=== PATIENT | female | born 1955 | race Caucasian/White ===

== ENCOUNTER → 2017-04-07 | Outpatient (CLI) | payer OTHER, MEDICARE ==
[~2017-04-07] MED LIST: ASPIRIN CHEW81 MG PO; DOXEPIN HCL100 MG PO; ESTRADIOL TD; FENTANYL1 EAC1 TOP; KEFLEX500 MG PO; LEXAPRO10 MG PO; LIPITOR20 MG PO; NAPROSYN500 MG PO; NAPROXEN250 MG PO; NORCO 10-325 T1 EACH PO; PROPRANOLOL HCL80 MG PO; SYNTHROID112 MCG PO
== END ==
LOC: WCC 15:13
PROVIDERS: ATTEND Family Medicine
DX: T86.821 Skin graft (allograft) (autograft) failure (principal); T81.89XA Other complications of procedures, not elsewhere classified, initial encounter; Y83.8 Other surgical procedures as the cause of abnormal reaction of the patient, or of later complication, without mention of misadventure at the time of the procedure; L03.115 Cellulitis of right lower limb; B96.89 Other specified bacterial agents as the cause of diseases classified elsewhere; L95.0 Livedoid vasculitis; B95.2 Enterococcus as the cause of diseases classified elsewhere; B96.5 Pseudomonas (aeruginosa) (mallei) (pseudomallei) as the cause of diseases classified elsewhere; E03.8 Other specified hypothyroidism; G89.18 Other acute postprocedural pain; G90.09 Other idiopathic peripheral autonomic neuropathy; I10 Essential (primary) hypertension; I70.213 Atherosclerosis of native arteries of extremities with intermittent claudication, bilateral legs; I73.9 Peripheral vascular disease, unspecified; I87.2 Venous insufficiency (chronic) (peripheral); I87.331 Chronic venous hypertension (idiopathic) with ulcer and inflammation of right lower extremity; L97.411 Non-pressure chronic ulcer of right heel and midfoot limited to breakdown of skin; L97.412 Non-pressure chronic ulcer of right heel and midfoot with fat layer exposed; I87.332 Chronic venous hypertension (idiopathic) with ulcer and inflammation of left lower extremity; L97.421 Non-pressure chronic ulcer of left heel and midfoot limited to breakdown of skin; L03.116 Cellulitis of left lower limb; L89.620 Pressure ulcer of left heel, unstageable; L89.890 Pressure ulcer of other site, unstageable; L90.5 Scar conditions and fibrosis of skin; L90.6 Striae atrophicae; L95.8 Other vasculitis limited to the skin; M79.604 Pain in right leg; R60.0 Localized edema; S91.309A Unspecified open wound, unspecified foot, initial encounter; W20.8XXA Other cause of strike by thrown, projected or falling object, initial encounter; Z01.810 Encounter for preprocedural cardiovascular examination; Z01.811 Encounter for preprocedural respiratory examination; Z74.01 Bed confinement status

== ENCOUNTER → 2017-04-08 | Outpatient (CLI) | payer OTHER, MEDICARE ==
[~2017-04-08] MED LIST changes: +MINERAL OIL/PETROLAT/GLYCERI 6OZ BTL ONE
== END ==
LOC: WCC 08:09
PROVIDERS: ATTEND Family Medicine
DX: T86.821 Skin graft (allograft) (autograft) failure (principal); T81.89XA Other complications of procedures, not elsewhere classified, initial encounter; Y83.8 Other surgical procedures as the cause of abnormal reaction of the patient, or of later complication, without mention of misadventure at the time of the procedure; L95.0 Livedoid vasculitis; B95.2 Enterococcus as the cause of diseases classified elsewhere; B96.5 Pseudomonas (aeruginosa) (mallei) (pseudomallei) as the cause of diseases classified elsewhere; E03.8 Other specified hypothyroidism; G89.18 Other acute postprocedural pain; G90.09 Other idiopathic peripheral autonomic neuropathy; I10 Essential (primary) hypertension; I70.213 Atherosclerosis of native arteries of extremities with intermittent claudication, bilateral legs; I73.9 Peripheral vascular disease, unspecified; I87.2 Venous insufficiency (chronic) (peripheral); I87.331 Chronic venous hypertension (idiopathic) with ulcer and inflammation of right lower extremity; L97.411 Non-pressure chronic ulcer of right heel and midfoot limited to breakdown of skin; L97.412 Non-pressure chronic ulcer of right heel and midfoot with fat layer exposed; I87.332 Chronic venous hypertension (idiopathic) with ulcer and inflammation of left lower extremity; L97.421 Non-pressure chronic ulcer of left heel and midfoot limited to breakdown of skin; L03.115 Cellulitis of right lower limb; B96.89 Other specified bacterial agents as the cause of diseases classified elsewhere; L03.116 Cellulitis of left lower limb; L89.620 Pressure ulcer of left heel, unstageable; L89.890 Pressure ulcer of other site, unstageable; L90.5 Scar conditions and fibrosis of skin; L90.6 Striae atrophicae; L95.8 Other vasculitis limited to the skin; M79.604 Pain in right leg; R60.0 Localized edema; S91.309A Unspecified open wound, unspecified foot, initial encounter; W20.8XXA Other cause of strike by thrown, projected or falling object, initial encounter; Z01.810 Encounter for preprocedural cardiovascular examination; Z01.811 Encounter for preprocedural respiratory examination; Z74.01 Bed confinement status

== ENCOUNTER → 2017-05-12 | Outpatient (CLI) | payer OTHER, MEDICARE ==
[~2017-05-12] MED LIST changes: -MINERAL OIL/PETROLAT/GLYCERI 6OZ BTL ONE
== END ==
LOC: WCC 14:13
PROVIDERS: ATTEND Family Medicine
DX: T86.821 Skin graft (allograft) (autograft) failure (principal); T81.89XA Other complications of procedures, not elsewhere classified, initial encounter; Y83.8 Other surgical procedures as the cause of abnormal reaction of the patient, or of later complication, without mention of misadventure at the time of the procedure; L03.032 Cellulitis of left toe; B96.89 Other specified bacterial agents as the cause of diseases classified elsewhere; L95.0 Livedoid vasculitis; B95.2 Enterococcus as the cause of diseases classified elsewhere; B96.5 Pseudomonas (aeruginosa) (mallei) (pseudomallei) as the cause of diseases classified elsewhere; E03.8 Other specified hypothyroidism; G89.18 Other acute postprocedural pain; G90.09 Other idiopathic peripheral autonomic neuropathy; I10 Essential (primary) hypertension; I70.213 Atherosclerosis of native arteries of extremities with intermittent claudication, bilateral legs; I73.9 Peripheral vascular disease, unspecified; I87.2 Venous insufficiency (chronic) (peripheral); I87.331 Chronic venous hypertension (idiopathic) with ulcer and inflammation of right lower extremity; L97.411 Non-pressure chronic ulcer of right heel and midfoot limited to breakdown of skin; L97.412 Non-pressure chronic ulcer of right heel and midfoot with fat layer exposed; I87.332 Chronic venous hypertension (idiopathic) with ulcer and inflammation of left lower extremity; L97.421 Non-pressure chronic ulcer of left heel and midfoot limited to breakdown of skin; L03.115 Cellulitis of right lower limb; L03.116 Cellulitis of left lower limb; L89.620 Pressure ulcer of left heel, unstageable; L89.890 Pressure ulcer of other site, unstageable; L90.5 Scar conditions and fibrosis of skin; L90.6 Striae atrophicae; L95.8 Other vasculitis limited to the skin; M79.604 Pain in right leg; R60.0 Localized edema; S91.309A Unspecified open wound, unspecified foot, initial encounter; W20.8XXA Other cause of strike by thrown, projected or falling object, initial encounter; Z01.810 Encounter for preprocedural cardiovascular examination; Z01.811 Encounter for preprocedural respiratory examination; Z74.01 Bed confinement status

== ENCOUNTER → 2017-05-13 | Outpatient (CLI) | payer OTHER, MEDICARE ==
[~2017-05-13] MED LIST changes: +LIDOCAINE VISC 2% SOLN 15 ML UDC ONE
== END ==
LOC: WCC 09:59
PROVIDERS: ATTEND Family Medicine
DX: T86.821 Skin graft (allograft) (autograft) failure (principal); T81.89XA Other complications of procedures, not elsewhere classified, initial encounter; Y83.8 Other surgical procedures as the cause of abnormal reaction of the patient, or of later complication, without mention of misadventure at the time of the procedure; L03.032 Cellulitis of left toe; B96.89 Other specified bacterial agents as the cause of diseases classified elsewhere; L95.0 Livedoid vasculitis; B95.2 Enterococcus as the cause of diseases classified elsewhere; B96.5 Pseudomonas (aeruginosa) (mallei) (pseudomallei) as the cause of diseases classified elsewhere; E03.8 Other specified hypothyroidism; G89.18 Other acute postprocedural pain; G90.09 Other idiopathic peripheral autonomic neuropathy; I10 Essential (primary) hypertension; I70.213 Atherosclerosis of native arteries of extremities with intermittent claudication, bilateral legs; I73.9 Peripheral vascular disease, unspecified; I87.2 Venous insufficiency (chronic) (peripheral); I87.331 Chronic venous hypertension (idiopathic) with ulcer and inflammation of right lower extremity; L97.411 Non-pressure chronic ulcer of right heel and midfoot limited to breakdown of skin; L97.412 Non-pressure chronic ulcer of right heel and midfoot with fat layer exposed; I87.332 Chronic venous hypertension (idiopathic) with ulcer and inflammation of left lower extremity; L97.421 Non-pressure chronic ulcer of left heel and midfoot limited to breakdown of skin; L03.115 Cellulitis of right lower limb; L03.116 Cellulitis of left lower limb; L89.620 Pressure ulcer of left heel, unstageable; L89.890 Pressure ulcer of other site, unstageable; L90.0 Lichen sclerosus et atrophicus; L95.8 Other vasculitis limited to the skin; M79.604 Pain in right leg; R60.0 Localized edema; S91.309A Unspecified open wound, unspecified foot, initial encounter; W20.8XXA Other cause of strike by thrown, projected or falling object, initial encounter; Z01.810 Encounter for preprocedural cardiovascular examination; Z01.811 Encounter for preprocedural respiratory examination; Z74.01 Bed confinement status

== ENCOUNTER → 2017-05-26 | Outpatient (CLI) | payer OTHER, MEDICARE ==
[~2017-05-26] MED LIST changes: -LIDOCAINE VISC 2% SOLN 15 ML UDC ONE
== END ==
LOC: WCC 12:25
PROVIDERS: ATTEND Family Medicine
DX: T86.821 Skin graft (allograft) (autograft) failure (principal); T81.89XA Other complications of procedures, not elsewhere classified, initial encounter; Y83.8 Other surgical procedures as the cause of abnormal reaction of the patient, or of later complication, without mention of misadventure at the time of the procedure; G89.18 Other acute postprocedural pain; L89.620 Pressure ulcer of left heel, unstageable; L89.890 Pressure ulcer of other site, unstageable; I87.332 Chronic venous hypertension (idiopathic) with ulcer and inflammation of left lower extremity; I87.331 Chronic venous hypertension (idiopathic) with ulcer and inflammation of right lower extremity; L97.421 Non-pressure chronic ulcer of left heel and midfoot limited to breakdown of skin; L97.412 Non-pressure chronic ulcer of right heel and midfoot with fat layer exposed; L97.411 Non-pressure chronic ulcer of right heel and midfoot limited to breakdown of skin; L03.116 Cellulitis of left lower limb; L03.032 Cellulitis of left toe; L03.115 Cellulitis of right lower limb; R60.0 Localized edema; M79.604 Pain in right leg; S91.309A Unspecified open wound, unspecified foot, initial encounter; B96.89 Other specified bacterial agents as the cause of diseases classified elsewhere; L95.0 Livedoid vasculitis; M79.81 Nontraumatic hematoma of soft tissue; B95.2 Enterococcus as the cause of diseases classified elsewhere; B96.5 Pseudomonas (aeruginosa) (mallei) (pseudomallei) as the cause of diseases classified elsewhere; E03.8 Other specified hypothyroidism; G90.09 Other idiopathic peripheral autonomic neuropathy; I10 Essential (primary) hypertension; I70.213 Atherosclerosis of native arteries of extremities with intermittent claudication, bilateral legs; I73.9 Peripheral vascular disease, unspecified; I87.2 Venous insufficiency (chronic) (peripheral); L90.5 Scar conditions and fibrosis of skin; L90.6 Striae atrophicae; L95.8 Other vasculitis limited to the skin; W20.8XXA Other cause of strike by thrown, projected or falling object, initial encounter; Z01.810 Encounter for preprocedural cardiovascular examination; Z01.811 Encounter for preprocedural respiratory examination

== ENCOUNTER → 2017-05-27 | Outpatient (CLI) | payer OTHER, MEDICARE ==
[~2017-05-27] MED LIST changes: +LIDOCAINE VISC 2% SOLN 15 ML UDC ONE
== END ==
LOC: WCC 09:12
PROVIDERS: ATTEND Family Medicine
DX: T86.821 Skin graft (allograft) (autograft) failure (principal); T81.89XA Other complications of procedures, not elsewhere classified, initial encounter; Y83.8 Other surgical procedures as the cause of abnormal reaction of the patient, or of later complication, without mention of misadventure at the time of the procedure; G89.18 Other acute postprocedural pain; I87.332 Chronic venous hypertension (idiopathic) with ulcer and inflammation of left lower extremity; I87.331 Chronic venous hypertension (idiopathic) with ulcer and inflammation of right lower extremity; L89.620 Pressure ulcer of left heel, unstageable; L89.890 Pressure ulcer of other site, unstageable; L97.421 Non-pressure chronic ulcer of left heel and midfoot limited to breakdown of skin; L97.412 Non-pressure chronic ulcer of right heel and midfoot with fat layer exposed; L97.411 Non-pressure chronic ulcer of right heel and midfoot limited to breakdown of skin; L03.116 Cellulitis of left lower limb; L03.032 Cellulitis of left toe; L03.115 Cellulitis of right lower limb; S91.309A Unspecified open wound, unspecified foot, initial encounter; R60.0 Localized edema; M79.604 Pain in right leg; B96.89 Other specified bacterial agents as the cause of diseases classified elsewhere; L90.6 Striae atrophicae; L95.0 Livedoid vasculitis; L90.5 Scar conditions and fibrosis of skin; L95.8 Other vasculitis limited to the skin; M79.81 Nontraumatic hematoma of soft tissue; B95.2 Enterococcus as the cause of diseases classified elsewhere; B96.5 Pseudomonas (aeruginosa) (mallei) (pseudomallei) as the cause of diseases classified elsewhere; E03.8 Other specified hypothyroidism; G90.09 Other idiopathic peripheral autonomic neuropathy; I10 Essential (primary) hypertension; I70.213 Atherosclerosis of native arteries of extremities with intermittent claudication, bilateral legs; I73.9 Peripheral vascular disease, unspecified; I87.2 Venous insufficiency (chronic) (peripheral); W20.8XXA Other cause of strike by thrown, projected or falling object, initial encounter; Z01.810 Encounter for preprocedural cardiovascular examination; Z01.811 Encounter for preprocedural respiratory examination
CPT/HCPCS: 11042; G0277

== ENCOUNTER → 2017-05-28 | Outpatient (CLI) | payer OTHER, MEDICARE ==
[~2017-05-28] MED LIST changes: -LIDOCAINE VISC 2% SOLN 15 ML UDC ONE
== END ==
LOC: WCC 10:24
PROVIDERS: ATTEND Family Medicine
DX: T86.821 Skin graft (allograft) (autograft) failure (principal); T81.89XA Other complications of procedures, not elsewhere classified, initial encounter; L03.032 Cellulitis of left toe; B96.89 Other specified bacterial agents as the cause of diseases classified elsewhere; L95.0 Livedoid vasculitis; M79.81 Nontraumatic hematoma of soft tissue; B95.2 Enterococcus as the cause of diseases classified elsewhere; B96.5 Pseudomonas (aeruginosa) (mallei) (pseudomallei) as the cause of diseases classified elsewhere; E03.8 Other specified hypothyroidism; G89.18 Other acute postprocedural pain; G90.09 Other idiopathic peripheral autonomic neuropathy; I10 Essential (primary) hypertension; I70.213 Atherosclerosis of native arteries of extremities with intermittent claudication, bilateral legs; I73.9 Peripheral vascular disease, unspecified; I87.2 Venous insufficiency (chronic) (peripheral); I87.331 Chronic venous hypertension (idiopathic) with ulcer and inflammation of right lower extremity; L97.411 Non-pressure chronic ulcer of right heel and midfoot limited to breakdown of skin; L97.412 Non-pressure chronic ulcer of right heel and midfoot with fat layer exposed; I87.332 Chronic venous hypertension (idiopathic) with ulcer and inflammation of left lower extremity; L97.421 Non-pressure chronic ulcer of left heel and midfoot limited to breakdown of skin; L03.115 Cellulitis of right lower limb; L03.116 Cellulitis of left lower limb; L89.620 Pressure ulcer of left heel, unstageable; L89.890 Pressure ulcer of other site, unstageable; L90.5 Scar conditions and fibrosis of skin; L90.6 Striae atrophicae; L95.8 Other vasculitis limited to the skin; M79.604 Pain in right leg; R60.0 Localized edema; S91.309A Unspecified open wound, unspecified foot, initial encounter; W20.8XXA Other cause of strike by thrown, projected or falling object, initial encounter; Z01.810 Encounter for preprocedural cardiovascular examination; Z01.811 Encounter for preprocedural respiratory examination

== ENCOUNTER → 2017-06-02 | Outpatient (CLI) | payer OTHER, MEDICARE | LOC: WCC 11:22 | PROVIDERS: ATTEND Family Medicine | DX: T86.821 Skin graft (allograft) (autograft) failure (principal); Y83.8 Other surgical procedures as the cause of abnormal reaction of the patient, or of later complication, without mention of misadventure at the time of the procedure; I87.331 Chronic venous hypertension (idiopathic) with ulcer and inflammation of right lower extremity; L97.511 Non-pressure chronic ulcer of other part of right foot limited to breakdown of skin; M79.81 Nontraumatic hematoma of soft tissue; L03.032 Cellulitis of left toe; M79.604 Pain in right leg; B96.89 Other specified bacterial agents as the cause of diseases classified elsewhere; W20.8XXA Other cause of strike by thrown, projected or falling object, initial encounter; L95.0 Livedoid vasculitis; L90.6 Striae atrophicae; L90.5 Scar conditions and fibrosis of skin; G90.09 Other idiopathic peripheral autonomic neuropathy; I10 Essential (primary) hypertension; I70.213 Atherosclerosis of native arteries of extremities with intermittent claudication, bilateral legs; I73.9 Peripheral vascular disease, unspecified; I87.2 Venous insufficiency (chronic) (peripheral); E03.8 Other specified hypothyroidism; Z01.810 Encounter for preprocedural cardiovascular examination; Z01.811 Encounter for preprocedural respiratory examination; Z74.01 Bed confinement status ==

== ENCOUNTER → 2017-06-03 | Outpatient (CLI) | payer OTHER, MEDICARE | LOC: WCC 08:05 | PROVIDERS: ATTEND Family Medicine | DX: T86.821 Skin graft (allograft) (autograft) failure (principal); I87.331 Chronic venous hypertension (idiopathic) with ulcer and inflammation of right lower extremity; L97.911 Non-pressure chronic ulcer of unspecified part of right lower leg limited to breakdown of skin; M79.81 Nontraumatic hematoma of soft tissue; L03.032 Cellulitis of left toe; B96.89 Other specified bacterial agents as the cause of diseases classified elsewhere; Y83.8 Other surgical procedures as the cause of abnormal reaction of the patient, or of later complication, without mention of misadventure at the time of the procedure; W20.8XXA Other cause of strike by thrown, projected or falling object, initial encounter; L95.0 Livedoid vasculitis; Z01.810 Encounter for preprocedural cardiovascular examination; G90.09 Other idiopathic peripheral autonomic neuropathy; I10 Essential (primary) hypertension; I70.213 Atherosclerosis of native arteries of extremities with intermittent claudication, bilateral legs; I73.9 Peripheral vascular disease, unspecified; I87.2 Venous insufficiency (chronic) (peripheral); L90.6 Striae atrophicae; L90.5 Scar conditions and fibrosis of skin ==

== ENCOUNTER → 2017-06-04 | Outpatient (CLI) | payer OTHER, MEDICARE | LOC: WCC 10:02 | PROVIDERS: ATTEND Family Medicine | DX: T86.821 Skin graft (allograft) (autograft) failure (principal); Y83.8 Other surgical procedures as the cause of abnormal reaction of the patient, or of later complication, without mention of misadventure at the time of the procedure; L97.511 Non-pressure chronic ulcer of other part of right foot limited to breakdown of skin; L03.032 Cellulitis of left toe; I87.331 Chronic venous hypertension (idiopathic) with ulcer and inflammation of right lower extremity; M79.81 Nontraumatic hematoma of soft tissue; I70.213 Atherosclerosis of native arteries of extremities with intermittent claudication, bilateral legs; I73.9 Peripheral vascular disease, unspecified; I87.2 Venous insufficiency (chronic) (peripheral); B96.89 Other specified bacterial agents as the cause of diseases classified elsewhere; G90.09 Other idiopathic peripheral autonomic neuropathy; I10 Essential (primary) hypertension; L90.6 Striae atrophicae; L95.0 Livedoid vasculitis; L90.5 Scar conditions and fibrosis of skin; W20.8XXA Other cause of strike by thrown, projected or falling object, initial encounter; Z01.810 Encounter for preprocedural cardiovascular examination ==

== ENCOUNTER → 2017-06-05 | Outpatient (CLI) | payer OTHER, MEDICARE | LOC: WCC 09:30 | PROVIDERS: ATTEND Family Medicine | DX: T86.821 Skin graft (allograft) (autograft) failure (principal); T81.89XA Other complications of procedures, not elsewhere classified, initial encounter; Y83.8 Other surgical procedures as the cause of abnormal reaction of the patient, or of later complication, without mention of misadventure at the time of the procedure; G89.18 Other acute postprocedural pain; L89.620 Pressure ulcer of left heel, unstageable; L89.890 Pressure ulcer of other site, unstageable; I87.332 Chronic venous hypertension (idiopathic) with ulcer and inflammation of left lower extremity; I87.331 Chronic venous hypertension (idiopathic) with ulcer and inflammation of right lower extremity; L97.421 Non-pressure chronic ulcer of left heel and midfoot limited to breakdown of skin; L97.511 Non-pressure chronic ulcer of other part of right foot limited to breakdown of skin; L97.412 Non-pressure chronic ulcer of right heel and midfoot with fat layer exposed; L97.411 Non-pressure chronic ulcer of right heel and midfoot limited to breakdown of skin; L03.116 Cellulitis of left lower limb; L03.032 Cellulitis of left toe; L03.115 Cellulitis of right lower limb; S91.309A Unspecified open wound, unspecified foot, initial encounter; M79.604 Pain in right leg; R60.0 Localized edema; B96.89 Other specified bacterial agents as the cause of diseases classified elsewhere; L95.0 Livedoid vasculitis; M79.81 Nontraumatic hematoma of soft tissue; B95.2 Enterococcus as the cause of diseases classified elsewhere; B96.5 Pseudomonas (aeruginosa) (mallei) (pseudomallei) as the cause of diseases classified elsewhere; E03.8 Other specified hypothyroidism; G90.09 Other idiopathic peripheral autonomic neuropathy; I10 Essential (primary) hypertension; I70.213 Atherosclerosis of native arteries of extremities with intermittent claudication, bilateral legs; I73.9 Peripheral vascular disease, unspecified; I87.2 Venous insufficiency (chronic) (peripheral); L90.5 Scar conditions and fibrosis of skin; L90.6 Striae atrophicae; L95.8 Other vasculitis limited to the skin; W20.8XXA Other cause of strike by thrown, projected or falling object, initial encounter; Z01.810 Encounter for preprocedural cardiovascular examination; Z01.811 Encounter for preprocedural respiratory examination; Z74.01 Bed confinement status ==

== ENCOUNTER → 2017-06-10 | Outpatient (CLI) | payer OTHER, MEDICARE ==
[~2017-06-10] MED LIST changes: +LIDOCAINE/PRILOCAINE 2.5-2.5% KIT ONE
== END ==
LOC: WCC 08:32
PROVIDERS: ATTEND Family Medicine
DX: T86.821 Skin graft (allograft) (autograft) failure (principal); T81.89XA Other complications of procedures, not elsewhere classified, initial encounter; Y83.8 Other surgical procedures as the cause of abnormal reaction of the patient, or of later complication, without mention of misadventure at the time of the procedure; G89.18 Other acute postprocedural pain; I87.332 Chronic venous hypertension (idiopathic) with ulcer and inflammation of left lower extremity; I87.331 Chronic venous hypertension (idiopathic) with ulcer and inflammation of right lower extremity; L89.620 Pressure ulcer of left heel, unstageable; L89.890 Pressure ulcer of other site, unstageable; L97.421 Non-pressure chronic ulcer of left heel and midfoot limited to breakdown of skin; L97.412 Non-pressure chronic ulcer of right heel and midfoot with fat layer exposed; L97.411 Non-pressure chronic ulcer of right heel and midfoot limited to breakdown of skin; L97.511 Non-pressure chronic ulcer of other part of right foot limited to breakdown of skin; L03.116 Cellulitis of left lower limb; L03.032 Cellulitis of left toe; L03.115 Cellulitis of right lower limb; S91.309A Unspecified open wound, unspecified foot, initial encounter; M79.604 Pain in right leg; R60.0 Localized edema; I87.2 Venous insufficiency (chronic) (peripheral); I73.9 Peripheral vascular disease, unspecified; B96.89 Other specified bacterial agents as the cause of diseases classified elsewhere; L95.0 Livedoid vasculitis; M79.81 Nontraumatic hematoma of soft tissue; B95.2 Enterococcus as the cause of diseases classified elsewhere; B96.5 Pseudomonas (aeruginosa) (mallei) (pseudomallei) as the cause of diseases classified elsewhere; I10 Essential (primary) hypertension; E03.8 Other specified hypothyroidism; G90.09 Other idiopathic peripheral autonomic neuropathy; I70.213 Atherosclerosis of native arteries of extremities with intermittent claudication, bilateral legs; L90.5 Scar conditions and fibrosis of skin; L90.6 Striae atrophicae; L95.8 Other vasculitis limited to the skin; W20.8XXA Other cause of strike by thrown, projected or falling object, initial encounter; Z01.810 Encounter for preprocedural cardiovascular examination; Z01.811 Encounter for preprocedural respiratory examination; Z74.01 Bed confinement status
CPT/HCPCS: 29581; 97597; G0277

== ENCOUNTER → 2017-06-12 | Outpatient (CLI) | payer OTHER, MEDICARE ==
[~2017-06-12] MED LIST changes: -LIDOCAINE/PRILOCAINE 2.5-2.5% KIT ONE
== END ==
LOC: WCC 09:44
PROVIDERS: ATTEND Family Medicine
DX: T86.821 Skin graft (allograft) (autograft) failure (principal); T81.89XA Other complications of procedures, not elsewhere classified, initial encounter; Y83.8 Other surgical procedures as the cause of abnormal reaction of the patient, or of later complication, without mention of misadventure at the time of the procedure; G89.18 Other acute postprocedural pain; I87.332 Chronic venous hypertension (idiopathic) with ulcer and inflammation of left lower extremity; I87.331 Chronic venous hypertension (idiopathic) with ulcer and inflammation of right lower extremity; L89.620 Pressure ulcer of left heel, unstageable; L97.421 Non-pressure chronic ulcer of left heel and midfoot limited to breakdown of skin; L97.412 Non-pressure chronic ulcer of right heel and midfoot with fat layer exposed; L97.511 Non-pressure chronic ulcer of other part of right foot limited to breakdown of skin; L97.411 Non-pressure chronic ulcer of right heel and midfoot limited to breakdown of skin; S91.309A Unspecified open wound, unspecified foot, initial encounter; L03.116 Cellulitis of left lower limb; L03.032 Cellulitis of left toe; L03.115 Cellulitis of right lower limb; L03.818 Cellulitis of other sites; R60.0 Localized edema; M79.604 Pain in right leg; I73.9 Peripheral vascular disease, unspecified; I87.2 Venous insufficiency (chronic) (peripheral); B96.89 Other specified bacterial agents as the cause of diseases classified elsewhere; B95.2 Enterococcus as the cause of diseases classified elsewhere; B96.5 Pseudomonas (aeruginosa) (mallei) (pseudomallei) as the cause of diseases classified elsewhere; I70.213 Atherosclerosis of native arteries of extremities with intermittent claudication, bilateral legs; L90.5 Scar conditions and fibrosis of skin; E03.8 Other specified hypothyroidism; M79.81 Nontraumatic hematoma of soft tissue; L90.6 Striae atrophicae; G90.09 Other idiopathic peripheral autonomic neuropathy; L95.0 Livedoid vasculitis; L95.8 Other vasculitis limited to the skin; W20.8XXA Other cause of strike by thrown, projected or falling object, initial encounter; I10 Essential (primary) hypertension; Z01.810 Encounter for preprocedural cardiovascular examination; Z01.811 Encounter for preprocedural respiratory examination; Z74.01 Bed confinement status

== ENCOUNTER → 2017-06-17 | Outpatient (CLI) | payer OTHER, MEDICARE ==
[~2017-06-17] MED LIST changes: +LIDOCAINE/PRILOCAINE 2.5-2.5% KIT ONE; +MUPIROCIN 2% OINT 22 GM TUBE ONE
== END ==
LOC: WCC 08:46
PROVIDERS: ATTEND Family Medicine
DX: T86.821 Skin graft (allograft) (autograft) failure (principal); T81.89XA Other complications of procedures, not elsewhere classified, initial encounter; Y83.8 Other surgical procedures as the cause of abnormal reaction of the patient, or of later complication, without mention of misadventure at the time of the procedure; G89.18 Other acute postprocedural pain; I87.332 Chronic venous hypertension (idiopathic) with ulcer and inflammation of left lower extremity; I87.331 Chronic venous hypertension (idiopathic) with ulcer and inflammation of right lower extremity; L97.421 Non-pressure chronic ulcer of left heel and midfoot limited to breakdown of skin; L97.511 Non-pressure chronic ulcer of other part of right foot limited to breakdown of skin; L97.412 Non-pressure chronic ulcer of right heel and midfoot with fat layer exposed; L97.411 Non-pressure chronic ulcer of right heel and midfoot limited to breakdown of skin; L03.116 Cellulitis of left lower limb; L03.032 Cellulitis of left toe; L03.115 Cellulitis of right lower limb; L03.818 Cellulitis of other sites; L89.620 Pressure ulcer of left heel, unstageable; L89.890 Pressure ulcer of other site, unstageable; S91.309A Unspecified open wound, unspecified foot, initial encounter; M79.604 Pain in right leg; R60.0 Localized edema; I87.2 Venous insufficiency (chronic) (peripheral); I73.9 Peripheral vascular disease, unspecified; B96.89 Other specified bacterial agents as the cause of diseases classified elsewhere; L95.0 Livedoid vasculitis; M79.81 Nontraumatic hematoma of soft tissue; B95.2 Enterococcus as the cause of diseases classified elsewhere; B96.5 Pseudomonas (aeruginosa) (mallei) (pseudomallei) as the cause of diseases classified elsewhere; I10 Essential (primary) hypertension; E03.8 Other specified hypothyroidism; G90.09 Other idiopathic peripheral autonomic neuropathy; I70.213 Atherosclerosis of native arteries of extremities with intermittent claudication, bilateral legs; L90.5 Scar conditions and fibrosis of skin; L90.6 Striae atrophicae; L95.8 Other vasculitis limited to the skin; W20.8XXA Other cause of strike by thrown, projected or falling object, initial encounter; Z01.810 Encounter for preprocedural cardiovascular examination; Z01.811 Encounter for preprocedural respiratory examination; Z74.01 Bed confinement status

== ENCOUNTER → 2017-06-18 | Outpatient (CLI) | payer OTHER, MEDICARE ==
[~2017-06-18] MED LIST changes: -LIDOCAINE/PRILOCAINE 2.5-2.5% KIT ONE; -MUPIROCIN 2% OINT 22 GM TUBE ONE
== END ==
LOC: WCC 10:37
PROVIDERS: ATTEND Family Medicine
DX: T86.821 Skin graft (allograft) (autograft) failure (principal); T81.89XA Other complications of procedures, not elsewhere classified, initial encounter; Y83.8 Other surgical procedures as the cause of abnormal reaction of the patient, or of later complication, without mention of misadventure at the time of the procedure; G89.18 Other acute postprocedural pain; L89.620 Pressure ulcer of left heel, unstageable; L89.890 Pressure ulcer of other site, unstageable; L97.421 Non-pressure chronic ulcer of left heel and midfoot limited to breakdown of skin; L97.511 Non-pressure chronic ulcer of other part of right foot limited to breakdown of skin; L97.411 Non-pressure chronic ulcer of right heel and midfoot limited to breakdown of skin; L97.412 Non-pressure chronic ulcer of right heel and midfoot with fat layer exposed; I87.331 Chronic venous hypertension (idiopathic) with ulcer and inflammation of right lower extremity; L03.116 Cellulitis of left lower limb; L03.032 Cellulitis of left toe; L03.115 Cellulitis of right lower limb; L03.818 Cellulitis of other sites; S91.309A Unspecified open wound, unspecified foot, initial encounter; M79.604 Pain in right leg; R60.0 Localized edema; I73.9 Peripheral vascular disease, unspecified; I87.2 Venous insufficiency (chronic) (peripheral); B96.89 Other specified bacterial agents as the cause of diseases classified elsewhere; M79.81 Nontraumatic hematoma of soft tissue; B95.2 Enterococcus as the cause of diseases classified elsewhere; B96.5 Pseudomonas (aeruginosa) (mallei) (pseudomallei) as the cause of diseases classified elsewhere; E03.8 Other specified hypothyroidism; I10 Essential (primary) hypertension; G90.09 Other idiopathic peripheral autonomic neuropathy; I70.213 Atherosclerosis of native arteries of extremities with intermittent claudication, bilateral legs; L90.5 Scar conditions and fibrosis of skin; L90.6 Striae atrophicae; L95.0 Livedoid vasculitis; L95.8 Other vasculitis limited to the skin; W20.8XXA Other cause of strike by thrown, projected or falling object, initial encounter; Z01.810 Encounter for preprocedural cardiovascular examination; Z01.811 Encounter for preprocedural respiratory examination; Z74.01 Bed confinement status
CPT/HCPCS: 11042; G0277

== ENCOUNTER → 2017-06-19 | Outpatient (CLI) | payer OTHER, MEDICARE ==
[~2017-06-19] MED LIST changes: +IOPAMIDOL 370 MG/ML 200 ML INFUS..BTL INJ ONE; +SODIUM CHLORIDE 0.9% INJ 500 ML BAG ONE
[2017-06-19 15:13] LABS: CREATININE, SERUM 0.95 mg/dL (0.57-1.11)
--- NOTE | 2017-06-20 01:47 | Diagnostic Imaging Report ---
History: Enlarged thyroid, tightness in throat Comparison studies: None Technique: Axial, coronal and sagittal images from the skull base to the thoracic inlet. Coronal and sagittal images reconstructed from the axial data. Intravenous contrast: 100 cc of Omnipaque 300. Findings: Evaluation of the oral cavity and left oropharynx are somewhat limited by artifacts related to dental amalgam. Soft tissues: No abnormalities. Masses: None. Thyroid gland: Homogeneous and not enlarged. No nodular mass. Lymph nodes: No radiographically significant adenopathy. Vessels: Carotid arteries and internal jugular veins are patent. Anatomical variant retropulsion course of the internal carotid arteries. Nonstenotic calcified plaque at the left cervical bulb. Calcified and soft plaque at the right cervical bulb results in approximately 30-40% stenosis. Glands (parotid and submandibular): Normal in size and symmetric. No masses. Orbits: No abnormalities. Paranasal sinuses: Clear. Temporal bones: Nonspecific partial left mastoid opacification. Skull base and facial bones: Intact. Cervical spine: Mild cervical kyphosis centered at C5-C6. Severely degenerated C5-C6 disc. Minimal retrolisthesis of C5 on C6 with associated disc osteophyte complex result in moderate canal stenosis. Multilevel moderate to severe facet arthrosis. Multilevel uncovertebral and facet arthrosis result in multilevel foraminal stenosis (mild left at C2-C3 moderate left at C3-C4 moderate right at C4-C5 moderate right at C5-C6). IMPRESSION: 1. No thyroid gland enlargement or thyroid nodule. 2. Atherosclerosis with mild stenosis in the right cervical carotid bulb. 3. Multilevel degenerative changes in the cervical spine as described. Signed by: Dr. Bello Richardson M.D. on 06/20/2017 1:43 AM
== END ==
LOC: CT 14:19
PROVIDERS: ATTEND Internal Medicine Infectious Disease
DX: T86.821 Skin graft (allograft) (autograft) failure (principal); T81.89XA Other complications of procedures, not elsewhere classified, initial encounter; Y83.8 Other surgical procedures as the cause of abnormal reaction of the patient, or of later complication, without mention of misadventure at the time of the procedure; G89.18 Other acute postprocedural pain; I87.332 Chronic venous hypertension (idiopathic) with ulcer and inflammation of left lower extremity; I87.331 Chronic venous hypertension (idiopathic) with ulcer and inflammation of right lower extremity; L89.620 Pressure ulcer of left heel, unstageable; L89.890 Pressure ulcer of other site, unstageable; L97.421 Non-pressure chronic ulcer of left heel and midfoot limited to breakdown of skin; L97.412 Non-pressure chronic ulcer of right heel and midfoot with fat layer exposed; L97.411 Non-pressure chronic ulcer of right heel and midfoot limited to breakdown of skin; L97.511 Non-pressure chronic ulcer of other part of right foot limited to breakdown of skin; L03.116 Cellulitis of left lower limb; L03.032 Cellulitis of left toe; L03.115 Cellulitis of right lower limb; L03.818 Cellulitis of other sites; S91.309A Unspecified open wound, unspecified foot, initial encounter; M79.604 Pain in right leg; R60.0 Localized edema; M79.81 Nontraumatic hematoma of soft tissue; I70.213 Atherosclerosis of native arteries of extremities with intermittent claudication, bilateral legs; I73.9 Peripheral vascular disease, unspecified; I87.2 Venous insufficiency (chronic) (peripheral); B96.89 Other specified bacterial agents as the cause of diseases classified elsewhere; L95.0 Livedoid vasculitis; B95.2 Enterococcus as the cause of diseases classified elsewhere; B96.5 Pseudomonas (aeruginosa) (mallei) (pseudomallei) as the cause of diseases classified elsewhere; I10 Essential (primary) hypertension; E03.8 Other specified hypothyroidism; G90.09 Other idiopathic peripheral autonomic neuropathy; L90.5 Scar conditions and fibrosis of skin; L90.6 Striae atrophicae; L95.8 Other vasculitis limited to the skin; W20.8XXA Other cause of strike by thrown, projected or falling object, initial encounter; Z01.810 Encounter for preprocedural cardiovascular examination; Z01.811 Encounter for preprocedural respiratory examination; Z74.01 Bed confinement status
CPT/HCPCS: 36415; 70491; 82565; 84520

== ENCOUNTER → 2017-07-01 | Outpatient (CLI) | payer OTHER, MEDICARE ==
[~2017-07-01] MED LIST changes: -IOPAMIDOL 370 MG/ML 200 ML INFUS..BTL INJ ONE; +LIDOCAINE/PRILOCAINE 2.5-2.5% KIT ONE; +SODIUM CHLORIDE 0.9% INJ 250 ML BAG ONE; -SODIUM CHLORIDE 0.9% INJ 500 ML BAG ONE
== END ==
LOC: WCC 10:49
PROVIDERS: ATTEND Family Medicine
DX: T86.821 Skin graft (allograft) (autograft) failure (principal); T81.89XA Other complications of procedures, not elsewhere classified, initial encounter; Y83.8 Other surgical procedures as the cause of abnormal reaction of the patient, or of later complication, without mention of misadventure at the time of the procedure; G89.18 Other acute postprocedural pain; L89.620 Pressure ulcer of left heel, unstageable; L89.890 Pressure ulcer of other site, unstageable; L97.421 Non-pressure chronic ulcer of left heel and midfoot limited to breakdown of skin; L97.412 Non-pressure chronic ulcer of right heel and midfoot with fat layer exposed; L97.511 Non-pressure chronic ulcer of other part of right foot limited to breakdown of skin; L97.411 Non-pressure chronic ulcer of right heel and midfoot limited to breakdown of skin; I87.332 Chronic venous hypertension (idiopathic) with ulcer and inflammation of left lower extremity; I87.331 Chronic venous hypertension (idiopathic) with ulcer and inflammation of right lower extremity; L03.116 Cellulitis of left lower limb; L03.032 Cellulitis of left toe; L03.115 Cellulitis of right lower limb; S91.309A Unspecified open wound, unspecified foot, initial encounter; M79.604 Pain in right leg; R60.0 Localized edema; I73.9 Peripheral vascular disease, unspecified; I70.213 Atherosclerosis of native arteries of extremities with intermittent claudication, bilateral legs; I87.2 Venous insufficiency (chronic) (peripheral); B96.89 Other specified bacterial agents as the cause of diseases classified elsewhere; L95.0 Livedoid vasculitis; M79.81 Nontraumatic hematoma of soft tissue; B95.2 Enterococcus as the cause of diseases classified elsewhere; B96.5 Pseudomonas (aeruginosa) (mallei) (pseudomallei) as the cause of diseases classified elsewhere; E03.8 Other specified hypothyroidism; G90.09 Other idiopathic peripheral autonomic neuropathy; I10 Essential (primary) hypertension; L90.5 Scar conditions and fibrosis of skin; L90.6 Striae atrophicae; L95.8 Other vasculitis limited to the skin; W20.8XXA Other cause of strike by thrown, projected or falling object, initial encounter; Z01.810 Encounter for preprocedural cardiovascular examination; Z01.811 Encounter for preprocedural respiratory examination; Z74.01 Bed confinement status
CPT/HCPCS: 99213; J7050

== ENCOUNTER → 2017-07-08 | Outpatient (CLI) | payer OTHER, MEDICARE ==
[~2017-07-08] MED LIST changes: -LIDOCAINE/PRILOCAINE 2.5-2.5% KIT ONE; -SODIUM CHLORIDE 0.9% INJ 250 ML BAG ONE
== END ==
LOC: WCC 10:36
PROVIDERS: ATTEND Family Medicine
DX: T86.821 Skin graft (allograft) (autograft) failure (principal); T81.89XA Other complications of procedures, not elsewhere classified, initial encounter; Y83.8 Other surgical procedures as the cause of abnormal reaction of the patient, or of later complication, without mention of misadventure at the time of the procedure; G89.18 Other acute postprocedural pain; L89.620 Pressure ulcer of left heel, unstageable; L89.890 Pressure ulcer of other site, unstageable; L97.421 Non-pressure chronic ulcer of left heel and midfoot limited to breakdown of skin; L97.412 Non-pressure chronic ulcer of right heel and midfoot with fat layer exposed; L97.411 Non-pressure chronic ulcer of right heel and midfoot limited to breakdown of skin; L97.511 Non-pressure chronic ulcer of other part of right foot limited to breakdown of skin; I87.332 Chronic venous hypertension (idiopathic) with ulcer and inflammation of left lower extremity; I87.331 Chronic venous hypertension (idiopathic) with ulcer and inflammation of right lower extremity; L03.116 Cellulitis of left lower limb; L03.032 Cellulitis of left toe; L03.115 Cellulitis of right lower limb; S91.309A Unspecified open wound, unspecified foot, initial encounter; M79.81 Nontraumatic hematoma of soft tissue; R60.0 Localized edema; M79.604 Pain in right leg; B96.89 Other specified bacterial agents as the cause of diseases classified elsewhere; I87.2 Venous insufficiency (chronic) (peripheral); I73.9 Peripheral vascular disease, unspecified; L95.0 Livedoid vasculitis; L90.6 Striae atrophicae; L90.5 Scar conditions and fibrosis of skin; L95.8 Other vasculitis limited to the skin; B95.2 Enterococcus as the cause of diseases classified elsewhere; B96.5 Pseudomonas (aeruginosa) (mallei) (pseudomallei) as the cause of diseases classified elsewhere; E03.8 Other specified hypothyroidism; G90.09 Other idiopathic peripheral autonomic neuropathy; I10 Essential (primary) hypertension; I70.213 Atherosclerosis of native arteries of extremities with intermittent claudication, bilateral legs; W20.8XXA Other cause of strike by thrown, projected or falling object, initial encounter; Z01.810 Encounter for preprocedural cardiovascular examination; Z01.811 Encounter for preprocedural respiratory examination; Z74.01 Bed confinement status

== ENCOUNTER → 2017-07-15 | Outpatient (CLI) | payer OTHER, MEDICARE ==
[~2017-07-15] MED LIST changes: +LIDOCAINE VISC 2% SOLN 15 ML UDC ONE
== END ==
LOC: WCC 10:26
PROVIDERS: ATTEND Family Medicine
DX: T86.821 Skin graft (allograft) (autograft) failure (principal); T81.89XA Other complications of procedures, not elsewhere classified, initial encounter; Y83.8 Other surgical procedures as the cause of abnormal reaction of the patient, or of later complication, without mention of misadventure at the time of the procedure; L03.032 Cellulitis of left toe; B96.89 Other specified bacterial agents as the cause of diseases classified elsewhere; L95.0 Livedoid vasculitis; S81.802A Unspecified open wound, left lower leg, initial encounter; B95.2 Enterococcus as the cause of diseases classified elsewhere; B96.5 Pseudomonas (aeruginosa) (mallei) (pseudomallei) as the cause of diseases classified elsewhere; E03.8 Other specified hypothyroidism; G89.18 Other acute postprocedural pain; G90.09 Other idiopathic peripheral autonomic neuropathy; I10 Essential (primary) hypertension; I70.213 Atherosclerosis of native arteries of extremities with intermittent claudication, bilateral legs; I73.9 Peripheral vascular disease, unspecified; I87.2 Venous insufficiency (chronic) (peripheral); I87.331 Chronic venous hypertension (idiopathic) with ulcer and inflammation of right lower extremity; L97.411 Non-pressure chronic ulcer of right heel and midfoot limited to breakdown of skin; I87.332 Chronic venous hypertension (idiopathic) with ulcer and inflammation of left lower extremity; L97.421 Non-pressure chronic ulcer of left heel and midfoot limited to breakdown of skin; L03.115 Cellulitis of right lower limb; L03.116 Cellulitis of left lower limb; L89.620 Pressure ulcer of left heel, unstageable; L89.890 Pressure ulcer of other site, unstageable; L90.5 Scar conditions and fibrosis of skin; L90.6 Striae atrophicae; L95.8 Other vasculitis limited to the skin; M79.604 Pain in right leg; R60.0 Localized edema; S91.309A Unspecified open wound, unspecified foot, initial encounter; W20.8XXA Other cause of strike by thrown, projected or falling object, initial encounter; Z01.810 Encounter for preprocedural cardiovascular examination; Z01.811 Encounter for preprocedural respiratory examination; Z74.01 Bed confinement status

== ENCOUNTER → 2017-07-16 | Outpatient (CLI) | payer OTHER, MEDICARE ==
[~2017-07-16] MED LIST changes: -LIDOCAINE VISC 2% SOLN 15 ML UDC ONE
== END ==
LOC: WCC 11:52
PROVIDERS: ATTEND Family Medicine
DX: T86.821 Skin graft (allograft) (autograft) failure (principal); T81.89XA Other complications of procedures, not elsewhere classified, initial encounter; Y83.8 Other surgical procedures as the cause of abnormal reaction of the patient, or of later complication, without mention of misadventure at the time of the procedure; L03.032 Cellulitis of left toe; B96.89 Other specified bacterial agents as the cause of diseases classified elsewhere; L95.0 Livedoid vasculitis; S81.802A Unspecified open wound, left lower leg, initial encounter; B95.2 Enterococcus as the cause of diseases classified elsewhere; B90 Sequelae of tuberculosis; E03.8 Other specified hypothyroidism; G89.18 Other acute postprocedural pain; G90.09 Other idiopathic peripheral autonomic neuropathy; I10 Essential (primary) hypertension; I70.213 Atherosclerosis of native arteries of extremities with intermittent claudication, bilateral legs; I73.9 Peripheral vascular disease, unspecified; I87.2 Venous insufficiency (chronic) (peripheral); I87.331 Chronic venous hypertension (idiopathic) with ulcer and inflammation of right lower extremity; L97.411 Non-pressure chronic ulcer of right heel and midfoot limited to breakdown of skin; I87.332 Chronic venous hypertension (idiopathic) with ulcer and inflammation of left lower extremity; L97.421 Non-pressure chronic ulcer of left heel and midfoot limited to breakdown of skin; L03.115 Cellulitis of right lower limb; L03.116 Cellulitis of left lower limb; L89.620 Pressure ulcer of left heel, unstageable; L89.890 Pressure ulcer of other site, unstageable; L90.5 Scar conditions and fibrosis of skin; L90.6 Striae atrophicae; L95.8 Other vasculitis limited to the skin; M79.604 Pain in right leg; R60.0 Localized edema; S91.309A Unspecified open wound, unspecified foot, initial encounter; W20.8XXA Other cause of strike by thrown, projected or falling object, initial encounter; Z01.810 Encounter for preprocedural cardiovascular examination; Z01.811 Encounter for preprocedural respiratory examination; Z74.01 Bed confinement status
CPT/HCPCS: 36415; 82948

== ENCOUNTER → 2017-07-17 | Outpatient (CLI) | payer OTHER, MEDICARE | LOC: WCC 11:08 | PROVIDERS: ATTEND Family Medicine | DX: T86.821 Skin graft (allograft) (autograft) failure (principal); T81.89XA Other complications of procedures, not elsewhere classified, initial encounter; Y83.8 Other surgical procedures as the cause of abnormal reaction of the patient, or of later complication, without mention of misadventure at the time of the procedure; G89.18 Other acute postprocedural pain; L89.620 Pressure ulcer of left heel, unstageable; L89.890 Pressure ulcer of other site, unstageable; L97.421 Non-pressure chronic ulcer of left heel and midfoot limited to breakdown of skin; L97.411 Non-pressure chronic ulcer of right heel and midfoot limited to breakdown of skin; I87.332 Chronic venous hypertension (idiopathic) with ulcer and inflammation of left lower extremity; I87.331 Chronic venous hypertension (idiopathic) with ulcer and inflammation of right lower extremity; L03.116 Cellulitis of left lower limb; L03.032 Cellulitis of left toe; L03.115 Cellulitis of right lower limb; S81.802A Unspecified open wound, left lower leg, initial encounter; S91.309A Unspecified open wound, unspecified foot, initial encounter; M79.604 Pain in right leg; R60.0 Localized edema; I73.9 Peripheral vascular disease, unspecified; I87.2 Venous insufficiency (chronic) (peripheral); B96.89 Other specified bacterial agents as the cause of diseases classified elsewhere; L95.0 Livedoid vasculitis; L90.6 Striae atrophicae; L95.8 Other vasculitis limited to the skin; L90.5 Scar conditions and fibrosis of skin; B95.2 Enterococcus as the cause of diseases classified elsewhere; B96.5 Pseudomonas (aeruginosa) (mallei) (pseudomallei) as the cause of diseases classified elsewhere; E03.8 Other specified hypothyroidism; G90.09 Other idiopathic peripheral autonomic neuropathy; I10 Essential (primary) hypertension; I70.213 Atherosclerosis of native arteries of extremities with intermittent claudication, bilateral legs; W20.8XXA Other cause of strike by thrown, projected or falling object, initial encounter; Z01.810 Encounter for preprocedural cardiovascular examination; Z01.811 Encounter for preprocedural respiratory examination; Z74.01 Bed confinement status ==

== ENCOUNTER → 2017-07-21 | Outpatient (CLI) | payer OTHER, MEDICARE | LOC: WCC 10:04 | PROVIDERS: ATTEND Family Medicine | DX: T86.821 Skin graft (allograft) (autograft) failure (principal); T81.89XA Other complications of procedures, not elsewhere classified, initial encounter; Y83.8 Other surgical procedures as the cause of abnormal reaction of the patient, or of later complication, without mention of misadventure at the time of the procedure; G89.18 Other acute postprocedural pain; I87.332 Chronic venous hypertension (idiopathic) with ulcer and inflammation of left lower extremity; I87.331 Chronic venous hypertension (idiopathic) with ulcer and inflammation of right lower extremity; L89.620 Pressure ulcer of left heel, unstageable; L89.890 Pressure ulcer of other site, unstageable; L97.411 Non-pressure chronic ulcer of right heel and midfoot limited to breakdown of skin; L97.511 Non-pressure chronic ulcer of other part of right foot limited to breakdown of skin; L97.421 Non-pressure chronic ulcer of left heel and midfoot limited to breakdown of skin; L03.032 Cellulitis of left toe; L03.116 Cellulitis of left lower limb; L03.115 Cellulitis of right lower limb; S81.802A Unspecified open wound, left lower leg, initial encounter; S91.309A Unspecified open wound, unspecified foot, initial encounter; M79.604 Pain in right leg; R60.0 Localized edema; I70.213 Atherosclerosis of native arteries of extremities with intermittent claudication, bilateral legs; I73.9 Peripheral vascular disease, unspecified; I87.2 Venous insufficiency (chronic) (peripheral); I10 Essential (primary) hypertension; B96.89 Other specified bacterial agents as the cause of diseases classified elsewhere; L95.0 Livedoid vasculitis; B95.2 Enterococcus as the cause of diseases classified elsewhere; B96.5 Pseudomonas (aeruginosa) (mallei) (pseudomallei) as the cause of diseases classified elsewhere; E03.8 Other specified hypothyroidism; G90.09 Other idiopathic peripheral autonomic neuropathy; L90.5 Scar conditions and fibrosis of skin; L90.6 Striae atrophicae; L95.8 Other vasculitis limited to the skin; W20.8XXA Other cause of strike by thrown, projected or falling object, initial encounter; Z01.810 Encounter for preprocedural cardiovascular examination; Z01.811 Encounter for preprocedural respiratory examination; Z74.01 Bed confinement status ==

== ENCOUNTER 2017-07-22 09:09 | Outpatient (RCR) | payer OTHER, MEDICARE ==
[2017-07-22] MEDS ORDERED: LIDOCAINE VISC 2% SOLN 15 ML UDC ONE (14:28)
== END 2017-08-05 ==
LOC: WCC 09:09
PROVIDERS: ATTEND Family Medicine
DX: T86.821 Skin graft (allograft) (autograft) failure (principal); T81.89XA Other complications of procedures, not elsewhere classified, initial encounter; Y83.8 Other surgical procedures as the cause of abnormal reaction of the patient, or of later complication, without mention of misadventure at the time of the procedure; G89.18 Other acute postprocedural pain; I87.332 Chronic venous hypertension (idiopathic) with ulcer and inflammation of left lower extremity; I87.331 Chronic venous hypertension (idiopathic) with ulcer and inflammation of right lower extremity; L89.620 Pressure ulcer of left heel, unstageable; L89.890 Pressure ulcer of other site, unstageable; L97.411 Non-pressure chronic ulcer of right heel and midfoot limited to breakdown of skin; L97.511 Non-pressure chronic ulcer of other part of right foot limited to breakdown of skin; L97.421 Non-pressure chronic ulcer of left heel and midfoot limited to breakdown of skin; L03.116 Cellulitis of left lower limb; L03.032 Cellulitis of left toe; L03.115 Cellulitis of right lower limb; S81.802A Unspecified open wound, left lower leg, initial encounter; S91.309A Unspecified open wound, unspecified foot, initial encounter; M79.604 Pain in right leg; R60.0 Localized edema; I87.2 Venous insufficiency (chronic) (peripheral); I73.9 Peripheral vascular disease, unspecified; I70.213 Atherosclerosis of native arteries of extremities with intermittent claudication, bilateral legs; I10 Essential (primary) hypertension; B96.89 Other specified bacterial agents as the cause of diseases classified elsewhere; B95.2 Enterococcus as the cause of diseases classified elsewhere; B96.5 Pseudomonas (aeruginosa) (mallei) (pseudomallei) as the cause of diseases classified elsewhere; L90.5 Scar conditions and fibrosis of skin; L90.6 Striae atrophicae; L95.0 Livedoid vasculitis; L95.8 Other vasculitis limited to the skin; G90.09 Other idiopathic peripheral autonomic neuropathy; E03.8 Other specified hypothyroidism; W20.8XXA Other cause of strike by thrown, projected or falling object, initial encounter; Z01.810 Encounter for preprocedural cardiovascular examination; Z01.811 Encounter for preprocedural respiratory examination
CPT/HCPCS: 97597; G0277

== ENCOUNTER → 2017-07-24 | Outpatient (CLI) | payer OTHER, MEDICARE | LOC: WCC 08:57 | PROVIDERS: ATTEND Family Medicine | DX: T86.821 Skin graft (allograft) (autograft) failure (principal); T81.89XA Other complications of procedures, not elsewhere classified, initial encounter; Y83.8 Other surgical procedures as the cause of abnormal reaction of the patient, or of later complication, without mention of misadventure at the time of the procedure; G89.18 Other acute postprocedural pain; L03.032 Cellulitis of left toe; S81.802A Unspecified open wound, left lower leg, initial encounter; I87.332 Chronic venous hypertension (idiopathic) with ulcer and inflammation of left lower extremity; I87.331 Chronic venous hypertension (idiopathic) with ulcer and inflammation of right lower extremity; L89.620 Pressure ulcer of left heel, unstageable; L89.890 Pressure ulcer of other site, unstageable; L97.421 Non-pressure chronic ulcer of left heel and midfoot limited to breakdown of skin; L97.511 Non-pressure chronic ulcer of other part of right foot limited to breakdown of skin; L97.411 Non-pressure chronic ulcer of right heel and midfoot limited to breakdown of skin; L03.116 Cellulitis of left lower limb; L03.115 Cellulitis of right lower limb; S91.309A Unspecified open wound, unspecified foot, initial encounter; I73.9 Peripheral vascular disease, unspecified; M79.604 Pain in right leg; R60.0 Localized edema; I87.2 Venous insufficiency (chronic) (peripheral); B96.89 Other specified bacterial agents as the cause of diseases classified elsewhere; I70.213 Atherosclerosis of native arteries of extremities with intermittent claudication, bilateral legs; I10 Essential (primary) hypertension; L95.0 Livedoid vasculitis; B95.2 Enterococcus as the cause of diseases classified elsewhere; B96.5 Pseudomonas (aeruginosa) (mallei) (pseudomallei) as the cause of diseases classified elsewhere; E03.8 Other specified hypothyroidism; G90.09 Other idiopathic peripheral autonomic neuropathy; L90.5 Scar conditions and fibrosis of skin; L90.6 Striae atrophicae; L95.8 Other vasculitis limited to the skin; W20.8XXA Other cause of strike by thrown, projected or falling object, initial encounter; Z01.810 Encounter for preprocedural cardiovascular examination; Z01.811 Encounter for preprocedural respiratory examination; Z74.01 Bed confinement status ==

== ENCOUNTER → 2017-07-29 | Outpatient (CLI) | payer OTHER, MEDICARE ==
[~2017-07-29] MED LIST changes: +LIDOCAINE/PRILOCAINE 2.5-2.5% KIT ONE
== END ==
LOC: WCC 09:11
PROVIDERS: ATTEND Family Medicine
DX: T86.821 Skin graft (allograft) (autograft) failure (principal); T81.89XA Other complications of procedures, not elsewhere classified, initial encounter; Y83.8 Other surgical procedures as the cause of abnormal reaction of the patient, or of later complication, without mention of misadventure at the time of the procedure; G89.18 Other acute postprocedural pain; L03.032 Cellulitis of left toe; L03.116 Cellulitis of left lower limb; L03.115 Cellulitis of right lower limb; L89.620 Pressure ulcer of left heel, unstageable; L89.890 Pressure ulcer of other site, unstageable; I87.332 Chronic venous hypertension (idiopathic) with ulcer and inflammation of left lower extremity; I87.331 Chronic venous hypertension (idiopathic) with ulcer and inflammation of right lower extremity; L97.421 Non-pressure chronic ulcer of left heel and midfoot limited to breakdown of skin; L97.411 Non-pressure chronic ulcer of right heel and midfoot limited to breakdown of skin; S81.802A Unspecified open wound, left lower leg, initial encounter; M79.604 Pain in right leg; R60.0 Localized edema; I73.9 Peripheral vascular disease, unspecified; I87.2 Venous insufficiency (chronic) (peripheral); I70.213 Atherosclerosis of native arteries of extremities with intermittent claudication, bilateral legs; S91.309A Unspecified open wound, unspecified foot, initial encounter; B96.89 Other specified bacterial agents as the cause of diseases classified elsewhere; L90.0 Lichen sclerosus et atrophicus; B95.2 Enterococcus as the cause of diseases classified elsewhere; B96.5 Pseudomonas (aeruginosa) (mallei) (pseudomallei) as the cause of diseases classified elsewhere; E03.8 Other specified hypothyroidism; G90.09 Other idiopathic peripheral autonomic neuropathy; I10 Essential (primary) hypertension; L90.5 Scar conditions and fibrosis of skin; L90.6 Striae atrophicae; L95.0 Livedoid vasculitis; L95.8 Other vasculitis limited to the skin; W20.8XXA Other cause of strike by thrown, projected or falling object, initial encounter; Z01.810 Encounter for preprocedural cardiovascular examination; Z01.811 Encounter for preprocedural respiratory examination; Z74.01 Bed confinement status
CPT/HCPCS: 11042; G0277

== ENCOUNTER → 2017-07-31 | Outpatient (CLI) | payer OTHER, MEDICARE ==
[~2017-07-31] MED LIST changes: +FOLIC ACID1 MG PO; +FUROSEMIDE40 MG PO; -LIDOCAINE/PRILOCAINE 2.5-2.5% KIT ONE; +POTASSIUM CHLO10 ME1 PO; +PREDNISONE5 MG PO; +RASUVO PO
== END ==
LOC: WCC 09:30
PROVIDERS: ATTEND Family Medicine
DX: T86.821 Skin graft (allograft) (autograft) failure (principal); T81.89XA Other complications of procedures, not elsewhere classified, initial encounter; Y83.8 Other surgical procedures as the cause of abnormal reaction of the patient, or of later complication, without mention of misadventure at the time of the procedure; G89.18 Other acute postprocedural pain; I87.332 Chronic venous hypertension (idiopathic) with ulcer and inflammation of left lower extremity; I87.331 Chronic venous hypertension (idiopathic) with ulcer and inflammation of right lower extremity; L89.620 Pressure ulcer of left heel, unstageable; L89.890 Pressure ulcer of other site, unstageable; L97.421 Non-pressure chronic ulcer of left heel and midfoot limited to breakdown of skin; L97.411 Non-pressure chronic ulcer of right heel and midfoot limited to breakdown of skin; L03.116 Cellulitis of left lower limb; L03.032 Cellulitis of left toe; L03.115 Cellulitis of right lower limb; S81.802A Unspecified open wound, left lower leg, initial encounter; S91.309A Unspecified open wound, unspecified foot, initial encounter; R60.0 Localized edema; M79.604 Pain in right leg; I73.9 Peripheral vascular disease, unspecified; I87.2 Venous insufficiency (chronic) (peripheral); B96.89 Other specified bacterial agents as the cause of diseases classified elsewhere; L95.0 Livedoid vasculitis; B95.2 Enterococcus as the cause of diseases classified elsewhere; B96.5 Pseudomonas (aeruginosa) (mallei) (pseudomallei) as the cause of diseases classified elsewhere; E03.8 Other specified hypothyroidism; G90.09 Other idiopathic peripheral autonomic neuropathy; I10 Essential (primary) hypertension; I70.213 Atherosclerosis of native arteries of extremities with intermittent claudication, bilateral legs; L90.5 Scar conditions and fibrosis of skin; L90.6 Striae atrophicae; L95.8 Other vasculitis limited to the skin; W20.8XXA Other cause of strike by thrown, projected or falling object, initial encounter; Z01.810 Encounter for preprocedural cardiovascular examination; Z01.811 Encounter for preprocedural respiratory examination; Z74.01 Bed confinement status

== ENCOUNTER → 2017-08-04 | Outpatient (CLI) | payer OTHER, MEDICARE | LOC: WCC 09:41 | PROVIDERS: ATTEND Family Medicine | DX: T86.821 Skin graft (allograft) (autograft) failure (principal); T81.89XA Other complications of procedures, not elsewhere classified, initial encounter; Y83.8 Other surgical procedures as the cause of abnormal reaction of the patient, or of later complication, without mention of misadventure at the time of the procedure; G89.18 Other acute postprocedural pain; I87.332 Chronic venous hypertension (idiopathic) with ulcer and inflammation of left lower extremity; I87.331 Chronic venous hypertension (idiopathic) with ulcer and inflammation of right lower extremity; L89.620 Pressure ulcer of left heel, unstageable; L89.890 Pressure ulcer of other site, unstageable; L97.411 Non-pressure chronic ulcer of right heel and midfoot limited to breakdown of skin; L97.421 Non-pressure chronic ulcer of left heel and midfoot limited to breakdown of skin; L03.116 Cellulitis of left lower limb; L03.032 Cellulitis of left toe; L03.115 Cellulitis of right lower limb; S81.802A Unspecified open wound, left lower leg, initial encounter; S91.309A Unspecified open wound, unspecified foot, initial encounter; R60.0 Localized edema; M79.604 Pain in right leg; I73.9 Peripheral vascular disease, unspecified; I87.2 Venous insufficiency (chronic) (peripheral); B96.89 Other specified bacterial agents as the cause of diseases classified elsewhere; L95.0 Livedoid vasculitis; B95.2 Enterococcus as the cause of diseases classified elsewhere; B96.5 Pseudomonas (aeruginosa) (mallei) (pseudomallei) as the cause of diseases classified elsewhere; E03.8 Other specified hypothyroidism; G90.09 Other idiopathic peripheral autonomic neuropathy; I10 Essential (primary) hypertension; I70.213 Atherosclerosis of native arteries of extremities with intermittent claudication, bilateral legs; L90.5 Scar conditions and fibrosis of skin; L90.6 Striae atrophicae; W20.8XXA Other cause of strike by thrown, projected or falling object, initial encounter; Z01.810 Encounter for preprocedural cardiovascular examination; Z01.811 Encounter for preprocedural respiratory examination; Z74.01 Bed confinement status ==

== ENCOUNTER → 2017-08-05 | Outpatient (CLI) | payer OTHER, MEDICARE ==
[~2017-08-05] MED LIST changes: -FOLIC ACID1 MG PO; -FUROSEMIDE40 MG PO; +LIDOCAINE/PRILOCAINE 2.5-2.5% KIT ONE; -POTASSIUM CHLO10 ME1 PO; -PREDNISONE5 MG PO; -RASUVO PO
== END ==
LOC: WCC 08:56
PROVIDERS: ATTEND Family Medicine
DX: T86.821 Skin graft (allograft) (autograft) failure (principal); T81.89XA Other complications of procedures, not elsewhere classified, initial encounter; Y83.8 Other surgical procedures as the cause of abnormal reaction of the patient, or of later complication, without mention of misadventure at the time of the procedure; G89.18 Other acute postprocedural pain; L89.620 Pressure ulcer of left heel, unstageable; L89.890 Pressure ulcer of other site, unstageable; L97.421 Non-pressure chronic ulcer of left heel and midfoot limited to breakdown of skin; I87.331 Chronic venous hypertension (idiopathic) with ulcer and inflammation of right lower extremity; M79.604 Pain in right leg; L03.032 Cellulitis of left toe; L03.116 Cellulitis of left lower limb; L03.115 Cellulitis of right lower limb; S81.802A Unspecified open wound, left lower leg, initial encounter; S91.309A Unspecified open wound, unspecified foot, initial encounter; R60.0 Localized edema; B96.89 Other specified bacterial agents as the cause of diseases classified elsewhere; L95.0 Livedoid vasculitis; B95.2 Enterococcus as the cause of diseases classified elsewhere; B96.5 Pseudomonas (aeruginosa) (mallei) (pseudomallei) as the cause of diseases classified elsewhere; E03.8 Other specified hypothyroidism; G90.09 Other idiopathic peripheral autonomic neuropathy; I87.2 Venous insufficiency (chronic) (peripheral); I10 Essential (primary) hypertension; I70.213 Atherosclerosis of native arteries of extremities with intermittent claudication, bilateral legs; I73.9 Peripheral vascular disease, unspecified; I87.332 Chronic venous hypertension (idiopathic) with ulcer and inflammation of left lower extremity; L90.5 Scar conditions and fibrosis of skin; L90.6 Striae atrophicae; L95.8 Other vasculitis limited to the skin; W20.8XXA Other cause of strike by thrown, projected or falling object, initial encounter
CPT/HCPCS: 29581; G0277

== ENCOUNTER → 2017-08-07 | Outpatient (CLI) | payer OTHER, MEDICARE ==
[~2017-08-07] MED LIST changes: -LIDOCAINE/PRILOCAINE 2.5-2.5% KIT ONE
== END ==
LOC: WCC 09:40
PROVIDERS: ATTEND Family Medicine
DX: T86.821 Skin graft (allograft) (autograft) failure (principal); T81.89XA Other complications of procedures, not elsewhere classified, initial encounter; Y83.8 Other surgical procedures as the cause of abnormal reaction of the patient, or of later complication, without mention of misadventure at the time of the procedure; G89.18 Other acute postprocedural pain; L89.620 Pressure ulcer of left heel, unstageable; L89.890 Pressure ulcer of other site, unstageable; L97.421 Non-pressure chronic ulcer of left heel and midfoot limited to breakdown of skin; L97.411 Non-pressure chronic ulcer of right heel and midfoot limited to breakdown of skin; L03.032 Cellulitis of left toe; S81.802A Unspecified open wound, left lower leg, initial encounter; I87.332 Chronic venous hypertension (idiopathic) with ulcer and inflammation of left lower extremity; I87.331 Chronic venous hypertension (idiopathic) with ulcer and inflammation of right lower extremity; L03.116 Cellulitis of left lower limb; L03.115 Cellulitis of right lower limb; S91.309A Unspecified open wound, unspecified foot, initial encounter; M79.604 Pain in right leg; R60.0 Localized edema; I87.2 Venous insufficiency (chronic) (peripheral); I73.9 Peripheral vascular disease, unspecified; B96.89 Other specified bacterial agents as the cause of diseases classified elsewhere; L95.0 Livedoid vasculitis; B95.2 Enterococcus as the cause of diseases classified elsewhere; B96.5 Pseudomonas (aeruginosa) (mallei) (pseudomallei) as the cause of diseases classified elsewhere; E03.8 Other specified hypothyroidism; G90.09 Other idiopathic peripheral autonomic neuropathy; I10 Essential (primary) hypertension; I70.213 Atherosclerosis of native arteries of extremities with intermittent claudication, bilateral legs; L90.5 Scar conditions and fibrosis of skin; L90.6 Striae atrophicae; L95.8 Other vasculitis limited to the skin; W20.8XXA Other cause of strike by thrown, projected or falling object, initial encounter; Z01.810 Encounter for preprocedural cardiovascular examination; Z01.811 Encounter for preprocedural respiratory examination; Z74.01 Bed confinement status

== ENCOUNTER → 2017-08-19 | Outpatient (CLI) | payer OTHER, MEDICARE ==
[~2017-08-19] MED LIST changes: +LIDOCAINE/PRILOCAINE 2.5-2.5% KIT ONE
== END ==
LOC: WCC 10:38
PROVIDERS: ATTEND Family Medicine
DX: T86.821 Skin graft (allograft) (autograft) failure (principal); Y83.8 Other surgical procedures as the cause of abnormal reaction of the patient, or of later complication, without mention of misadventure at the time of the procedure; L03.032 Cellulitis of left toe; S81.802A Unspecified open wound, left lower leg, initial encounter; M79.604 Pain in right leg; I87.2 Venous insufficiency (chronic) (peripheral); B96.89 Other specified bacterial agents as the cause of diseases classified elsewhere; L95.0 Livedoid vasculitis; E03.8 Other specified hypothyroidism; G90.09 Other idiopathic peripheral autonomic neuropathy; I10 Essential (primary) hypertension; I70.213 Atherosclerosis of native arteries of extremities with intermittent claudication, bilateral legs; I73.9 Peripheral vascular disease, unspecified; L90.5 Scar conditions and fibrosis of skin; L90.6 Striae atrophicae; W20.8XXA Other cause of strike by thrown, projected or falling object, initial encounter; Z01.810 Encounter for preprocedural cardiovascular examination; Z01.811 Encounter for preprocedural respiratory examination; Z74.01 Bed confinement status

== ENCOUNTER → 2017-09-03 | Outpatient (CLI) | payer OTHER, MEDICARE | LOC: WCC 10:39 | PROVIDERS: ATTEND Family Medicine | DX: T86.821 Skin graft (allograft) (autograft) failure (principal); Y83.8 Other surgical procedures as the cause of abnormal reaction of the patient, or of later complication, without mention of misadventure at the time of the procedure; L03.032 Cellulitis of left toe; S81.802A Unspecified open wound, left lower leg, initial encounter; M79.604 Pain in right leg; I73.9 Peripheral vascular disease, unspecified; I70.213 Atherosclerosis of native arteries of extremities with intermittent claudication, bilateral legs; I87.2 Venous insufficiency (chronic) (peripheral); B96.89 Other specified bacterial agents as the cause of diseases classified elsewhere; L90.5 Scar conditions and fibrosis of skin; L90.6 Striae atrophicae; L95.0 Livedoid vasculitis; I10 Essential (primary) hypertension; E03.8 Other specified hypothyroidism; G90.09 Other idiopathic peripheral autonomic neuropathy; W20.8XXA Other cause of strike by thrown, projected or falling object, initial encounter; Z01.810 Encounter for preprocedural cardiovascular examination; Z01.811 Encounter for preprocedural respiratory examination; Z74.01 Bed confinement status ==

== ENCOUNTER → 2017-09-23 | Outpatient (CLI) | payer OTHER, MEDICARE ==
[~2017-09-23] MED LIST changes: -LIDOCAINE/PRILOCAINE 2.5-2.5% KIT ONE; +MINERAL OIL/PETROLAT/GLYCERI 6OZ BTL ONE
== END ==
LOC: WCC 10:41
PROVIDERS: ATTEND Family Medicine
DX: T86.821 Skin graft (allograft) (autograft) failure (principal); Y83.8 Other surgical procedures as the cause of abnormal reaction of the patient, or of later complication, without mention of misadventure at the time of the procedure; L76.32 Postprocedural hematoma of skin and subcutaneous tissue following other procedure; L03.032 Cellulitis of left toe; S81.802A Unspecified open wound, left lower leg, initial encounter; M79.604 Pain in right leg; I73.9 Peripheral vascular disease, unspecified; I70.213 Atherosclerosis of native arteries of extremities with intermittent claudication, bilateral legs; I87.2 Venous insufficiency (chronic) (peripheral); L95.0 Livedoid vasculitis; L90.6 Striae atrophicae; L90.5 Scar conditions and fibrosis of skin; B96.89 Other specified bacterial agents as the cause of diseases classified elsewhere; E03.8 Other specified hypothyroidism; G90.09 Other idiopathic peripheral autonomic neuropathy; I10 Essential (primary) hypertension; W20.8XXA Other cause of strike by thrown, projected or falling object, initial encounter; Z01.810 Encounter for preprocedural cardiovascular examination; Z01.811 Encounter for preprocedural respiratory examination; Z74.01 Bed confinement status

== ENCOUNTER → 2017-10-07 | Outpatient (CLI) | payer OTHER, MEDICARE ==
[~2017-10-07] MED LIST changes: +LIDOCAINE/PRILOCAINE 2.5-2.5% KIT ONE; +MUPIROCIN 2% OINT 22 GM TUBE ONE
== END ==
LOC: WCC 10:27
PROVIDERS: ATTEND Family Medicine
DX: T86.821 Skin graft (allograft) (autograft) failure (principal); Y83.8 Other surgical procedures as the cause of abnormal reaction of the patient, or of later complication, without mention of misadventure at the time of the procedure; L76.32 Postprocedural hematoma of skin and subcutaneous tissue following other procedure; L03.032 Cellulitis of left toe; S81.802A Unspecified open wound, left lower leg, initial encounter; I73.9 Peripheral vascular disease, unspecified; I87.2 Venous insufficiency (chronic) (peripheral); M79.604 Pain in right leg; L90.5 Scar conditions and fibrosis of skin; L95.0 Livedoid vasculitis; L90.6 Striae atrophicae; B96.89 Other specified bacterial agents as the cause of diseases classified elsewhere; E03.8 Other specified hypothyroidism; G90.09 Other idiopathic peripheral autonomic neuropathy; I10 Essential (primary) hypertension; I70.213 Atherosclerosis of native arteries of extremities with intermittent claudication, bilateral legs; W20.8XXA Other cause of strike by thrown, projected or falling object, initial encounter; Z01.810 Encounter for preprocedural cardiovascular examination; Z01.811 Encounter for preprocedural respiratory examination; Z74.01 Bed confinement status

== ENCOUNTER → 2017-10-14 | Outpatient (CLI) | payer OTHER, MEDICARE ==
[~2017-10-14] MED LIST changes: -LIDOCAINE/PRILOCAINE 2.5-2.5% KIT ONE; -MINERAL OIL/PETROLAT/GLYCERI 6OZ BTL ONE; -MUPIROCIN 2% OINT 22 GM TUBE ONE
== END ==
LOC: WCC 11:08
PROVIDERS: ATTEND Family Medicine
DX: T86.821 Skin graft (allograft) (autograft) failure (principal); Y83.8 Other surgical procedures as the cause of abnormal reaction of the patient, or of later complication, without mention of misadventure at the time of the procedure; L03.032 Cellulitis of left toe; B96.89 Other specified bacterial agents as the cause of diseases classified elsewhere; L76.32 Postprocedural hematoma of skin and subcutaneous tissue following other procedure; L95.0 Livedoid vasculitis; R60.0 Localized edema; S81.802A Unspecified open wound, left lower leg, initial encounter; E03.8 Other specified hypothyroidism; G90.09 Other idiopathic peripheral autonomic neuropathy; I10 Essential (primary) hypertension; I70.213 Atherosclerosis of native arteries of extremities with intermittent claudication, bilateral legs; I73.9 Peripheral vascular disease, unspecified; I87.2 Venous insufficiency (chronic) (peripheral); L90.5 Scar conditions and fibrosis of skin; L90.6 Striae atrophicae; M79.604 Pain in right leg; W20.8XXA Other cause of strike by thrown, projected or falling object, initial encounter; Z01.810 Encounter for preprocedural cardiovascular examination; Z01.811 Encounter for preprocedural respiratory examination; Z74.01 Bed confinement status

== ENCOUNTER → 2017-10-21 | Outpatient (CLI) | payer OTHER, MEDICARE | LOC: WCC 10:44 | PROVIDERS: ATTEND Family Medicine | DX: T86.821 Skin graft (allograft) (autograft) failure (principal); Y83.8 Other surgical procedures as the cause of abnormal reaction of the patient, or of later complication, without mention of misadventure at the time of the procedure; L76.32 Postprocedural hematoma of skin and subcutaneous tissue following other procedure; L03.032 Cellulitis of left toe; S81.802A Unspecified open wound, left lower leg, initial encounter; M79.604 Pain in right leg; R60.0 Localized edema; L95.0 Livedoid vasculitis; L90.6 Striae atrophicae; I87.2 Venous insufficiency (chronic) (peripheral); I73.9 Peripheral vascular disease, unspecified; L90.5 Scar conditions and fibrosis of skin; I10 Essential (primary) hypertension; B96.89 Other specified bacterial agents as the cause of diseases classified elsewhere; E03.8 Other specified hypothyroidism; G90.09 Other idiopathic peripheral autonomic neuropathy; I70.213 Atherosclerosis of native arteries of extremities with intermittent claudication, bilateral legs; W20.8XXA Other cause of strike by thrown, projected or falling object, initial encounter; Z01.810 Encounter for preprocedural cardiovascular examination; Z01.811 Encounter for preprocedural respiratory examination; Z74.01 Bed confinement status ==

== ENCOUNTER → 2017-10-27 | Outpatient (CLI) | payer OTHER, MEDICARE | LOC: WCC 13:27 | PROVIDERS: ATTEND Family Medicine ==

== ENCOUNTER → 2017-10-28 | Outpatient (CLI) | payer OTHER, MEDICARE ==
[~2017-10-28] MED LIST changes: +LIDOCAINE 2% /EPINEPHRINE 20 ML SDV INJ ONE
== END ==
LOC: WCC 10:20
PROVIDERS: ATTEND Family Medicine
DX: T86.821 Skin graft (allograft) (autograft) failure (principal); Y83.8 Other surgical procedures as the cause of abnormal reaction of the patient, or of later complication, without mention of misadventure at the time of the procedure; L76.32 Postprocedural hematoma of skin and subcutaneous tissue following other procedure; L95.0 Livedoid vasculitis; R60.0 Localized edema; S81.802A Unspecified open wound, left lower leg, initial encounter; E03.8 Other specified hypothyroidism; G90.09 Other idiopathic peripheral autonomic neuropathy; I10 Essential (primary) hypertension; I70.213 Atherosclerosis of native arteries of extremities with intermittent claudication, bilateral legs; I73.9 Peripheral vascular disease, unspecified; I87.2 Venous insufficiency (chronic) (peripheral); L03.032 Cellulitis of left toe; B96.89 Other specified bacterial agents as the cause of diseases classified elsewhere; L90.5 Scar conditions and fibrosis of skin; L90.6 Striae atrophicae; M79.604 Pain in right leg; W20.8XXA Other cause of strike by thrown, projected or falling object, initial encounter; Z01.810 Encounter for preprocedural cardiovascular examination; Z01.811 Encounter for preprocedural respiratory examination; Z74.01 Bed confinement status
CPT/HCPCS: J2001

== ENCOUNTER → 2017-11-04 | Outpatient (CLI) | payer OTHER, MEDICARE ==
[~2017-11-04] MED LIST changes: -LIDOCAINE 2% /EPINEPHRINE 20 ML SDV INJ ONE; +LIDOCAINE/PRILOCAINE 2.5-2.5% KIT ONE; +MINERAL OIL/PETROLAT/GLYCERI 6OZ BTL ONE
== END ==
LOC: WCC 11:46
PROVIDERS: ATTEND Family Medicine
DX: T86.821 Skin graft (allograft) (autograft) failure (principal); Y83.8 Other surgical procedures as the cause of abnormal reaction of the patient, or of later complication, without mention of misadventure at the time of the procedure; L76.32 Postprocedural hematoma of skin and subcutaneous tissue following other procedure; M79.604 Pain in right leg; S81.802A Unspecified open wound, left lower leg, initial encounter; I73.9 Peripheral vascular disease, unspecified; I87.2 Venous insufficiency (chronic) (peripheral); R60.0 Localized edema; L95.0 Livedoid vasculitis; L90.5 Scar conditions and fibrosis of skin; L90.6 Striae atrophicae; I10 Essential (primary) hypertension; E03.8 Other specified hypothyroidism; G90.09 Other idiopathic peripheral autonomic neuropathy; I70.213 Atherosclerosis of native arteries of extremities with intermittent claudication, bilateral legs; W20.8XXA Other cause of strike by thrown, projected or falling object, initial encounter; Z01.810 Encounter for preprocedural cardiovascular examination; Z01.811 Encounter for preprocedural respiratory examination; Z74.01 Bed confinement status

== ENCOUNTER → 2017-11-04 | Outpatient (CLI) | payer OTHER, MEDICARE ==
[~2017-11-04] MED LIST changes: -LIDOCAINE/PRILOCAINE 2.5-2.5% KIT ONE; -MINERAL OIL/PETROLAT/GLYCERI 6OZ BTL ONE
--- NOTE | 2017-11-04 17:02 | Diagnostic Imaging Report ---
PROCEDURE:X-RAY LEFT LOWER LEG COMPARISON:None. INDICATIONS:OPEN WOUND INFECTION FINDINGS: There are no fractures, dislocations, lytic or blastic lesions. No bony erosions. Degenerative changes of the tibiotalar and tarsal joints. There is small soft tissue defect in the mid rod with associated linear hyperdensity which may be related to packing or less likely foreign body. Tiny metallic densities projected on the posterior calcaneus. CONCLUSION: No acute osseous abnormality. Robert Prince M.D. Dictated by: Robert Prince M.D. on 11/04/2017 at 17:04 Electronically approved by: Robert Prince M.D. on 11/04/2017 at 17:04
== END ==
LOC: RAD 15:26
PROVIDERS: ATTEND Family Medicine
DX: S81.802A Unspecified open wound, left lower leg, initial encounter (principal)

== ENCOUNTER → 2017-11-11 | Outpatient (CLI) | payer OTHER, MEDICARE ==
[~2017-11-11] MED LIST changes: +LIDOCAINE/PRILOCAINE 2.5-2.5% KIT ONE; +MINERAL OIL/PETROLAT/GLYCERI 6OZ BTL ONE
== END ==
LOC: WCC 10:38
PROVIDERS: ATTEND Family Medicine
DX: T86.821 Skin graft (allograft) (autograft) failure (principal); Y83.8 Other surgical procedures as the cause of abnormal reaction of the patient, or of later complication, without mention of misadventure at the time of the procedure; S81.802A Unspecified open wound, left lower leg, initial encounter; M79.604 Pain in right leg; R60.0 Localized edema; I73.9 Peripheral vascular disease, unspecified; I87.2 Venous insufficiency (chronic) (peripheral); L90.6 Striae atrophicae; L95.0 Livedoid vasculitis; L90.5 Scar conditions and fibrosis of skin; E03.8 Other specified hypothyroidism; G90.09 Other idiopathic peripheral autonomic neuropathy; I10 Essential (primary) hypertension; I70.213 Atherosclerosis of native arteries of extremities with intermittent claudication, bilateral legs; W20.8XXA Other cause of strike by thrown, projected or falling object, initial encounter; Z01.810 Encounter for preprocedural cardiovascular examination; Z01.811 Encounter for preprocedural respiratory examination; Z74.01 Bed confinement status

== ENCOUNTER → 2017-11-18 | Outpatient (CLI) | payer OTHER, MEDICARE ==
[~2017-11-18] MED LIST changes: -LIDOCAINE/PRILOCAINE 2.5-2.5% KIT ONE; -MINERAL OIL/PETROLAT/GLYCERI 6OZ BTL ONE
== END ==
LOC: WCC 10:39
PROVIDERS: ATTEND Family Medicine
DX: T86.821 Skin graft (allograft) (autograft) failure (principal); Y83.8 Other surgical procedures as the cause of abnormal reaction of the patient, or of later complication, without mention of misadventure at the time of the procedure; I87.312 Chronic venous hypertension (idiopathic) with ulcer of left lower extremity; L97.429 Non-pressure chronic ulcer of left heel and midfoot with unspecified severity; S81.802A Unspecified open wound, left lower leg, initial encounter; L95.0 Livedoid vasculitis; R60.0 Localized edema; E03.8 Other specified hypothyroidism; G90.09 Other idiopathic peripheral autonomic neuropathy; I10 Essential (primary) hypertension; I70.213 Atherosclerosis of native arteries of extremities with intermittent claudication, bilateral legs; I73.9 Peripheral vascular disease, unspecified; I87.2 Venous insufficiency (chronic) (peripheral); L90.5 Scar conditions and fibrosis of skin; L90.6 Striae atrophicae; M79.604 Pain in right leg; W20.8XXA Other cause of strike by thrown, projected or falling object, initial encounter; Z01.810 Encounter for preprocedural cardiovascular examination; Z01.811 Encounter for preprocedural respiratory examination; Z74.01 Bed confinement status

== ENCOUNTER → 2017-11-25 | Outpatient (CLI) | payer OTHER, MEDICARE | LOC: WCC 10:46 | PROVIDERS: ATTEND Family Medicine | DX: T86.821 Skin graft (allograft) (autograft) failure (principal); Y83.8 Other surgical procedures as the cause of abnormal reaction of the patient, or of later complication, without mention of misadventure at the time of the procedure; L97.429 Non-pressure chronic ulcer of left heel and midfoot with unspecified severity; I87.312 Chronic venous hypertension (idiopathic) with ulcer of left lower extremity; S81.802A Unspecified open wound, left lower leg, initial encounter; M79.604 Pain in right leg; I87.2 Venous insufficiency (chronic) (peripheral); I73.9 Peripheral vascular disease, unspecified; L95.0 Livedoid vasculitis; R60.0 Localized edema; L90.5 Scar conditions and fibrosis of skin; L90.6 Striae atrophicae; E03.8 Other specified hypothyroidism; G90.09 Other idiopathic peripheral autonomic neuropathy; I10 Essential (primary) hypertension; I70.213 Atherosclerosis of native arteries of extremities with intermittent claudication, bilateral legs; W20.8XXA Other cause of strike by thrown, projected or falling object, initial encounter; Z01.810 Encounter for preprocedural cardiovascular examination; Z01.811 Encounter for preprocedural respiratory examination; Z74.01 Bed confinement status ==

== ENCOUNTER → 2017-11-30 | Outpatient (CLI) | payer OTHER, MEDICARE ==
--- NOTE | 2017-11-30 12:27 | Diagnostic Imaging Report ---
PROCEDURE:ABDOMINAL ULTRASOUND COMPARISON:Patients [facility], CT, CTA ABD/PEL/RUN OFF, 01/08/2017, 12:28. INDICATIONS:Abdominal Distention FINDINGS: Liver: 14.5 cm in length. Normal hepatic parenchymal echogenicity. No focal mass. Visualized hepatic veins are patent. Main portal vein: 0.8 cm. Hepatopetal flow. Gallbladder: Present. No evidence of gallstone, gallbladder wall thickening, or pericholecystic fluid. Common Bile Duct: 0.7 cm. No intraluminal filling defect. Sonographic Durham's sign: None Right kidney: 9.4 cm in length. The cortex is thin and lobulated. No solid or cystic mass, echogenic calculi, or hydronephrosis. Normal parenchymal echogenicity. Left kidney: 9.8 cm in length. The cortex is thinned. No solid or cystic mass, echogenic calculi, or hydronephrosis. Normal parenchymal echogenicity. Spleen: 11.3 cm. No mass. Pancreas: Not visualized due to bowel gas.. Inferior vena cava: Normal. Aorta: Visualized portions are normal in diameter. Ascites: None. CONCLUSION: 1. No evidence of thrombus in the hepatic or portal veins. Visualized portion of the IVC is unremarkable. 2. Nonvisualization of the pancreas due to bowel gas. Dictated by: Hubert Burns M.D. on 11/30/2017 at 12:30 Electronically approved by: Hubert Burns M.D. on 11/30/2017 at 12:30
== END ==
LOC: US 10:23
PROVIDERS: ATTEND Internal Medicine
DX: R14.0 Abdominal distension (gaseous) (principal)
CPT/HCPCS: 76700

== ENCOUNTER → 2017-12-02 | Outpatient (CLI) | payer OTHER, MEDICARE | LOC: WCC 13:52 | PROVIDERS: ATTEND Family Medicine | DX: T86.821 Skin graft (allograft) (autograft) failure (principal); I87.312 Chronic venous hypertension (idiopathic) with ulcer of left lower extremity; L97.429 Non-pressure chronic ulcer of left heel and midfoot with unspecified severity; S81.802A Unspecified open wound, left lower leg, initial encounter; M79.604 Pain in right leg; I73.9 Peripheral vascular disease, unspecified; I87.2 Venous insufficiency (chronic) (peripheral); R60.0 Localized edema; L95.0 Livedoid vasculitis; L90.5 Scar conditions and fibrosis of skin; L90.6 Striae atrophicae; E03.8 Other specified hypothyroidism; G90.09 Other idiopathic peripheral autonomic neuropathy; I10 Essential (primary) hypertension; I70.213 Atherosclerosis of native arteries of extremities with intermittent claudication, bilateral legs; R10.10 Upper abdominal pain, unspecified; W20.8XXA Other cause of strike by thrown, projected or falling object, initial encounter; Y83.8 Other surgical procedures as the cause of abnormal reaction of the patient, or of later complication, without mention of misadventure at the time of the procedure; Z01.810 Encounter for preprocedural cardiovascular examination; Z01.811 Encounter for preprocedural respiratory examination; Z74.01 Bed confinement status ==

== ENCOUNTER → 2017-12-16 | Outpatient (CLI) | payer OTHER, MEDICARE ==
[~2017-12-16] MED LIST changes: +FOLIC ACID1 MG PO; +LIDOCAINE VISC 2% SOLN 15 ML UDC ONE; +PREDNISONE5 MG PO; +RASUVO PO
== END ==
LOC: WCC 12:29
PROVIDERS: ATTEND Family Medicine
DX: T86.821 Skin graft (allograft) (autograft) failure (principal); I87.312 Chronic venous hypertension (idiopathic) with ulcer of left lower extremity; L97.429 Non-pressure chronic ulcer of left heel and midfoot with unspecified severity; S81.802A Unspecified open wound, left lower leg, initial encounter; M79.604 Pain in right leg; I73.9 Peripheral vascular disease, unspecified; G90.09 Other idiopathic peripheral autonomic neuropathy; R60.0 Localized edema; I87.2 Venous insufficiency (chronic) (peripheral); L95.0 Livedoid vasculitis; L90.5 Scar conditions and fibrosis of skin; L90.6 Striae atrophicae; I10 Essential (primary) hypertension; E03.8 Other specified hypothyroidism; I70.213 Atherosclerosis of native arteries of extremities with intermittent claudication, bilateral legs; R10.10 Upper abdominal pain, unspecified; W20.8XXA Other cause of strike by thrown, projected or falling object, initial encounter; Y83.8 Other surgical procedures as the cause of abnormal reaction of the patient, or of later complication, without mention of misadventure at the time of the procedure; Z01.810 Encounter for preprocedural cardiovascular examination; Z01.811 Encounter for preprocedural respiratory examination; Z74.01 Bed confinement status

== ENCOUNTER 2017-12-22 07:13 | Inpatient (IN) | payer OTHER, MEDICARE ==
[2017-12-22] VITALS (40 sets, daily range): BP systolic 83–130; BP diastolic 48–79
[~2017-12-22] VITALS: Ht 152.4 cm; Wt 97.5 kg
[~2017-12-22 07:13] MED LIST changes: -FOLIC ACID1 MG PO; -LIDOCAINE VISC 2% SOLN 15 ML UDC ONE; -PREDNISONE5 MG PO; -RASUVO PO
[2017-12-22] MEDS ORDERED: SODIUM CHLORIDE 0.9% 500ML 500 ML IV STA (07:21)
[2017-12-22] MEDS ORDERED: ACETAMINOPHEN 325 MG TAB PO STA (07:21)
[2017-12-22] MEDS ORDERED: MEROPENEM 1GM 100 ML IV STA (07:21)
[2017-12-22] MEDS ORDERED: IPRATROPIUM BROMIDE 0.02% 2.5 ML NEB NEB STA (07:21)
[2017-12-22] MEDS ORDERED: ALBUTEROL/IPRATROPIUM 3 ML NEB NEB ONE (07:30)
[2017-12-22] MEDS ORDERED: VANCOMYCIN 1GM/NS 250 ML 250 ML IV ONE (07:30)
[2017-12-22] MEDS ORDERED: SODIUM CHLORIDE FLUSH 10 ML SYR INJ PRN (07:30)
[2017-12-22 07:40] LABS: BASOPHILS # (AUTO) 0.1 (0.0-0.1); BASOPHILS % 0.5 % (0.0-1.0); EOSINOPHILS % 0.2 % (0.0-6.0); HEMATOCRIT 40.4 % (34.2-44.1); HEMOGLOBIN 12.9 g/dL (12.0-16.0); LYMPHOCYTES # (AUTO) 0.7 (1.0-3.2); LYMPHOCYTES % 4.4 % (18.0-39.1); MEAN CORPUSCULAR HEMOGLOBIN 31.4 pg (28-32); MEAN CORPUSCULAR HGB CONC 31.9 g/dL (31-35); MEAN CORPUSCULAR VOLUME 98.3 fL (81-99); MONOCYTES # (AUTO) 0.8 (0.2-0.8); MONOCYTES % 4.9 % (4.4-11.3); NEUTROPHILS # (AUTO) 14.8 (2.1-6.9); NEUTROPHILS % 89.3 % (38.7-80.0); PLATELET COUNT 180 x10e3/uL (140-360); RED BLOOD COUNT 4.11 x10e6/uL (3.6-5.1)
[2017-12-22 07:51] LABS: ABG PH 7.47 (7.31-7.41)
[2017-12-22 07:52] LABS: ABG HCO3 31 mmol/L (23-28); ABG PCO2 43 mmHg (41-51); ABG PO2 61 mmHg (80-105)
[2017-12-22 07:59] LABS: ALANINE AMINOTRANSFERASE 10 IU/L (0-55); ALBUMIN 3.3 g/dL (3.5-5.0); ALKALINE PHOSPHATASE 121 IU/L (40-150); ANION GAP 14.1 mmol/L (8-16); BLOOD UREA NITROGEN 9 mg/dL (7-26); BUN/CREATININE RATIO 11 (6-25); CALCIUM 9.7 mg/dL (8.4-10.2); CARBON DIOXIDE 31 mmol/L (22-29); CHLORIDE 98 mmol/L (98-107); CREATINE KINASE 57 IU/L (29-168); CREATININE, SERUM 0.82 mg/dL (0.57-1.11); EST GLOMERULAR FILTRATION RATE > 60 ML/MIN (60-); GLUCOSE 163 mg/dL (74-118); MAGNESIUM 1.4 MG/DL (1.3-2.1); POTASSIUM 4.1 mmol/L (3.5-5.1); SODIUM 139 mmol/L (136-145)
[2017-12-22 08:59] LABS: INR 1.19; PROTHROMBIN TIME 14.2 seconds (11.9-14.5)
[2017-12-22 09:00] LABS: PARTIAL THROMBOPLASTIN TIME 38.2 seconds (23.8-35.5)
[2017-12-22] MEDS ORDERED: NITROGLYCERIN 2% OINT 1 GM PKT TOP ONE (09:00)
[2017-12-22] MEDS ORDERED: FUROSEMIDE INJ 10 MG/ML 4 ML VIAL IV ONE (09:00)
[2017-12-22 09:11] LABS: CLARITY,URINE SL CLOUDY (CLEAR); COLOR,URINE YELLOW (YELLOW)
[2017-12-22 09:12] LABS: BILIRUBIN,URINE NEGATIVE (NEGATIVE); KETONES,URINE NEGATIVE (NEGATIVE); LEUKOCYTE ESTERASE ,URINE NEGATIVE (NEGATIVE); NITRITE,URINE NEGATIVE (NEGATIVE); PROTEIN,URINE DIPSTICK TRACE (NEGATIVE); URINE UROBILINOGEN 1 mg/dL (0.2 - 1)
[2017-12-22 09:38] LABS: AMORPHOUS SEDIMENT,URINE RARE (FEW); EPITHELIAL CELLS,URINE MODERATE /LPF
--- NOTE | 2017-12-22 10:16 | Diagnostic Imaging Report ---
PROCEDURE: A single AP view of the chest. COMPARISON: Chest radiograph 03/04/17. INDICATIONS: SHORTNESS OF BREATH FINDINGS: Lines/tubes: None. Lungs: Low lung volumes. Mild patchy bibasilar opacity. Mild perihilar opacity. Pleura: There is no pleural effusion or pneumothorax. Heart and mediastinum: The heart and the mediastinum are unremarkable. Bones: No acute bony abnormality. Degenerative changes of the thoracic spine. IMPRESSION: Low lung volumes, cannot exclude mild pulmonary interstitial edema. Mild patchy opacities at the lung bases, more likely atelectasis than pneumonia. Dictated by: VICKI MARIANO M.D. on 12/22/2017 at 8:29 Electronically approved by: VICKI MARIANO M.D. on 12/22/2017 at 8:29
[2017-12-22] MEDS ORDERED: FOLIC ACID1 MG PO (10:19)
[2017-12-22] MEDS ORDERED: PREDNISONE5 MG PO (10:19)
[2017-12-22] MEDS ORDERED: DIPHENHYDRAMINE HCL INJ 50 MG/ML VIAL IV PRN (10:30)
[2017-12-22] MEDS ORDERED: ONDANSETRON HCL INJ 2 MG/ML VIAL IV PRN (10:30)
[2017-12-22] MEDS ORDERED: PROMETHAZINE 12.5MG/ NACL 0.9% 12.5 MG/50 ML BAG IV PRN (10:30)
[2017-12-22] MEDS ORDERED: ACETAMINOPHEN 650 MG SUPP PR PRN (10:30)
[2017-12-22] MEDS ORDERED: SODIUM CHLORIDE 0.9% 1000ML 1,000 ML IV ONE (11:00)
[2017-12-22] MEDS: ALBUTEROL SULF 0.083% NEB SOLN 3 ML NEB NEB SCH ×4 (11:00→23:00)
[2017-12-22] MEDS: IBUPROFEN 200 MG TAB PO PRN (11:07)
[2017-12-22] MEDS ORDERED: RASUVO PO (11:53)
[2017-12-22] MEDS: ACETAMINOPHEN 1000 MG/100 ML IV SCH ×3 (12:00→23:54)
[2017-12-22] MEDS: IPRATROPIUM BROMIDE 0.02% 2.5 ML NEB NEB SCH ×2 (12:15→19:40)
--- NOTE | 2017-12-22 14:54 | Diagnostic Imaging Report ---
PROCEDURE: A single AP view of the chest. COMPARISON: None. INDICATIONS: PICC LINE PLACEMENT FINDINGS: See impression. IMPRESSION: 1. interval placement of right-sided PICC line which has its distal tip projecting in the mid SVC. 2. Hypoinflated lungs with central pulmonary venous congestion. Mild left basal atelectatic changes.. Fady Lance M.D. Dictated by: Fady Lance M.D. on 12/22/2017 at 14:14 Electronically approved by: Fady Lance M.D. on 12/22/2017 at 14:14
--- NOTE | 2017-12-22 16:21 | Consultation ---
DATE OF CONSULTATION: December 22, 2017 PULMONARY CONSULTATION REASON FOR CONSULTATION: ICU management. HPI: Ms. Gould is a 62-year-old female. She was presented to the emergency room with shortness of breath and leg swelling. Patient has chronic leg wound and she is bedbound because of congenital hip dysplasia. She follows up with wound care doctor, Dr. Green and also follows up with plastic surgeon, Dr. Cruz. She is now arousable, but sleepy. Her body habitus is suggestive of sleep apnea as well. She is a smoker for 40 years. She is denying any complaints of chest pain. Her shortness of breath is better. She is saturating 98% on 3 liters nasal cannula. REVIEW OF SYSTEMS GENERAL: The patient had a fever at home and fever here. HEENT: Head: Denies any head trauma or head injury. ENT: Denies any earache. CVS: Denies any chest pain. RESPIRATORY: Shortness of breath. GI: Denies any nausea or vomiting. The rest of the review systems are negative except as in HPI. PAST MEDICAL HISTORY 1. Psoriatic arthritis. Patient is on IV methotrexate. 2. Congenital hip dysplasia causing her to be bedbound. 3. Peripheral arterial disease. 4. Questionable history of vasculitis as well. FAMILY AND SOCIAL HISTORY: She lives with her . She is bedbound for 20+ years because of congenital hip dysplasia. She has a spacer. She has been a smoker for 40 years a pack a day. PHYSICAL EXAMINATION VITAL SIGNS: Temperature 101.8, pulse of 102, blood pressure 97/49, blood pressure is 100/48, respiratory rate is 18, O2 sat 98% on 2 liters. HEENT: Head is atraumatic, normocephalic. NECK: Supple. CHEST: Clear to auscultation bilaterally, reduced air entry. HEART: S1, S2 audible. No murmurs, gallops, or rub. ABDOMEN: Abdominal wall edema. EXTREMITIES: Bilateral leg edema. Lower legs are wrapped in Braulio wrap because of wounds. NEUROLOGICAL: She is arousable, but sleepy. Following command, oriented x3. No focal neurologic deficit. Weakness in the legs and footdrop. LABORATORY DATA: Sodium 139, potassium 4.1, chloride 98, BUN 9, creatinine 0.8. White count of 16,000, hemoglobin 12.9, platelets 180. Anita Gould is a 62-year-old female. She presented to the emergency room with shortness of breath. Chest x-ray showing evidence of fluid overload. She looks volume overloaded with bilateral pedal edema and abdominal wall edema. Her body habitus is suggestive of obstructive sleep apnea, possibly can have COPD as she is a [id number] smoker. However, her ABG is not showing any evidence of hypercapnia. Her BMP showing evidence of chronic hypercapnia and bicarb is 31. BNP in the emergency room was 441. Lactate was 18.3, which is normal. IMPRESSION 1. Fever, likely due to the wound infection. Chest x-ray is not highly suggestive of pneumonia. Infectious disease has been consulted. Patient received a dose of meropenem and vancomycin in emergency room. IV antibiotics will be continued per ID recommendations. 2. Volume overload. We will order an echocardiogram at this point. I am unable to give Lasix because patient's blood pressure is marginal. 3. History of psoriatic arthritis. Patient has been on methotrexate IV, not on any biologic agents, but due to using methotrexate, she will be considered immunocompromise and broad spectrum antibiotic as needed for wound infection. 4. Bedbound status due to congenital hip dislocation and has pacer devices. 5. Encephalopathy which appears resolving. Patient is arousable, oriented to time, place and person, sleepy, not hypercapnic, likely due to severe sepsis. Patient also received Benadryl in the emergency room, can be the reason for somnolence. 6. High likelihood of obstructive sleep apnea. Body habitus is suggestive. Family is giving the history of snoring and daytime sleepiness. I will continue using CPAP during hours of sleep. 7. Lovenox 40 mg subcutaneous for deep venous thrombosis prophylaxis. 8. Patient has [id number] smoking history, high likelihood of chronic obstructive pulmonary disease. Continue the patient on nebulizer treatment, not wheezing currently. Does not need to be on IV steroids at this point. Discussed with patient's daughter and at bedside in detail. Critical care time spent 50 minutes. Thank you for this consult. Job#: [id number] YULIYA
[2017-12-22] MEDS: FAMOTIDINE 20 MG/2 ML VIAL IV SCH (17:15)
[2017-12-22] MEDS: MEROPENEM 1 GM VIAL IV SCH ×2 (17:15→23:54)
--- NOTE | 2017-12-22 19:49 | Consultation ---
DATE OF CONSULTATION: December 22, 2017 NEUROLOGY CONSULTATION HISTORY OF PRESENT ILLNESS: Ms. Gould is a 62-year-old, [id number] woman with past medical history significant for hypertension, psoriatic arthritis on methotrexate, and chronic wounds over the feet and forelegs who presented to the emergency center at [facility] on December 22, 2017, with multiple symptoms. Ms. Gould was at home on the morning of admission when she began to feel confused and disoriented. When asked to describe this further, the patient endorses difficulty in concentration. Ms. Gould endorses anxiety, dizziness which is further described as lightheadedness, tremulousness, and frequent dropping of items as well. Ms. Gould reports feeling like she was "going in and out." Therefore, the patient was brought to the emergency center at [facility] for further evaluation of her symptoms. Upon arrival in the emergency center, the patient was febrile with a temperature of 103.2. Her blood pressure was 139/77 mmHg with a pulse of 122 beats per minute. Her pulse oximetry was 90%. Ms. Gould's neurological evaluation is documented as being nonfocal. Upon admission to the emergency center, the patient fulfilled the criteria for sepsis. Therefore, she was transferred to the intensive care unit for further evaluation and treatment of her symptoms. Ms. Gould does not endorse headaches, significantly worsening neck stiffness, or photophobia. The patient does endorse a cough productive of clear sputum. She reports shortness of breath. She endorses occasional abdominal pain with swelling. She does not report nausea, vomiting, diarrhea, or constipation. Ms. Gould does report a foul odor and darker color to her urine, but not urinary frequency or urgency. As stated above, the patient does report chronic wounds over her feet and legs with superimposed infection at present. Lastly, Ms. Gould endorses lower extremity edema. REVIEW OF SYSTEMS: As per history of present illness. Otherwise, the 12-point review of systems is negative. 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 PAST SURGICAL HISTORY: Forty-plus hip replacements, section, exploratory endoscopic procedure of the abdomen. PAST HOSPITALIZATIONS: Surgeries/procedures as listed, cellulitis, postoperative infections times 2. FAMILY MEDICAL HISTORY: The patient's paternal grandparents are . Their medical histories are unknown. The patient's maternal grandparents are . Her maternal grandfather's medical history is unknown. Her maternal grandmother had arthritis. The patient's father is alive and has diabetes mellitus, type 2, and prostate cancer. Ms. Gould's mother is alive and has psoriatic arthritis. Patient has 2 brothers and 2 sisters, all of whom are alive. All of her siblings, with the exception of one sister, have various rheumatological disorders. One brother has diabetes mellitus. The patient has 1 daughter who is alive. She has symptoms of underlying rheumatological disorder, but has not been formally diagnosed. SOCIAL HISTORY: Patient is . She has an associates degree. She is on disability. The patient endorses current tobacco use. She has smoked approximately one pack of cigarettes per day for 30 years. The patient does report drinking an occasional glass of wine. She does not report current or prior recreational drug use. HOME MEDICATIONS 1. Atorvastatin 20 mg by mouth daily. 2. Doxepin 100 mg by mouth daily. 3. Lexapro 40 mg by mouth daily. 4. Fentanyl 100 mcg topically daily. 5. Folic acid 1 mg by mouth daily. 6. Hydrocodone/acetaminophen 10 per 325 mg 1 tablet by mouth every 6 hours as needed for pain. 7. Levothyroxine 112 mcg by mouth in the mornings daily. 8. Prednisone 5 mg by mouth daily. 9. Estradiol 0.5 mg by mouth 2 times per week. 10. Rasuvo 12.5 mg by mouth weekly. ALLERGIES: CODEINE, MORPHINE. BLUE CHEESE. NO KNOWN ALLERGIES TO LATEX. NO KNOWN ALLERGIES TO IODINE OR OTHER CONTRAST MATERIAL. PHYSICAL EXAMINATION VITAL SIGNS: Height 60 inches weight, 182 pounds. BMI 35.6 kg per meter squared. Blood pressure 112/72 mmHg. Pulse 86 beats per minute. Respiratory rate 18 breaths per minute. Oxygen saturation 99% on 2 liters by nasal cannula. GENERAL: Patient is awake and alert, does not appear distressed. Obese. HEENT: Normocephalic, atraumatic. Pupils are equal, round and reactive to light. Moist mucous membranes. NECK: Supple. No appreciable thyromegaly. No appreciable carotid bruits. CARDIOVASCULAR: S1 and S2, regular rate and rhythm. No murmurs, rubs, or gallops. RESPIRATORY: Clear to auscultation bilaterally. No wheezes, rhonchi or rales. EXTREMITIES: The skin is warm and dry. No clubbing, cyanosis, or edema. The posterior tibial and dorsalis pedis pulses are approximately 1+ and symmetric. SKIN: Cellulitis over the bilateral feet and lower extremities. The feet and forelegs are wrapped. NEUROLOGIC EXAMINATION MEMORY/ATTENTION: The patient is awake and alert, oriented to person, place, time (not month), and situation. CRANIAL NERVES: Cranial nerve I: Not tested. Cranial nerves II, III, IV, and : Pupils are equal and round, react briskly to light (from 4 mm to 2 mm). Extraocular movements intact. No nystagmus. Cranial nerve V: Sensation to light touch and pinprick is diminished in a patchy, nonanatomical distribution. Strength of the temporalis and masseter muscles is within normal limits. Cranial nerve VII: The face is symmetric as are all facial movements. Strength is within normal limits. Cranial nerve VIII: Hearing is intact to finger rub bilaterally. Cranial nerves IX and X: The soft palate elevates equally and symmetrically. Cranial nerve XI: Normal strength of the bilateral sternocleidomastoid and trapezius muscles. Cranial nerve XII: The tongue protrudes midline and moves symmetrically from side to side. STRENGTH: Bulk is diminished in the legs. Strength is 5/5 in the bilateral deltoids, biceps, triceps, wrist flexors and extensors, finger flexors and extensors, intrinsic hand muscles. Strength is 1/5 to 2/5 in the bilateral hip flexors, knee flexors and extensors, ankle dorsiflexion and plantar flexion, and intrinsic foot muscles. Tone is decreased in the legs. DEEP TENDON REFLEXES: Deep tendon reflexes are 1+ and symmetric at the triceps, biceps and brachioradialis. Deep tendon reflexes are absent and symmetric at the patellas and Achilles. Plantar responses are mute bilaterally. SENSATION: Sensation to light touch and pinprick is diminished in a patchy, nonanatomic distribution in both arms and both legs. CEREBELLAR: Ygglgz-gzzn-vtfmcv movements are intact without dysmetria or other impairment. Heel-rod movements cannot be performed secondary to lower extremity paresis. GAIT: Deferred. SPEECH: Spontaneous speech is normal without appreciable dysarthria or aphasia. Repetition is intact. INVOLUNTARY MOVEMENTS: None. PRONATOR DRIFT: None. LABORATORY DATA: Sodium 139, potassium 4.1, chloride 98, carbon dioxide 31, anion gap 14.1, BUN 9, creatinine 0.82, estimated GFR greater than 60. PKB-ry-mqdqkgmkth ratio 11. Glucose 163, calcium 9.7, magnesium 1.4, total bilirubin 1.4, AST 17, ALT 10, alkaline phosphatase 121. Total protein 6.7, albumin 3.3, globulin 3.4, etkmmow-iy-kwxmzafu ratio 1.0, lactic acid 18.3, creatine kinase 57, CK-MB 1.50, troponin I 0.242. B-natriuretic peptide 441.4. CBC with differential and platelets reveals a white blood cell count of 16.61 with 89.3% neutrophils, 4.4% lymphocytes, 4.9% monocytes, 0.2% eosinophils and 0.5% basophils. PT 14.2, INR 1.19 and PTT 38.2. Arterial blood gas reveals a pH of 7.47, pCO2 of 43, pO2 of 61, bicarbonate of 31, oxygen saturation 92.0, base excess 8.0, FiO2 of 36. Urinalysis is significant for trace protein. Blood and urine cultures are pending. DIAGNOSTIC STUDIES 1. EKG, 12/22/2017: Sinus tachycardia at 116 beats per minute. 2. Chest x-ray, 12/22/2017: Low lung volumes, cannot exclude mild pulmonary interstitial edema. Mild patchy opacities of the lung bases, more likely atelectasis than pneumonia. 3. Catheter placement x-ray, 12/22/2017: 1) Interval placement of right-sided PICC line which has its distal tip projecting in the mid SVC. 2) Hypoinflated lungs with central pulmonary venous congestion. Mild left basal atelectatic changes. ASSESSMENT AND PLAN: Ms. Gould is a 62-year-old, [id number] woman with past medical history as detailed, admitted with multiple symptoms, chief amongst these being fever and confusion. At present, the patient is lucid. Her neurological examination is significant for bilateral lower extremity weakness with decreased tone and absent deep tendon reflexes. These findings are chronic and related to the patient's known history of bilateral congenital hip dysplasia. Patient's laboratory data and other diagnostic studies have been reviewed and are documented above. In the setting of fever and confusion in an immunocompromised patient, there was some concern for meningitis or encephalitis. However, as stated above, the patient is lucid at present. There are no signs of meningismus on general physical and neurological examinations. Therefore, a lumbar puncture is not necessary at this time. However, the patient will continue to be monitored clinically for decline in mental status. RECOMMENDATIONS 1. Routine laboratory data will be ordered to evaluate for underlying metabolic disorders contributing to confusion. 2. Limit the use of sedative/hypnotic and pain medications as these medications will alter the patient's sensorium. 3. Utilize environmental cues to limit the occurrence of delirium. 4. Defer treatment of the remaining medical comorbidities to the primary and other services following the patient. Thank you for this consultation. I will continue to follow the patient while she remains in the hospital. Time spent: 70 minutes. Job#: [id number] NUVIA MCKEON
[2017-12-22] MEDS ORDERED: MEROPENEM 1 GM VIAL IV SCH (20:00)
[2017-12-22] MEDS: VANCOMYCIN 1GM/NS 250 ML 250 ML IV SCH (20:22)
--- NOTE | 2017-12-22 21:46 | Diagnostic Imaging Report ---
EXAM: CT Abdomen and Pelvis WITH contrast INDICATION: Abdominal pain COMPARISON: CTA abdomen and pelvis runoff on 01/08/2017 TECHNIQUE: Abdomen and pelvis were scanned utilizing a multidetector helical scanner from the lung base to the pubic symphysis after administration of IV contrast. Coronal and sagittal reformations were obtained. Routine protocol was performed. Scan was performed when during portal venous phase. IV CONTRAST: 100 mL of Isovue-370 ORAL CONTRAST: None RADIATION DOSE: Total DLP: 739.77 mGy*cm Estimated effective dose: (DLP x 0.015 x size factor) mSv COMPLICATIONS: None FINDINGS: LINES and TUBES: None. LOWER THORAX: Unremarkable HEPATOBILIARY: The liver is diffuse hypodense compared to the spleen, consistent with diffuse hepatic diffuse hepatic steatosis. No focal hepatic lesions. No biliary ductal dilation. GALLBLADDER: No radio-opaque stones or sludge. No wall thickening. SPLEEN: No splenomegaly. PANCREAS: No focal masses or ductal dilatation. ADRENALS: No adrenal nodules KIDNEYS/URETERS: Kidneys enhance symmetrically. No hydronephrosis. No cystic or solid mass lesions. No stones. GI TRACT: No abnormal distention, wall thickening, or evidence of bowel obstruction. Appendix is normal. PELVIC ORGANS/BLADDER: Abdullahi catheter decompresses the urinary bladder. Nondependent air in the bladder is most likely from instrumentation with Abdullahi. LYMPH NODES: No lymphadenopathy. VESSELS: Unremarkable. PERITONEUM / RETROPERITONEUM: No free air or fluid. BONES: Again, complete fragmentation and osteolysis of the left femoral head and neck and complete erosion of the left iliac wing involving the acetabulum. There is severe synovitis at the expected location of the femoral acetabular joint. Patient is status post subtotal right hip arthroplasty with chronic loosening and fragmentation of the proximal right femur and right acetabulum. SOFT TISSUES: There is severe diffuse anarsarca. IMPRESSION: 1. No evidence of acute intra-abdominal or pelvic abnormality. 2. Diffuse hepatic steatosis. 3. Diffuse soft tissue anasarca. 4. 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 Lorne Garcia M.D. on 12/22/2017 9:43 PM
[2017-12-22] MEDS ORDERED: MEROPENEM 1GM 100 ML IV SCH (22:00)
[2017-12-22] MEDS ORDERED: SODIUM CHLORIDE 0.9% 50ML 50 ML ONE (22:35)
[2017-12-22] MEDS ORDERED: IOPAMIDOL 370 MG/ML 200 ML INFUS..BTL INJ ONE (22:35)
--- NOTE | 2017-12-22 23:36 | History and Physical ---
PRIMARY CARE PHYSICIAN: None. INFECTIOUS DISEASE: Dr. Prince. CHIEF COMPLAINT: Chills and shortness of breath. HISTORY OF PRESENT ILLNESS: This is a 62-year-old woman with a history of infected hip and prosthetic devices which were subsequently removed many years ago, now patient developing chills at home with shortness of breath. Therefore, brought her to the hospital. He admits that she has been having some swelling in her legs and abdomen. He also admits to some signs of sleep apnea with apneic episodes observed. Patient needed BiPAP in the emergency room. Now, she is transferred to the ICU on nasal cannula. PAST MEDICAL HISTORY: Cellulitis, with an infected hip prosthesis bilaterally, status post removal many years ago. Peripheral edema, thyroid disease, cigarette abuse. PAST SURGICAL HISTORY: Hip replacement multiple times status post removal of prosthetic material. . ALLERGIES: PER ELECTRONIC MEDICAL RECORD. FAMILY HISTORY/SOCIAL HISTORY: Patient is . She has 1 child. One pack per day of cigarettes. Occasional alcohol. No illicits. MEDICATIONS: Per electronic medical record. REVIEW OF SYSTEMS: Denies any dizziness, chest pain, headache, or vision changes. Limited review of systems due to patient's mental status at this time. PHYSICAL EXAMINATION VITAL SIGNS: T-max is 103.2, blood pressure as low as 94/79, heart rate as high as 101. GENERAL: A tired-appearing man, resting in bed. HEENT: Anicteric. CARDIOVASCULAR: Normal S1 and S2. LUNGS: Coarse breath sounds somewhat reduced at the base. ABDOMEN: Slightly indurated and signs of edema . EXTREMITIES: She has 1 to 2+ leg edema bilaterally. SKIN: Dry. PSYCHIATRIC: Flat affect. NEUROLOGICAL: Awake but somnolent. LABS: Reviewed. MEDICATIONS: Reviewed. ASSESSMENT AND PLAN: This is a 62-year-old woman 1. Sepsis. 2. Congestive heart failure with beta-natriuretic peptide of 441. 3. Obesity. 4. Respiratory distress. 5. Anasarca. 6. Bilateral femoral and acetabular osteolysis, signs of chronic synovitis. 7. Pulmonary edema. 8. Cigarette abuse. PLAN 1. Continue IV vancomycin and IV meropenem infectious disease. 2. Obtain 2D echocardiogram. 3. Use nicotine patch. 4. Continue oxygen support and nebs as needed. 5. Continue Lovenox 40 daily. 6. No diuresis at this time due to fluid overload, but she will need diuresis at some point. 7. Follow up 2D echocardiogram. 8. Monitor closely from the ICU tonight. If she remains stable, can be transitioned to the floor tomorrow. 9. Critical care time: More than 35 minutes. Job#: [id number] CF
[2017-12-23] VITALS (19 sets, daily range): BP systolic 94–129; BP diastolic 54–81
--- NOTE | 2017-12-23 00:44 | Consultation ---
DATE OF CONSULTATION: December 22, 2017 REASON FOR CONSULTATION: Fever. HISTORY OF PRESENT ILLNESS: This patient is well known to me. She is a 62-year-old white female with history of obesity, history of psoriasis. The patient has been having chronic ulcers in her feet. She has been followed by the wound care and I have been seeing her as an outpatient. The patient, according to her daughter, she started to have generalized edema, generalized erythema. She started a new medication for her psoriasis about a couple of weeks ago and the symptoms started about a week ago. The patient has an underlying history of obesity, arthritis with psoriasis, congenital hip dysplasia, bed bound, and peripheral vascular disease. The patient apparently, she was just having generalized edema and erythema, but today she was not feeling well with fever and chills. So, she came to the emergency room where she was evaluated as an outpatient. The patient was admitted. When I saw the patient, she was quite lethargic and confused and I could not wake her up and the daughter said that this is new to her. However, when I was examining her and evaluating her, eventually she did wake up and she was alert and oriented and she has no complaints. The patient comes into the hospital with a feeling of fever and chills for 1 day, but the evaluation shows generalized edema for a week. The patient as was evaluated in the emergency room. Her white count was 16.0, hemoglobin 12.9, and glucose 163 with a creatinine 0.82. The patient was admitted. I did discuss the case with the ER physician, recommended to do blood cultures, urine cultures, chest x-ray, and start patient on meropenem and vancomycin. When I saw the patient in the admission block, she was lethargic, but she did wake up towards the end of my evaluation. I did discuss the case with the neurologist, Dr. Blevins, who was at the bedside. She is going to see the patient fully as a consult tomorrow, but right now, the patient is alert, oriented, and has no complaints. PAST MEDICAL HISTORY: Psoriasis, arthritis, congenital hip dysplasia, peripheral vascular disease, and chronic ulcer in the feet. ALLERGIES: NKA. SOCIAL HISTORY: There is no smoking, drug abuse, or alcohol abuse. Wheelchair bound. REVIEW OF SYSTEMS: At the present time, she denies any HEENT: Negative. PULMONARY: Negative. CARDIAC: Negative. GI: Negative. PAST MEDICAL HISTORY: As mentioned above. PAST SURGICAL HISTORY: Above. She has hip replacement, . At the present time, as I mentioned above, she was drowsy, but she is currently alert and oriented LABORATORY DATA: White count 16.6, hemoglobin 12.9, and hematocrit 40. Her sodium 139, potassium 4.1, and glucose 163. When she first came, it was 318. AST 17. C-reactive protein 138 and BNP was 441. PHYSICAL EXAMINATION GENERAL: She is currently alert, oriented, does not seem to be in acute distress. VITALS: Stable. Currently afebrile. HEENT: She does not appear icteric. NECK: Supple. CHEST: Clear. HEART: S1 and S2. No murmur. ABDOMEN: Soft. Bowel sounds are present. No tenderness. EXTREMITIES: No edema. IMPRESSION: Altered mental status and fever. I am concerned about sepsis. The source is unclear to me. I recommended to do a CT scan of the abdomen and pelvis. I did review her chart again later tonight and the CAT scan did not show any acute intra-abdominal or pelvic abnormality, but she does have diffuse liver disease and anasarca. She also had a chest x-ray which shows low lung volumes and atelectasis, maybe pneumonia. IMPRESSIONS 1. Fever. 2. Altered mental status, concern about sepsis, source is unclear. Blood cultures ordered. Urine cultures ordered. Continue vancomycin. Continue cefepime. Altered mental status on and off, we will discuss with neurologist . 3. Diffuse skin rash, diffuse edema. I think it could be due to her medication. Discussed with the family. 4. Psoriasis and arthritis. I will recommend to hold off any immunosuppressive treatment for the time being. Continue supportive care. We will follow with you. 5. Generalized edema. diuresis with Lasix. We will follow. Job#: [id number]
--- NOTE | 2017-12-23 01:08 | Consultation ---
DATE OF CONSULTATION: December 22, 2017 CARDIOLOGY CONSULT NOTE REASON FOR CONSULTATION: Diffuse peripheral edema, shortness of breath, and altered mental status. CHIEF COMPLAINT: Chief complaint could not be elicited as patient is altered and sleeping and not easily arousable. HPI: History obtained from the as well as chart review. Patient is a 62-year-old woman with past medical history of hypertension; psoriatic arthritis, on methotrexate and chronic steroids, requiring hip replacement in the past; has had chronic edema in bilateral lower extremities and chronic wounds over both her feet and forelegs who presented to the emergency room with multiple symptoms. According to the , this morning patient was feeling very confused and disoriented, acting like she was short of breath and could not catch her breath. Eventually she started having according to the what appeared to be convulsions and jerky motions of all of her muscles, and upon arrival to the ER patient was febrile to temperature of 103.2. Patient is being admitted to the ICU and being treated for presumed sepsis. We are consulted for cardiovascular evaluation given that she has anasarca with significant edema in bilateral lower extremities as well as lower extremity wounds. REVIEW OF SYSTEMS: Could not be obtained as patient is sleeping and not easily arousable. PAST MEDICAL HISTORY: Hypertension, thyroid disease, psoriatic arthritis, migraines, chronic wounds over feet and forelegs, obstructive sleep apnea, and congenital hip dysplasia. PAST SURGICAL HISTORY: She has had 40+ hip replacements, , and ex lap for her abdomen in the past. FAMILY HISTORY: Diabetes and prostate cancer in dad, psoriatic arthritis in mom. SOCIAL HISTORY: Patient is a current smoker. She has a [id number] smoking history. Denies any significant alcohol use or recreational drug use. CARDIOVASCULAR MEDICATIONS: Atorvastatin 20 mg at bedtime. PHYSICAL EXAMINATION: VITAL SIGNS: Height 60 inches, weight 182 pounds, BMI 35.6 kg/sq m. Blood pressure 112/72, pulse 86 beats per minute, respiratory rate 18, oxygen saturation 99% on 2 liters nasal cannula, temperature 98.2. HEENT: Eyes: Conjunctivae clear. Ears, nose, mouth, and throat: Normal mucosa. No pallor or bleeding. NECK: She has a very thick cushingoid neck with goiter. Could not assess for jugular venous distention due to the girth of the neck. MUSCULOSKELETAL: She has normal muscle tone and strength. No atrophy or abnormal movements noted. EXTREMITIES: There are significant varicosities noted, but no clubbing or cyanosis. SKIN: There are venostasis changes as well as ulcers in bilateral lower extremities. GENERAL: Obese white female, snoring very loudly, hard to arouse. CARDIOVASCULAR: PMI could not be palpated due to body habitus. Regular. S1 and S2. No murmur, rubs or gallops. Normal carotid pulses. Femoral pulses or pedal pulses could not be palpated due to edema. Patient has 3+ anasarca in all of her extremities as well as abdomen. There are significant varicosities noted throughout her body. RESPIRATORY: Patient is in no respiratory distress. Lungs are clear to auscultation bilaterally. ABDOMEN: With significant abdominal wall edema, could not assess for masses or hepatosplenomegaly. NEURO AND PSYCH: Patient is snoring loudly and in very deep sleep. She is very difficult to arouse, but arousable to significant tactile and verbal stimuli. LABORATORY DATA: Reviewed. Significant for white blood cell count of 16.6. Lactic acid of 18.3 and TSH of 1.2. Her BNP was noted to be 441. MEDICATIONS: Patient is currently not on any cardiovascular medications. IMAGING: Reviewed. Chest x-ray shows bibasilar atelectasis, no significant findings consistent with pneumonia or pulmonary edema. TELEMETRY: Reviewed, normal sinus rhythm. No significant arrhythmia. ECG reviewed, no significant ST-T changes. No other cardiac studies available for review. ASSESSMENT: 1. Anasarca. 2. Lower extremity ulcerations. 3. Borderline hypotension. PLAN: Patient initial cardiac enzymes are negative. EKG is unremarkable. Unlikely to be myocardial infarction. Although her BNP is 440 and she has significant anasarca by chest x-ray, there are no obvious signs of acute decompensated heart failure. Will obtain an echocardiogram to evaluate her ejection fraction and valvular abnormalities further. Currently given that her blood pressure is low and she is being treated for sepsis, will not initiate any diuretics unless absolutely necessary. Will follow her closely. Thank you for this consult. Job#: [id number]
[2017-12-23] MEDS: IPRATROPIUM BROMIDE 0.02% 2.5 ML NEB NEB SCH ×4 (02:40→19:18)
[2017-12-23] MEDS: ALBUTEROL SULF 0.083% NEB SOLN 3 ML NEB NEB SCH ×6 (02:40→23:15)
[2017-12-23 04:35] LABS: BASOPHILS % 0.3 % (0.0-1.0); EOSINOPHILS # (AUTO) 0.1 (0.0-0.4); EOSINOPHILS % 0.7 % (0.0-6.0); HEMATOCRIT 36.3 % (34.2-44.1); HEMOGLOBIN 11.5 g/dL (12.0-16.0); LYMPHOCYTES # (AUTO) 0.6 (1.0-3.2); LYMPHOCYTES % 4.4 % (18.0-39.1); MEAN CORPUSCULAR HEMOGLOBIN 31.4 pg (28-32); MEAN CORPUSCULAR HGB CONC 31.7 g/dL (31-35); MEAN CORPUSCULAR VOLUME 99.2 fL (81-99); MONOCYTES # (AUTO) 0.7 (0.2-0.8); NEUTROPHILS # (AUTO) 12.2 (2.1-6.9); NEUTROPHILS % 88.9 % (38.7-80.0); PLATELET COUNT 146 x10e3/uL (140-360); RED BLOOD COUNT 3.66 x10e6/uL (3.6-5.1)
[2017-12-23 04:56] LABS: ANION GAP 14.3 mmol/L (8-16); BLOOD UREA NITROGEN 10 mg/dL (7-26); BUN/CREATININE RATIO 15 (6-25); CALCIUM 8.6 mg/dL (8.4-10.2); CARBON DIOXIDE 29 mmol/L (22-29); CHLORIDE 99 mmol/L (98-107); CREATININE, SERUM 0.68 mg/dL (0.57-1.11); EST GLOMERULAR FILTRATION RATE > 60 ML/MIN (60-); GLUCOSE 64 mg/dL (74-118); POTASSIUM 3.3 mmol/L (3.5-5.1); SODIUM 139 mmol/L (136-145)
[2017-12-23] MEDS: ACETAMINOPHEN 1000 MG/100 ML IV SCH (05:50)
[2017-12-23] MEDS ORDERED: POTASSIUM CHLORIDE 20 MEQ TAB CR PO STA (06:13)
[2017-12-23 06:34] LABS: CHOL/HDL RATIO 2.2 (3.0-3.6)
--- NOTE | 2017-12-23 07:58 | Progress Note ---
DATE: December 23, 2017 TIME: 7 a.m. OVERNIGHT: No events. REVIEW OF SYSTEMS: Denies any dizziness, chest pain, shortness of breath, headache, leg pain. PHYSICAL EXAMINATION VITAL SIGNS: Have been reviewed. GENERAL: A tired-appearing woman resting in bed. HEENT: Anicteric. Pupils respond to light. No oral lesions. CARDIOVASCULAR: Normal S1 and S2. LUNGS: Reduced breath sounds at the bases. Mildly course. ABDOMEN: Nondistended. Site of is edematous. EXTREMITIES: She has 1-2+ leg edema bilaterally. SKIN: Dry. PSYCHIATRIC: Flat affect. NEUROLOGIC: Awake and appropriate. LABS: Reviewed. MEDICATIONS: Reviewed. ASSESSMENT AND PLAN: A 62-year-old woman with: 1. Sepsis. 2. Congestive heart failure with brain natriuretic peptide of 441. 3. Obesity. 4. Respiratory distress. 5. Anasarca. 6. Bilateral femoral and acetabular osteolysis with signs of old previous disease. 7. Pulmonary edema. 8. Cigarette abuse. 9. Hypokalemia. PLAN 1. Continue broad-spectrum antibiotics. 2. Follow up cultures. 3. Follow up 2-D echocardiogram. 4. Continue oxygen support. 5. Continue diuresis. 6. Obtain hemoglobin A1c and lipid panel. 7. Replace potassium. 8. Continue Lovenox. 9. Transition to medical floor. Job#: [id number] BHAVANA
[2017-12-23] MEDS ORDERED: FENTANYL 50 MCG/HR PATCH TOP SCH (08:15)
[2017-12-23] MEDS ORDERED: FENTANYL 100 MCG/HR PATCH TOP SCH (08:15)
[2017-12-23] MEDS: MEROPENEM 1 GM VIAL IV SCH ×2 (08:24→16:27)
[2017-12-23] MEDS: LEVOTHYROXINE SODIUM 112 MCG TAB PO SCH (08:24)
[2017-12-23] MEDS: ESCITALOPRAM OXALATE 10 MG TAB PO SCH (08:25)
[2017-12-23] MEDS: VANCOMYCIN 1GM/NS 250 ML 250 ML IV SCH ×2 (08:25→20:15)
[2017-12-23] MEDS: FOLIC ACID 1 MG TAB PO SCH (08:25)
[2017-12-23] MEDS: ENOXAPARIN SOD INJ 40 MG/0.4 ML SYR SC SCH (08:25)
[2017-12-23] MEDS: NICOTINE 14 MG/EA PATCH TOP SCH ×3 (08:25→08:38)
[2017-12-23] MEDS: FAMOTIDINE 20 MG/2 ML VIAL IV SCH ×2 (08:25→17:13)
[2017-12-23] MEDS: HYDROCODONE/APAP 10MG-325MG TAB PO PRN ×3 (08:37→19:29)
[2017-12-23 09:18] LABS: % IRON SATURATION 6 % (15-50); IRON 21 ug/dL (50-170); TOTAL IRON BINDING CAPACITY 328 ug/dL (261-478); TRANSFERRIN 234 mg/dL (180-382)
[2017-12-23] MEDS: COLLAGENASE OINTMENT 30 GM TUBE TP SCH (09:50)
[2017-12-23] MEDS: HEPARIN SOD (PORCINE) 5,000 UNIT/ML VIAL SC SCH ×2 (10:19→21:00)
[2017-12-23] MEDS: ACETAMINOPHEN 325 MG TAB PO PRN (11:32)
[2017-12-23] MEDS: FENTANYL 100 MCG/HR PATCH TOP SCH (17:13)
--- NOTE | 2017-12-23 19:56 | Progress Note ---
DATE: December 23, 2017 CARDIOLOGY PROGRESS NOTE SUBJECTIVE: No major events overnight. The patient is much more awake and alert today. Denies any chest pain or shortness of breath. OBJECTIVE VITAL SIGNS: Temperature 97.7, pulse rate 86, respiratory rate 18, pulse oximetry 97% on 2 L nasal cannula. GENERAL: Obese white female. CARDIOVASCULAR: PMI could not be palpated due to body habitus. Normal S1 and S2. No murmurs, rubs or gallops. Carotid pulses are palpable. Bilateral radial pulses are palpable. Could not palpate femoral or lower extremity pulses due to significant lower extremity edema and obesity. RESPIRATORY: No respiratory distress. Lungs are clear to auscultation bilaterally. ABDOMEN: Distended. There is 3+ edema in the abdominal wall, nonpitting edema and is very firm to palpation. No rashes or lesions noted on the abdominal wall. NEURO/PSYCH: The patient is alert and oriented to person, place and time. Normal affect. LABORATORY DATA: Reviewed. White blood cell count has decreased to 13,000. LDL cholesterol is extremely low at 24. IMAGING: No new imaging to review today. Abdominal CT scan from yesterday shows diffuse soft tissue anasarca and chronic bilateral femoral and acetabular osteolysis related to chronic synovitis or osteomyelitis. Telemetry data reviewed. Normal sinus rhythm. No significant arrhythmias. Echocardiogram reviewed and essentially normal echocardiogram with normal RV and RV function. No significant valvular abnormalities noted. Systolic and diastolic function of the left ventricle intact. MEDICATIONS: The patient is currently not on any cardiovascular medications other than atorvastatin 40 mg at bedtime. ASSESSMENT AND PLAN 1. Diffuse soft tissue anasarca. 2. Sepsis. 3. Respiratory distress. 4. Psoriatic arthritis. PLAN: From a cardiovascular standpoint, the patient's echo is essentially normal. The heart is not the cause of her edema or even a contributing factor. In addition, her LDL levels are extremely low. Would recommend stopping the atorvastatin as there is no indication at this time. No additional studies or therapy is recommended from a cardiovascular standpoint at this time until infection issues resolve. Thank you for this consult. Will sign off at this time. Job#: [id number] DC
[2017-12-23] MEDS ORDERED: ATORVASTATIN 40 MG TAB PO SCH (21:00)
[2017-12-23] MEDS ORDERED: DOXEPIN HCL 100 MG PO SCH (21:00)
[2017-12-23] MEDS: DOXEPIN HCL 25 MG CAP PO SCH (21:00)
[2017-12-24] VITALS (8 sets, daily range): BP systolic 117–168; BP diastolic 59–93
[2017-12-24] MEDS ORDERED: SODIUM CHLORIDE 0.9% 1000ML 1,000 ML ONE (00:43)
[2017-12-24] MEDS: IPRATROPIUM BROMIDE 0.02% 2.5 ML NEB NEB SCH ×5 (02:40→23:45)
[2017-12-24] MEDS: ALBUTEROL SULF 0.083% NEB SOLN 3 ML NEB NEB SCH ×6 (02:40→23:45)
[2017-12-24] MEDS: LEVOTHYROXINE SODIUM 112 MCG TAB PO SCH (06:14)
[2017-12-24 08:10] LABS: BASOPHILS % 0.4 % (0.0-1.0); EOSINOPHILS # (AUTO) 0.5 (0.0-0.4); EOSINOPHILS % 5.6 % (0.0-6.0); HEMATOCRIT 37.5 % (34.2-44.1); HEMOGLOBIN 11.7 g/dL (12.0-16.0); LYMPHOCYTES # (AUTO) 0.8 (1.0-3.2); LYMPHOCYTES % 9.5 % (18.0-39.1); MEAN CORPUSCULAR HEMOGLOBIN 31.2 pg (28-32); MEAN CORPUSCULAR HGB CONC 31.2 g/dL (31-35); MONOCYTES # (AUTO) 0.9 (0.2-0.8); MONOCYTES % 10.1 % (4.4-11.3); NEUTROPHILS # (AUTO) 6.3 (2.1-6.9); NEUTROPHILS % 73.9 % (38.7-80.0); PLATELET COUNT 161 x10e3/uL (140-360); RED BLOOD COUNT 3.75 x10e6/uL (3.6-5.1); RED CELL DISTRIBUTION WIDTH 15.9 % (11.7-14.4)
[2017-12-24 08:35] LABS: ANION GAP 11.8 mmol/L (8-16); BLOOD UREA NITROGEN 10 mg/dL (7-26); BUN/CREATININE RATIO 14 (6-25); CARBON DIOXIDE 31 mmol/L (22-29); CHLORIDE 100 mmol/L (98-107); CREATININE, SERUM 0.71 mg/dL (0.57-1.11); EST GLOMERULAR FILTRATION RATE > 60 ML/MIN (60-); GLUCOSE 87 mg/dL (74-118); POTASSIUM 3.8 mmol/L (3.5-5.1); SODIUM 139 mmol/L (136-145)
[2017-12-24] MEDS: MEROPENEM 1 GM VIAL IV SCH ×3 (08:57→16:33)
[2017-12-24] MEDS: FAMOTIDINE 20 MG/2 ML VIAL IV SCH ×2 (08:58→16:33)
[2017-12-24] MEDS: ESCITALOPRAM OXALATE 10 MG TAB PO SCH (08:58)
[2017-12-24] MEDS: FOLIC ACID 1 MG TAB PO SCH (08:58)
[2017-12-24] MEDS: NICOTINE 14 MG/EA PATCH TOP SCH (08:58)
[2017-12-24] MEDS: COLLAGENASE OINTMENT 30 GM TUBE TP SCH ×2 (08:58→19:30)
[2017-12-24] MEDS: VANCOMYCIN 1GM/NS 250 ML 250 ML IV SCH ×2 (08:58→20:15)
[2017-12-24 09:08] LABS: INR 1.13; PROTHROMBIN TIME 13.6 seconds (11.9-14.5)
[2017-12-24 09:57] LABS: BAND NEUTROPHILS % (MANUAL) 2 %; EOSINOPHILS % (MANUAL) 4 % (0-7); LYMPHOCYTES % (MANUAL) 11 % (19-48); MONOCYTES % (MANUAL) 11 % (3.4-9.0); NEUTROPHILS % (MANUAL) 70 % (40-74)
[2017-12-24 09:58] LABS: ANISOCYTOSIS SLIGHT; PLATELET ESTIMATE ADEQUATE; PLATELET MORPHOLOGY COMMENT NORMAL; RBC MORPHOLOGY COMMENT NORMAL
[2017-12-24] MEDS: HEPARIN SOD (PORCINE) 5,000 UNIT/ML VIAL SC SCH ×2 (10:46→21:00)
[2017-12-24] MEDS: ENOXAPARIN SOD INJ 40 MG/0.4 ML SYR SC SCH (10:46)
[2017-12-24] MEDS ORDERED: POTASSIUM CHLORIDE 10 MEQ TABCR PO PRN (11:15)
[2017-12-24] MEDS: FUROSEMIDE 20 MG TAB PO SCH (12:02)
[2017-12-24] MEDS: HYDROCODONE/APAP 10MG-325MG TAB PO PRN ×3 (12:10→21:00)
[2017-12-24] MEDS: DOXEPIN HCL 25 MG CAP PO SCH (21:00)
[2017-12-25] VITALS (7 sets, daily range): BP systolic 131–149; BP diastolic 59–78
[2017-12-25] MEDS: ALBUTEROL SULF 0.083% NEB SOLN 3 ML NEB NEB SCH ×6 (02:55→23:45)
[2017-12-25] MEDS: LEVOTHYROXINE SODIUM 112 MCG TAB PO SCH (05:35)
[2017-12-25 05:37] LABS: BASOPHILS # (AUTO) 0.1 (0.0-0.1); BASOPHILS % 0.5 % (0.0-1.0); EOSINOPHILS # (AUTO) 0.5 (0.0-0.4); EOSINOPHILS % 5.4 % (0.0-6.0); HEMATOCRIT 38.2 % (34.2-44.1); HEMOGLOBIN 11.9 g/dL (12.0-16.0); LYMPHOCYTES % 11.2 % (18.0-39.1); MEAN CORPUSCULAR HEMOGLOBIN 31.2 pg (28-32); MEAN CORPUSCULAR HGB CONC 31.2 g/dL (31-35); MEAN CORPUSCULAR VOLUME 100.3 fL (81-99); MONOCYTES # (AUTO) 1.1 (0.2-0.8); MONOCYTES % 12.5 % (4.4-11.3); NEUTROPHILS # (AUTO) 6.3 (2.1-6.9); NEUTROPHILS % 69.7 % (38.7-80.0); PLATELET COUNT 168 x10e3/uL (140-360); RED BLOOD COUNT 3.81 x10e6/uL (3.6-5.1)
[2017-12-25] MEDS: HYDROCODONE/APAP 10MG-325MG TAB PO PRN (05:43)
[2017-12-25 06:05] LABS: ANION GAP 10.7 mmol/L (8-16); BLOOD UREA NITROGEN 11 mg/dL (7-26); BUN/CREATININE RATIO 16 (6-25); CALCIUM 9.2 mg/dL (8.4-10.2); CARBON DIOXIDE 34 mmol/L (22-29); CHLORIDE 97 mmol/L (98-107); CREATININE, SERUM 0.68 mg/dL (0.57-1.11); EST GLOMERULAR FILTRATION RATE > 60 ML/MIN (60-); GLUCOSE 70 mg/dL (74-118); POTASSIUM 3.7 mmol/L (3.5-5.1); SODIUM 138 mmol/L (136-145)
--- NOTE | 2017-12-25 07:05 | Progress Note ---
DATE: December 24, 2017 TIME: 7 a.m. OVERNIGHT: No events. REVIEW OF SYSTEMS: Denies any dizziness, chest pain, shortness of breath, fever, chills, sweats, nausea, vomiting, diarrhea, headache. PHYSICAL EXAMINATION VITAL SIGNS: Reviewed. GENERAL: A tired-appearing woman resting in bed. HEENT: Anicteric. CARDIOVASCULAR: Normal S1 and S2. LUNGS: Moderate breath sounds. ABDOMEN: Soft and nondistended. She has mild tenderness in the right upper quadrant. EXTREMITIES: One plus edema. SKIN: Dry. PSYCHIATRIC: Flat affect. NEUROLOGICAL: Alert and appropriate. LABS: Reviewed. MEDICATIONS: Reviewed. ASSESSMENT: A 62-year-old woman with: 1. Sepsis. 2. Congestive heart failure with a brain natriuretic peptide of 441. 3. Obesity. 4. Right-sided chest pain and anasarca. 5. Bilateral femoral and acetabular osteolysis. 6. Pulmonary edema. 7. Cigarette abuse. 8. Hypokalemia. PLAN 1. Continue antibiotics. 2. LFTs are improving. 3. Surgery is pending. 4. Pain is controlled. 5. Continue medication regimen. Job#: [id number] IN
[2017-12-25] MEDS: IPRATROPIUM BROMIDE 0.02% 2.5 ML NEB NEB SCH ×4 (07:08→23:45)
--- NOTE | 2017-12-25 07:11 | Progress Note ---
DATE: December 25, 2017 TIME: 6:42 a.m. OVERNIGHT: No events. REVIEW OF SYSTEMS: Denies any dizziness, chest pain, shortness of breath, fever, chills, sweats, nausea, vomiting, diarrhea, headache, blurred vision. PHYSICAL EXAMINATION VITAL SIGNS: Reviewed. GENERAL: A tired-appearing woman resting in bed. HEENT: Anicteric. CARDIOVASCULAR: Normal S1 and S2. LUNGS: Moderate breath sounds. ABDOMEN: Soft and nontender. EXTREMITIES: One plus leg edema. SKIN: Dry. PSYCHIATRIC: Normal affect. NEUROLOGIC: Alert and appropriate. LABS: Reviewed. MEDICATIONS: Reviewed. ASSESSMENT: A 62-year-old woman with: 1. Sepsis. 2. Congestive heart failure with brain natriuretic peptide of 441. 3. Obesity. 4. Respiratory distress. 5. Anasarca. 6. Pseudomonas bacteremia. 7. Bilateral femoral and acetabular osteolysis. 8. Pulmonary edema. 9. Cigarette abuse. 10. Hypokalemia. PLAN 1. Hemoglobin A1c is 5.5, LDL 24 and triglycerides 56. 2. Continue meropenem for Pseudomonas bacteremia. She will need 14 days total of antibiotics. 3. Continue other medication regimen. 4. Physical therapy. 5. Discharge planning. Awaiting infectious disease for possible setup of IV antibiotics at home. Job#: [id number] BHAVANA
[2017-12-25] MEDS: ENOXAPARIN SOD INJ 40 MG/0.4 ML SYR SC SCH (08:30)
[2017-12-25] MEDS: ESCITALOPRAM OXALATE 10 MG TAB PO SCH (08:30)
[2017-12-25] MEDS: FAMOTIDINE 20 MG/2 ML VIAL IV SCH ×2 (08:30→17:23)
[2017-12-25] MEDS: FUROSEMIDE 20 MG TAB PO SCH (08:30)
[2017-12-25] MEDS: VANCOMYCIN 1GM/NS 250 ML 250 ML IV SCH (08:30)
[2017-12-25] MEDS: FOLIC ACID 1 MG TAB PO SCH (08:30)
[2017-12-25] MEDS: HEPARIN SOD (PORCINE) 5,000 UNIT/ML VIAL SC SCH ×2 (08:30→21:56)
[2017-12-25] MEDS: POTASSIUM CHLORIDE 10 MEQ TABCR PO SCH (08:30)
[2017-12-25] MEDS: MEROPENEM 1 GM VIAL IV SCH ×3 (08:50→17:23)
[2017-12-25] MEDS: NICOTINE 14 MG/EA PATCH TOP SCH (09:00)
[2017-12-25] MEDS: DOXEPIN HCL 25 MG CAP PO SCH (21:55)
[2017-12-25] MEDS: IBUPROFEN 200 MG TAB PO PRN (21:56)
[2017-12-26] VITALS (7 sets, daily range): BP systolic 111–160; BP diastolic 60–78
[2017-12-26] MEDS: MEROPENEM 1 GM VIAL IV SCH ×4 (00:08→23:51)
[2017-12-26] MEDS: ALBUTEROL SULF 0.083% NEB SOLN 3 ML NEB NEB SCH ×6 (03:15→23:20)
[2017-12-26] MEDS: LEVOTHYROXINE SODIUM 112 MCG TAB PO SCH (06:09)
[2017-12-26] MEDS: IPRATROPIUM BROMIDE 0.02% 2.5 ML NEB NEB SCH ×4 (06:57→23:20)
[2017-12-26] MEDS: HEPARIN SOD (PORCINE) 5,000 UNIT/ML VIAL SC SCH ×2 (07:18→21:51)
[2017-12-26] MEDS: FUROSEMIDE 20 MG TAB PO SCH (08:16)
[2017-12-26] MEDS: FAMOTIDINE 20 MG/2 ML VIAL IV SCH ×2 (08:16→16:42)
[2017-12-26] MEDS: FOLIC ACID 1 MG TAB PO SCH (08:16)
[2017-12-26] MEDS: POTASSIUM CHLORIDE 10 MEQ TABCR PO SCH (08:16)
[2017-12-26] MEDS: ENOXAPARIN SOD INJ 40 MG/0.4 ML SYR SC SCH (08:18)
[2017-12-26] MEDS: NICOTINE 14 MG/EA PATCH TOP SCH (09:00)
--- NOTE | 2017-12-26 09:37 | Progress Note ---
DATE: December 26, 2017 TIME: 9 a.m. OVERNIGHT: No events. REVIEW OF SYSTEMS: Denies any dizziness or chest pain. PHYSICAL EXAMINATION VITAL SIGNS: Reviewed. GENERAL: A tired-appearing woman resting in bed. HEENT: Anicteric. CARDIOVASCULAR: Normal S1 and S2. LUNGS: Moderate breath sounds. ABDOMEN: Soft and nontender. EXTREMITIES: Edema of bilateral legs. She has an Braulio bandage on the legs. SKIN: Dry. PSYCHIATRIC: Flat affect. NEUROLOGIC: Awake, alert and appropriate. LABS: Reviewed. MEDICATIONS: Reviewed. ASSESSMENT: A 62-year-old woman. 1. Sepsis. 2. Pseudomonas bacteremia. 3. Congestive heart failure with brain natriuretic peptide of 441. 4. Obesity. 5. Respiratory distress. 6. Anasarca. 7. Bilateral femoral and acetabular osteolysis, chronic. 8. Pulmonary edema. 9. Cigarette abuse. 10. Hypokalemia. PLAN 1. Hemoglobin A1c is 5.5 and LDL 24. 2. Continue meropenem for multidrug-resistant pseudomonas bacteremia. 3. The patient remains on vancomycin and antifungal per infectious disease. 4. Continue physical therapy. 5. Leukocytosis has resolved. 6. I have discussed the case with the patient and her at bedside. Job#: [id number]
[2017-12-26] MEDS: VANCOMYCIN 1GM/NS 250 ML 250 ML IV SCH (10:05)
[2017-12-26] MEDS: COLLAGENASE OINTMENT 30 GM TUBE TP SCH (10:29)
[2017-12-26] MEDS: ESCITALOPRAM OXALATE 10 MG TAB PO SCH (10:29)
[2017-12-26] MEDS: FENTANYL 100 MCG/HR PATCH TOP SCH (17:15)
[2017-12-26] MEDS: HYDROCODONE/APAP 10MG-325MG TAB PO PRN (19:33)
[2017-12-26] MEDS: DOXEPIN HCL 25 MG CAP PO SCH (21:49)
[2017-12-27] VITALS (7 sets, daily range): BP systolic 116–176; BP diastolic 58–80
[2017-12-27] MEDS: ALBUTEROL SULF 0.083% NEB SOLN 3 ML NEB NEB SCH ×6 (03:30→23:35)
[2017-12-27] MEDS: HYDROCODONE/APAP 10MG-325MG TAB PO PRN (05:55)
[2017-12-27] MEDS: LEVOTHYROXINE SODIUM 112 MCG TAB PO SCH (05:55)
--- NOTE | 2017-12-27 06:48 | Diagnostic Imaging Report ---
EXAMINATION: CHEST SINGLE (PORTABLE) INDICATION: Congestive heart failure. COMPARISON: 12/22/2017 FINDINGS: TUBES and LINES: Right upper extremity PICC line is stable in good position with tip overlying the proximal SVC. LUNGS: Lungs are well inflated. Lungs are clear. There is mild prominence of the central pulmonary vasculature, consistent with pulmonary venous congestion. Interval resolution of previously visualized edema. PLEURA: No pleural effusion or pneumothorax. HEART AND MEDIASTINUM: Cardiac size is mildly enlarged. BONES AND SOFT TISSUES: No acute osseous lesion. Soft tissues are unremarkable. UPPER ABDOMEN: No free air under the diaphragm. IMPRESSION: No acute thoracic abnormality. Mild cardiomegaly without decompensation. Signed by: Dr. Lorne Garcia M.D. on 12/27/2017 6:45 AM
[2017-12-27] MEDS: MEROPENEM 1 GM VIAL IV SCH ×3 (08:10→23:55)
[2017-12-27] MEDS: FUROSEMIDE 20 MG TAB PO SCH (08:10)
[2017-12-27] MEDS: POTASSIUM CHLORIDE 10 MEQ TABCR PO SCH (08:10)
[2017-12-27] MEDS: FOLIC ACID 1 MG TAB PO SCH (08:10)
[2017-12-27] MEDS: ESCITALOPRAM OXALATE 10 MG TAB PO SCH (08:10)
[2017-12-27] MEDS: ENOXAPARIN SOD INJ 40 MG/0.4 ML SYR SC SCH (08:10)
[2017-12-27] MEDS: FAMOTIDINE 20 MG/2 ML VIAL IV SCH ×2 (08:12→16:59)
[2017-12-27] MEDS: NICOTINE 14 MG/EA PATCH TOP SCH (08:53)
[2017-12-27] MEDS: HEPARIN SOD (PORCINE) 5,000 UNIT/ML VIAL SC SCH (09:02)
[2017-12-27] MEDS: IPRATROPIUM BROMIDE 0.02% 2.5 ML NEB NEB SCH ×4 (09:37→23:35)
[2017-12-27] MEDS: PREDNISONE 20 MG TAB PO SCH ×2 (10:30→16:30)
[2017-12-27] MEDS ORDERED: HYDROCODONE/APAP 5MG-325MG TAB PO PRN (16:30)
[2017-12-27] MEDS: COLLAGENASE OINTMENT 30 GM TUBE TP SCH (16:59)
--- NOTE | 2017-12-27 17:10 | Progress Note ---
DATE: December 27, 2017 TIME: 4 p.m. OVERNIGHT: Sleepy. REVIEW OF SYSTEMS: Unreliable. VITAL SIGNS: Reviewed. PHYSICAL EXAMINATION GENERAL: A tired-appearing woman resting in bed. HEENT: Anicteric. CARDIOVASCULAR: Normal S1 and S2. LUNGS: Moderate breath sounds. ABDOMEN: Slightly firm, nontender. Edema is present. EXTREMITIES: There is 1+ edema of bilateral lower extremities, but legs are wrapped. SKIN: Dry. PSYCHIATRIC: Flat affect. NEUROLOGIC: She is awake and oriented times 3. She moves her arms. LABS: Reviewed. MEDICATIONS: Reviewed. ASSESSMENT: A 62-year-old woman. 1. Sepsis. 2. Pseudomonas bacteremia. 3. Congestive heart failure with brain natriuretic peptide of 441. 4. Obesity. 5. Respiratory distress. 6. Pulmonary congestion with peripheral edema. 7. Anasarca. 8. Bilateral femoral and acetabular osteolysis, which is chronic. 9. Cigarette abuse. 10. Hypokalemia. PLAN 1. Hemoglobin A1c is 5.5 and LDL 24. 2. Augment diuresis using IV Lasix. 3. Reduce Skippers to 5 per 325. 4. I have discussed with the the need to reduce Skippers. 5. Patient will need continued monitoring and diuresis as well as IV antibiotics. Will consult case management for LTAC evaluation. 6. Repeat blood cultures pending infectious disease. 7. Continue IV meropenem. 8. Continue physical therapy as able and monitor for lethargy. 9. Patient is on prednisone 20 b.i.d. Her is opposed to prednisone use at least at this dose. Will consider a quick titration down. Job#: [id number]
[2017-12-27] MEDS: BUDESONIDE/FORMOTEROL 160/4.5MCG INHALER INH SCH (20:05)
--- NOTE | 2017-12-27 20:53 | Discharge Summary ---
CHIOMA DICTATION (00:01) MONSE COLE MD Job#: [id number] CQ
[2017-12-27] MEDS: FUROSEMIDE INJ 10 MG/ML 4 ML VIAL IV SCH (21:00)
[2017-12-27] MEDS: DOXEPIN HCL 25 MG CAP PO SCH (21:00)
[2017-12-28] VITALS (9 sets, daily range): BP systolic 119–164; BP diastolic 58–82
--- NOTE | 2017-12-28 01:06 | Progress Note ---
DATE: December 28, 2017 SUBJECTIVE: Ms. Gould remains sleepy on and off, remains edematous. Discussed with the and the family. PHYSICAL EXAMINATION: GENERAL: She is on and off sleepy, lethargic. HEENT: Negative. PULMONARY: Chest clear bilaterally, coarse. HEART: No murmur. ABDOMEN: Soft, obese. EXTREMITIES: She has significant edema. IMPRESSION: 1. Lethargy. I recommended to discontinue all her pain medications, but the family especially the he was against it. Totally, I told him that I think she is lethargic because she has component of metabolic encephalopathy and I think the pain medicine is adding to it, but he refused to stop it and he wants to talk with Dr. Chang. I did call Dr. Chang and informed him of situation. 2. Generalized edema. She is not any better. I am still concerned, may want to consider a renal evaluation for aggressive diuresis. 3. Sepsis, Pseudomonas aeruginosa. 4. Congestive heart failure. 5. Obesity. Will recheck blood cultures. Her pseudomonas is only sensitive to meropenem and aminoglycoside, but I am concerned if I give her aminoglycoside, she will go in acute renal failure. Will check blood culture. Difficult situation. Will follow. Job#: [id number]
[2017-12-28] MEDS: ALBUTEROL SULF 0.083% NEB SOLN 3 ML NEB NEB SCH ×6 (03:15→23:07)
[2017-12-28 05:26] LABS: BASOPHILS # (AUTO) 0.1 (0.0-0.1); BASOPHILS % 0.5 % (0.0-1.0); EOSINOPHILS # (AUTO) 0.5 (0.0-0.4); HEMATOCRIT 38.7 % (34.2-44.1); HEMOGLOBIN 12.2 g/dL (12.0-16.0); LYMPHOCYTES # (AUTO) 1.6 (1.0-3.2); LYMPHOCYTES % 15.6 % (18.0-39.1); MEAN CORPUSCULAR HEMOGLOBIN 31.2 pg (28-32); MEAN CORPUSCULAR HGB CONC 31.5 g/dL (31-35); MONOCYTES # (AUTO) 1.2 (0.2-0.8); MONOCYTES % 11.4 % (4.4-11.3); NEUTROPHILS # (AUTO) 6.9 (2.1-6.9); NEUTROPHILS % 66.9 % (38.7-80.0); PLATELET COUNT 176 x10e3/uL (140-360); RED BLOOD COUNT 3.91 x10e6/uL (3.6-5.1); RED CELL DISTRIBUTION WIDTH 15.4 % (11.7-14.4)
[2017-12-28] MEDS: LEVOTHYROXINE SODIUM 112 MCG TAB PO SCH (05:59)
[2017-12-28 06:16] LABS: ANION GAP 13.5 mmol/L (8-16); BLOOD UREA NITROGEN 17 mg/dL (7-26); BUN/CREATININE RATIO 25 (6-25); CALCIUM 9.5 mg/dL (8.4-10.2); CHLORIDE 90 mmol/L (98-107); CREATININE, SERUM 0.67 mg/dL (0.57-1.11); EST GLOMERULAR FILTRATION RATE > 60 ML/MIN (60-); GLUCOSE 81 mg/dL (74-118); POTASSIUM 3.5 mmol/L (3.5-5.1); SODIUM 141 mmol/L (136-145)
[2017-12-28 06:19] LABS: CARBON DIOXIDE 41 mmol/L (22-29)
[2017-12-28] MEDS: ACETAMINOPHEN 325 MG TAB PO PRN ×2 (06:39→17:30)
[2017-12-28] MEDS: IPRATROPIUM BROMIDE 0.02% 2.5 ML NEB NEB SCH ×3 (07:00→19:07)
[2017-12-28] MEDS: BUDESONIDE/FORMOTEROL 160/4.5MCG INHALER INH SCH ×2 (07:16→19:00)
[2017-12-28] MEDS: ESCITALOPRAM OXALATE 10 MG TAB PO SCH (08:45)
[2017-12-28] MEDS: FOLIC ACID 1 MG TAB PO SCH (08:45)
[2017-12-28] MEDS: FUROSEMIDE INJ 10 MG/ML 4 ML VIAL IV SCH ×2 (08:45→20:41)
[2017-12-28] MEDS: ENOXAPARIN SOD INJ 40 MG/0.4 ML SYR SC SCH (08:45)
[2017-12-28] MEDS: POTASSIUM CHLORIDE 10 MEQ TABCR PO SCH (08:45)
[2017-12-28] MEDS: FAMOTIDINE 20 MG/2 ML VIAL IV SCH ×2 (08:45→17:00)
[2017-12-28] MEDS: MEROPENEM 1 GM VIAL IV SCH ×2 (08:45→17:00)
[2017-12-28] MEDS: PREDNISONE 5 MG TAB PO SCH (09:00)
[2017-12-28] MEDS: NICOTINE 14 MG/EA PATCH TOP SCH (09:00)
[2017-12-28] MEDS ORDERED: ACETAZOLAMIDE 500 MG CAP PO ONE ×2 (10:30→13:15)
[2017-12-28] MEDS ORDERED: SODIUM CHLORIDE 0.9% 500ML 500 ML IV ONE (10:30)
[2017-12-28] MEDS ORDERED: ACETAZOLAMIDE 250 MG TAB PO SCH (10:45)
[2017-12-28] MEDS: IBUPROFEN 200 MG TAB PO PRN (11:06)
[2017-12-28] MEDS: COLLAGENASE OINTMENT 30 GM TUBE TP SCH (11:09)
[2017-12-28] MEDS: ACETAZOLAMIDE 500 MG CAP PO SCH ×2 (14:00→20:38)
[2017-12-28] MEDS: DOXEPIN HCL 25 MG CAP PO SCH (20:41)
[2017-12-29] VITALS (7 sets, daily range): BP systolic 135–151; BP diastolic 60–79
[2017-12-29] MEDS: MEROPENEM 1 GM VIAL IV SCH ×2 (00:20→09:10)
[2017-12-29] MEDS: IPRATROPIUM BROMIDE 0.02% 2.5 ML NEB NEB SCH ×4 (03:07→20:00)
[2017-12-29] MEDS: ALBUTEROL SULF 0.083% NEB SOLN 3 ML NEB NEB SCH ×6 (03:10→23:25)
[2017-12-29] MEDS: LEVOTHYROXINE SODIUM 112 MCG TAB PO SCH (05:38)
[2017-12-29 05:45] LABS: BASOPHILS # (AUTO) 0.1 (0.0-0.1); BASOPHILS % 0.5 % (0.0-1.0); EOSINOPHILS # (AUTO) 0.6 (0.0-0.4); EOSINOPHILS % 6.4 % (0.0-6.0); HEMATOCRIT 40.7 % (34.2-44.1); HEMOGLOBIN 12.8 g/dL (12.0-16.0); LYMPHOCYTES # (AUTO) 1.8 (1.0-3.2); LYMPHOCYTES % 18.9 % (18.0-39.1); MEAN CORPUSCULAR HEMOGLOBIN 31.4 pg (28-32); MEAN CORPUSCULAR HGB CONC 31.4 g/dL (31-35); MONOCYTES # (AUTO) 0.9 (0.2-0.8); MONOCYTES % 9.3 % (4.4-11.3); NEUTROPHILS # (AUTO) 6.2 (2.1-6.9); NEUTROPHILS % 64.2 % (38.7-80.0); PLATELET COUNT 210 x10e3/uL (140-360); RED BLOOD COUNT 4.07 x10e6/uL (3.6-5.1); RED CELL DISTRIBUTION WIDTH 15.1 % (11.7-14.4)
[2017-12-29] MEDS: ACETAMINOPHEN 325 MG TAB PO PRN ×2 (06:00→20:36)
[2017-12-29 06:15] LABS: BLOOD UREA NITROGEN 20 mg/dL (7-26); BUN/CREATININE RATIO 28 (6-25); CALCIUM 10.1 mg/dL (8.4-10.2); CHLORIDE 91 mmol/L (98-107); CREATININE, SERUM 0.71 mg/dL (0.57-1.11); EST GLOMERULAR FILTRATION RATE > 60 ML/MIN (60-); GLUCOSE 77 mg/dL (74-118); SODIUM 141 mmol/L (136-145)
[2017-12-29 06:20] LABS: CARBON DIOXIDE 41 mmol/L (22-29)
[2017-12-29] MEDS ORDERED: POTASSIUM CHLORIDE 20 MEQ TAB CR PO NR (06:45)
[2017-12-29] MEDS: BUDESONIDE/FORMOTEROL 160/4.5MCG INHALER INH SCH ×2 (07:30→20:00)
--- NOTE | 2017-12-29 07:37 | Progress Note ---
DATE: December 28, 2017 TIME: 9:00 a.m. OVERNIGHT: No events. REVIEW OF SYSTEMS: Denies any dizziness, chest pain. PHYSICAL EXAMINATION VITAL SIGNS: Reviewed. GENERAL: A tired-appearing woman resting in bed. HEENT: Anicteric. CARDIOVASCULAR: Normal S1, S2. No murmurs. ABDOMEN: Nondistended, mildly firm, nontender. EXTREMITIES: She has an Braulio bandage in place. She has 1 to 2+ leg edema. SKIN: Dry. PSYCHIATRIC: Flat affect. LABS: Reviewed. MEDICATIONS: Reviewed. ASSESSMENT AND PLAN: A 62-year-old woman. 1. Sepsis. 2. Pseudomonas bacteremia. 3. Congestive heart failure. B-type natriuretic peptide is 441. 4. Obesity. 5. Respiratory distress. 6. Pulmonary congestion with peripheral edema. 7. Anasarca. 8. Bilateral femoral and acetabular osteolysis, which is chronic. 9. Cigarette abuse. 10. Hypokalemia. PLAN 1. Hemoglobin A1c 5.5, LDL 24. 2. Continue aggressive diuresis. 3. Continue pain control. 4. Continue physical therapy. 5. status. 6. LTAC evaluation. 7. Continue . 8. Patient is on IV meropenem. Job#: [id number] CQ
--- NOTE | 2017-12-29 07:38 | Progress Note ---
DATE: December 29, 2017 TIME: 7:13 a.m. OVERNIGHT: Feeling better. REVIEW OF SYSTEMS: Denies any dizziness, chest pain, shortness of breath, fever, chills, sweats, nausea, or vomiting. PHYSICAL EXAMINATION VITAL SIGNS: Reviewed. GENERAL: A tired-appearing woman resting in bed. HEENT: Anicteric. CARDIOVASCULAR: Normal S1 and S2. LUNGS: Moderate breath sounds. ABDOMEN: Soft and nondistended. She has a somewhat full abdomen and nontender. EXTREMITIES: She has 1-2+ leg edema with Braulio bandage in place. SKIN: Dry. PSYCHIATRIC: Flat affect. NEUROLOGICAL: Alert, awake and appropriate. She has some cognitive slowing. LABS: Reviewed. MEDICATIONS: Reviewed. ASSESSMENT: A 62-year-old woman with: 1. Sepsis. 2. Pseudomonas bacteremia. 3. Congestive heart failure: Brain natriuretic peptide 441. 4. Obesity. 5. Respiratory distress. 6. Pulmonary congestion and peripheral edema. 7. Anasarca. 8. Bilateral femoral and acetabular osteolysis, which is chronic. 9. Cigarette abuse. 10. Hypokalemia. PLAN 1. Hemoglobin A1c 5.5, LDL 24. 2. Continue diuresis. Will reduce Lasix to 20 mg IV q.12 h. 3. Continue meropenem. She needs 7 additional days. 4. Continue p.r.n. pain medications at reduced dose. 5. She is on doxepin. Some slowing this morning which is likely attributed to the doxepin. 6. Continue steroid therapy. 7. I have discussed the case with the and the patient at bedside. 8. Discharge planning. Possibly home as the patient's is not really interested in LTAC placement. Job#: [id number] BHAVANA
[2017-12-29] MEDS: NICOTINE 14 MG/EA PATCH TOP SCH ×2 (08:00→11:21)
[2017-12-29] MEDS ORDERED: ESTRADIOL 0.05 MG TD SCH ×2 (09:00)
[2017-12-29] MEDS: PREDNISONE 5 MG TAB PO SCH (09:00)
[2017-12-29] MEDS: FAMOTIDINE 20 MG/2 ML VIAL IV SCH ×2 (09:10→17:59)
[2017-12-29] MEDS: FUROSEMIDE INJ 10 MG/ML 4 ML VIAL IV SCH ×2 (09:10→20:34)
[2017-12-29] MEDS: ENOXAPARIN SOD INJ 40 MG/0.4 ML SYR SC SCH (09:10)
[2017-12-29] MEDS: ACETAZOLAMIDE 500 MG CAP PO SCH (11:00)
[2017-12-29] MEDS: ESCITALOPRAM OXALATE 10 MG TAB PO SCH (11:22)
[2017-12-29] MEDS: POTASSIUM CHLORIDE 10 MEQ TABCR PO SCH (11:22)
[2017-12-29] MEDS: FOLIC ACID 1 MG TAB PO SCH (11:22)
[2017-12-29 12:21] LABS: ABG PCO2 63 mmHg (41-51); ABG PH 7.44 (7.31-7.41); ABG PO2 41 mmHg (80-105)
[2017-12-29 12:22] LABS: ABG HCO3 43 mmol/L (23-28)
[2017-12-29] MEDS: COLLAGENASE OINTMENT 30 GM TUBE TP SCH (16:08)
[2017-12-29] MEDS: ACETAZOLAMIDE 250 MG TAB PO SCH (17:59)
[2017-12-29] MEDS: FENTANYL 100 MCG/HR PATCH TOP SCH (18:00)
[2017-12-29] MEDS: DOXEPIN HCL 25 MG CAP PO SCH (20:34)
[2017-12-29 21:08] LABS: POTASSIUM 3.4 mmol/L (3.5-5.1)
[2017-12-30] VITALS (24 sets, daily range): BP systolic 98–149; BP diastolic 50–97
[2017-12-30] MEDS: IPRATROPIUM BROMIDE 0.02% 2.5 ML NEB NEB SCH ×3 (03:20→11:09)
[2017-12-30] MEDS: ALBUTEROL SULF 0.083% NEB SOLN 3 ML NEB NEB SCH ×5 (03:20→23:10)
[2017-12-30] MEDS: LEVOTHYROXINE SODIUM 112 MCG TAB PO SCH (06:20)
[2017-12-30] MEDS: BUDESONIDE/FORMOTEROL 160/4.5MCG INHALER INH SCH (07:00)
[2017-12-30] MEDS ORDERED: FUROSEMIDE40 MG PO (07:33)
[2017-12-30] MEDS ORDERED: POTASSIUM CHLO10 ME1 PO (07:35)
[2017-12-30 08:40] LABS: ANION GAP 12.1 mmol/L (8-16); BLOOD UREA NITROGEN 26 mg/dL (7-26); BUN/CREATININE RATIO 34 (6-25); CARBON DIOXIDE 36 mmol/L (22-29); CHLORIDE 94 mmol/L (98-107); CREATININE, SERUM 0.77 mg/dL (0.57-1.11); EST GLOMERULAR FILTRATION RATE > 60 ML/MIN (60-); GLUCOSE 98 mg/dL (74-118); POTASSIUM 3.1 mmol/L (3.5-5.1); SODIUM 139 mmol/L (136-145)
[2017-12-30] MEDS: FAMOTIDINE 20 MG/2 ML VIAL IV SCH ×2 (08:53→15:30)
[2017-12-30] MEDS: ACETAZOLAMIDE 250 MG TAB PO SCH (08:53)
[2017-12-30] MEDS: FOLIC ACID 1 MG TAB PO SCH (08:53)
[2017-12-30] MEDS: POTASSIUM CHLORIDE 10 MEQ TABCR PO SCH (08:53)
[2017-12-30] MEDS: PREDNISONE 5 MG TAB PO SCH (08:53)
[2017-12-30] MEDS: FUROSEMIDE INJ 10 MG/ML 4 ML VIAL IV SCH ×4 (08:53→23:42)
[2017-12-30] MEDS: ESCITALOPRAM OXALATE 10 MG TAB PO SCH (08:53)
[2017-12-30] MEDS: ENOXAPARIN SOD INJ 40 MG/0.4 ML SYR SC SCH (08:54)
[2017-12-30] MEDS: NICOTINE 14 MG/EA PATCH TOP SCH (08:54)
[2017-12-30] MEDS ORDERED: FENTANYL 75MCG/HR PATCH TD SCH (11:00)
[2017-12-30] MEDS ORDERED: POTASSIUM CHLORIDE 20 MEQ TAB CR PO ONE (11:30)
[2017-12-30] MEDS ORDERED: MEROPENEM 500MG 500 MG in SODIUM CHLORIDE 0.9% 50ML 50 ML IV SCH (14:00)
[2017-12-30] MEDS: COLLAGENASE OINTMENT 30 GM TUBE TP SCH (15:30)
[2017-12-30] MEDS: MEROPENEM 500 MG VIAL IV SCH ×2 (15:30→21:58)
[2017-12-30 17:14] LABS: ABG HCO3 39 mmol/L (23-28); ABG PCO2 71 mmHg (41-51); ABG PH 7.35 (7.31-7.41); ABG PO2 83 mmHg (80-105)
[2017-12-30 20:44] LABS: ABG HCO3 38 mmol/L (23-28); ABG PCO2 67 mmHg (41-51); ABG PH 7.36 (7.31-7.41); ABG PO2 68 mmHg (80-105)
[2017-12-31] VITALS (37 sets, daily range): BP systolic 83–149; BP diastolic 45–108
[2017-12-31] MEDS: IPRATROPIUM BROMIDE 0.02% 2.5 ML NEB NEB SCH ×3 (02:50→11:20)
[2017-12-31] MEDS: ALBUTEROL SULF 0.083% NEB SOLN 3 ML NEB NEB SCH ×3 (02:50→11:20)
[2017-12-31] MEDS: MEROPENEM 500 MG VIAL IV SCH ×2 (05:19→14:24)
[2017-12-31] MEDS: LEVOTHYROXINE SODIUM 112 MCG TAB PO SCH (05:19)
[2017-12-31] MEDS: FUROSEMIDE INJ 10 MG/ML 4 ML VIAL IV SCH ×2 (05:19→07:28)
[2017-12-31 06:59] LABS: BASOPHILS # (AUTO) 0.1 (0.0-0.1); BASOPHILS % 0.8 % (0.0-1.0); EOSINOPHILS # (AUTO) 0.5 (0.0-0.4); EOSINOPHILS % 3.6 % (0.0-6.0); HEMATOCRIT 42.4 % (34.2-44.1); HEMOGLOBIN 13.4 g/dL (12.0-16.0); LYMPHOCYTES # (AUTO) 1.5 (1.0-3.2); MEAN CORPUSCULAR HEMOGLOBIN 31.2 pg (28-32); MEAN CORPUSCULAR HGB CONC 31.6 g/dL (31-35); MEAN CORPUSCULAR VOLUME 98.6 fL (81-99); MONOCYTES # (AUTO) 0.9 (0.2-0.8); MONOCYTES % 7.4 % (4.4-11.3); NEUTROPHILS # (AUTO) 9.6 (2.1-6.9); NEUTROPHILS % 75.7 % (38.7-80.0); PLATELET COUNT 287 x10e3/uL (140-360); RED CELL DISTRIBUTION WIDTH 15.2 % (11.7-14.4)
[2017-12-31] MEDS: BUDESONIDE/FORMOTEROL 160/4.5MCG INHALER INH SCH (07:00)
[2017-12-31 07:08] LABS: ANION GAP 14.5 mmol/L (8-16); BLOOD UREA NITROGEN 26 mg/dL (7-26); BUN/CREATININE RATIO 33 (6-25); CALCIUM 9.8 mg/dL (8.4-10.2); CARBON DIOXIDE 35 mmol/L (22-29); CHLORIDE 95 mmol/L (98-107); CREATININE, SERUM 0.79 mg/dL (0.57-1.11); EST GLOMERULAR FILTRATION RATE > 60 ML/MIN (60-); GLUCOSE 107 mg/dL (74-118); POTASSIUM 3.5 mmol/L (3.5-5.1); SODIUM 141 mmol/L (136-145)
[2017-12-31 07:20] LABS: ABG HCO3 40 mmol/L (23-28); ABG PCO2 69 mmHg (41-51); ABG PH 7.36 (7.31-7.41); ABG PO2 114 mmHg (80-105)
[2017-12-31] MEDS: FOLIC ACID 1 MG TAB PO SCH (07:56)
[2017-12-31] MEDS: ESCITALOPRAM OXALATE 10 MG TAB PO SCH (07:56)
[2017-12-31] MEDS: POTASSIUM CHLORIDE 10 MEQ TABCR PO SCH (07:56)
[2017-12-31] MEDS: FAMOTIDINE 20 MG/2 ML VIAL IV SCH (07:56)
[2017-12-31] MEDS: NICOTINE 14 MG/EA PATCH TOP SCH (07:56)
[2017-12-31] MEDS ORDERED: ACETAZOLAMIDE 250 MG TAB PO SCH (09:00)
[2017-12-31] MEDS ORDERED: PREDNISONE 5 MG TAB PO SCH (10:30)
[2017-12-31] MEDS: COLLAGENASE OINTMENT 30 GM TUBE TP SCH (13:09)
[2017-12-31] MEDS: ACETAMINOPHEN 325 MG TAB PO PRN (15:05)
--- NOTE | 2018-01-01 06:29 | Progress Note ---
DATE: December 30, 2017 TIME: 7 a.m. PRINCIPAL DIAGNOSES 1. Sepsis. 2. Pseudomonas bacteremia. 3. Congestive heart failure. 4. Obesity. 5. Respiratory distress. 6. Pulmonary congestion and peripheral edema. 7. Anasarca. 8. Bilateral femoral and acetabular osteolysis. 9. Cigarette abuse. 10. Hypokalemia. PLAN 1. Continue diuresis. 2. Continue steroids. 3. Continue antibiotics. 4. LTAC evaluation. MONSE COLE MD Job#: [id number] [place]
--- NOTE | 2018-01-01 06:32 | Progress Note ---
DATE: December 30, 2017 TIME: 7 a.m. OVERNIGHT: No events. REVIEW OF SYSTEMS: Denies any dizziness. PHYSICAL EXAMINATION VITAL SIGNS: Reviewed. GENERAL: A tired-appearing woman resting in bed. HEENT: Anicteric. CARDIOVASCULAR: Normal S1 and S2. LUNGS: Moderate breath sounds. ABDOMEN: Soft, nontender and nondistended. EXTREMITIES: She has 1+ leg edema. SKIN: Dry. PSYCHIATRIC: Flat affect. LABS: Reviewed. MEDICATIONS: Reviewed. ASSESSMENT: A 62-year-old woman with: 1. Sepsis. 2. Pseudomonas bacteremia. 3. Congestive heart failure. 4. Obesity. 5. Respiratory distress. 6. Bilateral femoral and acetabular osteolysis. 7. Cigarette abuse. 8. Hypokalemia. PLAN 1. Continue diuresis. 2. Continue antibiotics. 3. Continue BiPAP support as needed. 4. Continue bicarb. 5. Discharge planning. Job#: [id number] BHAVANA
--- NOTE | 2018-01-01 06:37 | Discharge Summary ---
PRINCIPAL DIAGNOSES 1. Sepsis. 2. Pseudomonas bacteremia. 3. Congestive heart failure acute exacerbation. Brain natriuretic peptide of 441. 4. Obesity. 5. Respiratory distress/respiratory failure. 6. Pulmonary congestion and peripheral edema. 7. Anasarca. 8. Cigarette abuse. 9. Hypokalemia. 10. Acute metabolic encephalopathy. SECONDARY DIAGNOSIS: Bilateral femoral and acetabular osteolysis, which is chronic. CHIEF COMPLAINT: Shortness of breath. HISTORY OF PRESENT ILLNESS: A 62-year-old woman with shortness of breath. Refer to the H and P for further details. HOSPITAL COURSE: Patient was found to have respiratory failure. She did require BiPAP during hospitalization. The patient also had Pseudomonas bacteremia and received IV meropenem for multidrug-resistant organism. She received aggressive diuresis in the setting of acute exacerbation of CHF. She had pulmonary edema and peripheral edema. She received Braulio bandage and wrapping of the legs. Received physical therapy. She developed acute metabolic encephalopathy. This improved after her CO2 levels were reduced by BiPAP support. The patient was subsequently transitioned to LTAC facility for continued IV antibiotics and IV diuresis. DISCHARGE MEDICATIONS: Per electronic medical record. FOLLOWUP: Medical team at LTAC facility. MONSE COLE MD Job#: [id number] [place]
--- NOTE | 2018-01-01 06:38 | Progress Note ---
DATE: December 31, 2017 ADDENDUM Critical care time more than 35 minutes. Job#: [id number] BHAVANA
== END 2017-12-31 15:30 | DRG 871 ==
LOC: ER 07:19 → ERHOLD 11:08 → ICU 12:30 → MED/SURG2 12-23 09:31 → ICU 12-30 19:17
PROVIDERS: ADMIT Internal Medicine; ATTEND Internal Medicine
PROC: 02HV33Z Insertion of Infusion Device into Superior Vena Cava, Percutaneous Approach (ICD-10-PCS; principal; 2017-12-22)
DX: A41.52 Sepsis due to Pseudomonas (principal); G93.41 Metabolic encephalopathy; I50.43 Acute on chronic combined systolic (congestive) and diastolic (congestive) heart failure; J96.01 Acute respiratory failure with hypoxia; L97.929 Non-pressure chronic ulcer of unspecified part of left lower leg with unspecified severity; L97.919 Non-pressure chronic ulcer of unspecified part of right lower leg with unspecified severity; R65.20 Severe sepsis without septic shock; R60.1 Generalized edema; F17.210 Nicotine dependence, cigarettes, uncomplicated; E87.6 Hypokalemia; L40.50 Arthropathic psoriasis, unspecified; Z79.51 Long term (current) use of inhaled steroids; F41.9 Anxiety disorder, unspecified; M89.552 Osteolysis, left thigh; M89.551 Osteolysis, right thigh; Z74.01 Bed confinement status; I73.9 Peripheral vascular disease, unspecified; Q65.89 Other specified congenital deformities of hip; Z16.24 Resistance to multiple antibiotics
CPT/HCPCS: 36415; 36569; 36600; 51700; 71045; 74177; 80048; 80053; 80061; 80202; 81001; 82140; 82550; 82553; 82607; 82746; 82805; 82948; 83036; 83090; 83540; 83605; 83735; 83880; 83921; 84132; 84443; 84466; 84484; 85025; 85610; 85730; 86592; 87040; 87070; 87071; 87086; 87186; 87205; 93005; 93306; 94640; 94660; 94667; 96361; 96367; 96372; 96375; 96376; 97139; 99284; J1644; J1650; J1940; J2185; J3370; J7030; J7040; J7512; Q9967

== ENCOUNTER → 2018-01-20 | Outpatient (CLI) | payer OTHER, MEDICARE ==
[~2018-01-20] MED LIST changes: +FOLIC ACID1 MG PO; +FUROSEMIDE40 MG PO; +POTASSIUM CHLO10 ME1 PO; +PREDNISONE5 MG PO; +RASUVO PO
== END ==
LOC: WCC 13:45
PROVIDERS: ATTEND Family Medicine
DX: T86.821 Skin graft (allograft) (autograft) failure (principal); Y83.8 Other surgical procedures as the cause of abnormal reaction of the patient, or of later complication, without mention of misadventure at the time of the procedure; I87.312 Chronic venous hypertension (idiopathic) with ulcer of left lower extremity; L97.429 Non-pressure chronic ulcer of left heel and midfoot with unspecified severity; S81.802A Unspecified open wound, left lower leg, initial encounter; M79.604 Pain in right leg; I73.9 Peripheral vascular disease, unspecified; I87.2 Venous insufficiency (chronic) (peripheral); L95.0 Livedoid vasculitis; L90.5 Scar conditions and fibrosis of skin; L90.6 Striae atrophicae; R60.0 Localized edema; I10 Essential (primary) hypertension; E03.8 Other specified hypothyroidism; G90.09 Other idiopathic peripheral autonomic neuropathy; I70.213 Atherosclerosis of native arteries of extremities with intermittent claudication, bilateral legs; R10.10 Upper abdominal pain, unspecified; W20.8XXA Other cause of strike by thrown, projected or falling object, initial encounter; Z01.810 Encounter for preprocedural cardiovascular examination; Z01.811 Encounter for preprocedural respiratory examination; Z74.01 Bed confinement status

== ENCOUNTER → 2018-01-27 | Outpatient (CLI) | payer OTHER, MEDICARE | LOC: EDBD → EDSEX → WCC 10:00 | PROVIDERS: ATTEND Family Medicine Adult Medicine | DX: T86.821 Skin graft (allograft) (autograft) failure (principal); Y83.8 Other surgical procedures as the cause of abnormal reaction of the patient, or of later complication, without mention of misadventure at the time of the procedure; S81.802A Unspecified open wound, left lower leg, initial encounter; M79.604 Pain in right leg; R60.0 Localized edema; G90.09 Other idiopathic peripheral autonomic neuropathy; I10 Essential (primary) hypertension; I70.213 Atherosclerosis of native arteries of extremities with intermittent claudication, bilateral legs; I73.9 Peripheral vascular disease, unspecified; I87.2 Venous insufficiency (chronic) (peripheral); L90.5 Scar conditions and fibrosis of skin; L90.6 Striae atrophicae; L95.0 Livedoid vasculitis; R10.10 Upper abdominal pain, unspecified; E03.8 Other specified hypothyroidism; W20.8XXA Other cause of strike by thrown, projected or falling object, initial encounter; Z01.810 Encounter for preprocedural cardiovascular examination; Z01.811 Encounter for preprocedural respiratory examination; Z74.01 Bed confinement status ==

== ENCOUNTER → 2018-02-03 | Outpatient (CLI) | payer OTHER, MEDICARE | LOC: WCC 14:45 | PROVIDERS: ATTEND Family Medicine | DX: T86.821 Skin graft (allograft) (autograft) failure (principal); Y83.8 Other surgical procedures as the cause of abnormal reaction of the patient, or of later complication, without mention of misadventure at the time of the procedure; S81.802A Unspecified open wound, left lower leg, initial encounter; I73.9 Peripheral vascular disease, unspecified; I87.2 Venous insufficiency (chronic) (peripheral); R60.0 Localized edema; M79.604 Pain in right leg; L95.0 Livedoid vasculitis; L90.5 Scar conditions and fibrosis of skin; L90.6 Striae atrophicae; I10 Essential (primary) hypertension; E03.8 Other specified hypothyroidism; G90.09 Other idiopathic peripheral autonomic neuropathy; I70.213 Atherosclerosis of native arteries of extremities with intermittent claudication, bilateral legs; R10.10 Upper abdominal pain, unspecified; W20.8XXA Other cause of strike by thrown, projected or falling object, initial encounter; Z01.810 Encounter for preprocedural cardiovascular examination; Z01.811 Encounter for preprocedural respiratory examination; Z74.01 Bed confinement status ==

== ENCOUNTER → 2018-02-10 | Outpatient (CLI) | payer OTHER, MEDICARE ==
[~2018-02-10] MED LIST changes: +LIDOCAINE/PRILOCAINE 2.5-2.5% KIT ONE
== END ==
LOC: WCC 14:03
PROVIDERS: ATTEND Family Medicine
DX: T86.821 Skin graft (allograft) (autograft) failure (principal); Y83.8 Other surgical procedures as the cause of abnormal reaction of the patient, or of later complication, without mention of misadventure at the time of the procedure; L97.419 Non-pressure chronic ulcer of right heel and midfoot with unspecified severity; I87.311 Chronic venous hypertension (idiopathic) with ulcer of right lower extremity; S81.802A Unspecified open wound, left lower leg, initial encounter; I70.213 Atherosclerosis of native arteries of extremities with intermittent claudication, bilateral legs; I87.2 Venous insufficiency (chronic) (peripheral); I73.9 Peripheral vascular disease, unspecified; R60.0 Localized edema; M79.604 Pain in right leg; L95.0 Livedoid vasculitis; L90.5 Scar conditions and fibrosis of skin; L90.6 Striae atrophicae; E03.8 Other specified hypothyroidism; G90.09 Other idiopathic peripheral autonomic neuropathy; I10 Essential (primary) hypertension; R10.10 Upper abdominal pain, unspecified; W20.8XXA Other cause of strike by thrown, projected or falling object, initial encounter; Z01.810 Encounter for preprocedural cardiovascular examination; Z01.811 Encounter for preprocedural respiratory examination; Z74.01 Bed confinement status

== ENCOUNTER → 2018-02-17 | Outpatient (CLI) | payer OTHER, MEDICARE ==
[~2018-02-17] MED LIST changes: +CIPROFLOXACIN500 M1 PO; +Collagenase TOP; +DOXYCYCLINE HY100 MG PO; +FUROSEMIDE20 MG PO; -LIDOCAINE/PRILOCAINE 2.5-2.5% KIT ONE; +MUPIROCIN22 GM TOP; +SPIRONOLACTONE25 MG PO
== END ==
LOC: EDBD → EDSEX → WCC 11:20
PROVIDERS: ATTEND Family Medicine
DX: T86.821 Skin graft (allograft) (autograft) failure (principal); Y83.8 Other surgical procedures as the cause of abnormal reaction of the patient, or of later complication, without mention of misadventure at the time of the procedure; I87.311 Chronic venous hypertension (idiopathic) with ulcer of right lower extremity; L97.419 Non-pressure chronic ulcer of right heel and midfoot with unspecified severity; R60.0 Localized edema; S81.802A Unspecified open wound, left lower leg, initial encounter; E03.8 Other specified hypothyroidism; G90.09 Other idiopathic peripheral autonomic neuropathy; I10 Essential (primary) hypertension; I70.213 Atherosclerosis of native arteries of extremities with intermittent claudication, bilateral legs; I73.9 Peripheral vascular disease, unspecified; I87.2 Venous insufficiency (chronic) (peripheral); L90.5 Scar conditions and fibrosis of skin; L90.6 Striae atrophicae; L95.0 Livedoid vasculitis; M79.604 Pain in right leg; R10.10 Upper abdominal pain, unspecified; W20.8XXA Other cause of strike by thrown, projected or falling object, initial encounter; Z01.810 Encounter for preprocedural cardiovascular examination; Z01.811 Encounter for preprocedural respiratory examination; Z74.01 Bed confinement status

== ENCOUNTER → 2018-03-03 | Outpatient (CLI) | payer OTHER, MEDICARE ==
[~2018-03-03] MED LIST changes: -CIPROFLOXACIN500 M1 PO; -Collagenase TOP; -DOXYCYCLINE HY100 MG PO; -FUROSEMIDE20 MG PO; -MUPIROCIN22 GM TOP; -SPIRONOLACTONE25 MG PO
== END ==
LOC: WCC 13:06
PROVIDERS: ATTEND Family Medicine
DX: T86.821 Skin graft (allograft) (autograft) failure (principal); Y83.8 Other surgical procedures as the cause of abnormal reaction of the patient, or of later complication, without mention of misadventure at the time of the procedure; I87.311 Chronic venous hypertension (idiopathic) with ulcer of right lower extremity; L97.419 Non-pressure chronic ulcer of right heel and midfoot with unspecified severity; S81.802A Unspecified open wound, left lower leg, initial encounter; I70.213 Atherosclerosis of native arteries of extremities with intermittent claudication, bilateral legs; R60.0 Localized edema; I73.9 Peripheral vascular disease, unspecified; I87.2 Venous insufficiency (chronic) (peripheral); G90.09 Other idiopathic peripheral autonomic neuropathy; M79.604 Pain in right leg; L90.5 Scar conditions and fibrosis of skin; L90.6 Striae atrophicae; I10 Essential (primary) hypertension; E03.8 Other specified hypothyroidism; R10.10 Upper abdominal pain, unspecified; W20.8XXA Other cause of strike by thrown, projected or falling object, initial encounter; Z01.810 Encounter for preprocedural cardiovascular examination; Z01.811 Encounter for preprocedural respiratory examination; Z74.01 Bed confinement status
CPT/HCPCS: 87071; 87075; 87205

== ENCOUNTER → 2018-03-10 | Outpatient (CLI) | payer OTHER, MEDICARE ==
[~2018-03-10] MED LIST changes: +LIDOCAINE/PRILOCAINE 2.5-2.5% KIT ONE
== END ==
LOC: WCC 13:58
PROVIDERS: ATTEND Family Medicine
DX: T86.821 Skin graft (allograft) (autograft) failure (principal); Y83.8 Other surgical procedures as the cause of abnormal reaction of the patient, or of later complication, without mention of misadventure at the time of the procedure; I87.311 Chronic venous hypertension (idiopathic) with ulcer of right lower extremity; L97.419 Non-pressure chronic ulcer of right heel and midfoot with unspecified severity; S81.802A Unspecified open wound, left lower leg, initial encounter; I87.2 Venous insufficiency (chronic) (peripheral); I73.9 Peripheral vascular disease, unspecified; I70.213 Atherosclerosis of native arteries of extremities with intermittent claudication, bilateral legs; M79.604 Pain in right leg; R60.0 Localized edema; L90.5 Scar conditions and fibrosis of skin; L90.6 Striae atrophicae; I10 Essential (primary) hypertension; E03.8 Other specified hypothyroidism; G90.09 Other idiopathic peripheral autonomic neuropathy; R10.10 Upper abdominal pain, unspecified; W20.8XXA Other cause of strike by thrown, projected or falling object, initial encounter; Z01.810 Encounter for preprocedural cardiovascular examination; Z01.811 Encounter for preprocedural respiratory examination; Z74.01 Bed confinement status

== ENCOUNTER → 2018-03-17 | Outpatient (CLI) | payer OTHER, MEDICARE ==
[~2018-03-17] MED LIST changes: -LIDOCAINE/PRILOCAINE 2.5-2.5% KIT ONE
[2018-03-17 15:30] LABS: BASOPHILS # (AUTO) 0.1 (0.0-0.1); BASOPHILS % 0.9 % (0.0-1.0); EOSINOPHILS # (AUTO) 0.2 (0.0-0.4); EOSINOPHILS % 2.8 % (0.0-6.0); HEMATOCRIT 31.8 % (34.2-44.1); HEMOGLOBIN 10.4 g/dL (12.0-16.0); LYMPHOCYTES # (AUTO) 2.3 (1.0-3.2); LYMPHOCYTES % 28.9 % (18.0-39.1); MEAN CORPUSCULAR HEMOGLOBIN 30.5 pg (28-32); MEAN CORPUSCULAR HGB CONC 32.7 g/dL (31-35); MEAN CORPUSCULAR VOLUME 93.3 fL (81-99); MONOCYTES # (AUTO) 0.7 (0.2-0.8); MONOCYTES % 8.5 % (4.4-11.3); NEUTROPHILS # (AUTO) 4.6 (2.1-6.9); NEUTROPHILS % 58.5 % (38.7-80.0); PLATELET COUNT 249 x10e3/uL (140-360); RED BLOOD COUNT 3.41 x10e6/uL (3.6-5.1); RED CELL DISTRIBUTION WIDTH 14.8 % (11.7-14.4)
[2018-03-17 16:01] LABS: ALANINE AMINOTRANSFERASE 11 IU/L (0-55); ALBUMIN 3.6 g/dL (3.5-5.0); ALKALINE PHOSPHATASE 91 IU/L (40-150); ANION GAP 14.6 mmol/L (8-16); BLOOD UREA NITROGEN 11 mg/dL (7-26); BUN/CREATININE RATIO 13 (6-25); CALCIUM 9.8 mg/dL (8.4-10.2); CARBON DIOXIDE 32 mmol/L (22-29); CHLORIDE 90 mmol/L (98-107); CREATININE, SERUM 0.82 mg/dL (0.57-1.11); EST GLOMERULAR FILTRATION RATE > 60 ML/MIN (60-); GLUCOSE 87 mg/dL (74-118); SODIUM 134 mmol/L (136-145)
[2018-03-17 16:14] LABS: POTASSIUM 2.6 mmol/L (3.5-5.1)
== END ==
LOC: EDBD → WCC 13:20
PROVIDERS: ATTEND Family Medicine
DX: T86.821 Skin graft (allograft) (autograft) failure (principal); Y83.8 Other surgical procedures as the cause of abnormal reaction of the patient, or of later complication, without mention of misadventure at the time of the procedure; L97.419 Non-pressure chronic ulcer of right heel and midfoot with unspecified severity; I87.311 Chronic venous hypertension (idiopathic) with ulcer of right lower extremity; S81.802A Unspecified open wound, left lower leg, initial encounter; M79.604 Pain in right leg; R60.0 Localized edema; I73.9 Peripheral vascular disease, unspecified; I87.2 Venous insufficiency (chronic) (peripheral); L90.6 Striae atrophicae; L90.5 Scar conditions and fibrosis of skin; I10 Essential (primary) hypertension; E03.8 Other specified hypothyroidism; G90.09 Other idiopathic peripheral autonomic neuropathy; I70.213 Atherosclerosis of native arteries of extremities with intermittent claudication, bilateral legs; R10.10 Upper abdominal pain, unspecified; W20.8XXA Other cause of strike by thrown, projected or falling object, initial encounter; Z01.810 Encounter for preprocedural cardiovascular examination; Z01.811 Encounter for preprocedural respiratory examination; Z74.01 Bed confinement status
CPT/HCPCS: 36415; 80053; 84134; 85025; 86140

== ENCOUNTER → 2018-03-17 | Outpatient (CLI) | payer OTHER, MEDICARE ==
--- NOTE | 2018-03-17 13:08 | Diagnostic Imaging Report ---
EXAM: FOOT RIGHT COMPLETE DATE: 03/17/2018 12:35 PM INDICATION: \[id number] \S\1245 \S\CHRONIC VENOUS HTN W/INFLAMMATION ULCER . Soft tissue wounds. COMPARISON: None FINDINGS: Osseous demineralization and underpenetration limit evaluation. Moderate degenerative changes at the first TMT and first MTP joints are present with scattered degenerative changes in the appendectomy joint. No distinct acute fracture identified. Soft tissue swelling is present along the dorsum of the foot on the lateral view. Minimal ulceration noted. Small plantar and posterior calcaneal enthesophytes present. IMPRESSION: Osseous demineralization limits evaluation. Chronic degenerative changes as above. If concern is present for osteomyelitis or soft tissue abscess, MRI with contrast be recommended. Signed by: Dr. Edward Reese MD on 03/17/2018 1:04 PM
== END ==
LOC: RAD 12:23
PROVIDERS: ATTEND Family Medicine
DX: I87.331 Chronic venous hypertension (idiopathic) with ulcer and inflammation of right lower extremity (principal); L97.511 Non-pressure chronic ulcer of other part of right foot limited to breakdown of skin

== ENCOUNTER 2018-03-24 11:56 | Inpatient (IN) | payer OTHER, MEDICARE ==
[~2018-03-24] VITALS: Ht 152.4 cm; Wt 62.3 kg
[~2018-03-24 11:56] MED LIST changes: -CIPROFLOXACIN500 M1 PO; -Collagenase TOP; -DOXYCYCLINE HY100 MG PO; -FUROSEMIDE20 MG PO; -MUPIROCIN22 GM TOP; -SPIRONOLACTONE25 MG PO
--- OUTSIDE RECORDS SUMMARY | 2018-03-24 11:59 | XMS REPORT | Clinical Summary ---
Author Author [facility] Address Unknown Phone Unavailable Care Team Providers Care Electric Serviceman Name Role Phone PCP Unavailable Allergies No Known Allergies Current Medications Not on file Active Problems Not on file Social History Tobacco Use Types Packs/Day Years Used Date Never Assessed Sex Assigned at Date Recorded Not on file Last Filed Vital Signs Not on file Plan of Treatment Not on file Results Not on fileafter 03/23/2017
[2018-03-24 13:48] LABS: BASOPHILS # (AUTO) 0.1 (0.0-0.1); BASOPHILS % 0.8 % (0.0-1.0); EOSINOPHILS # (AUTO) 0.3 (0.0-0.4); HEMATOCRIT 32.7 % (34.2-44.1); HEMOGLOBIN 10.7 g/dL (12.0-16.0); LYMPHOCYTES # (AUTO) 2.3 (1.0-3.2); LYMPHOCYTES % 30.4 % (18.0-39.1); MEAN CORPUSCULAR HEMOGLOBIN 30.9 pg (28-32); MEAN CORPUSCULAR HGB CONC 32.7 g/dL (31-35); MEAN CORPUSCULAR VOLUME 94.5 fL (81-99); MONOCYTES # (AUTO) 0.5 (0.2-0.8); MONOCYTES % 6.9 % (4.4-11.3); NEUTROPHILS # (AUTO) 4.3 (2.1-6.9); NEUTROPHILS % 57.6 % (38.7-80.0); PLATELET COUNT 282 x10e3/uL (140-360); RED BLOOD COUNT 3.46 x10e6/uL (3.6-5.1); RED CELL DISTRIBUTION WIDTH 15.1 % (11.7-14.4)
[2018-03-24 13:59] LABS: ALANINE AMINOTRANSFERASE 11 IU/L (0-55); ALBUMIN 3.5 g/dL (3.5-5.0); ALBUMIN/GLOBULIN RATIO 0.9 (0.8-2.0); ALKALINE PHOSPHATASE 98 IU/L (40-150); ANION GAP 16.5 mmol/L (8-16); BLOOD UREA NITROGEN 13 mg/dL (7-26); BUN/CREATININE RATIO 14 (6-25); CARBON DIOXIDE 27 mmol/L (22-29); CHLORIDE 96 mmol/L (98-107); CREATININE, SERUM 0.93 mg/dL (0.57-1.11); EST GLOMERULAR FILTRATION RATE > 60 ML/MIN (60-); GLUCOSE 89 mg/dL (74-118); POTASSIUM 3.5 mmol/L (3.5-5.1); SODIUM 136 mmol/L (136-145)
[2018-03-24] MEDS ORDERED: VANCOMYCIN 1GM/NS 250 ML 250 ML IV ONE (14:30)
[2018-03-24] MEDS ORDERED: SODIUM CHLORIDE FLUSH 10 ML SYR INJ PRN (14:30)
--- OUTSIDE RECORDS SUMMARY | 2018-03-24 14:33 | XMS REPORT | Clinical Summary ---
Author Author [facility] Address Unknown Phone Unavailable Care Team Providers Care Geotechnical Field Technician Name Role Phone PCP Unavailable Allergies No Known Allergies Current Medications Not on file Active Problems Not on file Social History Tobacco Use Types Packs/Day Years Used Date Never Assessed Sex Assigned at Date Recorded Not on file Last Filed Vital Signs Not on file Plan of Treatment Not on file Results Not on fileafter 03/23/2017
[2018-03-24 14:40] LABS: ERYTHROCYTE SEDIMENTATION RATE 64 mm/hr (0-20)
[2018-03-24] MEDS ORDERED: SODIUM CHLORIDE 0.9% 0 ML ONE (14:49)
[2018-03-24 14:51] LABS: CLARITY,URINE CLEAR (CLEAR); COLOR,URINE COLORLESS (YELLOW); LEUKOCYTE ESTERASE ,URINE NEGATIVE (NEGATIVE); NITRITE,URINE NEGATIVE (NEGATIVE); PROTEIN,URINE DIPSTICK NEGATIVE (NEGATIVE)
[2018-03-24 14:52] LABS: BILIRUBIN,URINE NEGATIVE (NEGATIVE); KETONES,URINE NEGATIVE (NEGATIVE); URINE UROBILINOGEN 0.2 mg/dL (0.2 - 1)
[2018-03-24 15:05] LABS: RBC,URINE 0-5 /HPF (0-5)
[2018-03-24] MEDS: CEFEPIME HCL 1 GM VIAL IV SCH (15:10)
[2018-03-24] MEDS ORDERED: SPIRONOLACTONE25 MG PO (15:26)
[2018-03-24] MEDS ORDERED: VANCOMYCIN 1GM/NS 250 ML 250 ML IV SCH (16:45)
--- NOTE | 2018-03-24 18:22 | Consultation ---
DATE OF CONSULTATION: March 24, 2018 INFECTIOUS DISEASE CONSULTATION REASON FOR CONSULTATION: Cellulitis of the right leg. HISTORY OF PRESENT ILLNESS: This is a patient who is well known to me from previous. She has multiple admissions. I was contacted today by the wound care doctor stating that she has been having an ulcer on her right foot which she has been taking good care of. She was on a prolonged term of antibiotic, but actually she is at this point off antibiotic, but when he assessed her this time there was redness and swelling creeping up her leg all the way to the mid thigh. He noted that she had a history of hypokalemia recently with potassium of 2.5 he is telling me. Also the patient was not doing well; so, I asked the patient to come to the emergency room. Patient was sent to the emergency room. In the emergency room I did see the patient along with her internal medicine, Dr. Chang. I have discussed the case. The patient is a 63-year-old who has history of multiple admissions including multiple infections, infected hip, a prosthetic device which was removed several years ago, multiple leg ulcers, neuropathy. She used to be a heavy smoker. She has a couple of ulcers on the lower extremity which are very hard to heal, and there was concern at one time if she had a hematological problem. She also got an infection. She was septic in the hospital recently with pseudomonas. This patient is very ill and a complicated case. Patient was seen in the emergency room when she was admitted. Infectious Disease was consulted. She is currently complaining of just not feeling well in general. PAST MEDICAL HISTORY: As detailed above. She does have history of hypertension, history of hypothyroidism, history of psoriasis, history of a chronic wound, obstructive sleep apnea, dyslipidemia. PAST SURGICAL HISTORY: Multiple debridements. She had a hip replacement, , exploratory laparotomy. ALLERGIES: NKA. SOCIAL HISTORY: There is currently no smoking, drug abuse, alcohol abuse. She is trying to quit, she said. She smoked for 30 pack years. FAMILY HISTORY: Diabetes mellitus. REVIEW OF SYSTEMS: She is just not feeling well in general. She is complaining of some tingling sensation and pain. She said the redness in her leg could be from the dressing; it is a little bit tight. No fever or chills. There is no nausea, no vomiting, no diarrhea, no cough or shortness of breath. LAB: White count 7.49. Her sed rate 64. Sodium 136, potassium 3.5, creatinine 0.93. PHYSICAL EXAMINATION GENERAL: She is currently alert, oriented, does not seem to be in acute distress. VITAL SIGNS: Stable. Currently afebrile. HEENT: She does not appear icteric. NECK: Supple. CHEST: Clear. HEART: S1 and S2. No S3 or S4, no murmur. ABDOMEN: Soft. Bowel sounds present. No tenderness. No hepatosplenomegaly. EXTREMITIES: Both legs are wrapped. IMPRESSION 1. Cellulitis of the leg. Will put her on cefepime 1 g q.12, vancomycin 1 g q.24. Will see how she is going to do tomorrow. 2. History of hypokalemia, resolved. 3. Neuropathy. Consult Neurology. 4. Continue with wound care as you are doing. I have discussed with Dr. Chang. Will follow with you. Job#: [id number] EV
[2018-03-24 20:00] VITALS: BP 135/79
[2018-03-24 20:45] VITALS: BP 135/79
[2018-03-24] MEDS: FUROSEMIDE 40 MG TAB PO SCH ×2 (21:00→22:30)
[2018-03-24] MEDS ORDERED: FENTANYL 50 MCG/HR PATCH TOP SCH (21:00)
[2018-03-24] MEDS ORDERED: FENTANYL 50 MCG/HR PATCH TOP ONE ×2 (21:15→22:57)
[2018-03-24] MEDS: ATORVASTATIN 20 MG TAB PO SCH (22:31)
[2018-03-24] MEDS ORDERED: DOXYCYCLINE HY100 MG PO (23:30)
[2018-03-24] MEDS ORDERED: CIPROFLOXACIN500 M1 PO (23:30)
[2018-03-25] VITALS (8 sets, daily range): BP systolic 106–141; BP diastolic 56–77
[2018-03-25] MEDS: HYDROCODONE/APAP 10MG-325MG TAB PO PRN ×5 (00:04→20:46)
[2018-03-25] MEDS: CEFEPIME HCL 1 GM VIAL IV SCH ×2 (03:15→16:05)
[2018-03-25] MEDS: LEVOTHYROXINE SODIUM 112 MCG TAB PO SCH (06:15)
[2018-03-25 06:42] LABS: BASOPHILS # (AUTO) 0.1 (0.0-0.1); BASOPHILS % 0.9 % (0.0-1.0); EOSINOPHILS # (AUTO) 0.3 (0.0-0.4); HEMATOCRIT 28.3 % (34.2-44.1); HEMOGLOBIN 9.1 g/dL (12.0-16.0); LYMPHOCYTES # (AUTO) 1.4 (1.0-3.2); LYMPHOCYTES % 26.4 % (18.0-39.1); MEAN CORPUSCULAR HEMOGLOBIN 30.1 pg (28-32); MEAN CORPUSCULAR HGB CONC 32.2 g/dL (31-35); MEAN CORPUSCULAR VOLUME 93.7 fL (81-99); MONOCYTES # (AUTO) 0.5 (0.2-0.8); MONOCYTES % 8.7 % (4.4-11.3); NEUTROPHILS # (AUTO) 3.1 (2.1-6.9); NEUTROPHILS % 57.8 % (38.7-80.0); PLATELET COUNT 220 x10e3/uL (140-360); RED BLOOD COUNT 3.02 x10e6/uL (3.6-5.1)
[2018-03-25 07:16] LABS: ALANINE AMINOTRANSFERASE 9 IU/L (0-55); ALBUMIN 2.9 g/dL (3.5-5.0); ALKALINE PHOSPHATASE 84 IU/L (40-150); ANION GAP 13.1 mmol/L (8-16); BLOOD UREA NITROGEN 10 mg/dL (7-26); BUN/CREATININE RATIO 14 (6-25); CALCIUM 9.3 mg/dL (8.4-10.2); CARBON DIOXIDE 29 mmol/L (22-29); CHLORIDE 97 mmol/L (98-107); CREATININE, SERUM 0.73 mg/dL (0.57-1.11); EST GLOMERULAR FILTRATION RATE > 60 ML/MIN (60-); GLUCOSE 97 mg/dL (74-118); POTASSIUM 3.1 mmol/L (3.5-5.1); SODIUM 136 mmol/L (136-145)
[2018-03-25 07:35] LABS: MAGNESIUM 1.6 MG/DL (1.3-2.1); PHOSPHORUS 4.7 MG/DL (2.3-4.7)
[2018-03-25] MEDS ORDERED: ATORVASTATIN 20 MG TAB PO SCH (09:00)
[2018-03-25] MEDS: POTASSIUM CHLORIDE 10MEQ EA PO SCH (09:13)
[2018-03-25] MEDS: FOLIC ACID 1 MG TAB PO SCH (09:13)
[2018-03-25] MEDS: SPIRONOLACTONE 25 MG TAB PO SCH (09:13)
[2018-03-25] MEDS: ESCITALOPRAM OXALATE 10 MG TAB PO SCH (09:13)
[2018-03-25] MEDS: FUROSEMIDE 40 MG TAB PO SCH ×2 (09:13→20:47)
[2018-03-25] MEDS ORDERED: SODIUM CHLORIDE 0.9% 250ML 250 ML ONE (13:17)
[2018-03-25] MEDS: VANCOMYCIN 1GM/NS 250 ML 250 ML IV SCH (13:25)
--- NOTE | 2018-03-25 13:37 | Diagnostic Imaging Report ---
MRI of the right forefoot without contrast. History: Nonhealing ulcer. Osteomyelitis. Foot pain. Technique: Multiplanar multisequence MRI of the foot without contrast Comparison: Radiographs 03/17/2018. MRI 05/28/2016 Findings: Skin thickening with ulceration at the dorsal aspect of the foot at the level of the proximal first and second metatarsals/cuboid bones. There is abnormal adjacent superficial soft tissue edema. No well-formed drainable fluid collection/abscess is seen. There is subtle cortical destruction and bone marrow edema at the dorsal aspect of the medial cuneiform bone best seen on axial image 20 and sagittal image 8. No acute fracture, dislocation or evidence of avascular necrosis. No ligamentous or tendon tear is seen. There is mild diffuse muscle atrophy. Impression: Findings consistent with cellulitis, skin ulceration and underlying early osteomyelitis as described above at the dorsal aspect of the foot. No well-formed drainable fluid collection/abscess is seen. Signed by: Dr. Kush Snow M.D. on 03/25/2018 1:34 PM
[2018-03-25] MEDS ORDERED: POTASSIUM CHLORIDE 20 MEQ TAB CR PO STA (15:53)
--- NOTE | 2018-03-25 16:34 | Progress Note ---
DATE: March 25, 2018 MEDICINE PROGRESS NOTE SUBJECTIVE: Patient is doing well today with no other complaints. Patient is being treated for underlying osteomyelitis of the right foot. OBJECTIVE VITAL SIGNS: Temperature is 96.6, pulse 81, respiratory rate is 20, blood pressure 141/65, pulse ox 100% on room air. LAB FINDINGS: Show white count 5.3, hemoglobin 9.1, hematocrit is 28, platelets of 220. Chemistry: Sodium 136, potassium 3.1, chloride is 97, bicarb 29, anion gap of 13, BUN is 10, creatinine is 0.73, glucose is 97, calcium 9.3, magnesium 1.6, phosphorus 4.7. Urinalysis negative. MICROBIOLOGY: Blood cultures are negative. IMAGING STUDIES: MRI of the foot: Findings consistent with cellulitis, skin ulceration, underlying early osteomyelitis described at the dorsal aspect of the foot. No well-formed or drainable collection seen or abscess. PHYSICAL EXAMINATION GENERAL: Not in acute distress. Alert, oriented x3, cooperative on examination. HEENT: Head: Normocephalic, atraumatic. Eyes: Pupils equally round and reactive to light bilaterally. Extraocular movements intact bilaterally. Neck was supple with good range of motion. Throat: No evidence of any erythema or exudates in the posterior pharynx. Has poor dentition. PULMONARY: Clear to auscultation bilaterally. No wheezing, no rales, no rhonchi, no crackles appreciated. CARDIOVASCULAR: Positive S1/S2. No murmurs, rubs or gallops appreciated. ABDOMEN: Soft, nondistended, nontender to palpation. Bowel sounds present. MUSCULOSKELETAL: Strength is 5/5 throughout. No evidence of any musculoskeletal deficit on examination. No weakness appreciated. NEUROLOGICAL: Cranial nerves 2-12 grossly intact. No evidence of any neurological deficit on exam. SKIN: Intact. Warm to touch. Good capillary refill. PSYCHIATRIC: Normal affect and mood. EXTREMITIES: No edema. Good range of motion throughout. IMPRESSION 1. . INCOMPLETE REPORT - CANCELLED. Job#: [id number] EV
--- NOTE | 2018-03-25 17:03 | History and Physical ---
DATE OF SERVICE: 03/25/2018 CHIEF COMPLAINT: Cellulitis of the right leg. HISTORY OF PRESENT ILLNESS: This is a 63-year-old female who is known to this hospital with multiple admissions. She has been having right foot ulcerations for a significant period of time, who comes in due to worsening right foot pain and swelling. ID was consulted for further evaluation and care. Imaging studies are consistent with osteomyelitis of the right foot. The patient denies any chest pain, palpitations, nausea or vomiting. She also denies any fever. She does have difficulty walking on the right foot. She denies any other complaints at this time. REVIEW OF SYSTEMS: Pertinent positives: Right foot swelling and pain. Pertinent negatives: Denies any chest pain, palpitations, nausea, vomiting, diarrhea, dysuria, hematuria, frequency, urgency, lightheadedness, dizziness, abdominal pain, headache, shortness of breath, cough, congestion, fever or any other complaints. The rest of the 14-point review of systems have been reviewed with the patient and are negative. ALLERGIES: THERE ARE NO KNOWN DRUG ALLERGIES. HOME MEDICATIONS 1. Doxycycline 100 mg p.o. daily. 2. Lipitor 20 mg daily. 3. Lexapro 10 mg daily. 4. Fentanyl patch 100 mcg topical q.72 h. 5. Folic acid daily. 6. Furosemide 40 mg daily. 7. [place] 10 mg 1 tab every 6 hours as needed for pain. 8. Levothyroxine 112 mcg daily. 9. Potassium replacement. 10. Spironolactone daily. PAST MEDICAL HISTORY 1. Medically debilitated. 2. Hypothyroidism. 3. Hypertension. 4. History of depression. 5. Hyperlipidemia. SURGICAL HISTORY: Reports none. FAMILY HISTORY: Hypertension, diabetes. SOCIAL HISTORY: No drugs. No alcohol. Does not smoke. Good social support. VITAL SIGNS: Temperature is 96.6, pulse 81, respiratory rate 20, blood pressure 141/65, pulse ox 100% on room air. LAB FINDINGS: White count 5.3, hemoglobin 9.1, hematocrit 28, platelets 220. Chemistry: Sodium 136, potassium 3.1, chloride 97, bicarb 29, anion gap 13, BUN 10, creatinine 0.73. Glucose 97. Calcium 9.3. LFTs are normal. Urinalysis was negative. MICROBIOLOGY: Blood cultures: No growth to date. IMAGING STUDIES: Foot MRI shows findings consistent with cellulitis, skin ulceration, underlying early osteomyelitis described at the dorsal aspect of the foot. There is no well-formed drainable fluid collection or abscess seen. PHYSICAL EXAMINATION GENERAL: In no acute distress. Alert and oriented times 3. Cooperative on examination. HEENT: Head is normocephalic and atraumatic. Eyes: Pupils are equal and reactive to light bilaterally. The extraocular movements are intact bilaterally. NECK: Supple. Good range of motion. THROAT: No evidence of any use erythema or exudates in the posterior pharynx. Has poor dentition. PULMONARY: Clear to auscultation bilaterally. No wheezing, no rales, no rhonchi, no crackles appreciated. CARDIOVASCULAR: Positive S1 and S2. No murmurs, rubs or gallops appreciated. ABDOMEN: Soft, nondistended and nontender to palpation. Bowel sounds are present. MUSCULOSKELETAL: Strength is 5/5 throughout. No evidence of musculoskeletal deficit on examination. No weakness appreciated. NEUROLOGIC: Cranial nerves II through XII are grossly intact. No neurologic deficit on exam. SKIN: Intact. Warm to touch. Good cap refill. PSYCHIATRIC: Normal affect and mood. EXTREMITIES: No edema. Good range of motion throughout. IMPRESSION 1. Right foot osteomyelitis with underlying cellulitis. 2. Depression. 3. Hypertension. 4. Medically debilitated. PLAN: At this time, we will place a PICC line. Continue with IV antibiotics as per ID. ID is following. She will likely benefit from an LTAC. Will replace a PICC line in tomorrow. Get a.m. labs. Will continue with pain control and continue the same plan of care. Job#: [id number]
[2018-03-25] MEDS: COLLAGENASE 5 GM TUBE TOP SCH (18:00)
[2018-03-25] MEDS: MUPIROCIN 2% OINT 22 GM TUBE TOP SCH (18:00)
--- NOTE | 2018-03-25 20:40 | Diagnostic Imaging Report ---
EXAMINATION: CHEST XRAY LINE PLACEMENT INDICATION: PICC line placement. ^Picc line placement ^Y COMPARISON: Chest radiograph 12/27/2016 FINDINGS: AP view TUBES and LINES: Right upper extremity PICC tip overlies the mid SVC. LUNGS: Lungs are moderately inflated. Lungs are clear. There is no evidence of pneumonia or pulmonary edema. PLEURA: No pleural effusion or pneumothorax. HEART AND MEDIASTINUM: The cardiomediastinal silhouette is unremarkable. BONES AND SOFT TISSUES: No acute osseous lesion. Soft tissues are unremarkable. UPPER ABDOMEN: No free air under the diaphragm. IMPRESSION: No acute thoracic abnormality. Right upper extremity PICC tip overlies the mid SVC. Signed by: DR. Pop Watkins MD on 03/25/2018 8:37 PM
[2018-03-25] MEDS: ATORVASTATIN 20 MG TAB PO SCH (20:46)
[2018-03-25] MEDS ORDERED: MORPHINE SULFATE 2 MG/ML SYR IV PRN (22:45)
[2018-03-26] VITALS (8 sets, daily range): BP systolic 94–140; BP diastolic 50–73
[2018-03-26] MEDS: HYDROCODONE/APAP 10MG-325MG TAB PO PRN ×4 (01:01→17:10)
[2018-03-26] MEDS: CEFEPIME HCL 1 GM VIAL IV SCH ×2 (03:29→15:00)
[2018-03-26] MEDS: LEVOTHYROXINE SODIUM 112 MCG TAB PO SCH (05:53)
[2018-03-26 05:57] LABS: ANION GAP 15.3 mmol/L (8-16); BLOOD UREA NITROGEN 10 mg/dL (7-26); BUN/CREATININE RATIO 14 (6-25); CALCIUM 9.4 mg/dL (8.4-10.2); CARBON DIOXIDE 30 mmol/L (22-29); CHLORIDE 98 mmol/L (98-107); CREATININE, SERUM 0.74 mg/dL (0.57-1.11); EST GLOMERULAR FILTRATION RATE > 60 ML/MIN (60-); GLUCOSE 97 mg/dL (74-118); MAGNESIUM 1.6 MG/DL (1.3-2.1); PHOSPHORUS 4.5 MG/DL (2.3-4.7); POTASSIUM 3.3 mmol/L (3.5-5.1); SODIUM 140 mmol/L (136-145)
[2018-03-26] MEDS: POTASSIUM CHLORIDE 10MEQ EA PO SCH (09:00)
[2018-03-26] MEDS: FUROSEMIDE 40 MG TAB PO SCH ×2 (09:00→20:33)
[2018-03-26] MEDS: FOLIC ACID 1 MG TAB PO SCH (09:00)
[2018-03-26] MEDS: SPIRONOLACTONE 25 MG TAB PO SCH (09:00)
[2018-03-26] MEDS: COLLAGENASE 5 GM TUBE TOP SCH (09:00)
[2018-03-26] MEDS: MUPIROCIN 2% OINT 22 GM TUBE TOP SCH (09:00)
[2018-03-26] MEDS: ESCITALOPRAM OXALATE 10 MG TAB PO SCH (09:00)
[2018-03-26] MEDS: VANCOMYCIN 1GM/NS 250 ML 250 ML IV SCH (13:00)
[2018-03-26] MEDS: FENTANYL 100 MCG/HR PATCH TOP SCH (14:00)
--- NOTE | 2018-03-26 15:49 | Progress Note ---
DATE: March 26, 2018 SUBJECTIVE: The patient is doing well today with no complaints. Discussed the case with ID and they want a nuclear bone scan first before they can determine the length of therapy of IV antibiotics. OBJECTIVE VITAL SIGNS: Temperature 98.5, pulse 75, respiratory rate 19, blood pressure 131/73, pulse oximetry 98% on room air. GENERAL: In no acute distress, alert and oriented x3, cooperative on examination. HEENT: Head is normocephalic, atraumatic. Eyes: Pupils equal, round and reactive to light bilaterally. Extraocular movements intact bilaterally. Throat with no evidence of erythema or exudates in the posterior pharynx. Has poor dentition. NECK: Supple with good range of motion. PULMONARY: Clear to auscultation bilaterally. No wheezing, no rales, no rhonchi or crackles appreciated. CARDIOVASCULAR: Positive S1 and S2, no murmurs, rubs or gallops appreciated. ABDOMEN: Soft, nondistended, nontender on palpation. Bowel sounds were present. MUSCULOSKELETAL: Strength 5/5 throughout, no evidence of musculoskeletal deficit on exam. No weakness appreciated. NEUROLOGIC: Cranial nerves II-XII grossly intact. No evidence of neurological deficit on examination. SKIN: Intact. Warm to touch. Good capillary refill. EXTREMITIES: No edema. Good range of motion throughout. PSYCHIATRIC: Normal affect and mood. LABORATORY DATA: White count 5.3, hemoglobin 9.1, hematocrit 28, platelets 220,000. Chemistry: Sodium 140, potassium 3.3, chloride 98, bicarb 30, anion gap 50, BUN 10, creatinine 0.74. Microbiology: Blood cultures no growth to date. MRI of the foot concerning for underlying osteomyelitis. IMPRESSION 1. Right foot osteomyelitis is of concern based on MRI with underlying cellulitis. 2. Depression. 3. Hypertension. 4. Medically debilitated in wheelchair. PLAN: At this time, I discussed the case with ID and they recommend having a bone scan which was performed on Thursday. PICC line has been placed. Depending on the bone scan that will determine the length of therapy on IV antibiotics. ID is following, proceeding with the same plan of care. Get labs in the morning. Continue with pain control for which we added a Fentanyl patch that she takes at home. [place]. Otherwise, the patient is doing well . Job#: [id number] GH
[2018-03-26] MEDS: ATORVASTATIN 20 MG TAB PO SCH (20:33)
[2018-03-26] MEDS: DOXEPIN HCL 10 MG CAP PO PRN (21:56)
[2018-03-27] VITALS: BP 116/59
[2018-03-27] MEDS: CEFEPIME HCL 1 GM VIAL IV SCH ×2 (03:20→15:00)
[2018-03-27 04:00] VITALS: BP 102/68
[2018-03-27] MEDS: LEVOTHYROXINE SODIUM 112 MCG TAB PO SCH (06:25)
[2018-03-27 08:00] VITALS: BP_SYST 102; BP_SYST 120; BP_DIAS 59; BP_DIAS 68
[2018-03-27] MEDS: HYDROCODONE/APAP 10MG-325MG TAB PO PRN ×4 (08:10→17:48)
[2018-03-27] MEDS: SPIRONOLACTONE 25 MG TAB PO SCH (08:58)
[2018-03-27] MEDS: POTASSIUM CHLORIDE 10MEQ EA PO SCH (08:58)
[2018-03-27] MEDS: FOLIC ACID 1 MG TAB PO SCH (08:58)
[2018-03-27] MEDS: FUROSEMIDE 40 MG TAB PO SCH ×2 (08:58→21:00)
[2018-03-27] MEDS: COLLAGENASE 5 GM TUBE TOP SCH (08:59)
[2018-03-27] MEDS: MUPIROCIN 2% OINT 22 GM TUBE TOP SCH (08:59)
[2018-03-27] MEDS: ESCITALOPRAM OXALATE 10 MG TAB PO SCH (08:59)
[2018-03-27 12:00] VITALS: BP 107/56
[2018-03-27] MEDS: VANCOMYCIN 1GM/NS 250 ML 250 ML IV SCH (13:00)
[2018-03-27 16:00] VITALS: BP 108/52
[2018-03-27] MEDS ORDERED: ESTRADIOL 0.05 MG TD SCH (17:30)
--- NOTE | 2018-03-27 18:48 | Progress Note ---
DATE: March 27, 2018 MEDICINE PROGRESS NOTE SUBJECTIVE: Patient is doing well with no complaints today. She is awaiting for nuclear bone scan that will occur on Thursday. OBJECTIVE VITAL SIGNS: Temperature is 96.8, pulse 84, respiratory rate of 18, blood pressure 107/56, and pulse ox 97% on room air. LAB FINDINGS: None. PHYSICAL EXAMINATION GENERAL: Not in acute distress, alert and oriented x3, cooperative on examination. HEENT: Head is normocephalic and atraumatic. Eyes: Pupils equally round and reactive to light bilaterally. Extraocular movements intact bilaterally. Throat: No evidence of any erythema or exudates in the posterior pharynx, has poor dentition. NECK: Supple with good range of motion. PULMONARY: Clear to auscultation bilaterally. No wheezing, no rales, no rhonchi, no crackles appreciated. CARDIOVASCULAR: Positive S1, S2. No murmurs, rubs or gallops appreciated. ABDOMEN: Soft, nondistended, nontender to palpation. Bowel sounds present. MUSCULOSKELETAL: Strength is 5/5 throughout. NEUROLOGICAL: Cranial nerves II through XII grossly intact. SKIN: Intact. Warm to touch. Good capillary refill. PSYCHIATRIC: Normal affect and mood. EXTREMITIES: No edema. Good range of motion throughout. IMPRESSION 1. Right foot osteomyelitis concerns based on MRI findings. 2. Depression. 3. Hypertension. 4. Medically debilitated in the wheelchair. PLAN: At this time, we will continue . Nuclear bone scan is scheduled for Thursday. ID is following. We will continue with pain control for now. Continue with same plan of care. Job#: [id number] LJ
[2018-03-27 20:08] VITALS: BP 119/58
[2018-03-27] MEDS: ATORVASTATIN 20 MG TAB PO SCH (21:28)
[2018-03-27] MEDS: DOXEPIN HCL 10 MG CAP PO PRN (22:06)
[2018-03-28] MEDS: HYDROCODONE/APAP 10MG-325MG TAB PO PRN ×6 (00:10→22:04)
[2018-03-28 00:16] VITALS: BP 123/62
[2018-03-28] MEDS: CEFEPIME HCL 1 GM VIAL IV SCH ×2 (03:17→15:00)
[2018-03-28 05:50] VITALS: BP 120/60
[2018-03-28] MEDS: LEVOTHYROXINE SODIUM 112 MCG TAB PO SCH (05:59)
[2018-03-28 07:20] VITALS: BP 120/60
[2018-03-28] MEDS: COLLAGENASE 5 GM TUBE TOP SCH (09:00)
[2018-03-28] MEDS: MUPIROCIN 2% OINT 22 GM TUBE TOP SCH (09:00)
[2018-03-28] MEDS: POTASSIUM CHLORIDE 10MEQ EA PO SCH (09:00)
[2018-03-28] MEDS: FUROSEMIDE 40 MG TAB PO SCH (09:00)
[2018-03-28] MEDS: SPIRONOLACTONE 25 MG TAB PO SCH (09:00)
[2018-03-28] MEDS: ESCITALOPRAM OXALATE 10 MG TAB PO SCH (09:00)
[2018-03-28] MEDS: FOLIC ACID 1 MG TAB PO SCH (09:00)
[2018-03-28 09:15] VITALS: BP 128/57
[2018-03-28 16:37] VITALS: BP 104/25
--- NOTE | 2018-03-28 16:39 | Progress Note ---
DATE: March 28, 2018 SUBJECTIVE: Patient is doing much better today with no complaints. She reports that the Falcon q.6 hours is not enough and she still has significant pain. In reviewing her bottle, patient takes it q.4 hours. Tomorrow, she is scheduled for nuclear scan of her right lower extremity to evaluate possible osteomyelitis. OBJECTIVE VITAL SIGNS: Temperature is 97.3, pulse 81, respiratory rate is 20, blood pressure 128/57, and pulse ox 94% on room air. LABS: None. MICROBIOLOGY: Blood culture, no growth to date. IMAGING STUDIES: None. PHYSICAL EXAMINATION GENERAL: Not in acute distress, alert and oriented x3, cooperative on examination. HEENT: Head normocephalic, atraumatic. Eyes: Pupils equal, round, and reactive to light bilaterally. Extraocular movements intact bilaterally. Throat: No evidence of any erythema or exudates in the posterior pharynx, has poor dentition. NECK: Supple with good range of motion. PULMONARY: Clear to auscultation bilaterally. No wheezing, no rales, no rhonchi, no crackles appreciated. CARDIOVASCULAR: Positive S1, S2. No murmurs, rubs or gallops appreciated. ABDOMEN: Soft, nondistended, nontender to palpation. Bowel sounds present. MUSCULOSKELETAL: Strength is 5/5 throughout. No evidence of any musculoskeletal deficit on examination. No weakness appreciated. NEUROLOGICAL: Cranial nerves II through XII grossly intact. No evidence of neurological deficit on exam. SKIN: Intact. Warm to touch. Good capillary refill. PSYCHIATRIC: Normal affect and mood. EXTREMITIES: No edema. Good range of motion throughout. IMPRESSION 1. Right foot osteomyelitis based on MRI findings, now scheduled for nuclear bone scan tomorrow. 2. Depression. 3. Hypertension. 4. Chronic pain. 5. Medically debilitated and wheelchair bedbound due multiple sclerosis. PLAN: At this time, nuclear bone scan is scheduled for tomorrow. She is on IV antibiotics. Change Falcon from q.6 hours to q.4 hours and continue with fentanyl patch. Continue with IV antibiotics and ID is following. Once the bone scan is back, we will determine the length of therapy in terms of IV antibiotics. She does have a PICC line. Continue with same plan of care. Get a.m. labs. Job#: [id number] LJ
[2018-03-28 20:00] VITALS: BP 119/56
[2018-03-28] MEDS: ATORVASTATIN 20 MG TAB PO SCH (20:11)
[2018-03-28] MEDS: DOXEPIN HCL 10 MG CAP PO PRN (22:02)
[2018-03-29] VITALS: BP 110/52
[2018-03-29] MEDS: HYDROCODONE/APAP 10MG-325MG TAB PO PRN ×6 (00:42→23:46)
[2018-03-29] MEDS: CEFEPIME HCL 1 GM VIAL IV SCH ×2 (03:59→15:00)
[2018-03-29 04:00] VITALS: BP 126/61
[2018-03-29] MEDS: LEVOTHYROXINE SODIUM 112 MCG TAB PO SCH (06:02)
[2018-03-29 06:16] LABS: BASOPHILS # (AUTO) 0.1 (0.0-0.1); BASOPHILS % 1.3 % (0.0-1.0); EOSINOPHILS # (AUTO) 0.4 (0.0-0.4); EOSINOPHILS % 6.6 % (0.0-6.0); HEMATOCRIT 25.6 % (34.2-44.1); HEMOGLOBIN 8.4 g/dL (12.0-16.0); LYMPHOCYTES # (AUTO) 1.3 (1.0-3.2); LYMPHOCYTES % 21.2 % (18.0-39.1); MEAN CORPUSCULAR HEMOGLOBIN 30.4 pg (28-32); MEAN CORPUSCULAR HGB CONC 32.8 g/dL (31-35); MEAN CORPUSCULAR VOLUME 92.8 fL (81-99); MONOCYTES # (AUTO) 0.8 (0.2-0.8); MONOCYTES % 12.5 % (4.4-11.3); NEUTROPHILS # (AUTO) 3.6 (2.1-6.9); NEUTROPHILS % 58.1 % (38.7-80.0); PLATELET COUNT 206 x10e3/uL (140-360); RED BLOOD COUNT 2.76 x10e6/uL (3.6-5.1); RED CELL DISTRIBUTION WIDTH 14.8 % (11.7-14.4)
[2018-03-29 06:32] LABS: ANION GAP 14.1 mmol/L (8-16); BLOOD UREA NITROGEN 14 mg/dL (7-26); BUN/CREATININE RATIO 18 (6-25); CALCIUM 9.6 mg/dL (8.4-10.2); CARBON DIOXIDE 28 mmol/L (22-29); CHLORIDE 98 mmol/L (98-107); CREATININE, SERUM 0.79 mg/dL (0.57-1.11); EST GLOMERULAR FILTRATION RATE > 60 ML/MIN (60-); GLUCOSE 92 mg/dL (74-118); POTASSIUM 3.1 mmol/L (3.5-5.1); SODIUM 137 mmol/L (136-145)
[2018-03-29 08:00] VITALS: BP 94/49
[2018-03-29] MEDS: SPIRONOLACTONE 25 MG TAB PO SCH (08:50)
[2018-03-29] MEDS: FOLIC ACID 1 MG TAB PO SCH (08:50)
[2018-03-29] MEDS: POTASSIUM CHLORIDE 10MEQ EA PO SCH (08:51)
[2018-03-29] MEDS: ESCITALOPRAM OXALATE 10 MG TAB PO SCH (08:51)
[2018-03-29] MEDS ORDERED: FUROSEMIDE 40 MG TAB PO SCH (09:00)
[2018-03-29] MEDS: COLLAGENASE 5 GM TUBE TOP SCH (09:00)
[2018-03-29 12:00] VITALS: BP 91/48
[2018-03-29] MEDS: FENTANYL 100 MCG/HR PATCH TOP SCH ×2 (14:00→17:01)
[2018-03-29] MEDS: MUPIROCIN 2% OINT 22 GM TUBE TOP SCH (15:11)
[2018-03-29] MEDS: VANCOMYCIN 1GM/NS 250 ML 250 ML IV SCH (15:37)
[2018-03-29 16:04] LABS: MAGNESIUM 1.7 MG/DL (1.3-2.1); POTASSIUM 3.1 mmol/L (3.5-5.1)
[2018-03-29] MEDS ORDERED: POTASSIUM CHLORIDE 20 MEQ TAB CR PO ONE (19:30)
[2018-03-29 20:00] VITALS: BP 130/74
[2018-03-29] MEDS ORDERED: ATORVASTATIN 40 MG TAB PO SCH (21:00)
--- NOTE | 2018-03-29 21:11 | Diagnostic Imaging Report ---
Labeled WBC Study Reason for exam: Small "nickel size" ulcer on dorsum of right foot x more than 1 month. Patient is not diabetic. Comparison: MRI right foot 03/25/2018; right foot radiographs 03/17/2018 Report: The patient's own white blood cells were labeled with Tc-99m HMPAO 22.5 mCi by a commercial radiopharmacy. Images of the feet and ankles were obtained at 4 hours post administration of the labeled white blood cells. Images of the pelvis were also obtained given the patient's remote history of MRSA and development of multiple lower extremity ulcers. Small superficial focus of increased tracer accumulation on the dorsum of the right foot. Otherwise, distribution of tracer is unremarkable throughout the feet and ankles. The hips show absence of marrow in the left acetabulum anteriorly. Multiple small focal areas of mildly increased tracer are seen in the left femur proximally. IMPRESSION: 1. Superficial soft tissue focus of infection on the dorsum of the right foot corresponds to known slow-healing ulcer. No adjacent bone involvement to suggest osteomyelitis. No scan evidence of osteomyelitis in the feet or ankles. 2. Left acetabulum with absence of typical marrow anteriorly. Areas of WBC accumulation in the left femur proximally likely represent areas of marrow packing; would be of concern for infection only if infection is clinically suspected. Signed by: Dr. Araceli Barragan M.D. on 03/29/2018 9:07 PM
[2018-03-29] MEDS: DOXEPIN HCL 10 MG CAP PO PRN (22:23)
[2018-03-30] VITALS: BP 101/60
[2018-03-30] MEDS: CEFEPIME HCL 1 GM VIAL IV SCH (03:46)
[2018-03-30 04:00] VITALS: BP 110/55
[2018-03-30] MEDS: HYDROCODONE/APAP 10MG-325MG TAB PO PRN ×2 (04:00→08:21)
[2018-03-30] MEDS ORDERED: FUROSEMIDE20 MG PO (05:39)
[2018-03-30] MEDS ORDERED: MUPIROCIN22 GM TOP (05:39)
[2018-03-30] MEDS ORDERED: Collagenase TOP (05:39)
[2018-03-30] MEDS ORDERED: POTASSIUM CHLO10 ME1 PO (05:39)
[2018-03-30] MEDS: LEVOTHYROXINE SODIUM 112 MCG TAB PO SCH (06:30)
[2018-03-30 06:42] LABS: BASOPHILS % 0.7 % (0.0-1.0); EOSINOPHILS # (AUTO) 0.3 (0.0-0.4); EOSINOPHILS % 5.5 % (0.0-6.0); HEMATOCRIT 26.3 % (34.2-44.1); HEMOGLOBIN 8.5 g/dL (12.0-16.0); LYMPHOCYTES # (AUTO) 1.5 (1.0-3.2); LYMPHOCYTES % 26.6 % (18.0-39.1); MEAN CORPUSCULAR HEMOGLOBIN 30.6 pg (28-32); MEAN CORPUSCULAR HGB CONC 32.3 g/dL (31-35); MEAN CORPUSCULAR VOLUME 94.6 fL (81-99); MONOCYTES # (AUTO) 0.6 (0.2-0.8); MONOCYTES % 10.7 % (4.4-11.3); NEUTROPHILS # (AUTO) 3.2 (2.1-6.9); NEUTROPHILS % 56.2 % (38.7-80.0); PLATELET COUNT 204 x10e3/uL (140-360); RED BLOOD COUNT 2.78 x10e6/uL (3.6-5.1); RED CELL DISTRIBUTION WIDTH 15.2 % (11.7-14.4)
[2018-03-30 06:59] LABS: ANION GAP 10.5 mmol/L (8-16); BLOOD UREA NITROGEN 12 mg/dL (7-26); BUN/CREATININE RATIO 17 (6-25); CALCIUM 9.6 mg/dL (8.4-10.2); CARBON DIOXIDE 31 mmol/L (22-29); CHLORIDE 97 mmol/L (98-107); CREATININE, SERUM 0.72 mg/dL (0.57-1.11); EST GLOMERULAR FILTRATION RATE > 60 ML/MIN (60-); GLUCOSE 89 mg/dL (74-118); POTASSIUM 3.5 mmol/L (3.5-5.1); SODIUM 135 mmol/L (136-145)
[2018-03-30 07:00] VITALS: BP 106/53
[2018-03-30 08:13] VITALS: BP 106/53
[2018-03-30] MEDS: FOLIC ACID 1 MG TAB PO SCH (08:21)
[2018-03-30] MEDS: SPIRONOLACTONE 25 MG TAB PO SCH (08:21)
[2018-03-30] MEDS: ESCITALOPRAM OXALATE 10 MG TAB PO SCH (08:22)
[2018-03-30] MEDS: MUPIROCIN 2% OINT 22 GM TUBE TOP SCH (08:22)
[2018-03-30] MEDS: COLLAGENASE 5 GM TUBE TOP SCH (08:22)
[2018-03-30] MEDS: POTASSIUM CHLORIDE 10MEQ EA PO SCH (08:22)
[2018-03-30] MEDS ORDERED: FUROSEMIDE 20 MG TAB PO SCH (09:00)
[2018-03-30] MEDS ORDERED: FUROSEMIDE 40 MG TAB PO SCH (09:00)
== END 2018-03-30 11:07 | disposition home or self-care (01) | DRG 593 ==
LOC: EDBD → EDSEX → ER 11:56 → EDBD 11:56 → ERHOLD 14:19 → MED/SURG2 18:26
PROVIDERS: ADMIT Internal Medicine; ATTEND Internal Medicine
PROC: 02HV33Z Insertion of Infusion Device into Superior Vena Cava, Percutaneous Approach (ICD-10-PCS; principal; 2018-03-25)
DX: L97.519 Non-pressure chronic ulcer of other part of right foot with unspecified severity (principal); L03.115 Cellulitis of right lower limb; G82.21 Paraplegia, complete; L97.819 Non-pressure chronic ulcer of other part of right lower leg with unspecified severity; R53.81 Other malaise; G62.9 Polyneuropathy, unspecified; Z87.891 Personal history of nicotine dependence; L40.50 Arthropathic psoriasis, unspecified; I87.2 Venous insufficiency (chronic) (peripheral); E03.9 Hypothyroidism, unspecified; E78.5 Hyperlipidemia, unspecified; F32.9 Major depressive disorder, single episode, unspecified; E87.6 Hypokalemia; G35 Multiple sclerosis; Z99.3 Dependence on wheelchair; I11.0 Hypertensive heart disease with heart failure; I50.9 Heart failure, unspecified; F39 Unspecified mood [affective] disorder; I95.9 Hypotension, unspecified
CPT/HCPCS: 36415; 36569; 71045; 78806; 80048; 80053; 80202; 81001; 83036; 83735; 84100; 84132; 85025; 85651; 86140; 87040; 97139; 99284; A9521; A9556; A9570; J0692; J3370; J7050

== ENCOUNTER → 2018-03-24 | Outpatient (CLI) | payer OTHER, MEDICARE ==
[~2018-03-24] MED LIST changes: +CIPROFLOXACIN500 M1 PO; +Collagenase TOP; +DOXYCYCLINE HY100 MG PO; +FUROSEMIDE20 MG PO; +MUPIROCIN22 GM TOP; +SPIRONOLACTONE25 MG PO
== END ==
LOC: EDSEX → EDBD → WCC 11:39
PROVIDERS: ATTEND Family Medicine
DX: T86.821 Skin graft (allograft) (autograft) failure (principal); Y83.8 Other surgical procedures as the cause of abnormal reaction of the patient, or of later complication, without mention of misadventure at the time of the procedure; I87.311 Chronic venous hypertension (idiopathic) with ulcer of right lower extremity; L97.419 Non-pressure chronic ulcer of right heel and midfoot with unspecified severity; M79.604 Pain in right leg; R60.0 Localized edema; I87.2 Venous insufficiency (chronic) (peripheral); I73.9 Peripheral vascular disease, unspecified; I70.213 Atherosclerosis of native arteries of extremities with intermittent claudication, bilateral legs; L90.5 Scar conditions and fibrosis of skin; L90.6 Striae atrophicae; G90.09 Other idiopathic peripheral autonomic neuropathy; I10 Essential (primary) hypertension; E03.8 Other specified hypothyroidism; R10.10 Upper abdominal pain, unspecified; W20.8XXA Other cause of strike by thrown, projected or falling object, initial encounter; Z01.810 Encounter for preprocedural cardiovascular examination; Z01.811 Encounter for preprocedural respiratory examination; Z74.01 Bed confinement status

== ENCOUNTER → 2018-03-31 | Outpatient (CLI) | payer OTHER, MEDICARE ==
[~2018-03-31] MED LIST changes: +CIPROFLOXACIN500 M1 PO; +Collagenase TOP; +DOXYCYCLINE HY100 MG PO; +FUROSEMIDE20 MG PO; +MUPIROCIN22 GM TOP; +SPIRONOLACTONE25 MG PO
== END ==
LOC: EDSEX → EDBD → WCC 11:08
PROVIDERS: ATTEND Family Medicine
DX: T86.821 Skin graft (allograft) (autograft) failure (principal); Y83.8 Other surgical procedures as the cause of abnormal reaction of the patient, or of later complication, without mention of misadventure at the time of the procedure; I87.311 Chronic venous hypertension (idiopathic) with ulcer of right lower extremity; L97.419 Non-pressure chronic ulcer of right heel and midfoot with unspecified severity; I70.213 Atherosclerosis of native arteries of extremities with intermittent claudication, bilateral legs; I73.9 Peripheral vascular disease, unspecified; M79.604 Pain in right leg; R60.0 Localized edema; G90.09 Other idiopathic peripheral autonomic neuropathy; L90.5 Scar conditions and fibrosis of skin; L90.6 Striae atrophicae; I87.2 Venous insufficiency (chronic) (peripheral); R10.10 Upper abdominal pain, unspecified; I10 Essential (primary) hypertension; E03.8 Other specified hypothyroidism; W20.8XXA Other cause of strike by thrown, projected or falling object, initial encounter; Z01.810 Encounter for preprocedural cardiovascular examination; Z01.811 Encounter for preprocedural respiratory examination; Z74.01 Bed confinement status

== ENCOUNTER → 2018-04-07 | Outpatient (CLI) | payer OTHER, MEDICARE | LOC: EDSEX → EDBD → WCC 10:33 | PROVIDERS: ATTEND Family Medicine | DX: T86.821 Skin graft (allograft) (autograft) failure (principal); Y83.8 Other surgical procedures as the cause of abnormal reaction of the patient, or of later complication, without mention of misadventure at the time of the procedure; I87.311 Chronic venous hypertension (idiopathic) with ulcer of right lower extremity; L97.419 Non-pressure chronic ulcer of right heel and midfoot with unspecified severity; R60.0 Localized edema; G90.09 Other idiopathic peripheral autonomic neuropathy; I70.213 Atherosclerosis of native arteries of extremities with intermittent claudication, bilateral legs; I73.9 Peripheral vascular disease, unspecified; I87.2 Venous insufficiency (chronic) (peripheral); M79.604 Pain in right leg; L90.5 Scar conditions and fibrosis of skin; L90.6 Striae atrophicae; I10 Essential (primary) hypertension; E03.8 Other specified hypothyroidism; R10.10 Upper abdominal pain, unspecified; W20.8XXA Other cause of strike by thrown, projected or falling object, initial encounter; Z01.810 Encounter for preprocedural cardiovascular examination; Z01.811 Encounter for preprocedural respiratory examination; Z74.01 Bed confinement status | CPT/HCPCS: 87071; 87075; 87205 ==

== ENCOUNTER → 2018-04-14 | Outpatient (CLI) | payer OTHER, MEDICARE ==
[~2018-04-14] MED LIST changes: +COLLAGENASE OINTMENT 30 GM TUBE ONE; +LIDOCAINE/PRILOCAINE 2.5-2.5% KIT ONE; +MINERAL OIL/PETROLAT/GLYCERI 6OZ BTL ONE; +MUPIROCIN 2% OINT 22 GM TUBE ONE
== END ==
LOC: EDBD → EDSEX → WCC 11:56
PROVIDERS: ATTEND Family Medicine
DX: T86.821 Skin graft (allograft) (autograft) failure (principal); Y83.8 Other surgical procedures as the cause of abnormal reaction of the patient, or of later complication, without mention of misadventure at the time of the procedure; I87.311 Chronic venous hypertension (idiopathic) with ulcer of right lower extremity; L97.419 Non-pressure chronic ulcer of right heel and midfoot with unspecified severity; I70.213 Atherosclerosis of native arteries of extremities with intermittent claudication, bilateral legs; M79.604 Pain in right leg; R60.0 Localized edema; I73.9 Peripheral vascular disease, unspecified; I87.2 Venous insufficiency (chronic) (peripheral); G90.09 Other idiopathic peripheral autonomic neuropathy; L90.6 Striae atrophicae; L90.5 Scar conditions and fibrosis of skin; I10 Essential (primary) hypertension; E03.8 Other specified hypothyroidism; R10.10 Upper abdominal pain, unspecified; W20.8XXA Other cause of strike by thrown, projected or falling object, initial encounter; Z01.810 Encounter for preprocedural cardiovascular examination; Z01.811 Encounter for preprocedural respiratory examination; Z74.01 Bed confinement status

== ENCOUNTER → 2018-04-21 | Outpatient (CLI) | payer OTHER, MEDICARE ==
[~2018-04-21] MED LIST changes: -COLLAGENASE OINTMENT 30 GM TUBE ONE; -LIDOCAINE/PRILOCAINE 2.5-2.5% KIT ONE; -MINERAL OIL/PETROLAT/GLYCERI 6OZ BTL ONE; -MUPIROCIN 2% OINT 22 GM TUBE ONE
== END ==
LOC: EDBD → EDSEX → WCC 11:37
PROVIDERS: ATTEND Family Medicine
DX: T86.821 Skin graft (allograft) (autograft) failure (principal); Y83.8 Other surgical procedures as the cause of abnormal reaction of the patient, or of later complication, without mention of misadventure at the time of the procedure; I87.311 Chronic venous hypertension (idiopathic) with ulcer of right lower extremity; L97.419 Non-pressure chronic ulcer of right heel and midfoot with unspecified severity; I70.213 Atherosclerosis of native arteries of extremities with intermittent claudication, bilateral legs; I87.2 Venous insufficiency (chronic) (peripheral); G90.09 Other idiopathic peripheral autonomic neuropathy; I73.9 Peripheral vascular disease, unspecified; M79.604 Pain in right leg; R60.0 Localized edema; L90.6 Striae atrophicae; L90.5 Scar conditions and fibrosis of skin; I10 Essential (primary) hypertension; E03.8 Other specified hypothyroidism; R10.10 Upper abdominal pain, unspecified; W20.8XXA Other cause of strike by thrown, projected or falling object, initial encounter; Z01.810 Encounter for preprocedural cardiovascular examination; Z01.811 Encounter for preprocedural respiratory examination; Z74.01 Bed confinement status

== ENCOUNTER → 2018-04-28 | Outpatient (CLI) | payer OTHER, MEDICARE | LOC: EDSEX → EDBD → WCC 08:00 | PROVIDERS: ATTEND Family Medicine | DX: I87.311 Chronic venous hypertension (idiopathic) with ulcer of right lower extremity (principal); L97.419 Non-pressure chronic ulcer of right heel and midfoot with unspecified severity; I87.2 Venous insufficiency (chronic) (peripheral); I70.213 Atherosclerosis of native arteries of extremities with intermittent claudication, bilateral legs; M79.604 Pain in right leg; R60.0 Localized edema; I73.9 Peripheral vascular disease, unspecified; L90.5 Scar conditions and fibrosis of skin; L90.6 Striae atrophicae; E03.8 Other specified hypothyroidism; G90.09 Other idiopathic peripheral autonomic neuropathy; I10 Essential (primary) hypertension; R10.10 Upper abdominal pain, unspecified; W20.8XXA Other cause of strike by thrown, projected or falling object, initial encounter; Y83.8 Other surgical procedures as the cause of abnormal reaction of the patient, or of later complication, without mention of misadventure at the time of the procedure; Z01.810 Encounter for preprocedural cardiovascular examination; Z01.811 Encounter for preprocedural respiratory examination; Z74.01 Bed confinement status ==

== ENCOUNTER → 2018-05-05 | Outpatient (CLI) | payer OTHER, MEDICARE | LOC: EDBD → WCC 11:21 | PROVIDERS: ATTEND Family Medicine | DX: I87.311 Chronic venous hypertension (idiopathic) with ulcer of right lower extremity (principal); Y83.8 Other surgical procedures as the cause of abnormal reaction of the patient, or of later complication, without mention of misadventure at the time of the procedure; L97.419 Non-pressure chronic ulcer of right heel and midfoot with unspecified severity; R60.0 Localized edema; M79.604 Pain in right leg; I70.213 Atherosclerosis of native arteries of extremities with intermittent claudication, bilateral legs; I73.9 Peripheral vascular disease, unspecified; I87.2 Venous insufficiency (chronic) (peripheral); L90.6 Striae atrophicae; L90.5 Scar conditions and fibrosis of skin; G90.09 Other idiopathic peripheral autonomic neuropathy; I10 Essential (primary) hypertension; E03.8 Other specified hypothyroidism; R10.10 Upper abdominal pain, unspecified; W20.8XXA Other cause of strike by thrown, projected or falling object, initial encounter; Z01.810 Encounter for preprocedural cardiovascular examination; Z01.811 Encounter for preprocedural respiratory examination; Z74.01 Bed confinement status ==

== ENCOUNTER → 2018-05-12 | Outpatient (CLI) | payer OTHER, MEDICARE ==
[~2018-05-12] MED LIST changes: +COLLAGENASE OINTMENT 30 GM TUBE ONE; +LIDOCAINE/PRILOCAINE 2.5-2.5% KIT ONE; +MINERAL OIL/PETROLAT/GLYCERI 6OZ BTL ONE; +MUPIROCIN 2% OINT 22 GM TUBE ONE
== END ==
LOC: EDBD → WCC 14:20
PROVIDERS: ATTEND Family Medicine
DX: I87.311 Chronic venous hypertension (idiopathic) with ulcer of right lower extremity (principal); Y83.8 Other surgical procedures as the cause of abnormal reaction of the patient, or of later complication, without mention of misadventure at the time of the procedure; L97.419 Non-pressure chronic ulcer of right heel and midfoot with unspecified severity; R60.0 Localized edema; I87.2 Venous insufficiency (chronic) (peripheral); I73.9 Peripheral vascular disease, unspecified; I70.213 Atherosclerosis of native arteries of extremities with intermittent claudication, bilateral legs; G90.09 Other idiopathic peripheral autonomic neuropathy; M79.604 Pain in right leg; L90.6 Striae atrophicae; L90.5 Scar conditions and fibrosis of skin; I10 Essential (primary) hypertension; E03.8 Other specified hypothyroidism; R10.10 Upper abdominal pain, unspecified; W20.8XXA Other cause of strike by thrown, projected or falling object, initial encounter; Z01.810 Encounter for preprocedural cardiovascular examination; Z01.811 Encounter for preprocedural respiratory examination; Z74.01 Bed confinement status

== ENCOUNTER → 2018-05-19 | Outpatient (CLI) | payer OTHER, MEDICARE ==
[~2018-05-19] MED LIST changes: -COLLAGENASE OINTMENT 30 GM TUBE ONE; -LIDOCAINE/PRILOCAINE 2.5-2.5% KIT ONE; -MINERAL OIL/PETROLAT/GLYCERI 6OZ BTL ONE; -MUPIROCIN 2% OINT 22 GM TUBE ONE
== END ==
LOC: EDBD → WCC 11:55 → EDBD 11:55
PROVIDERS: ATTEND Family Medicine
DX: I87.311 Chronic venous hypertension (idiopathic) with ulcer of right lower extremity (principal); Y83.8 Other surgical procedures as the cause of abnormal reaction of the patient, or of later complication, without mention of misadventure at the time of the procedure; L97.419 Non-pressure chronic ulcer of right heel and midfoot with unspecified severity; I70.213 Atherosclerosis of native arteries of extremities with intermittent claudication, bilateral legs; G90.09 Other idiopathic peripheral autonomic neuropathy; M79.604 Pain in right leg; R60.0 Localized edema; I87.2 Venous insufficiency (chronic) (peripheral); I73.9 Peripheral vascular disease, unspecified; L90.6 Striae atrophicae; L90.5 Scar conditions and fibrosis of skin; E03.8 Other specified hypothyroidism; I10 Essential (primary) hypertension; R10.10 Upper abdominal pain, unspecified; W20.8XXA Other cause of strike by thrown, projected or falling object, initial encounter; Z01.810 Encounter for preprocedural cardiovascular examination; Z01.811 Encounter for preprocedural respiratory examination; Z74.01 Bed confinement status
CPT/HCPCS: 93971

== ENCOUNTER → 2018-05-26 | Outpatient (CLI) | payer OTHER, MEDICARE | LOC: WCC 11:32 | PROVIDERS: ATTEND Family Medicine | DX: I87.311 Chronic venous hypertension (idiopathic) with ulcer of right lower extremity (principal); Y83.8 Other surgical procedures as the cause of abnormal reaction of the patient, or of later complication, without mention of misadventure at the time of the procedure; L97.419 Non-pressure chronic ulcer of right heel and midfoot with unspecified severity; M79.604 Pain in right leg; R60.0 Localized edema; I73.9 Peripheral vascular disease, unspecified; I87.2 Venous insufficiency (chronic) (peripheral); L90.5 Scar conditions and fibrosis of skin; L90.6 Striae atrophicae; E03.8 Other specified hypothyroidism; G90.09 Other idiopathic peripheral autonomic neuropathy; I10 Essential (primary) hypertension; I70.213 Atherosclerosis of native arteries of extremities with intermittent claudication, bilateral legs; R10.10 Upper abdominal pain, unspecified; W20.8XXA Other cause of strike by thrown, projected or falling object, initial encounter; Z01.810 Encounter for preprocedural cardiovascular examination; Z01.811 Encounter for preprocedural respiratory examination; Z74.01 Bed confinement status ==

== ENCOUNTER → 2018-06-09 | Outpatient (CLI) | payer OTHER, MEDICARE ==
[~2018-06-09] MED LIST changes: +COLLAGENASE OINTMENT 30 GM TUBE ONE; +LIDOCAINE/PRILOCAINE 2.5-2.5% KIT ONE; +MUPIROCIN 2% OINT 22 GM TUBE ONE
== END ==
LOC: WCC 09:07
PROVIDERS: ATTEND Family Medicine
DX: I87.311 Chronic venous hypertension (idiopathic) with ulcer of right lower extremity (principal); L97.419 Non-pressure chronic ulcer of right heel and midfoot with unspecified severity; I70.213 Atherosclerosis of native arteries of extremities with intermittent claudication, bilateral legs; M79.604 Pain in right leg; R60.0 Localized edema; I73.9 Peripheral vascular disease, unspecified; I87.2 Venous insufficiency (chronic) (peripheral); G90.09 Other idiopathic peripheral autonomic neuropathy; L90.5 Scar conditions and fibrosis of skin; L90.6 Striae atrophicae; I10 Essential (primary) hypertension; E03.8 Other specified hypothyroidism; R10.10 Upper abdominal pain, unspecified; W20.8XXA Other cause of strike by thrown, projected or falling object, initial encounter; Y83.8 Other surgical procedures as the cause of abnormal reaction of the patient, or of later complication, without mention of misadventure at the time of the procedure; Z01.810 Encounter for preprocedural cardiovascular examination; Z01.811 Encounter for preprocedural respiratory examination; Z74.01 Bed confinement status

== ENCOUNTER → 2018-06-23 | Outpatient (CLI) | payer OTHER, MEDICARE ==
[~2018-06-23] MED LIST changes: -COLLAGENASE OINTMENT 30 GM TUBE ONE; -LIDOCAINE/PRILOCAINE 2.5-2.5% KIT ONE; -MUPIROCIN 2% OINT 22 GM TUBE ONE
== END ==
LOC: EDBD → WCC 13:50
PROVIDERS: ATTEND Family Medicine
DX: I87.311 Chronic venous hypertension (idiopathic) with ulcer of right lower extremity (principal); Y83.8 Other surgical procedures as the cause of abnormal reaction of the patient, or of later complication, without mention of misadventure at the time of the procedure; L97.419 Non-pressure chronic ulcer of right heel and midfoot with unspecified severity; R60.0 Localized edema; M79.604 Pain in right leg; I73.9 Peripheral vascular disease, unspecified; I70.213 Atherosclerosis of native arteries of extremities with intermittent claudication, bilateral legs; I87.2 Venous insufficiency (chronic) (peripheral); L90.5 Scar conditions and fibrosis of skin; L90.6 Striae atrophicae; I10 Essential (primary) hypertension; E03.8 Other specified hypothyroidism; G90.09 Other idiopathic peripheral autonomic neuropathy; R10.10 Upper abdominal pain, unspecified; W20.8XXA Other cause of strike by thrown, projected or falling object, initial encounter; Z01.810 Encounter for preprocedural cardiovascular examination; Z01.811 Encounter for preprocedural respiratory examination; Z74.01 Bed confinement status

== ENCOUNTER → 2018-06-24 | Outpatient (CLI) | payer MEDICARE, OTHER ==
--- NOTE | 2018-06-24 18:42 | Diagnostic Imaging Report ---
Exam: Maxillofacial sinus CT without IV contrast History: Chronic sinusitis Comparison studies: Included sinuses from soft tissue neck CT of 06/19/2017. Technique: Axial images were obtained through the paranasal sinuses. Coronal and sagittal images reconstructed from the axial data. Dose modulation, iterative reconstruction, and/or weight based adjustment of the mA/kV was utilized to reduce the radiation dose to as low as reasonably achievable. Radiation dose: Total DLP: 288 mGy*cm. Estimated effective dose: DLP x 0.015 Intravenous contrast: None Findings: Right anterior complex: Frontal sinus: Clear. Frontonasal recess: Clear. Anterior ethmoid air cells: Clear. Ostiomeatal unit: Clear. Maxillary sinus: Clear. Left anterior complex: Frontal sinus: Clear. Frontonasal recess: Clear. Anterior ethmoid air cells: Clear. Ostiomeatal unit: Clear. Maxillary sinus: Clear. Posterior complex: Sphenoid sinuses: Clear. Sphenoethmoidal recesses: Clear. Posterior ethmoid air cells: Clear. Other: Nasal vestibule and cavity: Patent Nasal septum: Deviated to the patient's right with rightward projecting osseous spur which abuts the right inferior turbinate. Agger Nasi: Clear bilaterally. Turbinates: Non-aerated bilaterally. Nessa cells: Present on the right without ostial obstruction. Lamina papyracea: Intact. Cribriform plates: Relatively symmetric, approximately 6 to 7 mm below the fovea ethmoidalis. Olfactory recesses: Clear Optic canals: Not dehiscent [place] cells: None Internal carotid canals: Not dehiscent. Sphenoid sinuses: Dominant right sinus. The right lateral recess is pneumatized. The left lateral recess is not aerated. The primary septum inserts obliquely to the left of midline with attachment along the anterior wall the left cavernous carotid canal. Orbits: No abnormalities. Bones: No fractures or destructive lytic or blastic lesions. Temporal bones: No gross abnormalities. Included cervical spine: Uncovertebral arthrosis and severe facet arthrosis result in mild foraminal stenosis on the left at C2-C3 and moderate foraminal stenosis on the left at C3-C4. Dentition: Multiple dental fillings. Multiple absent teeth. Root canal changes at the right first maxillary premolar. No maxillary periapical lucency. Incidental findings: Atherosclerotic calcifications in the carotid siphons. IMPRESSION: 1. Clear paranasal sinuses with patent sinus drainage pathways. 2. Rightward nasal septal deviation with nasal septal spur. Signed by: Dr. Bello Richardson M.D. on 06/24/2018 6:39 PM
== END ==
LOC: EDBD → CT 15:25
PROVIDERS: ATTEND Otolaryngology
DX: J32.4 Chronic pansinusitis (principal)
CPT/HCPCS: 70486

== ENCOUNTER → 2018-07-07 | Outpatient (CLI) | payer OTHER, MEDICARE | LOC: WCC 10:15 | PROVIDERS: ATTEND Family Medicine | DX: I87.311 Chronic venous hypertension (idiopathic) with ulcer of right lower extremity (principal); Y83.8 Other surgical procedures as the cause of abnormal reaction of the patient, or of later complication, without mention of misadventure at the time of the procedure; L97.419 Non-pressure chronic ulcer of right heel and midfoot with unspecified severity; I70.213 Atherosclerosis of native arteries of extremities with intermittent claudication, bilateral legs; I87.2 Venous insufficiency (chronic) (peripheral); M79.604 Pain in right leg; R10.10 Upper abdominal pain, unspecified; R60.0 Localized edema; L90.5 Scar conditions and fibrosis of skin; L90.6 Striae atrophicae; I10 Essential (primary) hypertension; E03.8 Other specified hypothyroidism; G90.09 Other idiopathic peripheral autonomic neuropathy; W20.8XXA Other cause of strike by thrown, projected or falling object, initial encounter; Z01.810 Encounter for preprocedural cardiovascular examination; Z01.811 Encounter for preprocedural respiratory examination; Z74.01 Bed confinement status ==

== ENCOUNTER → 2018-07-21 | Outpatient (CLI) | payer MEDICARE, OTHER | LOC: WCC 12:50 | PROVIDERS: ATTEND Family Medicine | DX: I87.311 Chronic venous hypertension (idiopathic) with ulcer of right lower extremity (principal); L97.419 Non-pressure chronic ulcer of right heel and midfoot with unspecified severity; R60.0 Localized edema; E03.8 Other specified hypothyroidism; G90.09 Other idiopathic peripheral autonomic neuropathy; I10 Essential (primary) hypertension; I70.213 Atherosclerosis of native arteries of extremities with intermittent claudication, bilateral legs; I73.9 Peripheral vascular disease, unspecified; I87.2 Venous insufficiency (chronic) (peripheral); L90.5 Scar conditions and fibrosis of skin; L90.6 Striae atrophicae; M79.604 Pain in right leg; R10.10 Upper abdominal pain, unspecified; W20.8XXA Other cause of strike by thrown, projected or falling object, initial encounter; Y83.8 Other surgical procedures as the cause of abnormal reaction of the patient, or of later complication, without mention of misadventure at the time of the procedure; Z01.810 Encounter for preprocedural cardiovascular examination; Z01.811 Encounter for preprocedural respiratory examination; Z74.01 Bed confinement status ==

== ENCOUNTER → 2018-08-04 | Outpatient (CLI) | payer MEDICARE, OTHER | LOC: EDBD → WCC 12:58 | PROVIDERS: ATTEND Family Medicine | DX: L89.890 Pressure ulcer of other site, unstageable (principal); I87.311 Chronic venous hypertension (idiopathic) with ulcer of right lower extremity; L97.419 Non-pressure chronic ulcer of right heel and midfoot with unspecified severity; R60.0 Localized edema; Y83.8 Other surgical procedures as the cause of abnormal reaction of the patient, or of later complication, without mention of misadventure at the time of the procedure ==

== ENCOUNTER 2018-08-25 12:18 | Outpatient (RCR) | payer MEDICARE, OTHER ==
[~2018-08-25 12:18] MED LIST changes: +LIDOCAINE/PRILOCAINE 2.5-2.5% KIT ONE; +MINERAL OIL/PETROLAT/GLYCERI 6OZ BTL ONE
[2018-08-25] MEDS ORDERED: MUPIROCIN 2% OINT 22 GM TUBE ONE (18:36)
[2018-08-25] MEDS ORDERED: LIDOCAINE/PRILOCAINE 2.5-2.5% KIT ONE (18:36)
== END 2018-09-05 ==
LOC: WCC 12:18
PROVIDERS: ATTEND Family Medicine
DX: I87.311 Chronic venous hypertension (idiopathic) with ulcer of right lower extremity (principal); L97.419 Non-pressure chronic ulcer of right heel and midfoot with unspecified severity; L89.890 Pressure ulcer of other site, unstageable; R60.0 Localized edema; E03.8 Other specified hypothyroidism; G90.09 Other idiopathic peripheral autonomic neuropathy; I10 Essential (primary) hypertension; I70.213 Atherosclerosis of native arteries of extremities with intermittent claudication, bilateral legs; I73.9 Peripheral vascular disease, unspecified; I87.2 Venous insufficiency (chronic) (peripheral); L90.5 Scar conditions and fibrosis of skin; L90.6 Striae atrophicae; M79.604 Pain in right leg; R10.10 Upper abdominal pain, unspecified; W20.8XXA Other cause of strike by thrown, projected or falling object, initial encounter; Y83.8 Other surgical procedures as the cause of abnormal reaction of the patient, or of later complication, without mention of misadventure at the time of the procedure; Z01.810 Encounter for preprocedural cardiovascular examination; Z01.811 Encounter for preprocedural respiratory examination; Z74.01 Bed confinement status

== ENCOUNTER 2018-09-29 11:55 | Outpatient (RCR) | payer MEDICARE, OTHER ==
[~2018-09-29 11:55] MED LIST changes: +COLLAGENASE OINTMENT 30 GM TUBE ONE; +MUPIROCIN 2% OINT 22 GM TUBE ONE
[2018-09-29 13:02] LABS: BASOPHILS # (AUTO) 0.1 (0.0-0.1); BASOPHILS % 1.5 % (0.0-1.0); EOSINOPHILS # (AUTO) 0.8 (0.0-0.4); EOSINOPHILS % 9.8 % (0.0-6.0); HEMATOCRIT 29.6 % (34.2-44.1); HEMOGLOBIN 9.5 g/dL (12.0-16.0); LYMPHOCYTES # (AUTO) 2.3 (1.0-3.2); LYMPHOCYTES % 26.5 % (18.0-39.1); MEAN CORPUSCULAR HEMOGLOBIN 33.6 pg (28-32); MEAN CORPUSCULAR HGB CONC 32.1 g/dL (31-35); MEAN CORPUSCULAR VOLUME 104.6 fL (81-99); MONOCYTES # (AUTO) 1.3 (0.2-0.8); MONOCYTES % 14.7 % (4.4-11.3); NEUTROPHILS % 46.9 % (38.7-80.0); PLATELET COUNT 271 x10e3/uL (140-360); RED BLOOD COUNT 2.83 x10e6/uL (3.6-5.1); RED CELL DISTRIBUTION WIDTH 15.4 % (11.7-14.4)
[2018-09-29 13:28] LABS: ALBUMIN 3.4 g/dL (3.5-5.0); ALBUMIN/GLOBULIN RATIO 0.9 (0.8-2.0); ANION GAP 13.6 mmol/L (8-16); CALCIUM 9.5 mg/dL (8.4-10.2); CREATININE, SERUM 1.06 mg/dL (0.57-1.11); POTASSIUM 3.6 mmol/L (3.5-5.1)
[2018-09-29 13:32] LABS: ERYTHROCYTE SEDIMENTATION RATE 48 mm/hr (0-20)
--- NOTE | 2018-09-29 14:41 | Diagnostic Imaging Report ---
Exam: Left foot radiographs-3 views Clinical History: Open wound. Comparison: None. Findings: Exam is limited due to poor mobility and portable technique. There is diffuse osteopenia, which limits evaluation for acute pathology. There is lucency of the first metatarsal in the mid and distal portions. There is a possible erosion at the medial cuneiform distally. No periosteal reaction. There is soft tissue edema in the first and second toes. No evidence for radiopaque foreign body, acute fracture, or malalignment. There are moderate to severe degenerative changes at the tarsometatarsal joints. There is a plantar calcaneal spur. Impression: Limited examination secondary to diffuse osteopenia and portable technique. Ill-defined lucency of the first metatarsal with possible erosion at the medial cuneiform. Findings may represent osteomyelitis, foot MRI is suggested for further evaluation Soft tissue edema in the first and second toes. No evidence of acute fracture or malalignment. Moderate to severe degenerative changes at the tarsometatarsal joints. Signed by: Dr. Zena Vizcaino MD on 09/29/2018 2:38 PM
[2018-09-29] MEDS ORDERED: LIDOCAINE/PRILOCAINE 2.5-2.5% KIT ONE (15:25)
== END 2018-10-05 ==
LOC: WCC 11:55
PROVIDERS: ATTEND Family Medicine
DX: L89.890 Pressure ulcer of other site, unstageable (principal); Y83.8 Other surgical procedures as the cause of abnormal reaction of the patient, or of later complication, without mention of misadventure at the time of the procedure; I87.311 Chronic venous hypertension (idiopathic) with ulcer of right lower extremity; L97.419 Non-pressure chronic ulcer of right heel and midfoot with unspecified severity; I70.213 Atherosclerosis of native arteries of extremities with intermittent claudication, bilateral legs; M79.604 Pain in right leg; R60.0 Localized edema; I73.9 Peripheral vascular disease, unspecified; I87.2 Venous insufficiency (chronic) (peripheral); E03.8 Other specified hypothyroidism; G90.09 Other idiopathic peripheral autonomic neuropathy; I10 Essential (primary) hypertension; L90.5 Scar conditions and fibrosis of skin; L90.6 Striae atrophicae; R10.10 Upper abdominal pain, unspecified; W20.8XXA Other cause of strike by thrown, projected or falling object, initial encounter; Z01.810 Encounter for preprocedural cardiovascular examination; Z01.811 Encounter for preprocedural respiratory examination; Z74.01 Bed confinement status
CPT/HCPCS: 36415; 80053; 85025; 85651; 86140; 87071; 87075; 87186; 87205

== ENCOUNTER → 2018-10-11 | Outpatient (CLI) | payer MEDICARE, OTHER ==
[~2018-10-11] MED LIST changes: -COLLAGENASE OINTMENT 30 GM TUBE ONE; -LIDOCAINE/PRILOCAINE 2.5-2.5% KIT ONE; -MINERAL OIL/PETROLAT/GLYCERI 6OZ BTL ONE; -MUPIROCIN 2% OINT 22 GM TUBE ONE
--- NOTE | 2018-10-11 22:58 | Diagnostic Imaging Report ---
TECHNIQUE: Magnetic resonance imaging of the LEFT foot was performed WITHOUT injected contrast. HISTORY: Ulcer, infection COMPARISON: None available. DISCUSSION: Limited evaluation due to patient motion. Soft tissue ulceration of the lateral forefoot adjacent to the fifth MTP joint. No adjacent bone marrow edema or T1 replacement. Hammertoe deformities. IMPRESSION: Ulceration lateral forefoot. No osteomyelitis. Signed by: Dr. Everardo Maldonado M.D. on 10/11/2018 10:55 PM
--- NOTE | 2018-10-11 22:59 | Diagnostic Imaging Report ---
TECHNIQUE: Magnetic resonance imaging of the RIGHT foot was performed WITHOUT injected contrast. HISTORY: Ulcer, infection COMPARISON: None available. DISCUSSION: Limited evaluation due to patient motion. Soft tissue ulceration of the dorsal lateral forefoot. No adjacent bone marrow edema or T1 replacement. Hammertoe deformities. IMPRESSION: Ulceration dorsal lateral forefoot. No osteomyelitis. Signed by: Dr. Everardo Maldonado M.D. on 10/11/2018 10:56 PM
== END ==
LOC: MRI 15:14
PROVIDERS: ATTEND Family Medicine
DX: I87.332 Chronic venous hypertension (idiopathic) with ulcer and inflammation of left lower extremity (principal); L97.421 Non-pressure chronic ulcer of left heel and midfoot limited to breakdown of skin

== ENCOUNTER 2018-10-27 14:24 | Outpatient (RCR) | payer MEDICARE, OTHER ==
[~2018-10-27 14:24] MED LIST changes: +COLLAGENASE OINTMENT 30 GM TUBE ONE; +LIDOCAINE/PRILOCAINE 2.5-2.5% KIT ONE; +MINERAL OIL/PETROLAT/GLYCERI 6OZ BTL ONE; +MUPIROCIN 2% OINT 22 GM TUBE ONE
[2018-10-27] MEDS ORDERED: COLLAGENASE OINTMENT 30 GM TUBE ONE (18:59)
[2018-10-27] MEDS ORDERED: MUPIROCIN 2% OINT 22 GM TUBE ONE (18:59)
[2018-10-27] MEDS ORDERED: LIDOCAINE/PRILOCAINE 2.5-2.5% KIT ONE (18:59)
[2018-11-03] MEDS ORDERED: LIDOCAINE/PRILOCAINE 2.5-2.5% KIT ONE (18:39)
[2018-11-03] MEDS ORDERED: MINERAL OIL/PETROLAT/GLYCERI 6OZ BTL ONE (18:39)
== END 2018-11-05 ==
LOC: WCC 14:24
PROVIDERS: ATTEND Family Medicine
DX: L89.890 Pressure ulcer of other site, unstageable (principal); I73.9 Peripheral vascular disease, unspecified; I87.2 Venous insufficiency (chronic) (peripheral); M79.604 Pain in right leg; R60.0 Localized edema; L90.5 Scar conditions and fibrosis of skin; L90.6 Striae atrophicae; I10 Essential (primary) hypertension; R10.10 Upper abdominal pain, unspecified; I70.213 Atherosclerosis of native arteries of extremities with intermittent claudication, bilateral legs; G90.09 Other idiopathic peripheral autonomic neuropathy; A49.01 Methicillin susceptible Staphylococcus aureus infection, unspecified site; E03.8 Other specified hypothyroidism; W20.8XXA Other cause of strike by thrown, projected or falling object, initial encounter; Y83.8 Other surgical procedures as the cause of abnormal reaction of the patient, or of later complication, without mention of misadventure at the time of the procedure; Z01.810 Encounter for preprocedural cardiovascular examination; Z01.811 Encounter for preprocedural respiratory examination; Z74.01 Bed confinement status
CPT/HCPCS: 87071; 87075; 87186; 87205

== ENCOUNTER 2018-12-01 12:16 | Outpatient (RCR) | payer MEDICARE, OTHER ==
[~2018-12-01 12:16] MED LIST changes: -COLLAGENASE OINTMENT 30 GM TUBE ONE; -MUPIROCIN 2% OINT 22 GM TUBE ONE
== END 2018-12-05 ==
LOC: WCC 12:16
PROVIDERS: ATTEND Family Medicine
DX: I87.312 Chronic venous hypertension (idiopathic) with ulcer of left lower extremity (principal); L89.890 Pressure ulcer of other site, unstageable; Y83.8 Other surgical procedures as the cause of abnormal reaction of the patient, or of later complication, without mention of misadventure at the time of the procedure; I87.311 Chronic venous hypertension (idiopathic) with ulcer of right lower extremity; L97.429 Non-pressure chronic ulcer of left heel and midfoot with unspecified severity; L97.819 Non-pressure chronic ulcer of other part of right lower leg with unspecified severity; I70.213 Atherosclerosis of native arteries of extremities with intermittent claudication, bilateral legs; I73.9 Peripheral vascular disease, unspecified; L90.5 Scar conditions and fibrosis of skin; L90.6 Striae atrophicae; M79.604 Pain in right leg; I87.2 Venous insufficiency (chronic) (peripheral); R60.0 Localized edema; I10 Essential (primary) hypertension; A49.01 Methicillin susceptible Staphylococcus aureus infection, unspecified site; E03.8 Other specified hypothyroidism; G90.09 Other idiopathic peripheral autonomic neuropathy; R10.10 Upper abdominal pain, unspecified; W20.8XXA Other cause of strike by thrown, projected or falling object, initial encounter; Z01.810 Encounter for preprocedural cardiovascular examination; Z01.811 Encounter for preprocedural respiratory examination; Z74.01 Bed confinement status
CPT/HCPCS: 87071; 87075; 87186; 87205

== ENCOUNTER → 2019-01-05 | Outpatient (RCR) | payer MEDICARE, OTHER | LOC: WCC 12-08 12:40 | PROVIDERS: ATTEND Family Medicine | DX: I87.312 Chronic venous hypertension (idiopathic) with ulcer of left lower extremity (principal); Y83.8 Other surgical procedures as the cause of abnormal reaction of the patient, or of later complication, without mention of misadventure at the time of the procedure; L97.429 Non-pressure chronic ulcer of left heel and midfoot with unspecified severity; L89.890 Pressure ulcer of other site, unstageable; I70.213 Atherosclerosis of native arteries of extremities with intermittent claudication, bilateral legs; I87.2 Venous insufficiency (chronic) (peripheral); I73.9 Peripheral vascular disease, unspecified; M79.604 Pain in right leg; L95.0 Livedoid vasculitis; G90.09 Other idiopathic peripheral autonomic neuropathy; R60.0 Localized edema; L90.5 Scar conditions and fibrosis of skin; L90.6 Striae atrophicae; I10 Essential (primary) hypertension; E03.8 Other specified hypothyroidism; R10.10 Upper abdominal pain, unspecified; W20.8XXA Other cause of strike by thrown, projected or falling object, initial encounter; Z01.810 Encounter for preprocedural cardiovascular examination; Z01.811 Encounter for preprocedural respiratory examination; Z74.01 Bed confinement status | CPT/HCPCS: 11042 ×3; 11045 ×2; 15275 ×3; 29581; Q4186 ×3 ==

== ENCOUNTER 2019-02-02 13:24 | Outpatient (RCR) | payer MEDICARE, OTHER ==
[2019-02-02] MEDS ORDERED: LIDOCAINE/PRILOCAINE 2.5-2.5% KIT ONE (19:09)
[2019-02-02] MEDS ORDERED: MINERAL OIL/PETROLAT/GLYCERI 6OZ BTL ONE (19:09)
== END 2019-02-05 ==
LOC: WCC 13:24
PROVIDERS: ATTEND Family Medicine
DX: I87.312 Chronic venous hypertension (idiopathic) with ulcer of left lower extremity (principal); Y83.8 Other surgical procedures as the cause of abnormal reaction of the patient, or of later complication, without mention of misadventure at the time of the procedure; L89.890 Pressure ulcer of other site, unstageable; L97.429 Non-pressure chronic ulcer of left heel and midfoot with unspecified severity; L95.0 Livedoid vasculitis; R60.0 Localized edema; I87.2 Venous insufficiency (chronic) (peripheral); I70.213 Atherosclerosis of native arteries of extremities with intermittent claudication, bilateral legs; I73.9 Peripheral vascular disease, unspecified; G90.09 Other idiopathic peripheral autonomic neuropathy; R10.10 Upper abdominal pain, unspecified; M79.604 Pain in right leg; I10 Essential (primary) hypertension; L90.6 Striae atrophicae; L90.5 Scar conditions and fibrosis of skin; D89.9 Disorder involving the immune mechanism, unspecified; E03.8 Other specified hypothyroidism; W20.8XXA Other cause of strike by thrown, projected or falling object, initial encounter; Z01.810 Encounter for preprocedural cardiovascular examination; Z01.811 Encounter for preprocedural respiratory examination; Z74.01 Bed confinement status
CPT/HCPCS: 11042; 15275 ×4; 29581; 87071; 87205; Q4186 ×4

== ENCOUNTER 2019-03-02 12:05 | Outpatient (RCR) | payer MEDICARE, OTHER ==
[~2019-03-02 12:05] MED LIST changes: +MUPIROCIN 2% OINT 22 GM TUBE ONE
[2019-03-02] MEDS ORDERED: MUPIROCIN 2% OINT 22 GM TUBE ONE (14:43)
[2019-03-02] MEDS ORDERED: MINERAL OIL/PETROLAT/GLYCERI 6OZ BTL ONE (14:43)
[2019-03-02] MEDS ORDERED: LIDOCAINE/PRILOCAINE 2.5-2.5% KIT ONE (14:43)
== END 2019-03-07 ==
LOC: WCC 12:05
PROVIDERS: ATTEND Family Medicine
DX: I87.312 Chronic venous hypertension (idiopathic) with ulcer of left lower extremity (principal); Y83.8 Other surgical procedures as the cause of abnormal reaction of the patient, or of later complication, without mention of misadventure at the time of the procedure; L89.890 Pressure ulcer of other site, unstageable; L97.429 Non-pressure chronic ulcer of left heel and midfoot with unspecified severity; I70.213 Atherosclerosis of native arteries of extremities with intermittent claudication, bilateral legs; I73.9 Peripheral vascular disease, unspecified; I87.2 Venous insufficiency (chronic) (peripheral); M79.604 Pain in right leg; L90.5 Scar conditions and fibrosis of skin; L90.6 Striae atrophicae; L95.0 Livedoid vasculitis; R60.0 Localized edema; D89.9 Disorder involving the immune mechanism, unspecified; E03.8 Other specified hypothyroidism; G90.09 Other idiopathic peripheral autonomic neuropathy; I10 Essential (primary) hypertension; R10.10 Upper abdominal pain, unspecified; W20.8XXA Other cause of strike by thrown, projected or falling object, initial encounter; Z01.810 Encounter for preprocedural cardiovascular examination; Z01.811 Encounter for preprocedural respiratory examination; Z74.01 Bed confinement status
CPT/HCPCS: 11042 ×2; 11045; 15275; 29581; 99213 ×2; Q4186

== ENCOUNTER → 2019-03-25 | Outpatient (CLI) | payer MEDICARE, OTHER ==
[~2019-03-25] MED LIST changes: -LIDOCAINE/PRILOCAINE 2.5-2.5% KIT ONE; -MINERAL OIL/PETROLAT/GLYCERI 6OZ BTL ONE; -MUPIROCIN 2% OINT 22 GM TUBE ONE
[2019-03-25 15:59] LABS: BASOPHILS % 0.5 % (0.0-1.0); EOSINOPHILS # (AUTO) 0.3 (0.0-0.4); EOSINOPHILS % 4.2 % (0.0-6.0); LYMPHOCYTES # (AUTO) 1.4 (1.0-3.2); LYMPHOCYTES % 19.1 % (18.0-39.1); MEAN CORPUSCULAR HEMOGLOBIN 26.4 pg (28-32); MEAN CORPUSCULAR HGB CONC 28.7 g/dL (31-35); MEAN CORPUSCULAR VOLUME 92.1 fL (81-99); MONOCYTES # (AUTO) 0.7 (0.2-0.8); MONOCYTES % 9.5 % (4.4-11.3); NEUTROPHILS # (AUTO) 4.9 (2.1-6.9); NEUTROPHILS % 65.8 % (38.7-80.0); PLATELET COUNT 205 x10e3/uL (140-360); RED BLOOD COUNT 2.42 x10e6/uL (3.6-5.1); RED CELL DISTRIBUTION WIDTH 19.7 % (11.7-14.4)
[2019-03-25 16:12] LABS: HEMATOCRIT 22.3 % (34.2-44.1); HEMOGLOBIN 6.4 g/dL (12.0-16.0)
[2019-03-25 16:13] LABS: ANION GAP 13.1 mmol/L (8-16); BLOOD UREA NITROGEN 8 mg/dL (7-26); BUN/CREATININE RATIO 11 (6-25); CALCIUM 9.9 mg/dL (8.4-10.2); CARBON DIOXIDE 33 mmol/L (22-29); CHLORIDE 99 mmol/L (98-107); CREATININE, SERUM 0.76 mg/dL (0.57-1.11); EST GLOMERULAR FILTRATION RATE > 60 ML/MIN (60-); GLUCOSE 91 mg/dL (74-118); IRON 13 ug/dL (50-170); POTASSIUM 3.1 mmol/L (3.5-5.1); SODIUM 142 mmol/L (136-145)
== END ==
LOC: LAB 15:22
PROVIDERS: ATTEND Family Medicine
DX: D89.9 Disorder involving the immune mechanism, unspecified (principal)
CPT/HCPCS: 36415; 80048; 83540; 85025

== ENCOUNTER 2019-04-06 13:58 | Outpatient (RCR) | payer MEDICARE, OTHER ==
[2019-03-23 14:33] LABS: ANION GAP 12.2 mmol/L (8-16); BLOOD UREA NITROGEN 13 mg/dL (7-26); BUN/CREATININE RATIO 16 (6-25); CALCIUM 10.3 mg/dL (8.4-10.2); CARBON DIOXIDE 36 mmol/L (22-29); CHLORIDE 93 mmol/L (98-107); CREATININE, SERUM 0.81 mg/dL (0.57-1.11); EST GLOMERULAR FILTRATION RATE > 60 ML/MIN (60-); GLUCOSE 92 mg/dL (74-118); POTASSIUM 3.2 mmol/L (3.5-5.1); SODIUM 138 mmol/L (136-145)
[~2019-04-06 13:58] MED LIST changes: +LIDOCAINE VISC 2% SOLN 15 ML UDC ONE; +LIDOCAINE/PRILOCAINE 2.5-2.5% KIT ONE; +MINERAL OIL/PETROLAT/GLYCERI 6OZ BTL ONE; +MUPIROCIN 2% OINT 22 GM TUBE ONE
[2019-04-06] MEDS ORDERED: LIDOCAINE/PRILOCAINE 2.5-2.5% KIT ONE (19:25)
[2019-04-06] MEDS ORDERED: MINERAL OIL/PETROLAT/GLYCERI 6OZ BTL ONE (19:25)
== END 2019-04-07 ==
LOC: WCC 13:58
PROVIDERS: ATTEND Family Medicine
DX: I87.312 Chronic venous hypertension (idiopathic) with ulcer of left lower extremity (principal); L89.890 Pressure ulcer of other site, unstageable; Y83.8 Other surgical procedures as the cause of abnormal reaction of the patient, or of later complication, without mention of misadventure at the time of the procedure; L97.429 Non-pressure chronic ulcer of left heel and midfoot with unspecified severity; I73.9 Peripheral vascular disease, unspecified; I87.2 Venous insufficiency (chronic) (peripheral); R60.0 Localized edema; M79.604 Pain in right leg; R10.10 Upper abdominal pain, unspecified; L90.5 Scar conditions and fibrosis of skin; L90.6 Striae atrophicae; L95.0 Livedoid vasculitis; I70.213 Atherosclerosis of native arteries of extremities with intermittent claudication, bilateral legs; I10 Essential (primary) hypertension; G90.09 Other idiopathic peripheral autonomic neuropathy; D89.9 Disorder involving the immune mechanism, unspecified; E03.8 Other specified hypothyroidism; W20.8XXA Other cause of strike by thrown, projected or falling object, initial encounter; Z01.810 Encounter for preprocedural cardiovascular examination; Z01.811 Encounter for preprocedural respiratory examination; Z74.01 Bed confinement status
CPT/HCPCS: 11042; 11045; 15275 ×2; 29581 ×2; 36415; 80048; 83540; Q4186 ×2

== ENCOUNTER 2019-05-04 11:52 | Outpatient (RCR) | payer MEDICARE, OTHER ==
[~2019-05-04 11:52] MED LIST changes: -LIDOCAINE VISC 2% SOLN 15 ML UDC ONE
[2019-05-04] MEDS ORDERED: MINERAL OIL/PETROLAT/GLYCERI 6OZ BTL ONE (17:08)
[2019-05-04] MEDS ORDERED: LIDOCAINE/PRILOCAINE 2.5-2.5% KIT ONE (17:08)
== END 2019-05-07 ==
LOC: WCC 11:52
PROVIDERS: ATTEND Family Medicine
DX: I87.312 Chronic venous hypertension (idiopathic) with ulcer of left lower extremity (principal); Y83.8 Other surgical procedures as the cause of abnormal reaction of the patient, or of later complication, without mention of misadventure at the time of the procedure; L97.429 Non-pressure chronic ulcer of left heel and midfoot with unspecified severity; L89.890 Pressure ulcer of other site, unstageable; I70.213 Atherosclerosis of native arteries of extremities with intermittent claudication, bilateral legs; M79.604 Pain in right leg; R60.0 Localized edema; I87.2 Venous insufficiency (chronic) (peripheral); D89.9 Disorder involving the immune mechanism, unspecified; L95.0 Livedoid vasculitis; L90.6 Striae atrophicae; L90.5 Scar conditions and fibrosis of skin; G90.09 Other idiopathic peripheral autonomic neuropathy; I10 Essential (primary) hypertension; E03.8 Other specified hypothyroidism; R10.10 Upper abdominal pain, unspecified; W20.8XXA Other cause of strike by thrown, projected or falling object, initial encounter; Z01.810 Encounter for preprocedural cardiovascular examination; Z01.811 Encounter for preprocedural respiratory examination; Z74.01 Bed confinement status
CPT/HCPCS: 15275 ×4; 29581 ×4; 99212; Q4186 ×4

== ENCOUNTER 2019-08-03 14:17 | Outpatient (RCR) | payer MEDICARE, OTHER ==
[~2019-08-03 14:17] MED LIST changes: +COLLAGENASE OINTMENT 30 GM TUBE ONE
[2019-08-03] MEDS ORDERED: MINERAL OIL/PETROLAT/GLYCERI 6OZ BTL ONE (14:41)
[2019-08-03] MEDS ORDERED: LIDOCAINE/PRILOCAINE 2.5-2.5% KIT ONE (14:41)
== END 2019-08-06 ==
LOC: WCC 14:17
PROVIDERS: ATTEND Family Medicine
DX: I87.312 Chronic venous hypertension (idiopathic) with ulcer of left lower extremity (principal); Y83.8 Other surgical procedures as the cause of abnormal reaction of the patient, or of later complication, without mention of misadventure at the time of the procedure; L89.890 Pressure ulcer of other site, unstageable; L97.429 Non-pressure chronic ulcer of left heel and midfoot with unspecified severity; L95.0 Livedoid vasculitis; R60.0 Localized edema; M79.604 Pain in right leg; R10.10 Upper abdominal pain, unspecified; I70.213 Atherosclerosis of native arteries of extremities with intermittent claudication, bilateral legs; G90.09 Other idiopathic peripheral autonomic neuropathy; I87.2 Venous insufficiency (chronic) (peripheral); L90.5 Scar conditions and fibrosis of skin; L90.6 Striae atrophicae; I10 Essential (primary) hypertension; D89.9 Disorder involving the immune mechanism, unspecified; E03.8 Other specified hypothyroidism; W20.8XXA Other cause of strike by thrown, projected or falling object, initial encounter; Z01.810 Encounter for preprocedural cardiovascular examination; Z01.811 Encounter for preprocedural respiratory examination; Z74.01 Bed confinement status

== ENCOUNTER 2019-08-31 15:00 | Outpatient (RCR) | payer MEDICARE, OTHER ==
[~2019-08-31 15:00] MED LIST changes: -COLLAGENASE OINTMENT 30 GM TUBE ONE; +LIDOCAINE VISC 2% SOLN 15 ML UDC ONE
[2019-09-01] MEDS ORDERED: ONDANSETRON HCL INJ 2MG/ML 2ML 2 MG/ML VIAL ONE (11:54)
== END 2019-09-06 ==
LOC: WCC 15:00
PROVIDERS: ATTEND Family Medicine
DX: I87.312 Chronic venous hypertension (idiopathic) with ulcer of left lower extremity (principal); Y83.8 Other surgical procedures as the cause of abnormal reaction of the patient, or of later complication, without mention of misadventure at the time of the procedure; L97.429 Non-pressure chronic ulcer of left heel and midfoot with unspecified severity; L89.890 Pressure ulcer of other site, unstageable; L95.0 Livedoid vasculitis; R60.0 Localized edema; I87.2 Venous insufficiency (chronic) (peripheral); G90.09 Other idiopathic peripheral autonomic neuropathy; L90.5 Scar conditions and fibrosis of skin; L90.6 Striae atrophicae; M79.604 Pain in right leg; R10.10 Upper abdominal pain, unspecified; D89.9 Disorder involving the immune mechanism, unspecified; E03.8 Other specified hypothyroidism; I10 Essential (primary) hypertension; I70.213 Atherosclerosis of native arteries of extremities with intermittent claudication, bilateral legs; W20.8XXA Other cause of strike by thrown, projected or falling object, initial encounter; Z01.810 Encounter for preprocedural cardiovascular examination; Z01.811 Encounter for preprocedural respiratory examination; Z74.01 Bed confinement status
CPT/HCPCS: 11042 ×4; 99213 ×4; J2405

== ENCOUNTER 2019-10-05 12:25 | Outpatient (RCR) | payer MEDICARE, OTHER ==
[~2019-10-05 12:25] MED LIST changes: +COLLAGENASE OINTMENT 30 GM TUBE ONE; +HYDROMORPHONE 2MG/ML 2 MG/ML ML ONE; -LIDOCAINE VISC 2% SOLN 15 ML UDC ONE; +MINERAL OIL/PETROLAT/GLYCERI 2OZ CRM ONE
[2019-10-05] MEDS ORDERED: MINERAL OIL/PETROLAT/GLYCERI 6OZ BTL ONE (13:46)
[2019-10-05] MEDS ORDERED: LIDOCAINE/PRILOCAINE 2.5-2.5% KIT ONE (13:46)
== END 2019-10-06 ==
LOC: WCC 12:25
PROVIDERS: ATTEND Family Medicine
DX: I87.312 Chronic venous hypertension (idiopathic) with ulcer of left lower extremity (principal); Y83.8 Other surgical procedures as the cause of abnormal reaction of the patient, or of later complication, without mention of misadventure at the time of the procedure; L97.429 Non-pressure chronic ulcer of left heel and midfoot with unspecified severity; L89.890 Pressure ulcer of other site, unstageable; I10 Essential (primary) hypertension; I70.213 Atherosclerosis of native arteries of extremities with intermittent claudication, bilateral legs; I87.2 Venous insufficiency (chronic) (peripheral); M79.604 Pain in right leg; L90.5 Scar conditions and fibrosis of skin; R60.0 Localized edema; L95.0 Livedoid vasculitis; D89.9 Disorder involving the immune mechanism, unspecified; E03.8 Other specified hypothyroidism; G90.09 Other idiopathic peripheral autonomic neuropathy; L90.6 Striae atrophicae; R10.10 Upper abdominal pain, unspecified; W20.8XXA Other cause of strike by thrown, projected or falling object, initial encounter; Z01.811 Encounter for preprocedural respiratory examination; Z74.01 Bed confinement status

== ENCOUNTER 2019-11-03 10:44 | Outpatient (RCR) | payer MEDICARE, OTHER ==
[~2019-11-03 10:44] MED LIST changes: -HYDROMORPHONE 2MG/ML 2 MG/ML ML ONE; -MINERAL OIL/PETROLAT/GLYCERI 2OZ CRM ONE; -MINERAL OIL/PETROLAT/GLYCERI 6OZ BTL ONE
== END 2019-11-06 ==
LOC: WCC 10:44
PROVIDERS: ATTEND Family Medicine
DX: I87.312 Chronic venous hypertension (idiopathic) with ulcer of left lower extremity (principal); L89.890 Pressure ulcer of other site, unstageable; L97.429 Non-pressure chronic ulcer of left heel and midfoot with unspecified severity; L95.0 Livedoid vasculitis; R60.0 Localized edema; M79.604 Pain in right leg; I87.2 Venous insufficiency (chronic) (peripheral); L90.5 Scar conditions and fibrosis of skin; L90.6 Striae atrophicae; D89.9 Disorder involving the immune mechanism, unspecified; E03.8 Other specified hypothyroidism; G90.09 Other idiopathic peripheral autonomic neuropathy; I10 Essential (primary) hypertension; I70.213 Atherosclerosis of native arteries of extremities with intermittent claudication, bilateral legs; R10.10 Upper abdominal pain, unspecified; W20.8XXA Other cause of strike by thrown, projected or falling object, initial encounter; Y83.8 Other surgical procedures as the cause of abnormal reaction of the patient, or of later complication, without mention of misadventure at the time of the procedure; Z01.810 Encounter for preprocedural cardiovascular examination; Z01.811 Encounter for preprocedural respiratory examination; Z74.01 Bed confinement status

== ENCOUNTER 2019-11-24 10:49 | Outpatient (RCR) | payer MEDICARE, OTHER ==
[2019-11-24] MEDS ORDERED: MINERAL OIL/PETROLAT/GLYCERI 6OZ BTL ONE (15:52)
[2019-11-27] MEDS ORDERED: LIDOCAINE/PRILOCAINE 2.5-2.5% KIT ONE (14:20)
[2019-11-27] MEDS ORDERED: MUPIROCIN 2% OINT 22 GM TUBE ONE (14:20)
[2019-11-27] MEDS ORDERED: COLLAGENASE OINTMENT 30 GM TUBE ONE (14:20)
== END 2019-12-06 ==
LOC: WCC 10:49
PROVIDERS: ATTEND Family Medicine
DX: I87.312 Chronic venous hypertension (idiopathic) with ulcer of left lower extremity (principal); L89.890 Pressure ulcer of other site, unstageable; L97.429 Non-pressure chronic ulcer of left heel and midfoot with unspecified severity; I70.213 Atherosclerosis of native arteries of extremities with intermittent claudication, bilateral legs; I87.2 Venous insufficiency (chronic) (peripheral); M79.604 Pain in right leg; L95.0 Livedoid vasculitis; R60.0 Localized edema; L90.5 Scar conditions and fibrosis of skin; L90.6 Striae atrophicae; G90.09 Other idiopathic peripheral autonomic neuropathy; D89.9 Disorder involving the immune mechanism, unspecified; I10 Essential (primary) hypertension; E03.8 Other specified hypothyroidism; R10.10 Upper abdominal pain, unspecified; W20.8XXA Other cause of strike by thrown, projected or falling object, initial encounter; Y83.8 Other surgical procedures as the cause of abnormal reaction of the patient, or of later complication, without mention of misadventure at the time of the procedure; Z01.810 Encounter for preprocedural cardiovascular examination; Z01.811 Encounter for preprocedural respiratory examination; Z74.01 Bed confinement status

== ENCOUNTER 2020-01-04 11:03 | Outpatient (RCR) | payer MEDICARE, OTHER ==
[~2020-01-04 11:03] MED LIST changes: -COLLAGENASE OINTMENT 30 GM TUBE ONE; +MINERAL OIL/PETROLAT/GLYCERI 6OZ BTL ONE; -MUPIROCIN 2% OINT 22 GM TUBE ONE
== END 2020-01-06 ==
LOC: WCC 11:03
PROVIDERS: ATTEND Family Medicine
DX: I87.312 Chronic venous hypertension (idiopathic) with ulcer of left lower extremity (principal); Y83.8 Other surgical procedures as the cause of abnormal reaction of the patient, or of later complication, without mention of misadventure at the time of the procedure; L89.890 Pressure ulcer of other site, unstageable; L97.429 Non-pressure chronic ulcer of left heel and midfoot with unspecified severity; I87.2 Venous insufficiency (chronic) (peripheral); I70.213 Atherosclerosis of native arteries of extremities with intermittent claudication, bilateral legs; R60.0 Localized edema; M79.604 Pain in right leg; L90.6 Striae atrophicae; L90.5 Scar conditions and fibrosis of skin; L95.0 Livedoid vasculitis; G90.09 Other idiopathic peripheral autonomic neuropathy; R10.10 Upper abdominal pain, unspecified; I10 Essential (primary) hypertension; D89.9 Disorder involving the immune mechanism, unspecified; E03.8 Other specified hypothyroidism; W20.8XXA Other cause of strike by thrown, projected or falling object, initial encounter; Z01.810 Encounter for preprocedural cardiovascular examination; Z01.811 Encounter for preprocedural respiratory examination; Z74.01 Bed confinement status

== ENCOUNTER 2020-01-25 12:03 | Outpatient (RCR) | payer MEDICARE, OTHER ==
[~2020-01-25 12:03] MED LIST changes: -MINERAL OIL/PETROLAT/GLYCERI 6OZ BTL ONE
== END 2020-02-06 ==
LOC: WCC 12:03
PROVIDERS: ATTEND Family Medicine
DX: I87.312 Chronic venous hypertension (idiopathic) with ulcer of left lower extremity (principal); L89.890 Pressure ulcer of other site, unstageable; L97.429 Non-pressure chronic ulcer of left heel and midfoot with unspecified severity; I70.213 Atherosclerosis of native arteries of extremities with intermittent claudication, bilateral legs; R60.0 Localized edema; I87.2 Venous insufficiency (chronic) (peripheral); G90.09 Other idiopathic peripheral autonomic neuropathy; M79.604 Pain in right leg; L95.0 Livedoid vasculitis; L90.5 Scar conditions and fibrosis of skin; L90.6 Striae atrophicae; I10 Essential (primary) hypertension; D89.9 Disorder involving the immune mechanism, unspecified; E03.8 Other specified hypothyroidism; R10.10 Upper abdominal pain, unspecified; W20.8XXA Other cause of strike by thrown, projected or falling object, initial encounter; Y83.8 Other surgical procedures as the cause of abnormal reaction of the patient, or of later complication, without mention of misadventure at the time of the procedure; Z01.810 Encounter for preprocedural cardiovascular examination; Z01.811 Encounter for preprocedural respiratory examination; Z74.01 Bed confinement status

== ENCOUNTER → 2020-03-07 | Outpatient (RCR) | payer MEDICARE, OTHER ==
[~2020-03-07] MED LIST changes: +MINERAL OIL/PETROLAT/GLYCERI 6OZ BTL ONE
== END ==
LOC: WCC 02-08 02:00
PROVIDERS: ATTEND Family Medicine
DX: I87.312 Chronic venous hypertension (idiopathic) with ulcer of left lower extremity (principal); L89.890 Pressure ulcer of other site, unstageable; L97.429 Non-pressure chronic ulcer of left heel and midfoot with unspecified severity; I87.2 Venous insufficiency (chronic) (peripheral); R60.0 Localized edema; G90.09 Other idiopathic peripheral autonomic neuropathy; L90.5 Scar conditions and fibrosis of skin; I70.213 Atherosclerosis of native arteries of extremities with intermittent claudication, bilateral legs; L95.0 Livedoid vasculitis; L90.6 Striae atrophicae; D89.9 Disorder involving the immune mechanism, unspecified; I10 Essential (primary) hypertension; E03.8 Other specified hypothyroidism; M79.604 Pain in right leg; R10.10 Upper abdominal pain, unspecified; S81.802A Unspecified open wound, left lower leg, initial encounter; W20.8XXA Other cause of strike by thrown, projected or falling object, initial encounter; Y83.8 Other surgical procedures as the cause of abnormal reaction of the patient, or of later complication, without mention of misadventure at the time of the procedure; Z01.810 Encounter for preprocedural cardiovascular examination; Z01.811 Encounter for preprocedural respiratory examination; Z74.01 Bed confinement status

== ENCOUNTER 2020-04-04 14:15 | Outpatient (RCR) | payer MEDICARE, OTHER ==
[~2020-04-04 14:15] MED LIST changes: +COLLAGENASE OINTMENT 30 GM TUBE ONE; +MUPIROCIN 2% OINT 22 GM TUBE ONE
== END 2020-04-07 ==
LOC: WCC 14:15
PROVIDERS: ATTEND Family Medicine
DX: I87.312 Chronic venous hypertension (idiopathic) with ulcer of left lower extremity (principal); Y83.8 Other surgical procedures as the cause of abnormal reaction of the patient, or of later complication, without mention of misadventure at the time of the procedure; L97.429 Non-pressure chronic ulcer of left heel and midfoot with unspecified severity; L89.890 Pressure ulcer of other site, unstageable; S61.200A Unspecified open wound of right index finger without damage to nail, initial encounter; S61.201A Unspecified open wound of left index finger without damage to nail, initial encounter; R60.0 Localized edema; I87.2 Venous insufficiency (chronic) (peripheral); M79.604 Pain in right leg; L95.0 Livedoid vasculitis; L90.6 Striae atrophicae; G90.09 Other idiopathic peripheral autonomic neuropathy; L90.5 Scar conditions and fibrosis of skin; I70.213 Atherosclerosis of native arteries of extremities with intermittent claudication, bilateral legs; I10 Essential (primary) hypertension; R10.10 Upper abdominal pain, unspecified; D89.9 Disorder involving the immune mechanism, unspecified; E03.8 Other specified hypothyroidism; W20.8XXA Other cause of strike by thrown, projected or falling object, initial encounter; Z01.810 Encounter for preprocedural cardiovascular examination; Z01.811 Encounter for preprocedural respiratory examination; Z74.01 Bed confinement status
CPT/HCPCS: 87071; 87075; 87205

== ENCOUNTER 2020-05-02 13:37 | Outpatient (RCR) | payer MEDICARE, OTHER ==
[~2020-05-02 13:37] MED LIST changes: -COLLAGENASE OINTMENT 30 GM TUBE ONE; -MUPIROCIN 2% OINT 22 GM TUBE ONE
== END 2020-05-07 ==
LOC: WCC 13:37
PROVIDERS: ATTEND Family Medicine
DX: I87.312 Chronic venous hypertension (idiopathic) with ulcer of left lower extremity (principal); L89.890 Pressure ulcer of other site, unstageable; Y83.8 Other surgical procedures as the cause of abnormal reaction of the patient, or of later complication, without mention of misadventure at the time of the procedure; S61.201A Unspecified open wound of left index finger without damage to nail, initial encounter; S61.200A Unspecified open wound of right index finger without damage to nail, initial encounter; L97.429 Non-pressure chronic ulcer of left heel and midfoot with unspecified severity; R60.0 Localized edema; I70.213 Atherosclerosis of native arteries of extremities with intermittent claudication, bilateral legs; I87.2 Venous insufficiency (chronic) (peripheral); M79.604 Pain in right leg; L95.0 Livedoid vasculitis; L90.6 Striae atrophicae; L90.5 Scar conditions and fibrosis of skin; D89.9 Disorder involving the immune mechanism, unspecified; E03.8 Other specified hypothyroidism; G90.09 Other idiopathic peripheral autonomic neuropathy; I10 Essential (primary) hypertension; R10.10 Upper abdominal pain, unspecified; W20.8XXA Other cause of strike by thrown, projected or falling object, initial encounter; Z01.810 Encounter for preprocedural cardiovascular examination; Z01.811 Encounter for preprocedural respiratory examination; Z74.01 Bed confinement status
CPT/HCPCS: 96372

== ENCOUNTER → 2020-06-07 | Outpatient (RCR) | payer MEDICARE, OTHER ==
[~2020-06-07] MED LIST changes: +COLLAGENASE OINTMENT 30 GM TUBE ONE; +MUPIROCIN 2% OINT 22 GM TUBE ONE
== END ==
LOC: WCC 05-09 10:47
PROVIDERS: ATTEND Family Medicine
DX: I87.312 Chronic venous hypertension (idiopathic) with ulcer of left lower extremity (principal); Y83.8 Other surgical procedures as the cause of abnormal reaction of the patient, or of later complication, without mention of misadventure at the time of the procedure; L89.890 Pressure ulcer of other site, unstageable; L97.429 Non-pressure chronic ulcer of left heel and midfoot with unspecified severity; S61.200A Unspecified open wound of right index finger without damage to nail, initial encounter; S61.201A Unspecified open wound of left index finger without damage to nail, initial encounter; L95.0 Livedoid vasculitis; R60.0 Localized edema; I87.2 Venous insufficiency (chronic) (peripheral); I70.213 Atherosclerosis of native arteries of extremities with intermittent claudication, bilateral legs; L90.5 Scar conditions and fibrosis of skin; L90.6 Striae atrophicae; M79.604 Pain in right leg; G90.09 Other idiopathic peripheral autonomic neuropathy; D89.9 Disorder involving the immune mechanism, unspecified; E03.8 Other specified hypothyroidism; I10 Essential (primary) hypertension; R10.10 Upper abdominal pain, unspecified; W20.8XXA Other cause of strike by thrown, projected or falling object, initial encounter; Z01.810 Encounter for preprocedural cardiovascular examination; Z01.811 Encounter for preprocedural respiratory examination; Z74.01 Bed confinement status
CPT/HCPCS: 96372

== ENCOUNTER 2020-07-04 12:42 | Outpatient (RCR) | payer MEDICARE, OTHER ==
[~2020-07-04 12:42] MED LIST changes: -COLLAGENASE OINTMENT 30 GM TUBE ONE; +LIDOCAINE VISC 2% SOLN 15 ML UDC ONE; -MUPIROCIN 2% OINT 22 GM TUBE ONE
== END 2020-07-08 | disposition still patient (30) ==
LOC: WCC 12:42
PROVIDERS: ATTEND Family Medicine
DX: I87.312 Chronic venous hypertension (idiopathic) with ulcer of left lower extremity (principal); L89.890 Pressure ulcer of other site, unstageable; L97.429 Non-pressure chronic ulcer of left heel and midfoot with unspecified severity; L95.0 Livedoid vasculitis; R60.0 Localized edema; S61.200A Unspecified open wound of right index finger without damage to nail, initial encounter; S61.201A Unspecified open wound of left index finger without damage to nail, initial encounter; I87.2 Venous insufficiency (chronic) (peripheral); I70.213 Atherosclerosis of native arteries of extremities with intermittent claudication, bilateral legs; M79.604 Pain in right leg; L90.5 Scar conditions and fibrosis of skin; L90.6 Striae atrophicae; G90.09 Other idiopathic peripheral autonomic neuropathy; I10 Essential (primary) hypertension; D89.9 Disorder involving the immune mechanism, unspecified; E03.8 Other specified hypothyroidism; R10.10 Upper abdominal pain, unspecified; W20.8XXA Other cause of strike by thrown, projected or falling object, initial encounter; Y83.8 Other surgical procedures as the cause of abnormal reaction of the patient, or of later complication, without mention of misadventure at the time of the procedure; Z01.810 Encounter for preprocedural cardiovascular examination; Z01.811 Encounter for preprocedural respiratory examination; Z74.01 Bed confinement status

== ENCOUNTER 2020-08-01 15:57 | Outpatient (RCR) | payer MEDICARE, OTHER ==
[~2020-08-01 15:57] MED LIST changes: -LIDOCAINE VISC 2% SOLN 15 ML UDC ONE
== END 2020-08-05 ==
LOC: WCC 15:57
PROVIDERS: ATTEND Family Medicine
DX: I87.312 Chronic venous hypertension (idiopathic) with ulcer of left lower extremity (principal); L89.890 Pressure ulcer of other site, unstageable; Y83.8 Other surgical procedures as the cause of abnormal reaction of the patient, or of later complication, without mention of misadventure at the time of the procedure; L97.429 Non-pressure chronic ulcer of left heel and midfoot with unspecified severity; S61.201A Unspecified open wound of left index finger without damage to nail, initial encounter; S61.200A Unspecified open wound of right index finger without damage to nail, initial encounter; S61.208A Unspecified open wound of other finger without damage to nail, initial encounter; L95.0 Livedoid vasculitis; R60.0 Localized edema; I87.2 Venous insufficiency (chronic) (peripheral); G90.09 Other idiopathic peripheral autonomic neuropathy; L90.5 Scar conditions and fibrosis of skin; L90.6 Striae atrophicae; M79.604 Pain in right leg; I10 Essential (primary) hypertension; D89.9 Disorder involving the immune mechanism, unspecified; E03.8 Other specified hypothyroidism; I70.213 Atherosclerosis of native arteries of extremities with intermittent claudication, bilateral legs; R10.10 Upper abdominal pain, unspecified; W20.8XXA Other cause of strike by thrown, projected or falling object, initial encounter; X16.XXXA Contact with hot heating appliances, radiators and pipes, initial encounter; Z01.810 Encounter for preprocedural cardiovascular examination; Z01.811 Encounter for preprocedural respiratory examination; Z74.01 Bed confinement status
CPT/HCPCS: 96372

== ENCOUNTER → 2020-09-05 | Outpatient (RCR) | payer MEDICARE, OTHER ==
[~2020-09-05] MED LIST changes: -MINERAL OIL/PETROLAT/GLYCERI 6OZ BTL ONE; +MUPIROCIN 2% OINT 22 GM TUBE ONE
== END ==
LOC: WCC 08-08 14:49
PROVIDERS: ATTEND Family Medicine
DX: I87.312 Chronic venous hypertension (idiopathic) with ulcer of left lower extremity (principal); L89.890 Pressure ulcer of other site, unstageable; L97.429 Non-pressure chronic ulcer of left heel and midfoot with unspecified severity; R60.0 Localized edema; I87.2 Venous insufficiency (chronic) (peripheral); M79.604 Pain in right leg; I70.213 Atherosclerosis of native arteries of extremities with intermittent claudication, bilateral legs; L90.5 Scar conditions and fibrosis of skin; L90.6 Striae atrophicae; Y83.8 Other surgical procedures as the cause of abnormal reaction of the patient, or of later complication, without mention of misadventure at the time of the procedure; G90.09 Other idiopathic peripheral autonomic neuropathy; L95.0 Livedoid vasculitis; I10 Essential (primary) hypertension; D89.9 Disorder involving the immune mechanism, unspecified; E03.8 Other specified hypothyroidism; R10.10 Upper abdominal pain, unspecified; W20.8XXA Other cause of strike by thrown, projected or falling object, initial encounter; X16.XXXA Contact with hot heating appliances, radiators and pipes, initial encounter; Z01.810 Encounter for preprocedural cardiovascular examination; Z01.811 Encounter for preprocedural respiratory examination; Z74.01 Bed confinement status

== ENCOUNTER 2020-09-26 12:28 | Outpatient (RCR) | payer MEDICARE, OTHER ==
[~2020-09-26 12:28] MED LIST changes: +LIDOCAINE VISC 2% SOLN 15 ML UDC ONE; +MINERAL OIL/PETROLAT/GLYCERI 6OZ BTL ONE; -MUPIROCIN 2% OINT 22 GM TUBE ONE
[2020-09-26] MEDS ORDERED: LIDOCAINE/PRILOCAINE 2.5-2.5% KIT ONE (13:17)
[2020-09-26] MEDS ORDERED: MINERAL OIL/PETROLAT/GLYCERI 6OZ BTL ONE (13:17)
[2020-10-03] MEDS ORDERED: LIDOCAINE/PRILOCAINE 2.5-2.5% KIT ONE (14:21)
[2020-10-03] MEDS ORDERED: COLLAGENASE OINTMENT 30 GM TUBE ONE (14:21)
[2020-10-03] MEDS ORDERED: MUPIROCIN 2% OINT 22 GM TUBE ONE (14:21)
== END 2020-10-05 ==
LOC: WCC 12:28
PROVIDERS: ATTEND Family Medicine
DX: I87.312 Chronic venous hypertension (idiopathic) with ulcer of left lower extremity (principal); L89.890 Pressure ulcer of other site, unstageable; L89.896 Pressure-induced deep tissue damage of other site; Y83.8 Other surgical procedures as the cause of abnormal reaction of the patient, or of later complication, without mention of misadventure at the time of the procedure; L97.429 Non-pressure chronic ulcer of left heel and midfoot with unspecified severity; G90.09 Other idiopathic peripheral autonomic neuropathy; M79.604 Pain in right leg; I87.2 Venous insufficiency (chronic) (peripheral); R60.0 Localized edema; I70.213 Atherosclerosis of native arteries of extremities with intermittent claudication, bilateral legs; L90.5 Scar conditions and fibrosis of skin; L95.0 Livedoid vasculitis; L90.6 Striae atrophicae; I10 Essential (primary) hypertension; D89.9 Disorder involving the immune mechanism, unspecified; E03.8 Other specified hypothyroidism; R10.10 Upper abdominal pain, unspecified; X16.XXXA Contact with hot heating appliances, radiators and pipes, initial encounter; W20.8XXA Other cause of strike by thrown, projected or falling object, initial encounter; Z01.811 Encounter for preprocedural respiratory examination; Z01.810 Encounter for preprocedural cardiovascular examination; Z74.01 Bed confinement status
CPT/HCPCS: 96372

== ENCOUNTER → 2020-10-03 | Outpatient (CLI) | payer SELFPAY ==
[~2020-10-03] MED LIST changes: -LIDOCAINE VISC 2% SOLN 15 ML UDC ONE; -LIDOCAINE/PRILOCAINE 2.5-2.5% KIT ONE; -MINERAL OIL/PETROLAT/GLYCERI 6OZ BTL ONE
== END ==
LOC: WCC 14:10
PROVIDERS: ATTEND Family Medicine
DX: I87.312 Chronic venous hypertension (idiopathic) with ulcer of left lower extremity (principal); Y83.8 Other surgical procedures as the cause of abnormal reaction of the patient, or of later complication, without mention of misadventure at the time of the procedure; L89.890 Pressure ulcer of other site, unstageable; L97.429 Non-pressure chronic ulcer of left heel and midfoot with unspecified severity; L89.896 Pressure-induced deep tissue damage of other site; I87.2 Venous insufficiency (chronic) (peripheral); R60.0 Localized edema; M79.604 Pain in right leg; L95.0 Livedoid vasculitis; L90.5 Scar conditions and fibrosis of skin; L90.6 Striae atrophicae; D89.9 Disorder involving the immune mechanism, unspecified; E03.8 Other specified hypothyroidism; G90.09 Other idiopathic peripheral autonomic neuropathy; I10 Essential (primary) hypertension; I70.213 Atherosclerosis of native arteries of extremities with intermittent claudication, bilateral legs; R10.10 Upper abdominal pain, unspecified; W20.8XXA Other cause of strike by thrown, projected or falling object, initial encounter; X16.XXXA Contact with hot heating appliances, radiators and pipes, initial encounter; Z01.810 Encounter for preprocedural cardiovascular examination; Z01.811 Encounter for preprocedural respiratory examination; Z74.01 Bed confinement status
CPT/HCPCS: 15275; 29581; 99213; Q4101

== ENCOUNTER 2020-10-29 10:08 | Outpatient (RCR) | payer MEDICARE, OTHER ==
[~2020-10-29 10:08] MED LIST changes: +LIDOCAINE VISC 2% SOLN 15 ML UDC ONE; +MINERAL OIL/PETROLAT/GLYCERI 6OZ BTL ONE
[2020-10-29] MEDS ORDERED: MINERAL OIL/PETROLAT/GLYCERI 6OZ BTL ONE (17:43)
== END 2020-11-05 ==
LOC: WCC 10:08
PROVIDERS: ATTEND Family Medicine
DX: I87.312 Chronic venous hypertension (idiopathic) with ulcer of left lower extremity (principal); Y83.8 Other surgical procedures as the cause of abnormal reaction of the patient, or of later complication, without mention of misadventure at the time of the procedure; L89.890 Pressure ulcer of other site, unstageable; L89.896 Pressure-induced deep tissue damage of other site; L97.429 Non-pressure chronic ulcer of left heel and midfoot with unspecified severity; L95.0 Livedoid vasculitis; R60.0 Localized edema; I87.2 Venous insufficiency (chronic) (peripheral); I70.213 Atherosclerosis of native arteries of extremities with intermittent claudication, bilateral legs; G90.09 Other idiopathic peripheral autonomic neuropathy; M79.604 Pain in right leg; L90.5 Scar conditions and fibrosis of skin; L90.6 Striae atrophicae; R10.10 Upper abdominal pain, unspecified; E03.8 Other specified hypothyroidism; D89.9 Disorder involving the immune mechanism, unspecified; I10 Essential (primary) hypertension; W20.8XXA Other cause of strike by thrown, projected or falling object, initial encounter; X16.XXXA Contact with hot heating appliances, radiators and pipes, initial encounter; Z01.810 Encounter for preprocedural cardiovascular examination; Z01.811 Encounter for preprocedural respiratory examination; Z74.01 Bed confinement status

== ENCOUNTER → 2020-12-05 | Outpatient (RCR) | payer MEDICARE, OTHER ==
[~2020-12-05] MED LIST changes: +LIDOCAINE/PRILOCAINE 2.5-2.5% KIT ONE
== END ==
LOC: WCC 11-07 10:11
PROVIDERS: ATTEND Family Medicine
DX: I87.312 Chronic venous hypertension (idiopathic) with ulcer of left lower extremity (principal); Y83.8 Other surgical procedures as the cause of abnormal reaction of the patient, or of later complication, without mention of misadventure at the time of the procedure; L89.890 Pressure ulcer of other site, unstageable; L97.429 Non-pressure chronic ulcer of left heel and midfoot with unspecified severity; I87.2 Venous insufficiency (chronic) (peripheral); L95.0 Livedoid vasculitis; R60.0 Localized edema; M79.604 Pain in right leg; G90.09 Other idiopathic peripheral autonomic neuropathy; L90.5 Scar conditions and fibrosis of skin; L90.6 Striae atrophicae; R10.10 Upper abdominal pain, unspecified; I10 Essential (primary) hypertension; D89.9 Disorder involving the immune mechanism, unspecified; E03.8 Other specified hypothyroidism; I70.213 Atherosclerosis of native arteries of extremities with intermittent claudication, bilateral legs; Z01.810 Encounter for preprocedural cardiovascular examination; Z01.811 Encounter for preprocedural respiratory examination; W20.8XXA Other cause of strike by thrown, projected or falling object, initial encounter; X16.XXXA Contact with hot heating appliances, radiators and pipes, initial encounter; Z74.01 Bed confinement status
CPT/HCPCS: 96372

== ENCOUNTER 2021-01-02 11:07 | Outpatient (RCR) | payer MEDICARE, OTHER ==
[~2021-01-02 11:07] MED LIST changes: +MINERAL OIL/PETROLAT/GLYCERI 2OZ CRM ONE
[2021-01-02] MEDS ORDERED: MINERAL OIL/PETROLAT/GLYCERI 6OZ BTL ONE (12:44)
[2021-01-02] MEDS ORDERED: LIDOCAINE/PRILOCAINE 2.5-2.5% KIT ONE (12:44)
== END 2021-01-05 ==
LOC: WCC 11:07
PROVIDERS: ATTEND Family Medicine
DX: I87.312 Chronic venous hypertension (idiopathic) with ulcer of left lower extremity (principal); L89.890 Pressure ulcer of other site, unstageable; Y83.8 Other surgical procedures as the cause of abnormal reaction of the patient, or of later complication, without mention of misadventure at the time of the procedure; L97.429 Non-pressure chronic ulcer of left heel and midfoot with unspecified severity; I87.2 Venous insufficiency (chronic) (peripheral); I70.213 Atherosclerosis of native arteries of extremities with intermittent claudication, bilateral legs; G90.09 Other idiopathic peripheral autonomic neuropathy; R60.0 Localized edema; M79.604 Pain in right leg; L95.0 Livedoid vasculitis; L90.6 Striae atrophicae; L90.5 Scar conditions and fibrosis of skin; I10 Essential (primary) hypertension; D89.9 Disorder involving the immune mechanism, unspecified; E03.8 Other specified hypothyroidism; R10.10 Upper abdominal pain, unspecified; X16.XXXA Contact with hot heating appliances, radiators and pipes, initial encounter; Z01.810 Encounter for preprocedural cardiovascular examination; Z01.811 Encounter for preprocedural respiratory examination; W20.8XXA Other cause of strike by thrown, projected or falling object, initial encounter; Z74.01 Bed confinement status
CPT/HCPCS: 96372

== ENCOUNTER 2021-01-30 10:51 | Outpatient (RCR) | payer MEDICARE, OTHER ==
[~2021-01-30 10:51] MED LIST changes: +TRYPSIN/BALSAM PERU/CASTOR OIL ONE
== END 2021-02-05 ==
LOC: WCC 10:51
PROVIDERS: ATTEND Family Medicine
DX: I87.312 Chronic venous hypertension (idiopathic) with ulcer of left lower extremity (principal); Y83.8 Other surgical procedures as the cause of abnormal reaction of the patient, or of later complication, without mention of misadventure at the time of the procedure; L97.429 Non-pressure chronic ulcer of left heel and midfoot with unspecified severity; D89.9 Disorder involving the immune mechanism, unspecified; I87.2 Venous insufficiency (chronic) (peripheral); I70.213 Atherosclerosis of native arteries of extremities with intermittent claudication, bilateral legs; R60.0 Localized edema; I10 Essential (primary) hypertension; G90.09 Other idiopathic peripheral autonomic neuropathy; L90.5 Scar conditions and fibrosis of skin; L95.0 Livedoid vasculitis; L90.6 Striae atrophicae; M79.604 Pain in right leg; E03.8 Other specified hypothyroidism; R10.10 Upper abdominal pain, unspecified; W20.8XXA Other cause of strike by thrown, projected or falling object, initial encounter; X16.XXXA Contact with hot heating appliances, radiators and pipes, initial encounter; Z01.810 Encounter for preprocedural cardiovascular examination; Z01.811 Encounter for preprocedural respiratory examination; Z74.01 Bed confinement status

== ENCOUNTER 2021-03-13 13:06 | Outpatient (RCR) | payer MEDICARE, OTHER ==
[~2021-03-13 13:06] MED LIST changes: -LIDOCAINE VISC 2% SOLN 15 ML UDC ONE; -LIDOCAINE/PRILOCAINE 2.5-2.5% KIT ONE; -MINERAL OIL/PETROLAT/GLYCERI 2OZ CRM ONE; -MINERAL OIL/PETROLAT/GLYCERI 6OZ BTL ONE; -TRYPSIN/BALSAM PERU/CASTOR OIL ONE
== END 2021-04-07 ==
LOC: WCC 13:06
PROVIDERS: ATTEND Family Medicine
DX: D89.9 Disorder involving the immune mechanism, unspecified (principal); I70.213 Atherosclerosis of native arteries of extremities with intermittent claudication, bilateral legs; I87.2 Venous insufficiency (chronic) (peripheral); G90.09 Other idiopathic peripheral autonomic neuropathy; M79.604 Pain in right leg; L90.6 Striae atrophicae; L90.5 Scar conditions and fibrosis of skin; I10 Essential (primary) hypertension; E03.8 Other specified hypothyroidism; R10.10 Upper abdominal pain, unspecified; W20.8XXA Other cause of strike by thrown, projected or falling object, initial encounter; X16.XXXA Contact with hot heating appliances, radiators and pipes, initial encounter; Y83.8 Other surgical procedures as the cause of abnormal reaction of the patient, or of later complication, without mention of misadventure at the time of the procedure; Z01.810 Encounter for preprocedural cardiovascular examination; Z01.811 Encounter for preprocedural respiratory examination; Z74.01 Bed confinement status

== ENCOUNTER 2021-05-01 10:20 | Outpatient (RCR) | payer MEDICARE, OTHER ==
[~2021-05-01 10:20] MED LIST changes: +LIDOCAINE VISC 2% SOLN 15 ML UDC ONE; +LIDOCAINE/PRILOCAINE 2.5-2.5% KIT ONE; +MINERAL OIL/PETROLAT/GLYCERI 6OZ BTL ONE; +MUPIROCIN 2% OINT 22 GM TUBE ONE; +TRYPSIN/BALSAM PERU/CASTOR OIL ONE
[2021-05-01 12:57] LABS: BASOPHILS # (AUTO) 0.1 (0.0-0.1); EOSINOPHILS # (AUTO) 0.2 (0.0-0.4); EOSINOPHILS % 2.1 % (0.0-6.0); HEMATOCRIT 37.1 % (34.2-44.1); HEMOGLOBIN 12.1 g/dL (12.0-16.0); LYMPHOCYTES # (AUTO) 1.2 (1.0-3.2); LYMPHOCYTES % 16.3 % (18.0-39.1); MEAN CORPUSCULAR HEMOGLOBIN 33.1 pg (28-32); MEAN CORPUSCULAR HGB CONC 32.6 g/dL (31-35); MEAN CORPUSCULAR VOLUME 101.4 fL (81-99); MONOCYTES # (AUTO) 0.8 (0.2-0.8); MONOCYTES % 10.6 % (4.4-11.3); NEUTROPHILS # (AUTO) 4.9 (2.1-6.9); NEUTROPHILS % 69.9 % (38.7-80.0); PLATELET COUNT 224 x10e3/uL (140-360); RED BLOOD COUNT 3.66 x10e6/uL (3.6-5.1); RED CELL DISTRIBUTION WIDTH 12.8 % (11.7-14.4)
[2021-05-01] MEDS ORDERED: MINERAL OIL/PETROLAT/GLYCERI 6OZ BTL ONE (13:15)
[2021-05-01] MEDS ORDERED: LIDOCAINE VISC 2% SOLN 15 ML UDC ONE (13:15)
[2021-05-01] MEDS ORDERED: LIDOCAINE/PRILOCAINE 2.5-2.5% KIT ONE (13:15)
[2021-05-01 13:22] LABS: ALBUMIN 3.8 g/dL (3.5-5.0); ALBUMIN/GLOBULIN RATIO 1.1 (0.8-2.0); ANION GAP 14.4 mmol/L (8-16); CALCIUM 9.3 mg/dL (8.4-10.2); CREATININE, SERUM 0.9 mg/dL (0.57-1.11); POTASSIUM 3.4 mmol/L (3.5-5.1)
== END 2021-05-07 ==
LOC: WCC 10:20
PROVIDERS: ATTEND Family Medicine
DX: S81.801A Unspecified open wound, right lower leg, initial encounter (principal); Y83.8 Other surgical procedures as the cause of abnormal reaction of the patient, or of later complication, without mention of misadventure at the time of the procedure; I87.2 Venous insufficiency (chronic) (peripheral); I70.213 Atherosclerosis of native arteries of extremities with intermittent claudication, bilateral legs; R60.0 Localized edema; M79.604 Pain in right leg; L90.5 Scar conditions and fibrosis of skin; L90.6 Striae atrophicae; R10.10 Upper abdominal pain, unspecified; I10 Essential (primary) hypertension; D89.9 Disorder involving the immune mechanism, unspecified; E03.8 Other specified hypothyroidism; G90.09 Other idiopathic peripheral autonomic neuropathy; W20.8XXA Other cause of strike by thrown, projected or falling object, initial encounter; X16.XXXA Contact with hot heating appliances, radiators and pipes, initial encounter; Z01.810 Encounter for preprocedural cardiovascular examination; Z01.811 Encounter for preprocedural respiratory examination; Z74.01 Bed confinement status
CPT/HCPCS: 36415; 80053; 84134; 85025; 87071; 87075; 87205; 96372

== ENCOUNTER 2021-06-05 13:53 | Outpatient (RCR) | payer MEDICARE, OTHER ==
[~2021-06-05 13:53] MED LIST changes: -LIDOCAINE VISC 2% SOLN 15 ML UDC ONE; -MUPIROCIN 2% OINT 22 GM TUBE ONE; -TRYPSIN/BALSAM PERU/CASTOR OIL ONE
== END 2021-06-07 ==
LOC: WCC 13:53
PROVIDERS: ATTEND Family Medicine
DX: L97.812 Non-pressure chronic ulcer of other part of right lower leg with fat layer exposed (principal); S81.801A Unspecified open wound, right lower leg, initial encounter; I70.213 Atherosclerosis of native arteries of extremities with intermittent claudication, bilateral legs; I87.2 Venous insufficiency (chronic) (peripheral); R60.0 Localized edema; L90.6 Striae atrophicae; L90.5 Scar conditions and fibrosis of skin; M79.604 Pain in right leg; D89.9 Disorder involving the immune mechanism, unspecified; I10 Essential (primary) hypertension; G90.09 Other idiopathic peripheral autonomic neuropathy; E03.8 Other specified hypothyroidism; R10.10 Upper abdominal pain, unspecified; W20.8XXA Other cause of strike by thrown, projected or falling object, initial encounter; X16.XXXA Contact with hot heating appliances, radiators and pipes, initial encounter; Y83.8 Other surgical procedures as the cause of abnormal reaction of the patient, or of later complication, without mention of misadventure at the time of the procedure; Z01.810 Encounter for preprocedural cardiovascular examination; Z01.811 Encounter for preprocedural respiratory examination; Z74.01 Bed confinement status
CPT/HCPCS: 11042; 15271; 29581 ×5; 99213 ×4; Q4121

== ENCOUNTER 2021-07-03 12:51 | Outpatient (RCR) | payer MEDICARE, OTHER ==
[~2021-07-03 12:51] MED LIST changes: +LIDOCAINE VISC 2% SOLN 15 ML UDC ONE; +MUPIROCIN 2% OINT 22 GM TUBE ONE; +TRYPSIN/BALSAM PERU/CASTOR OIL ONE
== END 2021-07-08 ==
LOC: WCC 12:51
PROVIDERS: ATTEND Family Medicine
DX: L03.116 Cellulitis of left lower limb (principal); Y83.8 Other surgical procedures as the cause of abnormal reaction of the patient, or of later complication, without mention of misadventure at the time of the procedure; L97.812 Non-pressure chronic ulcer of other part of right lower leg with fat layer exposed; I70.213 Atherosclerosis of native arteries of extremities with intermittent claudication, bilateral legs; L08.89 Other specified local infections of the skin and subcutaneous tissue; I87.2 Venous insufficiency (chronic) (peripheral); R60.0 Localized edema; L90.6 Striae atrophicae; L90.5 Scar conditions and fibrosis of skin; M79.604 Pain in right leg; R10.10 Upper abdominal pain, unspecified; I10 Essential (primary) hypertension; G90.09 Other idiopathic peripheral autonomic neuropathy; D89.9 Disorder involving the immune mechanism, unspecified; E03.8 Other specified hypothyroidism; W20.8XXA Other cause of strike by thrown, projected or falling object, initial encounter; X16.XXXA Contact with hot heating appliances, radiators and pipes, initial encounter; Z01.810 Encounter for preprocedural cardiovascular examination; Z01.811 Encounter for preprocedural respiratory examination; Z74.01 Bed confinement status
CPT/HCPCS: 11042; 15271; 29581 ×5; 96372 ×2; 99212; 99213 ×5; Q4121

== ENCOUNTER 2021-07-30 18:32 | Emergency (ER) | payer MEDICARE, OTHER ==
[~2021-07-30] VITALS: Ht 152.4 cm; Wt 62.1 kg
[~2021-07-30 18:32] MED LIST changes: -LIDOCAINE VISC 2% SOLN 15 ML UDC ONE; -LIDOCAINE/PRILOCAINE 2.5-2.5% KIT ONE; -MINERAL OIL/PETROLAT/GLYCERI 6OZ BTL ONE; -MUPIROCIN 2% OINT 22 GM TUBE ONE; -TRYPSIN/BALSAM PERU/CASTOR OIL ONE
[2021-07-30] MEDS ORDERED: POTASSIUM CHLORIDE 20 MEQ TAB CR PO STA (19:10)
[2021-07-30 19:31] LABS: ANION GAP 15.8 mmol/L (8-16); CALCIUM 9.8 mg/dL (8.4-10.2); CREATININE, SERUM 1.04 mg/dL (0.57-1.11)
[2021-07-30 19:34] LABS: POTASSIUM 2.8 mmol/L (3.5-5.1)
== END 2021-07-30 20:05 | disposition home or self-care (01) ==
LOC: ER 19:00
DX: E87.6 Hypokalemia (principal); I10 Essential (primary) hypertension; E78.5 Hyperlipidemia, unspecified; E03.9 Hypothyroidism, unspecified
CPT/HCPCS: 36415; 80048; 93005; 99283

== ENCOUNTER 2021-07-31 14:14 | Outpatient (RCR) | payer MEDICARE, OTHER ==
[~2021-07-31 14:14] MED LIST changes: +LIDOCAINE VISC 2% SOLN 15 ML UDC ONE; +MINERAL OIL/PETROLAT/GLYCERI 2OZ CRM ONE; +MINERAL OIL/PETROLAT/GLYCERI 6OZ BTL ONE; +MUPIROCIN 2% OINT 22 GM TUBE ONE; +TRYPSIN/BALSAM PERU/CASTOR OIL ONE
== END 2021-08-05 ==
LOC: WCC 14:14
PROVIDERS: ATTEND Family Medicine
DX: L97.812 Non-pressure chronic ulcer of other part of right lower leg with fat layer exposed (principal); L03.116 Cellulitis of left lower limb; R60.0 Localized edema; I87.2 Venous insufficiency (chronic) (peripheral); I70.213 Atherosclerosis of native arteries of extremities with intermittent claudication, bilateral legs; L08.89 Other specified local infections of the skin and subcutaneous tissue; S89.82XA Other specified injuries of left lower leg, initial encounter; S99.822A Other specified injuries of left foot, initial encounter; M79.604 Pain in right leg; L90.6 Striae atrophicae; L90.5 Scar conditions and fibrosis of skin; G90.09 Other idiopathic peripheral autonomic neuropathy; I10 Essential (primary) hypertension; D89.9 Disorder involving the immune mechanism, unspecified; E03.8 Other specified hypothyroidism; R10.10 Upper abdominal pain, unspecified; W20.8XXA Other cause of strike by thrown, projected or falling object, initial encounter; X16.XXXA Contact with hot heating appliances, radiators and pipes, initial encounter; X58.XXXA Exposure to other specified factors, initial encounter; Y83.8 Other surgical procedures as the cause of abnormal reaction of the patient, or of later complication, without mention of misadventure at the time of the procedure; Z01.810 Encounter for preprocedural cardiovascular examination; Z01.811 Encounter for preprocedural respiratory examination; Z74.01 Bed confinement status
CPT/HCPCS: 11042 ×2; 15275; 29581 ×3; 97597; 99213 ×4; Q4121

== ENCOUNTER 2022-11-12 16:04 | Inpatient (IN) | payer MEDICARE, OTHER ==
[~2022-11-12] VITALS: Ht 152.4 cm; Wt 75.9 kg
[~2022-11-12 16:04] MED LIST changes: +DEXAMETHASONE SOD PHOS INJ 4 MG/ML SDV ONE; +EPHEDRINE SULFATE INJ 50 MG/ML VIAL ONE; +EYE LUBRICANT OPTH OINT 3.5GM TUBE OP ONE; -LIDOCAINE VISC 2% SOLN 15 ML UDC ONE; -MINERAL OIL/PETROLAT/GLYCERI 2OZ CRM ONE; -MINERAL OIL/PETROLAT/GLYCERI 6OZ BTL ONE; -MUPIROCIN 2% OINT 22 GM TUBE ONE; +ONDANSETRON HCL INJ 2MG/ML 2ML 2 MG/ML VIAL ONE; +POVIDONE IODINE 0.05% 0.05 % ML PO ONE; +ROCURONIUM BROMIDE 10 MG/ML 5ML VIAL IV ONE; -TRYPSIN/BALSAM PERU/CASTOR OIL ONE
[2022-11-12 16:44] LABS: BASOPHILS # (AUTO) 0.1 (0.0-0.1); BASOPHILS % 0.6 % (0.0-1.0); EOSINOPHILS # (AUTO) 0.1 (0.0-0.4); EOSINOPHILS % 0.5 % (0.0-6.0); HEMATOCRIT 43.4 % (34.2-44.1); HEMOGLOBIN 14.8 g/dL (12.0-16.0); LYMPHOCYTES # (AUTO) 0.9 (1.0-3.2); LYMPHOCYTES % 4.4 % (18.0-39.1); MEAN CORPUSCULAR HGB CONC 34.1 g/dL (31-35); MEAN CORPUSCULAR VOLUME 96.9 fL (81-99); MONOCYTES # (AUTO) 0.5 (0.2-0.8); MONOCYTES % 2.4 % (4.4-11.3); NEUTROPHILS # (AUTO) 17.9 (2.1-6.9); PLATELET COUNT 92 x10e3/uL (140-360); RED BLOOD COUNT 4.48 x10e6/uL (3.6-5.1); RED CELL DISTRIBUTION WIDTH 12.7 % (11.7-14.4)
[2022-11-12 16:54] LABS: INR 0.96; PROTHROMBIN TIME 13.3 seconds (11.9-14.5)
[2022-11-12 16:55] LABS: PARTIAL THROMBOPLASTIN TIME 42.8 seconds (23.8-35.5)
[2022-11-12] MEDS ORDERED: SODIUM CHLORIDE 0.9% 1000ML 1,910 ML IV SCH (17:00)
[2022-11-12 17:04] LABS: ALANINE AMINOTRANSFERASE 58 IU/L (0-55); ALBUMIN 2.9 g/dL (3.5-5.0); ALBUMIN/GLOBULIN RATIO 0.8 (0.8-2.0); ALKALINE PHOSPHATASE 152 IU/L (40-150); ANION GAP 22.1 mmol/L (8-16); BLOOD UREA NITROGEN 50 mg/dL (7-26); BUN/CREATININE RATIO 14 (6-25); CALCIUM 8.9 mg/dL (8.4-10.2); CARBON DIOXIDE 15 mmol/L (22-29); CHLORIDE 93 mmol/L (98-107); CREATININE, SERUM 3.46 mg/dL (0.57-1.11); GLUCOSE 100 mg/dL (74-118); LIPASE 29 U/L (8-78); MAGNESIUM 1.9 MG/DL (1.3-2.1); POTASSIUM 4.1 mmol/L (3.5-5.1); SODIUM 126 mmol/L (136-145)
[2022-11-12] MEDS ORDERED: LACTATED RINGER S IV ONE (17:45)
[2022-11-12 17:49] LABS: BAND NEUTROPHILS % (MANUAL) 24 %; LYMPHOCYTES % (MANUAL) 4 % (19-48); METAMYELOCYTES % (MANUAL) 3 % (0-0); MONOCYTES % (MANUAL) 5 % (3.4-9.0); MYELOCYTES % (MANUAL) 1 % (0-0); NEUTROPHILS % (MANUAL) 63 % (40-74)
[2022-11-12 17:50] LABS: PLATELET ESTIMATE SLIGHTLY DECREASED; PLATELET MORPHOLOGY COMMENT NORMAL; RBC MORPHOLOGY COMMENT NORMAL
[2022-11-12] MEDS: Vancomycin IV 1 GM in SODIUM CHLORIDE 0.9% 250ML 250 ML IV SCH (18:22)
[2022-11-12 18:26] LABS: VACUOLE,WBC SLIGHT
[2022-11-12 20:08] VITALS: PULSE 96; RESP 20; O2SAT 99
[2022-11-12 20:40] VITALS: BP 115/41; PULSE 88; RESP 18; TEMP 97.5; O2SAT 100
[2022-11-12] MEDS ORDERED: ONDANSETRON HCL INJ 2MG/ML 2ML 2 MG/ML VIAL IV PRN (20:45)
[2022-11-12 20:48] VITALS: BP 115/41; PULSE 88; RESP 22; TEMP 97.8; O2SAT 100
[2022-11-12 20:50] VITALS: BP 115/41; PULSE 88; RESP 22; TEMP 97.8; O2SAT 100
[2022-11-12] MEDS ORDERED: FUROSEMIDE40 MG PO (21:39)
[2022-11-12] MEDS ORDERED: [UNRECOGNIZED DRUG - OTHER] (21:39)
[2022-11-12] MEDS ORDERED: FLUCONAZOLE100 MG PO (21:39)
[2022-11-12] MEDS ORDERED: PROGESTERONE200 MG PO (21:39)
[2022-11-12] MEDS: TRAMADOL HCL 50 MG TAB PO PRN (21:43)
[2022-11-13] VITALS (42 sets, daily range): BP systolic 86–162; BP diastolic 44–145; PULSE 88–136; RESP 19–38; TEMP 97.7–103; O2SAT 74–100
[2022-11-13] MEDS ORDERED: HYDRALAZINE HCL 20 MG/ML VIAL IV PRN
[2022-11-13] MEDS ORDERED: BENZONATATE 100 MG CAP PO PRN
[2022-11-13] MEDS ORDERED: SIMETHICONE 80 MG CHEW PO PRN
[2022-11-13] MEDS ORDERED: DOCUSATE SODIUM 100 MG CAP PO PRN
[2022-11-13] MEDS ORDERED: MELATONIN 5 MG TABLET PO PRN
[2022-11-13] MEDS ORDERED: LIDOCAINE 4% PATCH TP PRN
[2022-11-13] MEDS ORDERED: POTASSIUM CHLORIDE 20 MEQ TAB CR PO PRN
[2022-11-13] MEDS ORDERED: DEXTROSE 50% SYRINGE 50 ML IV PRN
[2022-11-13] MEDS ORDERED: ALBUTEROL/IPRATROPIUM 3 ML NEB NEB PRN
[2022-11-13] MEDS ORDERED: LACTATED RINGER'S 1,000 ML INJ SCH
[2022-11-13] MEDS ORDERED: DIPHENHYDRAMINE HCL 25 MG CAP PO PRN
[2022-11-13] MEDS ORDERED: IPRATROPIUM BROMIDE 0.02% 2.5 ML NEB NEB PRN (00:30)
[2022-11-13] MEDS: SODIUM BICARBONATE 650 MG TAB PO SCH ×3 (01:03→17:00)
[2022-11-13] MEDS ORDERED: ACETAMINOPHEN 325 MG TAB PO PRN (04:45)
[2022-11-13] MEDS: ACETAMINOPHEN 325 MG TAB PO PRN (04:57)
[2022-11-13] MEDS: Vancomycin IV 1 GM in SODIUM CHLORIDE 0.9% 250ML 250 ML IV SCH (05:37)
[2022-11-13 06:01] LABS: BASOPHILS # (AUTO) 0.1 (0.0-0.1); BASOPHILS % 0.8 % (0.0-1.0); EOSINOPHILS # (AUTO) 0.1 (0.0-0.4); EOSINOPHILS % 0.5 % (0.0-6.0); HEMATOCRIT 37.9 % (34.2-44.1); HEMOGLOBIN 13.3 g/dL (12.0-16.0); LYMPHOCYTES # (AUTO) 1.1 (1.0-3.2); LYMPHOCYTES % 6.2 % (18.0-39.1); MEAN CORPUSCULAR HEMOGLOBIN 33.3 pg (28-32); MEAN CORPUSCULAR HGB CONC 35.1 g/dL (31-35); MONOCYTES # (AUTO) 0.5 (0.2-0.8); MONOCYTES % 2.9 % (4.4-11.3); NEUTROPHILS # (AUTO) 15.6 (2.1-6.9); NEUTROPHILS % 88.4 % (38.7-80.0); PLATELET COUNT 74 x10e3/uL (140-360); RED BLOOD COUNT 3.99 x10e6/uL (3.6-5.1); RED CELL DISTRIBUTION WIDTH 12.4 % (11.7-14.4)
[2022-11-13] MEDS: TRAMADOL HCL 50 MG TAB PO PRN ×2 (06:15→12:28)
[2022-11-13 06:30] LABS: ALBUMIN 2.4 g/dL (3.5-5.0); ALBUMIN/GLOBULIN RATIO 0.8 (0.8-2.0); ANION GAP 21.1 mmol/L (8-16); CALCIUM 8.2 mg/dL (8.4-10.2); CREATININE, SERUM 3.21 mg/dL (0.57-1.11); POTASSIUM 4.1 mmol/L (3.5-5.1)
[2022-11-13 06:46] LABS: MAGNESIUM 1.7 MG/DL (1.3-2.1); PHOSPHORUS 2.1 MG/DL (2.3-4.7)
[2022-11-13 06:47] LABS: CLARITY,URINE SL CLOUDY (CLEAR); COLOR,URINE AMBER (YELLOW); KETONES,URINE NEGATIVE (NEGATIVE); LEUKOCYTE ESTERASE ,URINE NEGATIVE (NEGATIVE); NITRITE,URINE NEGATIVE (NEGATIVE); PROTEIN,URINE DIPSTICK 2+ (NEGATIVE)
[2022-11-13 07:01] LABS: EPITHELIAL CELLS,URINE FEW /LPF
[2022-11-13 07:02] LABS: THYROID STIMULATING HORMONE 1.162 uIU/mL (0.350-4.940)
[2022-11-13 07:02] LABS: BACTERIA,URINE MODERATE /HPF
[2022-11-13 07:03] LABS: RBC,URINE 0-5 /HPF (0-5); TRANSITIONAL EPI CELLS,URINE FEW
[2022-11-13] MEDS ORDERED: PANTOPRAZOLE SOD 40 MG TABEC PO SCH (07:30)
[2022-11-13] MEDS ORDERED: MIDODRINE HCL 5 MG TABLET PO SCH (08:00)
[2022-11-13 10:25] LABS: BAND NEUTROPHILS % (MANUAL) 10 %; LYMPHOCYTES % (MANUAL) 1 % (19-48); MONOCYTES % (MANUAL) 2 % (3.4-9.0); NEUTROPHILS % (MANUAL) 87 % (40-74); PLATELET ESTIMATE MODERATELY DECREASED; PLATELET MORPHOLOGY COMMENT NORMAL; RBC MORPHOLOGY COMMENT NORMAL
[2022-11-13] MEDS ORDERED: LACTATED RINGER'S 500 ML IV ONE (11:15)
[2022-11-13] MEDS: MIDODRINE HCL 5 MG TABLET PO SCH ×2 (12:28→16:00)
[2022-11-13] MEDS: SODIUM BICARBONATE 8.4% 150 ML in DEXTROSE 5% 1,000 ML IV SCH ×2 (12:29→21:52)
[2022-11-13] MEDS: Ampicillin INJ 2 GM in SODIUM CHLORIDE 0.9% 100 ML IV SCH (14:51)
[2022-11-13 16:12] LABS: ABG HCO3 16 mmol/L (22-26); ABG PCO2 31 mmHg (35-45); ABG PH 7.32 (7.35-7.45); ABG PO2 208 mmHg (80-105); ABG TCO2 17
[2022-11-13] MEDS: ACYCLOVIR SODIUM IV SCH (16:33)
[2022-11-13] MEDS: SODIUM CHLORIDE 0.9% IV SCH (16:33)
[2022-11-13 16:45] LABS: ANION GAP 21.8 mmol/L (8-16); CALCIUM 8.2 mg/dL (8.4-10.2); CREATININE, SERUM 3.41 mg/dL (0.57-1.11); POTASSIUM 3.8 mmol/L (3.5-5.1)
[2022-11-13] MEDS ORDERED: ENOXAPARIN SOD INJ 40 MG/0.4 ML SYR SC SCH (17:00)
[2022-11-13] MEDS ORDERED: HEPARIN SOD (PORCINE) 1000 UNIT/ML SDV ONE (17:08)
[2022-11-13] MEDS ORDERED: LORAZEPAM INJ 2 MG/ML VIAL ONE (17:20)
[2022-11-13] MEDS ORDERED: LORAZEPAM INJ 2 MG/ML VIAL IV PRN (17:45)
[2022-11-13] MEDS ORDERED: FLUCONAZOLE 400MG/200ML BAG 200 ML IV SCH (18:00)
[2022-11-13] MEDS ORDERED: DEXTROSE 50% SYRINGE 50 ML IV ONE (18:12)
[2022-11-13] MEDS ORDERED: SODIUM BICARBONATE 8.4% INJ 50 ML SYR IV STA (19:07)
[2022-11-13] MEDS ORDERED: SODIUM BICARBONATE 8.4% SYRING 100 ML ONE (19:09)
[2022-11-13] MEDS: FENTANYL 2000MCG/NS 250 250 ML IV PRN (19:40)
[2022-11-13 20:27] LABS: ABG HCO3 15 mmol/L (22-26); ABG PCO2 39 mmHg (35-45); ABG PH 7.18 (7.35-7.45); ABG PO2 232 mmHg (80-105); ABG TCO2 16
[2022-11-13 20:33] LABS: ABG HCO3 18 mmol/L (22-26); ABG PCO2 36 mmHg (35-45); ABG PH 7.32 (7.35-7.45); ABG PO2 64 mmHg (80-105)
[2022-11-13 20:34] LABS: ABG TCO2 19
[2022-11-13] MEDS: PROPOFOL IV EMULSION 10MG/ML 100 ML IV PRN (20:38)
[2022-11-13] MEDS ORDERED: HEPARIN SOD (PORCINE) 5,000 UNIT/ML VIAL SC SCH (21:00)
[2022-11-13] MEDS: CEFTRIAXONE 2 GM in SODIUM CHLORIDE 0.9% 100 ML IV SCH (21:51)
[2022-11-13] MEDS: NOREPINEPHRINE 8 MG/D5W 250 ML 250 ML IV SCH (21:52)
[2022-11-14] VITALS (119 sets, daily range): BP systolic 51–201; BP diastolic 10–124; PULSE 66–111; RESP 20–26; TEMP 97.9–100; O2SAT 89–100
[2022-11-14] MEDS: ACETAMINOPHEN 325 MG TAB PO PRN (00:34)
[2022-11-14] MEDS ORDERED: DEXTROSE 5% 1,000 ML IV ONE (02:04)
[2022-11-14] MEDS ORDERED: SODIUM BICARBONATE 8.4% SYRING 150 ML ONE (02:04)
[2022-11-14] MEDS: SODIUM BICARBONATE 8.4% 150 ML in DEXTROSE 5% 1,000 ML IV SCH (02:20)
[2022-11-14] MEDS ORDERED: VASOPRESSIN 60 UNIT in DEXTROSE 5% 50ML 50 ML IV SCH (03:00)
[2022-11-14] MEDS ORDERED: FUROSEMIDE INJ 10 MG/ML 4 ML VIAL IV ONE ×2 (03:00→07:30)
[2022-11-14 03:19] LABS: ABG PCO2 34 mmHg (35-45)
[2022-11-14] MEDS: Ampicillin INJ 2 GM in SODIUM CHLORIDE 0.9% 100 ML IV SCH ×2 (03:30→14:20)
[2022-11-14] MEDS: MIDAZOLAM HCL 2 MG/2 ML VIAL IV PRN (03:32)
[2022-11-14 03:36] LABS: ABG HCO3 21 mmol/L (22-26); ABG PO2 46 mmHg (80-105); ABG TCO2 22
[2022-11-14] MEDS: PROPOFOL IV EMULSION 10MG/ML 100 ML IV PRN ×2 (05:34→21:48)
[2022-11-14] MEDS: NOREPINEPHRINE 8 MG/D5W 250 ML 250 ML IV SCH ×4 (05:35→19:19)
[2022-11-14 06:41] LABS: BASOPHILS # (AUTO) 0.2 (0.0-0.1); BASOPHILS % 0.9 % (0.0-1.0); EOSINOPHILS # (AUTO) 0.2 (0.0-0.4); EOSINOPHILS % 0.9 % (0.0-6.0); HEMATOCRIT 36.5 % (34.2-44.1); LYMPHOCYTES # (AUTO) 1.7 (1.0-3.2); LYMPHOCYTES % 9.1 % (18.0-39.1); MEAN CORPUSCULAR HGB CONC 35.6 g/dL (31-35); MEAN CORPUSCULAR VOLUME 92.6 fL (81-99); MONOCYTES # (AUTO) 0.7 (0.2-0.8); MONOCYTES % 3.7 % (4.4-11.3); NEUTROPHILS # (AUTO) 15.7 (2.1-6.9); NEUTROPHILS % 84.1 % (38.7-80.0); RED BLOOD COUNT 3.94 x10e6/uL (3.6-5.1); RED CELL DISTRIBUTION WIDTH 12.5 % (11.7-14.4)
[2022-11-14 06:49] LABS: PLATELET COUNT 33 x10e3/uL (140-360)
[2022-11-14 06:59] LABS: ANION GAP 24.3 mmol/L (8-16); CALCIUM 7.4 mg/dL (8.4-10.2); CREATININE, SERUM 3.86 mg/dL (0.57-1.11); MAGNESIUM 1.8 MG/DL (1.3-2.1); PHOSPHORUS 1.7 MG/DL (2.3-4.7); POTASSIUM 3.3 mmol/L (3.5-5.1)
[2022-11-14] MEDS ORDERED: FUROSEMIDE INJ 100 MG in SODIUM CHLORIDE 0.9% 90 ML IV SCH (07:45)
[2022-11-14 07:51] LABS: ABG HCO3 20 mmol/L (22-26); ABG PCO2 27 mmHg (35-45); ABG PH 7.48 (7.35-7.45); ABG PO2 73 mmHg (80-105); ABG TCO2 21
[2022-11-14] MEDS ORDERED: HYDROCORTISONE SOD SUCCINATE 100 MG VIAL IV ONE (08:00)
[2022-11-14] MEDS ORDERED: SODIUM CHLORIDE 0.9% 1000ML 2,000 ML ONE (09:17)
[2022-11-14 09:33] LABS: TOTAL PROTEIN, URINE 98.8 mg/dL (1-14)
[2022-11-14 09:42] LABS: INR 1.23
[2022-11-14 09:43] LABS: PARTIAL THROMBOPLASTIN TIME 61.5 seconds (23.8-35.5)
[2022-11-14] MEDS ORDERED: MANNITOL 20% IV ONE (09:49)
[2022-11-14] MEDS ORDERED: MANNITOL 20 % 500 ML BAG IV PRN (10:00)
[2022-11-14] MEDS ORDERED: HEPARIN SOD (PORCINE) 1000 UNIT/ML SDV IV PRN (10:00)
[2022-11-14] MEDS ORDERED: SODIUM CHLORIDE 0.9% 1000ML 2,000 ML IV PRN (10:00)
[2022-11-14] MEDS: FENTANYL 2000MCG/NS 250 250 ML IV PRN (10:10)
[2022-11-14 10:12] LABS: BAND NEUTROPHILS % (MANUAL) 3 %; LYMPHOCYTES % (MANUAL) 6 % (19-48); MONOCYTES % (MANUAL) 1 % (3.4-9.0); NEUTROPHILS % (MANUAL) 90 % (40-74); PLATELET ESTIMATE MARKEDLY DECREASED; PLATELET MORPHOLOGY COMMENT NORMAL; RBC MORPHOLOGY COMMENT NORMAL
[2022-11-14] MEDS: PHENYLEPHRINE 10MG/ML VIAL 40 MG in DEXTROSE 5% 250ML 246 ML IV SCH (13:19)
[2022-11-14] MEDS: MUPIROCIN 2% OINT 22 GM TUBE TOP SCH ×2 (14:19→20:48)
[2022-11-14] MEDS: HYDROCORTISONE SOD SUCCINATE 100 MG VIAL IV SCH ×2 (14:20→21:47)
[2022-11-14] MEDS: CEFTRIAXONE 2 GM in SODIUM CHLORIDE 0.9% 100 ML IV SCH ×2 (14:20→21:47)
[2022-11-14 15:41] LABS: ABG HCO3 24 mmol/L (22-26); ABG PCO2 34 mmHg (35-45); ABG PH 7.46 (7.35-7.45); ABG PO2 77 mmHg (80-105); ABG TCO2 25
[2022-11-14] MEDS: SODIUM CHLORIDE 0.9% IV SCH (17:02)
[2022-11-14] MEDS: ACYCLOVIR SODIUM IV SCH (17:02)
[2022-11-14] MEDS: VASOPRESSIN 60 UNIT in DEXTROSE 5% 50ML 57 ML IV SCH (17:15)
[2022-11-14] MEDS ORDERED: LACTATED RINGER'S 1,000 ML INJ ONE (17:15)
[2022-11-14] MEDS ORDERED: POTASSIUM PHOSPHATE 15 MM in SODIUM CHLORIDE 0.9% 250ML 250 ML IV ONE (17:35)
[2022-11-14] MEDS: FLUCONAZOLE 200 MG/100 ML 100 ML IV SCH (17:49)
[2022-11-14] MEDS ORDERED: SODIUM BICARBONATE 8.4% 150 ML in DEXTROSE 5% 1,000 ML IV SCH (19:30)
[2022-11-14] MEDS ORDERED: SODIUM CHLORIDE 0.9% 250ML 250 ML ONE (20:42)
[2022-11-14 21:37] LABS: TOTAL PROTEIN 24HR, URINE 424.2 mg/24hr (50-100); TOTAL PROTEIN, URINE 70.7 mg/dL (1-14)
[2022-11-15] VITALS (112 sets, daily range): BP systolic 61–189; BP diastolic 12–129; PULSE 50–113; RESP 18–22; TEMP 96.5–103.9; O2SAT 98–100
[2022-11-15] MEDS: FENTANYL 2000MCG/NS 250 250 ML IV PRN ×2 (00:43→14:22)
[2022-11-15] MEDS: ACETAMINOPHEN 325 MG TAB PO PRN (02:33)
[2022-11-15] MEDS: Ampicillin INJ 2 GM in SODIUM CHLORIDE 0.9% 100 ML IV SCH ×2 (02:44→13:33)
[2022-11-15] MEDS: HYDROCORTISONE SOD SUCCINATE 100 MG VIAL IV SCH ×3 (05:37→21:20)
[2022-11-15 07:07] LABS: BASOPHILS # (AUTO) 0.1 (0.0-0.1); BASOPHILS % 0.3 % (0.0-1.0); EOSINOPHILS # (AUTO) 0.1 (0.0-0.4); EOSINOPHILS % 0.7 % (0.0-6.0); HEMATOCRIT 33.3 % (34.2-44.1); HEMOGLOBIN 11.9 g/dL (12.0-16.0); LYMPHOCYTES # (AUTO) 3.8 (1.0-3.2); MEAN CORPUSCULAR HEMOGLOBIN 33.8 pg (28-32); MEAN CORPUSCULAR HGB CONC 35.7 g/dL (31-35); MEAN CORPUSCULAR VOLUME 94.6 fL (81-99); MONOCYTES # (AUTO) 1.3 (0.2-0.8); MONOCYTES % 6.8 % (4.4-11.3); NEUTROPHILS # (AUTO) 13.3 (2.1-6.9); NEUTROPHILS % 71.1 % (38.7-80.0); RED BLOOD COUNT 3.52 x10e6/uL (3.6-5.1); RED CELL DISTRIBUTION WIDTH 12.7 % (11.7-14.4)
[2022-11-15 07:13] LABS: ALBUMIN 1.9 g/dL (3.5-5.0); ALBUMIN/GLOBULIN RATIO 0.8 (0.8-2.0); ANION GAP 18.6 mmol/L (8-16); CREATININE, SERUM 2.63 mg/dL (0.57-1.11); MAGNESIUM 1.6 MG/DL (1.3-2.1); POTASSIUM 3.6 mmol/L (3.5-5.1)
[2022-11-15 07:17] LABS: PLATELET COUNT 37 x10e3/uL (140-360)
[2022-11-15 07:34] LABS: CALCIUM 6.7 mg/dL (8.4-10.2)
[2022-11-15] MEDS: ACETAMINOPHEN 1000 MG/100 ML IV PRN ×2 (07:53→20:46)
[2022-11-15] MEDS ORDERED: FUROSEMIDE INJ 100 MG in SODIUM CHLORIDE 0.9% 90 ML IV SCH (08:00)
[2022-11-15] MEDS: MUPIROCIN 2% OINT 22 GM TUBE TOP SCH ×2 (08:36→22:52)
[2022-11-15 08:41] LABS: ABG PH 7.59 (7.35-7.45)
[2022-11-15 08:42] LABS: ABG HCO3 28 mmol/L (22-26); ABG PCO2 29 mmHg (35-45); ABG PO2 102 mmHg (80-105); ABG TCO2 28
[2022-11-15] MEDS: NOREPINEPHRINE 8 MG/D5W 250 ML 250 ML IV SCH (08:59)
[2022-11-15] MEDS: CEFTRIAXONE 2 GM in SODIUM CHLORIDE 0.9% 100 ML IV SCH ×2 (09:28→21:20)
[2022-11-15] MEDS: VASOPRESSIN 60 UNIT in DEXTROSE 5% 50ML 57 ML IV SCH (10:08)
[2022-11-15] MEDS: PHENYLEPHRINE 10MG/ML VIAL 40 MG in DEXTROSE 5% 250ML 246 ML IV SCH (13:00)
[2022-11-15] MEDS: SODIUM CHLORIDE 0.9% IV SCH (15:40)
[2022-11-15] MEDS: ACYCLOVIR SODIUM IV SCH (15:40)
[2022-11-15 15:47] LABS: ABG HCO3 26 mmol/L (22-26); ABG PCO2 41 mmHg (35-45); ABG PH 7.42 (7.35-7.45); ABG PO2 83 mmHg (80-105); ABG TCO2 27
[2022-11-15] MEDS ORDERED: FUROSEMIDE INJ 10 MG/ML 10 ML VIAL IV ONE (16:45)
[2022-11-15] MEDS: FUROSEMIDE INJ 100 MG in SODIUM CHLORIDE 0.9% 90 ML IV SCH (16:52)
[2022-11-15] MEDS ORDERED: FUROSEMIDE INJ 100 MG in SODIUM CHLORIDE 0.9% 100 ML IV ONE (17:00)
[2022-11-15] MEDS: FLUCONAZOLE 200 MG/100 ML 100 ML IV SCH (18:00)
[2022-11-16] VITALS (86 sets, daily range): BP systolic 86–190; BP diastolic 39–84; PULSE 61–104; RESP 10–24; TEMP 98.4–101; O2SAT 98–100
[2022-11-16] MEDS: FUROSEMIDE INJ 100 MG in SODIUM CHLORIDE 0.9% 90 ML IV SCH ×5 (00:10→21:17)
[2022-11-16] MEDS: Ampicillin INJ 2 GM in SODIUM CHLORIDE 0.9% 100 ML IV SCH ×2 (01:41→13:56)
[2022-11-16] MEDS: NOREPINEPHRINE 8 MG/D5W 250 ML 250 ML IV SCH (03:46)
[2022-11-16] MEDS: FENTANYL 2000MCG/NS 250 250 ML IV PRN (03:49)
[2022-11-16 06:43] LABS: BASOPHILS # (AUTO) 0.1 (0.0-0.1); BASOPHILS % 0.4 % (0.0-1.0); EOSINOPHILS % 0.2 % (0.0-6.0); HEMATOCRIT 31.5 % (34.2-44.1); HEMOGLOBIN 10.9 g/dL (12.0-16.0); LYMPHOCYTES # (AUTO) 1.9 (1.0-3.2); LYMPHOCYTES % 11.6 % (18.0-39.1); MEAN CORPUSCULAR HEMOGLOBIN 33.2 pg (28-32); MEAN CORPUSCULAR HGB CONC 34.6 g/dL (31-35); MONOCYTES # (AUTO) 1.2 (0.2-0.8); MONOCYTES % 7.5 % (4.4-11.3); NEUTROPHILS # (AUTO) 13.1 (2.1-6.9); RED BLOOD COUNT 3.28 x10e6/uL (3.6-5.1); RED CELL DISTRIBUTION WIDTH 13.5 % (11.7-14.4)
[2022-11-16 07:00] LABS: PLATELET COUNT 23 x10e3/uL (140-360)
[2022-11-16] MEDS: HYDROCORTISONE SOD SUCCINATE 100 MG VIAL IV SCH ×3 (07:02→23:34)
[2022-11-16 07:11] LABS: ALBUMIN 1.8 g/dL (3.5-5.0); ALBUMIN/GLOBULIN RATIO 0.6 (0.8-2.0); CALCIUM 7.3 mg/dL (8.4-10.2); CREATININE, SERUM 2.47 mg/dL (0.57-1.11)
[2022-11-16] MEDS ORDERED: POTASSIUM CHLORIDE 20MEQ/100ML 100 ML IV ONE (08:15)
[2022-11-16 08:25] LABS: ABG HCO3 25 mmol/L (22-26); ABG PCO2 39 mmHg (35-45); ABG PH 7.41 (7.35-7.45); ABG PO2 96 mmHg (80-105); ABG TCO2 26
[2022-11-16] MEDS: MUPIROCIN 2% OINT 22 GM TUBE TOP SCH ×2 (08:29→23:35)
[2022-11-16] MEDS: CEFTRIAXONE 2 GM in SODIUM CHLORIDE 0.9% 100 ML IV SCH ×2 (08:29→20:55)
[2022-11-16] MEDS: VASOPRESSIN 60 UNIT in DEXTROSE 5% 50ML 57 ML IV SCH (08:38)
[2022-11-16] MEDS: PHENYLEPHRINE 10MG/ML VIAL 40 MG in DEXTROSE 5% 250ML 246 ML IV SCH (13:00)
[2022-11-16] MEDS: ACYCLOVIR SODIUM IV SCH (15:19)
[2022-11-16] MEDS: SODIUM CHLORIDE 0.9% IV SCH (15:19)
[2022-11-16] MEDS: FLUCONAZOLE 200 MG/100 ML 100 ML IV SCH (17:20)
[2022-11-16] MEDS: PROPOFOL IV EMULSION 10MG/ML 100 ML IV PRN (18:12)
[2022-11-16] MEDS: ACETAMINOPHEN 325 MG TAB PO PRN (22:17)
[2022-11-17] VITALS (84 sets, daily range): BP systolic 84–180; BP diastolic 53–111; PULSE 70–126; RESP 4–23; TEMP 98.2–101.5; O2SAT 93–100
[2022-11-17] MEDS: Ampicillin INJ 2 GM in SODIUM CHLORIDE 0.9% 100 ML IV SCH ×2 (01:58→14:31)
[2022-11-17] MEDS: ACETAMINOPHEN 325 MG TAB PO PRN (02:45)
[2022-11-17] MEDS: PROPOFOL IV EMULSION 10MG/ML 100 ML IV PRN ×2 (03:37→11:36)
[2022-11-17] MEDS: FUROSEMIDE INJ 100 MG in SODIUM CHLORIDE 0.9% 90 ML IV SCH ×4 (04:05→23:48)
[2022-11-17] MEDS: HYDROCORTISONE SOD SUCCINATE 100 MG VIAL IV SCH ×3 (06:06→21:09)
[2022-11-17 06:47] LABS: BASOPHILS # (AUTO) 0.1 (0.0-0.1); BASOPHILS % 0.3 % (0.0-1.0); EOSINOPHILS % 0.1 % (0.0-6.0); HEMATOCRIT 31.3 % (34.2-44.1); HEMOGLOBIN 10.5 g/dL (12.0-16.0); LYMPHOCYTES # (AUTO) 2.5 (1.0-3.2); LYMPHOCYTES % 15.1 % (18.0-39.1); MEAN CORPUSCULAR HGB CONC 33.5 g/dL (31-35); MEAN CORPUSCULAR VOLUME 98.4 fL (81-99); MONOCYTES % 5.7 % (4.4-11.3); NEUTROPHILS % 77.5 % (38.7-80.0); RED BLOOD COUNT 3.18 x10e6/uL (3.6-5.1); RED CELL DISTRIBUTION WIDTH 14.2 % (11.7-14.4)
[2022-11-17 06:50] LABS: PLATELET COUNT 27 x10e3/uL (140-360)
[2022-11-17 07:06] LABS: ALBUMIN 2.2 g/dL (3.5-5.0); ALBUMIN/GLOBULIN RATIO 0.7 (0.8-2.0); ANION GAP 18.3 mmol/L (8-16); CALCIUM 7.2 mg/dL (8.4-10.2); CREATININE, SERUM 3.37 mg/dL (0.57-1.11); POTASSIUM 3.3 mmol/L (3.5-5.1)
[2022-11-17 07:20] LABS: ABG HCO3 25 mmol/L (22-26); ABG PCO2 45 mmHg (35-45); ABG PH 7.36 (7.35-7.45); ABG PO2 285 mmHg (80-105); ABG TCO2 27
[2022-11-17 08:30] LABS: LYMPHOCYTES % (MANUAL) 6 % (19-48); METAMYELOCYTES % (MANUAL) 1 % (0-0); MONOCYTES % (MANUAL) 2 % (3.4-9.0); NEUTROPHILS % (MANUAL) 89 % (40-74)
[2022-11-17 08:32] LABS: PLATELET ESTIMATE MARKEDLY DECREASED; PLATELET MORPHOLOGY COMMENT NORMAL
[2022-11-17 08:33] LABS: RBC MORPHOLOGY COMMENT NORMAL
[2022-11-17] MEDS: CEFTRIAXONE 2 GM in SODIUM CHLORIDE 0.9% 100 ML IV SCH ×2 (09:02→21:09)
[2022-11-17] MEDS: MUPIROCIN 2% OINT 22 GM TUBE TOP SCH ×2 (09:05→21:09)
[2022-11-17] MEDS ORDERED: KCL 20 MEQ PACKET/ ORAL SOLN NG ONE (09:15)
[2022-11-17] MEDS: FENTANYL 2000MCG/NS 250 250 ML IV PRN (09:15)
[2022-11-17] MEDS: PHENYLEPHRINE 10MG/ML VIAL 40 MG in DEXTROSE 5% 250ML 246 ML IV SCH (13:00)
[2022-11-17] MEDS: NOREPINEPHRINE 8 MG/D5W 250 ML 250 ML IV SCH (14:52)
[2022-11-17] MEDS ORDERED: METOPROLOL TARTRATE INJ 1 MG/ML VIAL IV ONE (16:45)
[2022-11-17] MEDS: VASOPRESSIN 60 UNIT in DEXTROSE 5% 50ML 57 ML IV SCH (17:15)
[2022-11-17] MEDS ORDERED: METOPROLOL TARTRATE INJ 1 MG/ML VIAL IV PRN (17:30)
[2022-11-17] MEDS: FLUCONAZOLE 200 MG/100 ML 100 ML IV SCH (17:36)
[2022-11-17] MEDS: SODIUM CHLORIDE 0.9% IV SCH (17:38)
[2022-11-17] MEDS: ACYCLOVIR SODIUM IV SCH (17:38)
[2022-11-17 17:43] LABS: BASOPHILS % 0.2 % (0.0-1.0); EOSINOPHILS % 0.2 % (0.0-6.0); HEMATOCRIT 32.6 % (34.2-44.1); HEMOGLOBIN 11.2 g/dL (12.0-16.0); LYMPHOCYTES # (AUTO) 2.7 (1.0-3.2); LYMPHOCYTES % 16.7 % (18.0-39.1); MEAN CORPUSCULAR HEMOGLOBIN 33.6 pg (28-32); MEAN CORPUSCULAR HGB CONC 34.4 g/dL (31-35); MEAN CORPUSCULAR VOLUME 97.9 fL (81-99); MONOCYTES % 6.2 % (4.4-11.3); NEUTROPHILS # (AUTO) 12.2 (2.1-6.9); NEUTROPHILS % 74.8 % (38.7-80.0); RED BLOOD COUNT 3.33 x10e6/uL (3.6-5.1); RED CELL DISTRIBUTION WIDTH 14.2 % (11.7-14.4)
[2022-11-17 17:54] LABS: PLATELET COUNT 30 x10e3/uL (140-360)
[2022-11-17 18:02] LABS: ALBUMIN 2.3 g/dL (3.5-5.0); ALBUMIN/GLOBULIN RATIO 0.6 (0.8-2.0); ANION GAP 18.2 mmol/L (8-16); CALCIUM 7.7 mg/dL (8.4-10.2); CREATININE, SERUM 2.27 mg/dL (0.57-1.11); POTASSIUM 3.2 mmol/L (3.5-5.1)
[2022-11-17 18:17] LABS: MAGNESIUM 1.8 MG/DL (1.3-2.1)
[2022-11-18] VITALS (79 sets, daily range): BP systolic 92–187; BP diastolic 57–127; PULSE 26–114; RESP 0–23; TEMP 97.6–98.3; O2SAT 92–100
[2022-11-18] MEDS: PROPOFOL IV EMULSION 10MG/ML 100 ML IV PRN ×3 (01:08→18:23)
[2022-11-18] MEDS: Ampicillin INJ 2 GM in SODIUM CHLORIDE 0.9% 100 ML IV SCH ×2 (02:52→14:19)
[2022-11-18] MEDS: FUROSEMIDE INJ 100 MG in SODIUM CHLORIDE 0.9% 90 ML IV SCH ×3 (06:18→19:54)
[2022-11-18] MEDS: HYDROCORTISONE SOD SUCCINATE 100 MG VIAL IV SCH ×3 (06:23→20:47)
[2022-11-18 06:59] LABS: BASOPHILS % 0.3 % (0.0-1.0); EOSINOPHILS % 0.1 % (0.0-6.0); HEMATOCRIT 31.3 % (34.2-44.1); HEMOGLOBIN 10.6 g/dL (12.0-16.0); LYMPHOCYTES # (AUTO) 2.4 (1.0-3.2); LYMPHOCYTES % 17.3 % (18.0-39.1); MEAN CORPUSCULAR HEMOGLOBIN 33.1 pg (28-32); MEAN CORPUSCULAR HGB CONC 33.9 g/dL (31-35); MEAN CORPUSCULAR VOLUME 97.8 fL (81-99); MONOCYTES # (AUTO) 0.9 (0.2-0.8); MONOCYTES % 6.3 % (4.4-11.3); NEUTROPHILS # (AUTO) 10.1 (2.1-6.9); NEUTROPHILS % 73.9 % (38.7-80.0)
[2022-11-18 07:07] LABS: PLATELET COUNT 37 x10e3/uL (140-360)
[2022-11-18 07:23] LABS: ALBUMIN 2.3 g/dL (3.5-5.0); ALBUMIN/GLOBULIN RATIO 0.7 (0.8-2.0); ANION GAP 18.2 mmol/L (8-16); CALCIUM 7.4 mg/dL (8.4-10.2); CREATININE, SERUM 2.63 mg/dL (0.57-1.11); POTASSIUM 3.2 mmol/L (3.5-5.1)
[2022-11-18] MEDS ORDERED: FENTANYL 2000MCG/NS 250 250 ML IV PRN (07:45)
[2022-11-18] MEDS: CEFTRIAXONE 2 GM in SODIUM CHLORIDE 0.9% 100 ML IV SCH ×2 (08:05→20:46)
[2022-11-18] MEDS: MUPIROCIN 2% OINT 22 GM TUBE TOP SCH ×2 (08:06→20:47)
[2022-11-18 08:15] LABS: ABG HCO3 20 mmol/L (22-26); ABG PCO2 38 mmHg (35-45); ABG PH 7.33 (7.35-7.45); ABG PO2 227 mmHg (80-105); ABG TCO2 21
[2022-11-18] MEDS ORDERED: ARTIFICIAL TEARS (OPTH) 15 ML BTL OU PRN (09:00)
[2022-11-18] MEDS ORDERED: MAGNESIUM SULFATE 2GM/50ML 50 ML IV ONE ×2 (11:30→14:00)
[2022-11-18] MEDS ORDERED: CALCIUM GLUC 1 G/50 ML NACL 50 ML IV ONE (11:30)
[2022-11-18 12:25] LABS: LYMPHOCYTES % (MANUAL) 9 % (19-48); MONOCYTES % (MANUAL) 8 % (3.4-9.0); NEUTROPHILS % (MANUAL) 81 % (40-74)
[2022-11-18 12:26] LABS: PLATELET ESTIMATE MARKEDLY DECREASED; PLATELET MORPHOLOGY COMMENT NORMAL; RBC MORPHOLOGY COMMENT NORMAL
[2022-11-18] MEDS: PHENYLEPHRINE 10MG/ML VIAL 40 MG in DEXTROSE 5% 250ML 246 ML IV SCH (13:00)
[2022-11-18 13:36] LABS: ABG HCO3 26 mmol/L (22-26); ABG PCO2 48 mmHg (35-45); ABG PH 7.34 (7.35-7.45); ABG PO2 94 mmHg (80-105); ABG TCO2 27
[2022-11-18] MEDS ORDERED: POTASSIUM CHLORIDE 20MEQ/100ML 200 ML IV ONE (14:00)
[2022-11-18] MEDS: POTASSIUM CHLORIDE 20MEQ/100ML 100 ML IV SCH ×2 (14:04→14:07)
[2022-11-18] MEDS: ACYCLOVIR SODIUM IV SCH (14:19)
[2022-11-18] MEDS: SODIUM CHLORIDE 0.9% IV SCH (14:19)
[2022-11-18] MEDS: ALBUMIN 25% 25GM 100ML 100 ML IV SCH (16:06)
[2022-11-18] MEDS ORDERED: ALBUMIN 25% 25GM 100ML 0.25 GM/ML BTL IV SCH (17:00)
[2022-11-18] MEDS: FLUCONAZOLE 200 MG/100 ML 100 ML IV SCH (17:07)
[2022-11-18] MEDS: VASOPRESSIN 60 UNIT in DEXTROSE 5% 50ML 57 ML IV SCH (17:15)
[2022-11-18] MEDS: NOREPINEPHRINE 8 MG/D5W 250 ML 250 ML IV SCH (19:30)
[2022-11-19] VITALS (107 sets, daily range): BP systolic 91–219; BP diastolic 48–131; PULSE 32–160; RESP 11–33; TEMP 98–98.7; O2SAT 83–100
[2022-11-19] MEDS: FUROSEMIDE INJ 100 MG in SODIUM CHLORIDE 0.9% 90 ML IV SCH ×4 (02:39→22:30)
[2022-11-19] MEDS: Ampicillin INJ 2 GM in SODIUM CHLORIDE 0.9% 100 ML IV SCH ×2 (02:39→15:13)
[2022-11-19] MEDS: PROPOFOL IV EMULSION 10MG/ML 100 ML IV PRN ×3 (04:25→23:24)
[2022-11-19 06:23] LABS: BASOPHILS % 0.3 % (0.0-1.0); EOSINOPHILS % 0.2 % (0.0-6.0); HEMOGLOBIN 9.3 g/dL (12.0-16.0); LYMPHOCYTES # (AUTO) 2.2 (1.0-3.2); LYMPHOCYTES % 20.9 % (18.0-39.1); MEAN CORPUSCULAR HEMOGLOBIN 32.7 pg (28-32); MEAN CORPUSCULAR HGB CONC 33.2 g/dL (31-35); MEAN CORPUSCULAR VOLUME 98.6 fL (81-99); MONOCYTES # (AUTO) 0.6 (0.2-0.8); MONOCYTES % 5.6 % (4.4-11.3); NEUTROPHILS # (AUTO) 7.3 (2.1-6.9); NEUTROPHILS % 70.7 % (38.7-80.0); PLATELET COUNT 73 x10e3/uL (140-360); RED BLOOD COUNT 2.84 x10e6/uL (3.6-5.1); RED CELL DISTRIBUTION WIDTH 13.7 % (11.7-14.4)
[2022-11-19 06:51] LABS: ALBUMIN 2.5 g/dL (3.5-5.0); ALBUMIN/GLOBULIN RATIO 0.9 (0.8-2.0); ANION GAP 16.7 mmol/L (8-16); CALCIUM 7.3 mg/dL (8.4-10.2); CREATININE, SERUM 2.65 mg/dL (0.57-1.11)
[2022-11-19 06:56] LABS: POTASSIUM 2.7 mmol/L (3.5-5.1)
[2022-11-19 07:30] LABS: ABG HCO3 24 mmol/L (22-26); ABG PCO2 39 mmHg (35-45); ABG PH 7.39 (7.35-7.45); ABG PO2 56 mmHg (80-105); ABG TCO2 25
[2022-11-19] MEDS ORDERED: HYDRALAZINE HCL 20 MG/ML VIAL IV PRN (09:00)
[2022-11-19] MEDS: HYDROCORTISONE SOD SUCCINATE 100 MG VIAL IV SCH ×2 (09:09→20:10)
[2022-11-19] MEDS: HEPARIN SOD (PORCINE) 5,000 UNIT/ML VIAL SC SCH ×2 (09:19→20:11)
[2022-11-19] MEDS: MUPIROCIN 2% OINT 22 GM TUBE TOP SCH ×2 (09:26→20:12)
[2022-11-19] MEDS: CEFTRIAXONE 2 GM in SODIUM CHLORIDE 0.9% 100 ML IV SCH ×2 (09:26→20:10)
[2022-11-19] MEDS: POTASSIUM CHLORIDE 20MEQ/100ML 100 ML IV SCH ×4 (09:26→20:10)
[2022-11-19 09:34] LABS: ABG PCO2 42 mmHg (35-45); ABG PH 7.39 (7.35-7.45)
[2022-11-19 09:35] LABS: ABG HCO3 26 mmol/L (22-26); ABG PO2 83 mmHg (80-105); ABG TCO2 27
[2022-11-19 09:45] LABS: LYMPHOCYTES % (MANUAL) 15 % (19-48); MONOCYTES % (MANUAL) 4 % (3.4-9.0); NEUTROPHILS % (MANUAL) 80 % (40-74)
[2022-11-19 09:47] LABS: PLATELET ESTIMATE MODERATELY DECREASED; PLATELET MORPHOLOGY COMMENT NORMAL; RBC MORPHOLOGY COMMENT NORMAL
[2022-11-19] MEDS: ALBUMIN 25% 25GM 100ML 100 ML IV SCH ×2 (10:44→16:22)
[2022-11-19] MEDS: DEXMEDETOMIDINE 400MCG/NS100ML 100 ML IV PRN ×2 (10:53→22:29)
[2022-11-19] MEDS: METOPROLOL TARTRATE INJ 1 MG/ML VIAL IV SCH ×3 (11:19→18:52)
[2022-11-19] MEDS: NICARDIPINE 20MG/200ML PREMIX 200 ML IV SCH ×2 (11:20→15:21)
[2022-11-19] MEDS ORDERED: DIGOXIN INJ 0.25 MG/ML 2 ML AMP IV ONE (11:30)
[2022-11-19] MEDS: SODIUM CHLORIDE 0.9% IV SCH (16:20)
[2022-11-19] MEDS: ACYCLOVIR SODIUM IV SCH (16:20)
[2022-11-19 16:33] LABS: MAGNESIUM 2.2 MG/DL (1.3-2.1)
[2022-11-19 16:35] LABS: POTASSIUM 2.9 mmol/L (3.5-5.1)
[2022-11-19] MEDS ORDERED: CARVEDILOL 12.5 MG TAB PO SCH (17:00)
[2022-11-19] MEDS: FLUCONAZOLE 200 MG/100 ML 100 ML IV SCH (17:29)
[2022-11-20] VITALS (92 sets, daily range): BP systolic 90–174; BP diastolic 43–83; PULSE 47–97; RESP 13–31; TEMP 98–102.4; O2SAT 90–100
[2022-11-20] MEDS: Ampicillin INJ 2 GM in SODIUM CHLORIDE 0.9% 100 ML IV SCH (01:07)
[2022-11-20] MEDS: FUROSEMIDE INJ 100 MG in SODIUM CHLORIDE 0.9% 90 ML IV SCH ×4 (04:09→17:48)
[2022-11-20 07:02] LABS: BASOPHILS # (AUTO) 0.1 (0.0-0.1); BASOPHILS % 0.7 % (0.0-1.0); EOSINOPHILS # (AUTO) 0.2 (0.0-0.4); EOSINOPHILS % 1.3 % (0.0-6.0); HEMATOCRIT 28.9 % (34.2-44.1); HEMOGLOBIN 9.4 g/dL (12.0-16.0); LYMPHOCYTES # (AUTO) 3.1 (1.0-3.2); LYMPHOCYTES % 25.7 % (18.0-39.1); MEAN CORPUSCULAR HEMOGLOBIN 33.6 pg (28-32); MEAN CORPUSCULAR HGB CONC 32.5 g/dL (31-35); MEAN CORPUSCULAR VOLUME 103.2 fL (81-99); MONOCYTES # (AUTO) 0.4 (0.2-0.8); MONOCYTES % 3.3 % (4.4-11.3); PLATELET COUNT 111 x10e3/uL (140-360); RED CELL DISTRIBUTION WIDTH 13.9 % (11.7-14.4)
[2022-11-20 07:28] LABS: ALBUMIN 2.9 g/dL (3.5-5.0); ANION GAP 20.1 mmol/L (8-16); CALCIUM 7.8 mg/dL (8.4-10.2); CREATININE, SERUM 2.7 mg/dL (0.57-1.11); POTASSIUM 3.1 mmol/L (3.5-5.1)
[2022-11-20] MEDS ORDERED: NOREPINEPHRINE 8 MG/D5W 250 ML 250 ML IV PRN (07:45)
[2022-11-20] MEDS ORDERED: VASOPRESSIN 60 UNIT in DEXTROSE 5% 50ML 57 ML IV PRN (07:45)
[2022-11-20] MEDS ORDERED: PHENYLEPHRINE 10MG/ML VIAL 40 MG in DEXTROSE 5% 250ML 246 ML IV PRN (07:45)
[2022-11-20] MEDS: POTASSIUM CHLORIDE 20MEQ/100ML 100 ML IV SCH ×2 (08:24→10:54)
[2022-11-20] MEDS: LINEZOLID 600 MG/D5W 300ML 300 ML IV SCH ×2 (08:25→21:03)
[2022-11-20] MEDS: ACETAMINOPHEN 325 MG TAB PO PRN (08:25)
[2022-11-20] MEDS: HYDROCORTISONE SOD SUCCINATE 100 MG VIAL IV SCH ×2 (08:26→20:48)
[2022-11-20] MEDS: ALBUMIN 25% 25GM 100ML 100 ML IV SCH ×2 (08:26→17:48)
[2022-11-20] MEDS: HEPARIN SOD (PORCINE) 5,000 UNIT/ML VIAL SC SCH ×2 (08:27→21:00)
[2022-11-20 09:40] LABS: ABG HCO3 24 mmol/L (22-26); ABG PCO2 27 mmHg (35-45); ABG PH 7.57 (7.35-7.45); ABG PO2 165 mmHg (80-105); ABG TCO2 25
[2022-11-20] MEDS: PROPOFOL IV EMULSION 10MG/ML 100 ML IV PRN (11:30)
[2022-11-20] MEDS: DEXMEDETOMIDINE 400MCG/NS100ML 100 ML IV PRN ×2 (12:31→19:57)
[2022-11-20] MEDS: SODIUM CHLORIDE 0.9% IV SCH (15:00)
[2022-11-20] MEDS: ACYCLOVIR SODIUM IV SCH (15:00)
[2022-11-20] MEDS: FLUCONAZOLE 200 MG/100 ML 100 ML IV SCH (17:48)
[2022-11-21] VITALS (99 sets, daily range): BP systolic 106–178; BP diastolic 48–79; PULSE 44–92; RESP 9–24; TEMP 97.8–98; O2SAT 93–100
[2022-11-21] MEDS: FUROSEMIDE INJ 100 MG in SODIUM CHLORIDE 0.9% 90 ML IV SCH ×4 (00:25→20:16)
[2022-11-21] MEDS: PROPOFOL IV EMULSION 10MG/ML 100 ML IV PRN ×5 (00:26→23:44)
[2022-11-21] MEDS: MIDAZOLAM HCL 2 MG/2 ML VIAL IV PRN ×3 (04:22→23:43)
[2022-11-21 06:43] LABS: BASOPHILS % 0.2 % (0.0-1.0); EOSINOPHILS % 0.1 % (0.0-6.0); HEMATOCRIT 24.5 % (34.2-44.1); HEMOGLOBIN 8.1 g/dL (12.0-16.0); LYMPHOCYTES # (AUTO) 2.9 (1.0-3.2); LYMPHOCYTES % 25.9 % (18.0-39.1); MEAN CORPUSCULAR HEMOGLOBIN 32.3 pg (28-32); MEAN CORPUSCULAR HGB CONC 33.1 g/dL (31-35); MEAN CORPUSCULAR VOLUME 97.6 fL (81-99); MONOCYTES # (AUTO) 0.4 (0.2-0.8); MONOCYTES % 3.1 % (4.4-11.3); NEUTROPHILS # (AUTO) 7.8 (2.1-6.9); NEUTROPHILS % 69.2 % (38.7-80.0); PLATELET COUNT 158 x10e3/uL (140-360); RED BLOOD COUNT 2.51 x10e6/uL (3.6-5.1); RED CELL DISTRIBUTION WIDTH 13.6 % (11.7-14.4)
[2022-11-21 07:40] LABS: ALBUMIN/GLOBULIN RATIO 0.9 (0.8-2.0); ANION GAP 18.6 mmol/L (8-16); CALCIUM 7.8 mg/dL (8.4-10.2); CREATININE, SERUM 2.78 mg/dL (0.57-1.11)
[2022-11-21 07:43] LABS: POTASSIUM 2.6 mmol/L (3.5-5.1)
[2022-11-21 08:09] LABS: ABG HCO3 28 mmol/L (22-26); ABG PCO2 42 mmHg (35-45); ABG PH 7.43 (7.35-7.45); ABG PO2 92 mmHg (80-105); ABG TCO2 29
[2022-11-21] MEDS: ALBUMIN 25% 25GM 100ML 100 ML IV SCH ×2 (08:09→16:19)
[2022-11-21] MEDS: HEPARIN SOD (PORCINE) 5,000 UNIT/ML VIAL SC SCH ×2 (08:10→20:22)
[2022-11-21] MEDS: LINEZOLID 600 MG/D5W 300ML 300 ML IV SCH ×2 (08:16→20:04)
[2022-11-21] MEDS: FENTANYL 2000MCG/NS 250 250 ML IV PRN (08:33)
[2022-11-21] MEDS: HYDROCORTISONE SOD SUCCINATE 100 MG VIAL IV SCH (08:45)
[2022-11-21] MEDS: POTASSIUM CHLORIDE 20MEQ/100ML 100 ML IV SCH ×2 (08:45→10:36)
[2022-11-21] MEDS: SODIUM CHLORIDE 0.9% IV SCH (15:40)
[2022-11-21] MEDS: ACYCLOVIR SODIUM IV SCH (15:40)
[2022-11-21] MEDS ORDERED: POTASSIUM CHLORIDE 20MEQ/100ML 200 ML IV ONE (16:00)
[2022-11-21] MEDS: FLUCONAZOLE 200 MG/100 ML 100 ML IV SCH (17:15)
[2022-11-21] MEDS: NICARDIPINE 20MG/200ML PREMIX 200 ML IV SCH ×2 (17:16→22:55)
[2022-11-22] VITALS (71 sets, daily range): BP systolic 104–168; BP diastolic 47–71; PULSE 64–108; RESP 13–30; TEMP 97.6–101.1; O2SAT 91–99
[2022-11-22] MEDS: MIDAZOLAM HCL 2 MG/2 ML VIAL IV PRN ×2 (02:20→12:11)
[2022-11-22] MEDS: FUROSEMIDE INJ 100 MG in SODIUM CHLORIDE 0.9% 90 ML IV SCH ×4 (02:21→12:57)
[2022-11-22] MEDS: NICARDIPINE 20MG/200ML PREMIX 200 ML IV SCH ×3 (03:12→13:23)
[2022-11-22] MEDS: PROPOFOL IV EMULSION 10MG/ML 100 ML IV PRN ×5 (03:12→19:11)
[2022-11-22 06:43] LABS: BASOPHILS # (AUTO) 0.1 (0.0-0.1); BASOPHILS % 0.5 % (0.0-1.0); EOSINOPHILS # (AUTO) 0.1 (0.0-0.4); EOSINOPHILS % 1.4 % (0.0-6.0); HEMATOCRIT 23.6 % (34.2-44.1); HEMOGLOBIN 7.7 g/dL (12.0-16.0); LYMPHOCYTES # (AUTO) 2.9 (1.0-3.2); LYMPHOCYTES % 28.1 % (18.0-39.1); MEAN CORPUSCULAR HEMOGLOBIN 33.2 pg (28-32); MEAN CORPUSCULAR HGB CONC 32.6 g/dL (31-35); MEAN CORPUSCULAR VOLUME 101.7 fL (81-99); MONOCYTES # (AUTO) 0.5 (0.2-0.8); MONOCYTES % 4.4 % (4.4-11.3); NEUTROPHILS # (AUTO) 6.5 (2.1-6.9); PLATELET COUNT 220 x10e3/uL (140-360); RED BLOOD COUNT 2.32 x10e6/uL (3.6-5.1)
[2022-11-22 06:58] LABS: ALBUMIN 3.2 g/dL (3.5-5.0); ANION GAP 21.5 mmol/L (8-16); CALCIUM 7.5 mg/dL (8.4-10.2); CREATININE, SERUM 2.56 mg/dL (0.57-1.11)
[2022-11-22 07:02] LABS: POTASSIUM 2.5 mmol/L (3.5-5.1)
[2022-11-22] MEDS: ALBUTEROL SULF 0.083% NEB SOLN 3 ML NEB NEB PRN ×3 (07:15→23:04)
[2022-11-22] MEDS: POTASSIUM CHLORIDE 20MEQ/100ML 100 ML IV SCH ×2 (08:19→12:15)
[2022-11-22] MEDS: LINEZOLID 600 MG/D5W 300ML 300 ML IV SCH ×2 (08:55→21:46)
[2022-11-22] MEDS: HEPARIN SOD (PORCINE) 5,000 UNIT/ML VIAL SC SCH ×2 (08:55→21:47)
[2022-11-22] MEDS: ALBUMIN 25% 25GM 100ML 100 ML IV SCH ×2 (08:55→17:39)
[2022-11-22] MEDS: BALSAM PERU/CASTOR OIL 60 GM OINT...G. TP SCH (08:55)
[2022-11-22] MEDS ORDERED: POTASSIUM CHLORIDE 20 MEQ TAB CR PO SCH (09:00)
[2022-11-22] MEDS: ACYCLOVIR SODIUM IV SCH (15:04)
[2022-11-22] MEDS: SODIUM CHLORIDE 0.9% IV SCH (15:04)
[2022-11-22] MEDS ORDERED: NICARDIPINE HCL SOLN 25 MG in SODIUM CHLORIDE 0.9% 250ML 240 ML IV PRN (15:30)
[2022-11-22] MEDS ORDERED: HEPARIN SOD (PORCINE) 1000 UNIT/ML SDV IV PRN (17:15)
[2022-11-22] MEDS: FLUCONAZOLE 200 MG/100 ML 100 ML IV SCH (17:39)
[2022-11-22] MEDS ORDERED: FUROSEMIDE INJ 10 MG/ML 4 ML VIAL IV SCH (21:00)
[2022-11-22] MEDS: FENTANYL 2000MCG/NS 250 250 ML IV PRN (23:17)
[2022-11-23] VITALS (98 sets, daily range): BP systolic 89–183; BP diastolic 43–69; PULSE 68–100; RESP 17–39; TEMP 98.4–101; O2SAT 91–99
[2022-11-23] MEDS: PROPOFOL IV EMULSION 10MG/ML 100 ML IV PRN ×5 (00:06→20:40)
[2022-11-23] MEDS: ACETAMINOPHEN 325 MG TAB PO PRN (03:46)
[2022-11-23] MEDS: NICARDIPINE 20MG/200ML PREMIX 200 ML IV SCH (04:11)
[2022-11-23 06:49] LABS: BASOPHILS % 0.6 % (0.0-1.0); EOSINOPHILS # (AUTO) 0.1 (0.0-0.4); EOSINOPHILS % 1.7 % (0.0-6.0); HEMOGLOBIN 7.2 g/dL (12.0-16.0); LYMPHOCYTES # (AUTO) 2.2 (1.0-3.2); LYMPHOCYTES % 34.3 % (18.0-39.1); MEAN CORPUSCULAR HEMOGLOBIN 33.3 pg (28-32); MEAN CORPUSCULAR VOLUME 104.2 fL (81-99); MONOCYTES # (AUTO) 0.3 (0.2-0.8); MONOCYTES % 5.3 % (4.4-11.3); NEUTROPHILS # (AUTO) 3.5 (2.1-6.9); PLATELET COUNT 212 x10e3/uL (140-360); RED BLOOD COUNT 2.16 x10e6/uL (3.6-5.1); RED CELL DISTRIBUTION WIDTH 14.8 % (11.7-14.4)
[2022-11-23 06:55] LABS: HEMATOCRIT 22.5 % (34.2-44.1)
[2022-11-23 07:03] LABS: ALBUMIN 3.2 g/dL (3.5-5.0); ALBUMIN/GLOBULIN RATIO 1.1 (0.8-2.0); ANION GAP 15.1 mmol/L (8-16); CALCIUM 7.2 mg/dL (8.4-10.2); CREATININE, SERUM 1.45 mg/dL (0.57-1.11); POTASSIUM 3.1 mmol/L (3.5-5.1)
[2022-11-23] MEDS ORDERED: POTASSIUM CHLORIDE 20 MEQ TAB CR PO SCH (08:15)
[2022-11-23] MEDS ORDERED: POTASSIUM CHLORIDE 20MEQ/100ML 100 ML IV ONE (08:15)
[2022-11-23] MEDS: FUROSEMIDE INJ 10 MG/ML 4 ML VIAL IV SCH ×2 (08:27→20:19)
[2022-11-23] MEDS: HEPARIN SOD (PORCINE) 5,000 UNIT/ML VIAL SC SCH ×2 (08:31→20:19)
[2022-11-23] MEDS: LINEZOLID 600 MG/D5W 300ML 300 ML IV SCH ×2 (09:30→20:34)
[2022-11-23] MEDS: SPIRONOLACTONE 25 MG TAB PO SCH (09:30)
[2022-11-23] MEDS: BALSAM PERU/CASTOR OIL 60 GM OINT...G. TP SCH (09:30)
[2022-11-23] MEDS: POTASSIUM CHLORIDE 20 MEQ TAB CR PO SCH (09:30)
[2022-11-23] MEDS: MIDAZOLAM HCL 2 MG/2 ML VIAL IV PRN (10:06)
[2022-11-23] MEDS: ACYCLOVIR SODIUM IV SCH (15:52)
[2022-11-23] MEDS: SODIUM CHLORIDE 0.9% IV SCH (15:52)
[2022-11-23] MEDS: FLUCONAZOLE 200 MG/100 ML 100 ML IV SCH (19:04)
[2022-11-23] MEDS: ALBUTEROL SULF 0.083% NEB SOLN 3 ML NEB NEB PRN (19:05)
[2022-11-24] VITALS (93 sets, daily range): BP systolic 88–166; BP diastolic 43–71; PULSE 70–92; RESP 5–23; TEMP 97.6–99.7; O2SAT 90–100
[2022-11-24] MEDS: PROPOFOL IV EMULSION 10MG/ML 100 ML IV PRN ×3 (05:16→16:35)
[2022-11-24 06:31] LABS: BASOPHILS % 0.5 % (0.0-1.0); EOSINOPHILS # (AUTO) 0.2 (0.0-0.4); EOSINOPHILS % 2.3 % (0.0-6.0); HEMATOCRIT 24.4 % (34.2-44.1); HEMOGLOBIN 7.9 g/dL (12.0-16.0); LYMPHOCYTES # (AUTO) 2.4 (1.0-3.2); LYMPHOCYTES % 32.1 % (18.0-39.1); MEAN CORPUSCULAR HEMOGLOBIN 32.9 pg (28-32); MEAN CORPUSCULAR HGB CONC 32.4 g/dL (31-35); MEAN CORPUSCULAR VOLUME 101.7 fL (81-99); MONOCYTES # (AUTO) 0.4 (0.2-0.8); MONOCYTES % 4.8 % (4.4-11.3); NEUTROPHILS # (AUTO) 4.2 (2.1-6.9); NEUTROPHILS % 56.3 % (38.7-80.0); PLATELET COUNT 251 x10e3/uL (140-360); RED CELL DISTRIBUTION WIDTH 15.4 % (11.7-14.4)
[2022-11-24 07:17] LABS: ALBUMIN 2.9 g/dL (3.5-5.0); ALBUMIN/GLOBULIN RATIO 0.9 (0.8-2.0); ANION GAP 16.4 mmol/L (8-16); CALCIUM 7.5 mg/dL (8.4-10.2); CREATININE, SERUM 1.95 mg/dL (0.57-1.11); POTASSIUM 3.4 mmol/L (3.5-5.1)
[2022-11-24] MEDS ORDERED: MIDAZOLAM HCL 2 MG/2 ML VIAL IV PRN (08:45)
[2022-11-24] MEDS: SPIRONOLACTONE 25 MG TAB PO SCH (09:00)
[2022-11-24] MEDS: HEPARIN SOD (PORCINE) 5,000 UNIT/ML VIAL SC SCH ×2 (09:00→20:29)
[2022-11-24] MEDS: POTASSIUM CHLORIDE 20 MEQ TAB CR PO SCH (09:00)
[2022-11-24] MEDS: BALSAM PERU/CASTOR OIL 60 GM OINT...G. TP SCH (09:00)
[2022-11-24] MEDS: FUROSEMIDE INJ 10 MG/ML 4 ML VIAL IV SCH ×2 (09:00→20:29)
[2022-11-24] MEDS: LINEZOLID 600 MG/D5W 300ML 300 ML IV SCH ×2 (09:04→20:30)
[2022-11-24] MEDS ORDERED: BUPIVACAINE 0.5%/EPI 30 ML SDV INJ ONE (12:15)
[2022-11-24] MEDS ORDERED: MIDAZOLAM HCL 2 MG/2 ML VIAL ONE (12:24)
[2022-11-24] MEDS ORDERED: FENTANYL CITRATE/PF 100MCG/2 ML INJ ONE (12:24)
[2022-11-24] MEDS ORDERED: POTASSIUM CHLORIDE 20MEQ/100ML 200 ML IV ONE (14:45)
[2022-11-24] MEDS: NICARDIPINE 20MG/200ML PREMIX 200 ML IV SCH (16:32)
[2022-11-24] MEDS: FLUCONAZOLE 200 MG/100 ML 100 ML IV SCH (18:04)
[2022-11-24] MEDS: FENTANYL 2000MCG/NS 250 250 ML IV PRN (21:36)
[2022-11-25] VITALS (65 sets, daily range): BP systolic 80–179; BP diastolic 41–92; PULSE 77–109; RESP 12–38; TEMP 99–99.6; O2SAT 96–100
[2022-11-25] MEDS: PROPOFOL IV EMULSION 10MG/ML 100 ML IV PRN ×2 (00:03→04:35)
[2022-11-25 06:58] LABS: BASOPHILS % 0.5 % (0.0-1.0); EOSINOPHILS # (AUTO) 0.2 (0.0-0.4); HEMATOCRIT 26.6 % (34.2-44.1); HEMOGLOBIN 8.6 g/dL (12.0-16.0); LYMPHOCYTES # (AUTO) 2.9 (1.0-3.2); LYMPHOCYTES % 34.1 % (18.0-39.1); MEAN CORPUSCULAR HEMOGLOBIN 33.5 pg (28-32); MEAN CORPUSCULAR HGB CONC 32.3 g/dL (31-35); MEAN CORPUSCULAR VOLUME 103.5 fL (81-99); MONOCYTES # (AUTO) 0.4 (0.2-0.8); MONOCYTES % 4.6 % (4.4-11.3); NEUTROPHILS # (AUTO) 4.6 (2.1-6.9); NEUTROPHILS % 53.8 % (38.7-80.0); PLATELET COUNT 202 x10e3/uL (140-360); RED BLOOD COUNT 2.57 x10e6/uL (3.6-5.1); RED CELL DISTRIBUTION WIDTH 16.2 % (11.7-14.4)
[2022-11-25 07:34] LABS: ALBUMIN/GLOBULIN RATIO 0.8 (0.8-2.0); ANION GAP 20.2 mmol/L (8-16); CALCIUM 8.1 mg/dL (8.4-10.2); CREATININE, SERUM 2.12 mg/dL (0.57-1.11); POTASSIUM 4.2 mmol/L (3.5-5.1)
[2022-11-25] MEDS: POTASSIUM CHLORIDE 20 MEQ TAB CR PO SCH (09:00)
[2022-11-25] MEDS: SPIRONOLACTONE 25 MG TAB PO SCH (09:00)
[2022-11-25] MEDS: NICARDIPINE 20MG/200ML PREMIX 200 ML IV SCH (09:03)
[2022-11-25] MEDS: FUROSEMIDE INJ 10 MG/ML 4 ML VIAL IV SCH (09:10)
[2022-11-25] MEDS: BALSAM PERU/CASTOR OIL 60 GM OINT...G. TP SCH (09:11)
[2022-11-25] MEDS: LINEZOLID 600 MG/D5W 300ML 300 ML IV SCH (09:11)
[2022-11-25] MEDS: HEPARIN SOD (PORCINE) 5,000 UNIT/ML VIAL SC SCH ×2 (09:21→20:19)
[2022-11-25] MEDS: DEXMEDETOMIDINE 400MCG/NS100ML 100 ML IV PRN (10:20)
[2022-11-25] MEDS: MUPIROCIN 2% OINT 22 GM TUBE TOP SCH (10:41)
[2022-11-25 20:29] LABS: CREATININE,URINE RANDOM 12.8 mg/dL (47-110)
[2022-11-26] VITALS (86 sets, daily range): BP systolic 82–171; BP diastolic 45–78; PULSE 73–100; RESP 8–31; TEMP 98.9–99.4; O2SAT 76–100
[2022-11-26 06:37] LABS: BASOPHILS # (AUTO) 0.1 (0.0-0.1); BASOPHILS % 0.8 % (0.0-1.0); EOSINOPHILS # (AUTO) 0.2 (0.0-0.4); EOSINOPHILS % 2.6 % (0.0-6.0); HEMATOCRIT 24.6 % (34.2-44.1); LYMPHOCYTES # (AUTO) 3.2 (1.0-3.2); LYMPHOCYTES % 41.7 % (18.0-39.1); MEAN CORPUSCULAR HEMOGLOBIN 33.1 pg (28-32); MEAN CORPUSCULAR HGB CONC 32.5 g/dL (31-35); MEAN CORPUSCULAR VOLUME 101.7 fL (81-99); MONOCYTES # (AUTO) 0.5 (0.2-0.8); MONOCYTES % 6.3 % (4.4-11.3); NEUTROPHILS # (AUTO) 3.6 (2.1-6.9); NEUTROPHILS % 46.1 % (38.7-80.0); PLATELET COUNT 159 x10e3/uL (140-360); RED BLOOD COUNT 2.42 x10e6/uL (3.6-5.1)
[2022-11-26 07:02] LABS: ALBUMIN 2.9 g/dL (3.5-5.0); ALBUMIN/GLOBULIN RATIO 0.8 (0.8-2.0); ANION GAP 20.4 mmol/L (8-16); CALCIUM 8.4 mg/dL (8.4-10.2); CREATININE, SERUM 2.3 mg/dL (0.57-1.11); POTASSIUM 3.4 mmol/L (3.5-5.1)
[2022-11-26] MEDS ORDERED: FUROSEMIDE INJ 10 MG/ML 4 ML VIAL IV SCH (09:00)
[2022-11-26] MEDS: SPIRONOLACTONE 25 MG TAB PO SCH (09:40)
[2022-11-26] MEDS: BALSAM PERU/CASTOR OIL 60 GM OINT...G. TP SCH (09:41)
[2022-11-26] MEDS: MUPIROCIN 2% OINT 22 GM TUBE TOP SCH (09:41)
[2022-11-26] MEDS ORDERED: FENTANYL 2000MCG/NS 250 250 ML IV PRN (09:45)
[2022-11-26] MEDS: DEXMEDETOMIDINE 400MCG/NS100ML 100 ML IV PRN (09:50)
[2022-11-26] MEDS: HEPARIN SOD (PORCINE) 5,000 UNIT/ML VIAL SC SCH ×2 (11:05→21:32)
[2022-11-26] MEDS: CARVEDILOL 3.125 MG TAB PO SCH ×2 (11:31→21:28)
[2022-11-26] MEDS ORDERED: POTASSIUM CHLORIDE 10MEQ/100ML 200 ML IV ONE (16:00)
[2022-11-27] VITALS (96 sets, daily range): BP systolic 77–174; BP diastolic 45–111; PULSE 60–90; RESP 10–22; TEMP 98.9–99.6; O2SAT 97–100
[2022-11-27] MEDS ORDERED: DEXTROSE 5% 50ML 50 ML IV ONE (00:33)
[2022-11-27] MEDS: NICARDIPINE 20MG/200ML PREMIX 200 ML IV SCH (02:00)
[2022-11-27] MEDS: DEXMEDETOMIDINE 400MCG/NS100ML 100 ML IV PRN (06:25)
[2022-11-27 06:49] LABS: BASOPHILS # (AUTO) 0.1 (0.0-0.1); BASOPHILS % 1.2 % (0.0-1.0); EOSINOPHILS # (AUTO) 0.2 (0.0-0.4); EOSINOPHILS % 2.2 % (0.0-6.0); HEMATOCRIT 24.6 % (34.2-44.1); HEMOGLOBIN 7.7 g/dL (12.0-16.0); LYMPHOCYTES # (AUTO) 3.2 (1.0-3.2); LYMPHOCYTES % 41.4 % (18.0-39.1); MEAN CORPUSCULAR HEMOGLOBIN 32.9 pg (28-32); MEAN CORPUSCULAR HGB CONC 31.3 g/dL (31-35); MEAN CORPUSCULAR VOLUME 105.1 fL (81-99); MONOCYTES # (AUTO) 0.5 (0.2-0.8); MONOCYTES % 6.5 % (4.4-11.3); NEUTROPHILS # (AUTO) 3.6 (2.1-6.9); NEUTROPHILS % 47.5 % (38.7-80.0); PLATELET COUNT 167 x10e3/uL (140-360); RED BLOOD COUNT 2.34 x10e6/uL (3.6-5.1); RED CELL DISTRIBUTION WIDTH 16.1 % (11.7-14.4)
[2022-11-27 07:19] LABS: ALBUMIN 2.9 g/dL (3.5-5.0); ALBUMIN/GLOBULIN RATIO 0.7 (0.8-2.0); ANION GAP 20.1 mmol/L (8-16); CALCIUM 8.9 mg/dL (8.4-10.2); CREATININE, SERUM 2.11 mg/dL (0.57-1.11); POTASSIUM 3.1 mmol/L (3.5-5.1)
[2022-11-27] MEDS: CARVEDILOL 3.125 MG TAB PO SCH (08:53)
[2022-11-27] MEDS: SPIRONOLACTONE 25 MG TAB PO SCH (08:54)
[2022-11-27] MEDS: MUPIROCIN 2% OINT 22 GM TUBE TOP SCH (08:54)
[2022-11-27] MEDS: BALSAM PERU/CASTOR OIL 60 GM OINT...G. TP SCH (08:54)
[2022-11-27] MEDS ORDERED: POTASSIUM CHLORIDE 20MEQ/100ML 100 ML IV SCH (09:00)
[2022-11-27] MEDS: HEPARIN SOD (PORCINE) 5,000 UNIT/ML VIAL SC SCH ×2 (10:14→21:02)
[2022-11-27] MEDS ORDERED: KCL 20 MEQ PACKET/ ORAL SOLN PEG ONE (12:00)
[2022-11-27] MEDS ORDERED: CARVEDILOL 12.5 MG TAB PEG SCH (17:00)
[2022-11-28] VITALS (24 sets, daily range): BP systolic 94–150; BP diastolic 49–115; PULSE 58–73; RESP 12–21; TEMP 97.7; O2SAT 99–100
[2022-11-28] MEDS ORDERED: ALDACTONE25 MG PO (07:07)
[2022-11-28] MEDS ORDERED: Artificial Tears (Opth) OU (07:07)
[2022-11-28] MEDS ORDERED: PEPCID20 MG PO (07:07)
[2022-11-28] MEDS ORDERED: VENELEX OINTMEN60 GM TP (07:07)
[2022-11-28] MEDS ORDERED: Lidocaine Patch TP (07:07)
[2022-11-28] MEDS ORDERED: COREG12.5 MG PEG (07:07)
[2022-11-28] MEDS ORDERED: Docusate Sodium PO (07:07)
[2022-11-28] MEDS ORDERED: BALSAM PERU/CASTOR OIL 60 GM OINT...G. TP SCH ×3 (09:00)
[2022-11-28] MEDS ORDERED: CARVEDILOL 12.5 MG TAB NG SCH (09:00)
== END 2022-11-28 08:12 | DRG 4 ==
LOC: ER 16:16 → MED/SURG2 18:03 → ICU 11-13 15:13
PROVIDERS: ADMIT Internal Medicine; ATTEND Internal Medicine
PROC: 0BH17EZ Insertion of Endotracheal Airway into Trachea, Via Natural or Artificial Opening (ICD-10-PCS; 2022-11-13)
PROC: 5A1955Z Respiratory Ventilation, Greater than 96 Consecutive Hours (ICD-10-PCS; 2022-11-13)
PROC: 3E053XZ Introduction of Vasopressor into Peripheral Artery, Percutaneous Approach (ICD-10-PCS; 2022-11-13)
PROC: 5A09357 Assistance with Respiratory Ventilation, Less than 24 Consecutive Hours, Continuous Positive Airway Pressure (ICD-10-PCS; principal; 2022-11-14)
PROC: 5A1D70Z Performance of Urinary Filtration, Intermittent, Less than 6 Hours Per Day (ICD-10-PCS; 2022-11-14)
PROC: 4A033R1 Measurement of Arterial Saturation, Peripheral, Percutaneous Approach (ICD-10-PCS; 2022-11-14)
PROC: 4A133B1 Monitoring of Arterial Pressure, Peripheral, Percutaneous Approach (ICD-10-PCS; 2022-11-14)
PROC: 30233R1 Transfusion of Nonautologous Platelets into Peripheral Vein, Percutaneous Approach (ICD-10-PCS; 2022-11-14)
PROC: 02HV33Z Insertion of Infusion Device into Superior Vena Cava, Percutaneous Approach (ICD-10-PCS; 2022-11-22)
PROC: 0B113Z4 Bypass Trachea to Cutaneous, Percutaneous Approach (ICD-10-PCS; 2022-11-24)
PROC: 0DH63UZ Insertion of Feeding Device into Stomach, Percutaneous Approach (ICD-10-PCS; 2022-11-24)
PROC: 0B113F4 Bypass Trachea to Cutaneous with Tracheostomy Device, Percutaneous Approach (ICD-10-PCS; 2022-11-24)
PROC: 0DH68UZ Insertion of Feeding Device into Stomach, Via Natural or Artificial Opening Endoscopic (ICD-10-PCS; 2022-11-24)
DX: A41.9 Sepsis, unspecified organism (principal); G03.9 Meningitis, unspecified; G93.41 Metabolic encephalopathy; R65.21 Severe sepsis with septic shock; J96.01 Acute respiratory failure with hypoxia; K72.00 Acute and subacute hepatic failure without coma; J69.0 Pneumonitis due to inhalation of food and vomit; N39.0 Urinary tract infection, site not specified; N17.9 Acute kidney failure, unspecified; E87.1 Hypo-osmolality and hyponatremia; E87.20 Acidosis, unspecified; D84.9 Immunodeficiency, unspecified; I13.0 Hypertensive heart and chronic kidney disease with heart failure and stage 1 through stage 4 chronic kidney disease, or unspecified chronic kidney disease; I48.19 Other persistent atrial fibrillation; I96 Gangrene, not elsewhere classified; E03.9 Hypothyroidism, unspecified; G43.909 Migraine, unspecified, not intractable, without status migrainosus; E78.5 Hyperlipidemia, unspecified; L40.50 Arthropathic psoriasis, unspecified; D69.59 Other secondary thrombocytopenia; G89.29 Other chronic pain; E66.9 Obesity, unspecified; I50.9 Heart failure, unspecified; N18.9 Chronic kidney disease, unspecified; R60.1 Generalized edema; R21 Rash and other nonspecific skin eruption; E16.2 Hypoglycemia, unspecified; D89.89 Other specified disorders involving the immune mechanism, not elsewhere classified; E83.39 Other disorders of phosphorus metabolism; Z68.33 Body mass index [BMI] 33.0-33.9, adult; I48.91 Unspecified atrial fibrillation; E87.70 Fluid overload, unspecified; E87.6 Hypokalemia; E83.51 Hypocalcemia; Z20.822 Contact with and (suspected) exposure to COVID-19; Z86.14 Personal history of Methicillin resistant Staphylococcus aureus infection; Z96.643 Presence of artificial hip joint, bilateral; Z99.3 Dependence on wheelchair; Z59.6 Low income; Z66 Do not resuscitate; Z89.512 Acquired absence of left leg below knee
CPT/HCPCS: 0223U; 31500; 36415; 36556; 36569; 36600; 62328; 71045; 71250; 74176; 74470; 76770; 77001; 80048; 80053; 81001; 81025; 81050; 82533; 82550; 82570; 82575; 82805; 82948; 83605; 83690; 83735; 83880; 84100; 84132; 84156; 84443; 84449; 84550; 85025; 85610; 85730; 86704; 86706; 86900; 87040; 87070; 87086; 87205; 87340; 90962; 93005; 93306; 93925; 94002; 94003; 94640; 94660; 94799; 99252; 99284; J0692; J0696; J1100; J1160; J1450; J1644; J1720; J1940; J2020; J2060; J2185; J2250; J2370; J2405; J3475; J3480; J7030; J7050; J7070; J7799; P9034; P9047

== ENCOUNTER 2023-12-02 08:00 | Outpatient (RCR) | payer MEDICARE, OTHER ==
[~2023-12-02 08:00] MED LIST changes: +ALDACTONE25 MG PO; +Artificial Tears (Opth) OU; +COREG12.5 MG PEG; -DEXAMETHASONE SOD PHOS INJ 4 MG/ML SDV ONE; +DOXEPIN HCL25 MG PO; +Docusate Sodium PO; -EPHEDRINE SULFATE INJ 50 MG/ML VIAL ONE; +ESTRADIOL PATCH; -EYE LUBRICANT OPTH OINT 3.5GM TUBE OP ONE; +FENTANYL1 EACH; +FLUCONAZOLE100 MG PO; +FOLIC ACID0.4 MG PO; +FUROSEMIDE20 MG; +HYDROCODON-ACE1 EAC9 PO; +Lidocaine Patch TP; -ONDANSETRON HCL INJ 2MG/ML 2ML 2 MG/ML VIAL ONE; +PEPCID20 MG PO; +POTASSIUM CHLO20 ME1 PO; -POVIDONE IODINE 0.05% 0.05 % ML PO ONE; +PROGESTERONE200 MG; +PROGESTERONE200 MG PO; -ROCURONIUM BROMIDE 10 MG/ML 5ML VIAL IV ONE; +VENELEX OINTMEN60 GM TP; +[UNRECOGNIZED DRUG - OTHER]
[2023-12-02] MEDS ORDERED: LIDOCAINE/PRILOCAINE 2.5-2.5% KIT ONE (17:11)
[2023-12-02] MEDS ORDERED: MUPIROCIN 2% OINT 22 GM TUBE ONE (17:11)
[2023-12-02] MEDS ORDERED: COLLAGENASE OINTMENT 30 GM TUBE ONE (17:11)
== END 2023-12-04 14:36 | disposition home or self-care (01) ==
LOC: WCC 08:00
PROVIDERS: ATTEND Nurse Practitioner Family
DX: I70.234 Atherosclerosis of native arteries of right leg with ulceration of heel and midfoot (principal); I70.244 Atherosclerosis of native arteries of left leg with ulceration of heel and midfoot; L97.418 Non-pressure chronic ulcer of right heel and midfoot with other specified severity; L97.428 Non-pressure chronic ulcer of left heel and midfoot with other specified severity

== ENCOUNTER → 2024-01-06 | Outpatient (RCR) | payer MEDICARE, OTHER ==
[~2024-01-06] MED LIST changes: +LIDOCAINE VISC 2% SOLN 15 ML UDC ONE; +LIDOCAINE/PRILOCAINE 2.5-2.5% KIT ONE; +MINERAL OIL/PETROLAT/GLYCERI 6OZ BTL ONE; +TRYPSIN/BALSAM PERU/CASTOR OIL ONE
== END ==
LOC: WCC 12-09 08:00
PROVIDERS: ATTEND Nurse Practitioner Family
DX: I70.244 Atherosclerosis of native arteries of left leg with ulceration of heel and midfoot (principal); L97.428 Non-pressure chronic ulcer of left heel and midfoot with other specified severity

== ENCOUNTER 2024-04-06 13:17 | Outpatient (RCR) | payer MEDICARE, OTHER ==
[~2024-04-06 13:17] MED LIST changes: -ESTRADIOL PATCH; +ESTRADIOL PATCH TOP; -MINERAL OIL/PETROLAT/GLYCERI 6OZ BTL ONE; -PROGESTERONE200 MG; +VITAMIN D250 MCG PO
== END 2024-04-07 ==
LOC: WCC 13:17
PROVIDERS: ATTEND Nurse Practitioner Family
DX: I70.234 Atherosclerosis of native arteries of right leg with ulceration of heel and midfoot (principal); I70.244 Atherosclerosis of native arteries of left leg with ulceration of heel and midfoot; L97.418 Non-pressure chronic ulcer of right heel and midfoot with other specified severity; L97.428 Non-pressure chronic ulcer of left heel and midfoot with other specified severity

== ENCOUNTER 2024-07-07 13:11 | Outpatient (RCR) | payer MEDICARE, OTHER ==
[~2024-07-07 13:11] MED LIST changes: +COLLAGENASE OINTMENT 30 GM TUBE ONE; -LIDOCAINE/PRILOCAINE 2.5-2.5% KIT ONE; -TRYPSIN/BALSAM PERU/CASTOR OIL ONE
[2024-07-07] MEDS ORDERED: COLLAGENASE OINTMENT 30 GM TUBE ONE (18:21)
[2024-07-07] MEDS ORDERED: LIDOCAINE/PRILOCAINE 2.5-2.5% KIT ONE (18:21)
== END 2024-07-08 ==
LOC: WCC 13:11
PROVIDERS: ATTEND Nurse Practitioner Family
DX: I70.244 Atherosclerosis of native arteries of left leg with ulceration of heel and midfoot (principal); I70.234 Atherosclerosis of native arteries of right leg with ulceration of heel and midfoot; L97.428 Non-pressure chronic ulcer of left heel and midfoot with other specified severity; L97.411 Non-pressure chronic ulcer of right heel and midfoot limited to breakdown of skin

== ENCOUNTER 2024-07-27 14:01 | Outpatient (RCR) | payer MEDICARE, OTHER ==
[~2024-07-27 14:01] MED LIST changes: -COLLAGENASE OINTMENT 30 GM TUBE ONE; +LIDOCAINE/PRILOCAINE 2.5-2.5% KIT ONE
== END 2024-08-05 ==
LOC: WCC 14:01
PROVIDERS: ATTEND Nurse Practitioner Family
DX: I70.244 Atherosclerosis of native arteries of left leg with ulceration of heel and midfoot (principal); L97.428 Non-pressure chronic ulcer of left heel and midfoot with other specified severity; L97.411 Non-pressure chronic ulcer of right heel and midfoot limited to breakdown of skin; I70.234 Atherosclerosis of native arteries of right leg with ulceration of heel and midfoot
CPT/HCPCS: 87071; 87075; 87186; 87205

== ENCOUNTER 2024-08-30 12:53 | Outpatient (RCR) | payer MEDICARE, OTHER | END 2024-09-05 | LOC: WCC 12:53 | PROVIDERS: ATTEND Nurse Practitioner Family | DX: I70.244 Atherosclerosis of native arteries of left leg with ulceration of heel and midfoot (principal); I70.234 Atherosclerosis of native arteries of right leg with ulceration of heel and midfoot; L97.428 Non-pressure chronic ulcer of left heel and midfoot with other specified severity; L97.411 Non-pressure chronic ulcer of right heel and midfoot limited to breakdown of skin ==

== ENCOUNTER → 2024-10-05 | Outpatient (RCR) | payer MEDICARE, OTHER ==
[~2024-10-05] MED LIST changes: +COLLAGENASE OINTMENT 30 GM TUBE ONE; +MINERAL OIL/PETROLAT/GLYCERI 6OZ BTL ONE
== END ==
LOC: WCC 09-07 08:00
PROVIDERS: ATTEND Nurse Practitioner Family
DX: I70.244 Atherosclerosis of native arteries of left leg with ulceration of heel and midfoot (principal); I70.234 Atherosclerosis of native arteries of right leg with ulceration of heel and midfoot; L97.428 Non-pressure chronic ulcer of left heel and midfoot with other specified severity; L97.411 Non-pressure chronic ulcer of right heel and midfoot limited to breakdown of skin

== ENCOUNTER 2024-12-28 13:00 | Outpatient (RCR) | payer MEDICARE, OTHER ==
[~2024-12-28 13:00] MED LIST changes: -COLLAGENASE OINTMENT 30 GM TUBE ONE; -MINERAL OIL/PETROLAT/GLYCERI 6OZ BTL ONE
== END 2025-01-05 ==
LOC: WCC 13:00
PROVIDERS: ATTEND Nurse Practitioner Family
DX: I70.244 Atherosclerosis of native arteries of left leg with ulceration of heel and midfoot (principal); I70.234 Atherosclerosis of native arteries of right leg with ulceration of heel and midfoot; L89.893 Pressure ulcer of other site, stage 3; L89.890 Pressure ulcer of other site, unstageable; L89.896 Pressure-induced deep tissue damage of other site; L97.428 Non-pressure chronic ulcer of left heel and midfoot with other specified severity; L97.422 Non-pressure chronic ulcer of left heel and midfoot with fat layer exposed; L97.411 Non-pressure chronic ulcer of right heel and midfoot limited to breakdown of skin; L97.412 Non-pressure chronic ulcer of right heel and midfoot with fat layer exposed

== ENCOUNTER 2025-02-02 12:00 | Outpatient (RCR) | payer MEDICARE, OTHER ==
[~2025-02-02 12:00] MED LIST changes: -LIDOCAINE VISC 2% SOLN 15 ML UDC ONE; -LIDOCAINE/PRILOCAINE 2.5-2.5% KIT ONE
== END 2025-02-05 ==
LOC: WCC 12:00
PROVIDERS: ATTEND Nurse Practitioner Family
DX: I70.244 Atherosclerosis of native arteries of left leg with ulceration of heel and midfoot (principal); L89.893 Pressure ulcer of other site, stage 3; L89.890 Pressure ulcer of other site, unstageable; L89.896 Pressure-induced deep tissue damage of other site; L97.428 Non-pressure chronic ulcer of left heel and midfoot with other specified severity; I70.234 Atherosclerosis of native arteries of right leg with ulceration of heel and midfoot; L97.411 Non-pressure chronic ulcer of right heel and midfoot limited to breakdown of skin; L97.422 Non-pressure chronic ulcer of left heel and midfoot with fat layer exposed

== ENCOUNTER 2025-02-27 11:27 | Outpatient (RCR) | payer MEDICARE, OTHER | END 2025-03-07 | LOC: WCC 11:27 | PROVIDERS: ATTEND Internal Medicine Infectious Disease | DX: I70.244 Atherosclerosis of native arteries of left leg with ulceration of heel and midfoot (principal); I70.234 Atherosclerosis of native arteries of right leg with ulceration of heel and midfoot; L89.893 Pressure ulcer of other site, stage 3; L89.890 Pressure ulcer of other site, unstageable; L89.896 Pressure-induced deep tissue damage of other site; L97.428 Non-pressure chronic ulcer of left heel and midfoot with other specified severity; L97.422 Non-pressure chronic ulcer of left heel and midfoot with fat layer exposed; L97.411 Non-pressure chronic ulcer of right heel and midfoot limited to breakdown of skin ==